=== PATIENT | female | born 1970 | race Two or more races ===

== ENCOUNTER 2020-09-30 17:11 | Emergency (ER) | payer OTHER, SELFPAY ==
--- NOTE | 2020-09-30 17:19 | ECG_ITS ---
Test Reason : N/V Blood Pressure : / mmHG Vent. Rate : 089 BPM Atrial Rate : 089 BPM P-R Int : 130 ms QRS Dur : 080 ms QT Int : 348 ms P-R-T Axes : 020 -02 004 degrees QTc Int : 423 ms Normal sinus rhythm Minimal voltage criteria for LVH, may be normal variant Abnormal ECG When compared with ECG of 27-JUL-2018 21:02, No significant change was found Referred By: Bree Martin Electronically Signed By:BEATRIZ DENISE MD
--- NOTE | 2020-09-30 17:20 | XR_ITS ---
EXAMINATION: XR CHEST CLINICAL INFORMATION: Cough COMPARISON: 06/14/2020 TECHNIQUE: Frontal view of the chest was obtained. FINDINGS: Again seen is eventration of the right anteromedial hemidiaphragm, unchanged. No other significant abnormality is noted involving the heart, lungs, mediastinum, bony thorax or soft tissues. XR/XR chest 1V IMPRESSION: No acute intrathoracic disease.
--- NOTE | 2020-09-30 17:26 | ED.URI ---
HPI - URI/Sore Throat General Chief Complaint: Upper Respiratory Symptoms Stated Complaint: cough, chest tightness Time Seen by Provider: 09/30/20 17:19 Source: patient Mode of arrival: ambulatory Limitations: no limitations History of Present Illness HPI Narrative: 49 y/o female with history of asthma, active smoker, s/p gastric bypass who presents with 1 week of dry cough and chest tightness for the last 24 hours. She also reports middle back soreness and right lower neck pain. She fell down concrete stairs almost a month ago and has had intmittent muscle pain and soreness since. She describes the chest pain as burning and it is over her entire chest wall. Her cough is dry and bothersome at night. She has chronic runny nose and mild sore throat as well. Related Data Previous Rx's Medication Instructions Recorded albuterol sulfate 1 inh INHALATION QID PRN #6.7 g NS 09/30/20 azithromycin [Zithromax Z-Donal] See Rx Instructions .ROUTE 09/30/20 .COMPLEX #6 tab lidocaine [Lidoderm] 1 patch TOPICAL DAILY #15 ea 09/30/20 prednisone 40 mg PO DAILY #10 tab 09/30/20 Allergies Allergy/AdvReac Type Severity Reaction Status Date / Time No Known Allergies Allergy Unverified 08/10/20 17:33 Review of Systems Review of Systems: Constitutional: No Fever, + Chills ENT/Mouth: + sore throat, + Rhinorrhea, No Swallowing Difficulty Eyes: No Eye Pain, No Swelling, No Redness Cardiovascular: + Chest Pain, No SOB, No Orthopnea, No Edema Respiratory: + Cough, + mild Sputum, + intermittent mild Wheezing, No dyspnea Gastrointestinal: No Nausea, No Vomiting, No Diarrhea, No abdominal Pain Genitourinary: No Dysuria, No Urinary Frequency, No Hematuria Musculoskeletal: + joint pain, + Myalgias Skin: No Skin Lesions, No rash Neuro: No Weakness, No Numbness, No Dizziness, No Headache Psych: No Anxiety/Panic, No Depression Heme/Lymph: + Bruising to right knee after fall, No Lymphadenopathy Endocrine: No Polyuria, No Polydipsia PMFSH Past Medical History Attestation statement: The following information was validated with the patient. Medical History (Updated 09/30/20 @ 20:03 by ELDA Daniels) Bronchial asthma delivery delivered Surgical History Gastric bypass status for obesity Hx of breast reduction, elective Hx of hernia repair Social History Social History Advance Directives: No Advance Directives Information Provided: Yes Physical Exam Vital Signs: Vital Signs: Last Vital Signs Temp 98.0 F 09/30/20 17:29 Pulse 97 09/30/20 17:29 Resp 20 09/30/20 17:29 BP 162/92 H 09/30/20 17:29 Pulse Ox 98 09/30/20 17:29 Body Mass Index 34.0 Appearance: Alert. Oriented X3. No acute distress. Eyes: Pupils equal, round and reactive to light. ENT: Pharynx normal. Neck: Normal inspection. Neck supple. posterior right neck with spasm CVS: Normal heart rate and rhythm. Pulses normal. Anterior chest wall tenderness throughout Respiratory: No respiratory distress. mild expiratory wheeze in RLL, no rhonchi. congested cough Abdomen: Soft and nontender. +BS x4 Skin: Skin warm and dry. Normal skin color. Normal skin turgor. No rashes. Extremities: No lower extremity edema. Mild subpatellar right knee tenderness with ecchymosis, full ROM. Neuro: Oriented X 3. No motor deficit. No sensory deficit. Course Course Course Narrative: 49 y/o female presenting with pleuritic chest pain and dry cough x1 week. Low suspicion for ACS or PE. Will get labs and EKG, CXR and COVID swab. Reevaluation(s) Reevaluation #1: Lab workup unremarkable aside from mild elevation of LFTs, normal bili's. No abd pain or tenderness on exam. CXR negative. Significant muscular improvement with lidoderm patch. Patient is stable for discharge home with treatment for acute bronchitis. Will f/u with PCP early next week. MDM - URI/Sore Throat MDM Narrative Medical decision making narrative: ACS, costochondritis Differential Diagnosis Differential diagnosis: Likely upper respiratory infection, croup, sinusitis, viral infection, bronchitis, influenza and pharyngitis Lab Data Result diagrams: 09/30/20 17:55 09/30/20 17:55 Labs: Lab Results 09/30/20 09/30/20 09/30/20 Range/Units 17:54 17:54 17:55 WBC 10.0 (4.8-10.8) X10*3/uL RBC 4.61 (4.20-5.50) X10*6/uL Hgb 14.2 (12.0-16.0) g/dl Hct 42.3 (37-47) % MCV 91.8 (80-98) fL MCH 30.8 (27.0-33.0) pg MCHC 33.6 (31.0-35.0) g/dl RDW 13.3 (11.0-16.0) % Plt Count 274 (160-400) X10*3/uL MPV 9.7 (9.4-12.3) fL Immature Gran % (Auto) 0.4 (0.0-0.4) % Neut % (Auto) 61.0 (45-73) % Lymph % (Auto) 28.3 (20-40) % [place] % (Auto) 8.2 (2-11) % Eos % (Auto) 1.5 (0-4) % Baso % (Auto) 0.6 (0-2) % Lymph # (Auto) 2.8 (1.2-4.9) X10*3/uL [place] # (Auto) 0.8 (0.1-1.2) X10*3/uL Eos # (Auto) 0.2 (0.0-0.4) X10*3/uL Baso # (Auto) 0.1 (0.0-0.2) X10*3/uL Abs Immat Gran (auto) 0.04 H (0.00-0.03) X10*3/uL Absolute Neuts (auto) 6.1 (2.0-8.3) X10*3/uL Absolute Nucleated RBC 0.000 (0.0-0.012) X10*3/uL Nucleated RBC % (auto) 0.0 (0.0-0.2) /100WBC Hold Blue Top SEE NOTE Sodium (135-145) mmol/L Potassium (3.3-5.1) mmol/l Chloride (96-108) mmol/L Carbon Dioxide (22-29) mmol/L Anion Gap (12-20) BUN (9-16) mg/dL Creatinine (0.5-1.4) mg/dL Estim Creat Clear Calc Estimated GFR Random Glucose (60-115) mg/dL Calcium (8.4-10.2) mg/dL Total Bilirubin (0.0-1.0) mg/dL Direct Bilirubin (0.0-0.5) mg/dL AST (5-31) U/L ALT (0-31) U/L Alkaline Phosphatase (39-117) U/L Troponin I High Sens < 3.5 (<3.5-17.0) ng/L Total Protein (6.5-8.0) g/dL Albumin (3.5-5.0) g/dL Urine Color Urine Appearance Urine pH (5.0-8.0) Ur Specific [place] (1.005-1.025) Urine Protein (NEG-TRACE) MG/DL Urine Glucose (UA) (NEG) MG/DL Urine Ketones (NEG) MG/DL Urine Blood (NEG) Urine Nitrite (NEG) Ur Leukocyte Esterase (NEG) Urine RBC (0) /HPF Urine WBC (0-4) /HPF Ur Squamous Epith Cells /LPF Urine Bacteria /LPF 09/30/20 09/30/20 Range/Units 17:55 18:24 WBC (4.8-10.8) X10*3/uL RBC (4.20-5.50) X10*6/uL Hgb (12.0-16.0) g/dl Hct (37-47) % MCV (80-98) fL MCH (27.0-33.0) pg MCHC (31.0-35.0) g/dl RDW (11.0-16.0) % Plt Count (160-400) X10*3/uL MPV (9.4-12.3) fL Immature Gran % (Auto) (0.0-0.4) % Neut % (Auto) (45-73) % Lymph % (Auto) (20-40) % [place] % (Auto) (2-11) % Eos % (Auto) (0-4) % Baso % (Auto) (0-2) % Lymph # (Auto) (1.2-4.9) X10*3/uL [place] # (Auto) (0.1-1.2) X10*3/uL Eos # (Auto) (0.0-0.4) X10*3/uL Baso # (Auto) (0.0-0.2) X10*3/uL Abs Immat Gran (auto) (0.00-0.03) X10*3/uL Absolute Neuts (auto) (2.0-8.3) X10*3/uL Absolute Nucleated RBC (0.0-0.012) X10*3/uL Nucleated RBC % (auto) (0.0-0.2) /100WBC Hold Blue Top Sodium 142 (135-145) mmol/L Potassium 4.6 (3.3-5.1) mmol/l Chloride 105 (96-108) mmol/L Carbon Dioxide 28 (22-29) mmol/L Anion Gap 14 (12-20) BUN 13 (9-16) mg/dL Creatinine 0.69 (0.5-1.4) mg/dL Estim Creat Clear Calc 95.5 Estimated GFR > 60 Random Glucose 85 (60-115) mg/dL Calcium 9.7 (8.4-10.2) mg/dL Total Bilirubin 0.7 (0.0-1.0) mg/dL Direct Bilirubin 0.3 (0.0-0.5) mg/dL AST 41 H (5-31) U/L ALT 35 H (0-31) U/L Alkaline Phosphatase 126 H (39-117) U/L Troponin I High Sens (<3.5-17.0) ng/L Total Protein 7.2 (6.5-8.0) g/dL Albumin 4.3 (3.5-5.0) g/dL Urine Color YELLOW Urine Appearance CLEAR Urine pH 6.0 (5.0-8.0) Ur Specific [place] 1.025 (1.005-1.025) Urine Protein NEG (NEG-TRACE) MG/DL Urine Glucose (UA) NEG (NEG) MG/DL Urine Ketones 5 (NEG) MG/DL Urine Blood TRACE (NEG) Urine Nitrite NEG (NEG) Ur Leukocyte Esterase NEG (NEG) Urine RBC 0 (0) /HPF Urine WBC 0 (0-4) /HPF Ur Squamous Epith Cells NONE /LPF Urine Bacteria NONE /LPF Discharge Plan Discharge Clinical Impression: Bronchitis Patient Disposition: Home, Self-Care Instructions: Acute Bronchitis (ED) Additional Instructions: You were tested for COVID-19 today. We will call you with the results in 2-4 days. Your chest x-ray did not show any evidence of pneumonia. If you develop difficulty breathing, chest pain, worsening shortness of breath call 911 or come back to the ER for further evaluation. Follow up with your Primary Care Doctor next week. Prescriptions: New azithromycin [Zithromax Z-Donal] 250 mg tablet See Rx Instructions .ROUTE .COMPLEX Qty: 6 RF: 0 lidocaine [Lidoderm] 5 % adhesive patch,medicated 1 patch topical DAILY Qty: 15 RF: 0 prednisone 20 mg tablet 40 mg PO DAILY Qty: 10 RF: 0 albuterol sulfate 90 mcg/actuation HFA aerosol inhaler 1 inh inhalation QID PRN (Reason: shortness of breath or wheezing) Qty: 6.7 RF: 0 Stand Alone Forms: Work/School Release
[2020-09-30 17:29] VITALS: BP 162/92; PULSE 97; RESP 20; TEMP 36.7; O2SAT 98; BMI 34.0
[2020-09-30 17:59] LABS: MANUAL DIFF FLAG NO
[2020-09-30 18:01] LABS: Basophils Absolute Auto 0.1 X10*3/uL (0.0-0.2); Basophils Percent Auto 0.6 % (0-2); Eosinophils Absolute Auto 0.2 X10*3/uL (0.0-0.4); Eosinophils Percent Auto 1.5 % (0-4); Hematocrit 42.3 % (37-47); Hemoglobin 14.2 g/dl (12.0-16.0); Imm Gran Abs Auto 0.04 X10*3/uL (0.00-0.03); Imm Gran Pct Auto 0.4 % (0.0-0.4); Lymphocytes Absolute Auto 2.8 X10*3/uL (1.2-4.9); Lymphocytes Percent Auto 28.3 % (20-40); Mean Corpuscular HGB Conc 33.6 g/dl (31.0-35.0); Mean Corpuscular Hemoglobin 30.8 pg (27.0-33.0); Mean Corpuscular Volume 91.8 fL (80-98); Mean Platelet Volume 9.7 fL (9.4-12.3); Monocytes Absolute Auto 0.8 X10*3/uL (0.1-1.2); Monocytes Percent Auto 8.2 % (2-11); Neutrophils Absolute Auto 6.1 X10*3/uL (2.0-8.3); Platelet Count 274 X10*3/uL (160-400); Red Blood Count 4.61 X10*6/uL (4.20-5.50); Red Cell Distribution Width 13.3 % (11.0-16.0)
[2020-09-30] MEDS: 0.9 % Sodium Chloride 1,000 ML 999 ML IVCONT (18:23)
[2020-09-30] MEDS: Lidocaine 4 % Patch ADH..PATCH 1 PATCH TRANSDERMA (18:23)
[2020-09-30 18:36] LABS: Alanine Aminotransferase 35 U/L (0-31); Albumin Level 4.3 g/dL (3.5-5.0); Alkaline Phosphatase 126 U/L (39-117); Anion Gap 14 (12-20); Aspartate Amino Transferase 41 U/L (5-31); Bilirubin Direct 0.3 mg/dL (0.0-0.5); Bilirubin Total 0.7 mg/dL (0.0-1.0); Blood Urea Nitrogen 13 mg/dL (9-16); Calcium 9.7 mg/dL (8.4-10.2); Carbon Dioxide 28 mmol/L (22-29); Chloride 105 mmol/L (96-108); Creatinine Clr Calc Pharmacy 95.5; Estimated Glomerular Filt Rate > 60; Glucose Random 85 mg/dL (60-115); Potassium 4.6 mmol/l (3.3-5.1); Sodium 142 mmol/L (135-145); Total Protein 7.2 g/dL (6.5-8.0)
[2020-09-30 18:40] LABS: Glucose Urine UA NEG (NEG); Leukocyte Esterase Urine NEG (NEG); Nitrite Urine NEG (NEG); Specific Gravity - Urine 1.025 (1.005-1.025); Urine Blood TRACE (NEG); Urine Ketones 5 MG/DL (NEG); Urine Protein NEG (NEG-TRACE)
[2020-09-30 18:41] LABS: Appearance Urine CLEAR; Color Urine YELLOW
[2020-09-30 18:42] LABS: Troponin-I High Sensitivity < 3.5 ng/L (<3.5-17.0)
[2020-09-30 18:47] LABS: RBC Urine 0 /HPF (0); WBC Urine 0 /HPF (0-4)
== END 2020-09-30 20:30 | disposition home or self-care (01) ==
PROVIDERS: Physician Assistant; Emergency Provider Emergency Medicine; PCP Internal Medicine
DX: J40 Bronchitis, not specified as acute or chronic (principal); R05 Cough; Z79.899 Other long term (current) drug therapy; Z20.828 Contact with and (suspected) exposure to other viral communicable diseases
CPT/HCPCS: 36415; 71045; 80048; 80076; 81001; 84484; 85025; 93005; 96360; 99283; 99284; U0003

== ENCOUNTER 2021-02-21 14:14 | Outpatient (REF) | payer OTHER, SELFPAY ==
--- NOTE | ~2021-02-21 | XR_ITS ---
EXAMINATION: XR CERVICAL SPINE CLINICAL INFORMATION: Radiculopathy COMPARISON: 03/27/2016 TECHNIQUE: 3 views of the cervical spine were obtained. FINDINGS: There is no acute fracture or subluxation. Vertebral body height and alignment is maintained. Disc space narrowing of C4-C5, C5-C6, and C6-C7 with endplate osteophyte formation. The atlantoaxial joint is well aligned. The dens is intact. The prevertebral soft tissues are unremarkable. The lung apices are clear. XR/XR cervical spine 2V IMPRESSION: Mild to moderate degenerative changes of the mid cervical spine.
== END 2021-02-21 14:15 | disposition home or self-care (01) ==
LOC: HO.XRAY 14:14
PROVIDERS: PCP Internal Medicine; Visit Provider Internal Medicine
DX: M54.12 Radiculopathy, cervical region (principal)
CPT/HCPCS: 72040

== ENCOUNTER 2021-03-26 12:58 | Outpatient (REF) | payer OTHER, SELFPAY ==
--- NOTE | ~2021-03-26 | XR_ITS ---
EXAMINATION: XR CHEST CLINICAL INFORMATION: Bronchitis COMPARISON: Previous chest x-rays most recent September 2020 and chest CTA January 2017 TECHNIQUE: 2 views of the chest were obtained. FINDINGS: The cardiac and mediastinal contours are normal. The lungs are clear. There is no pleural effusion or pneumothorax. There is eventration of the anterior right hemidiaphragm similar to previous exam. There are mild degenerative changes of the spine. XR/XR chest 2V IMPRESSION: No evidence for acute disease in the chest.
== END 2021-03-26 12:59 | disposition home or self-care (01) ==
LOC: HO.HMGCX 12:58
PROVIDERS: PCP Internal Medicine; Visit Provider Hospitalist
DX: J40 Bronchitis, not specified as acute or chronic (principal)
CPT/HCPCS: 71046

== ENCOUNTER 2021-04-22 08:10 | Emergency (ER) | payer OTHER, SELFPAY ==
--- NOTE | ~2021-04-22 | CT_ITS ---
EXAMINATION: CT ABDOMEN AND PELVIS WITH CONTRAST CLINICAL INFORMATION: Right lower quadrant, right flank pain. Gastric bypass. Rule out kidney stone. Rule out SBO. COMPARISON: CT scan of the abdomen and pelvis dated 08/16/2016. TECHNIQUE: Multidetector CT volumetric acquisition of the abdomen and pelvis was performed after the administration of 85 mL of intravenous Omnipaque 350. The data set was reformatted in the sagittal and coronal planes and reviewed on an independent workstation. This CT examination was performed using dose optimization techniques as appropriate, variously including the following: *Automated exposure control *Adjustment of mA and/or kV according to patient size (this includes techniques or standardized protocols for targeted exams where dose is matched to indication/reason for exam; i.e. extremities or head) *Use of iterative reconstruction technique DLP: 820 mGy-cm. FINDINGS: LOWER CHEST: Focal eventration of the anterior right hemidiaphragm. Lung bases unremarkable. Mild coronary artery calcifications. LIVER, GALLBLADDER, BILIARY TREE: Liver normal size and diffusely lower in attenuation compared to the spleen, consistent with hepatic steatosis. No focal cystic or solid mass or intra-or extrahepatic ductal dilatation. Hepatic and portal veins patent. Gallbladder partially distended and within normal limits. PANCREAS: Mild diffuse fatty infiltration in the pancreatic head and proximal body. No ductal dilatation, mass, or surrounding stranding. SPLEEN: Normal size and appearance. Splenic vein patent. ADRENAL GLANDS AND KIDNEYS: Adrenal glands normal. Kidneys bilaterally symmetric in size and function. Punctate lower pole 2 mm calcification in the right kidney. No other renal calculi. No focal mass, hydronephrosis, or perinephric stranding. Focal small cortical defect in the posterior upper right kidney is stable, perhaps due to prominent lobulation versus small old infarct or scar. URETERS AND BLADDER: Ureters decompressed and within normal limits. Bladder partially distended and within normal limits. PELVIC ORGANS: Unremarkable. GASTROINTESTINAL TRACT: The patient is status post gastric bypass surgery with the gastric pouch located above the level of the diaphragms, consistent with a small hiatal hernia. Rectocolic anastomosis is intact and unremarkable. The excluded stomach is decompressed with no evidence of suture dehiscence seen.. Small and large bowel loops otherwise unremarkable in decompressed. Appendix in right lower quadrant normal. ABDOMINAL WALL: Diastases of the rectus abdominis muscles is again noted with multiple midline small fat-containing ventral wall hernias, largest of which is at the umbilical level, similar to prior exam. LYMPHOVASCULAR STRUCTURES: Abdominal aorta normal in caliber with mild atherosclerotic calcification seen. No periaortic collections. 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 There is a mildly enlarged 1.8 cm right para-aortic lymph node, unchanged from prior exam. BONES: Severe degenerative disc disease at L4-5 and L5-S1 with marked disc space narrowing, vacuum disc phenomenon, vertebral endplate sclerosis and spurring and associated moderate facet arthropathy seen. There is also severe disc space narrowing at L3-4 and mild disc space narrowing and vertebral spurring in the remaining lumbar spine. Moderate vertebral spondylosis in lower thoracic spine. CT/CT abdomen pelvis w con IMPRESSION: 1. Nonobstructing 2 mm lower pole right renal calculus. No other renal, ureteral or bladder calculi. No evidence of obstructive uropathy. 2. Status post gastric bypass surgery with no secondary complications seen. 3. No evidence of bowel obstruction. 4. 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 5. Mild fatty infiltration of the pancreatic head.
[2021-04-22 08:35] VITALS: BP 117/81; PULSE 107; RESP 18; TEMP 36.5; O2SAT 98; BMI 34.1
[2021-04-22 08:47] LABS: Glucose Urine UA NEG (NEG); Leukocyte Esterase Urine NEG (NEG); Nitrite Urine NEG (NEG); Urine Blood 1+ (NEG); Urine Ketones NEG (NEG); Urine Protein NEG (NEG-TRACE)
[2021-04-22 08:49] LABS: Appearance Urine CLEAR; Color Urine YELLOW
[2021-04-22 08:56] LABS: Basophils Absolute Auto 0.1 X10*3/uL (0.0-0.2); Basophils Percent Auto 0.7 % (0-2); Eosinophils Absolute Auto 0.2 X10*3/uL (0.0-0.4); Eosinophils Percent Auto 2.3 % (0-4); Hematocrit 46.8 % (37-47); Hemoglobin 15.5 g/dl (12.0-16.0); Imm Gran Abs Auto 0.02 X10*3/uL (0.00-0.03); Imm Gran Pct Auto 0.3 % (0.0-0.4); Lymphocytes Percent Auto 28.3 % (20-40); MANUAL DIFF FLAG NO; Mean Corpuscular HGB Conc 33.1 g/dl (31.0-35.0); Mean Corpuscular Hemoglobin 30.3 pg (27.0-33.0); Mean Corpuscular Volume 91.6 fL (80-98); Mean Platelet Volume 10.1 fL (9.4-12.3); Monocytes Absolute Auto 0.6 X10*3/uL (0.1-1.2); Monocytes Percent Auto 8.2 % (2-11); Neutrophils Absolute Auto 4.3 X10*3/uL (2.0-8.3); Neutrophils Percent Auto 60.2 % (45-73); Platelet Count 271 X10*3/uL (160-400); Red Blood Count 5.11 X10*6/uL (4.20-5.50); Red Cell Distribution Width 13.4 % (11.0-16.0); White Blood Count 7.1 X10*3/uL (4.8-10.8)
[2021-04-22 09:02] LABS: Bacteria Urine 1+ /LPF; Squamous Epithelial Cell Urine 2+ /LPF; WBC Urine 0 /HPF (0-4)
[2021-04-22 09:37] LABS: Anion Gap 16 (12-20); Blood Urea Nitrogen 14 mg/dL (9-16); Calcium 9.7 mg/dL (8.4-10.2); Carbon Dioxide 25 mmol/L (22-29); Chloride 105 mmol/L (96-108); Creatinine Clr Calc Pharmacy 96.1; Estimated Glomerular Filt Rate > 60; Glucose Random 96 mg/dL (60-115); Potassium 4.2 mmol/L (3.3-5.1); Sodium 142 mmol/L (135-145)
[2021-04-22] MEDS: 0.9 % Sodium Chloride 1,000 ML 999 ML IV (09:44)
[2021-04-22] MEDS: Ketorolac Tromethamine 30 MG/ML VIAL IVPUSH (09:44)
[2021-04-22 09:45] VITALS: BP 101/73; PULSE 85
[2021-04-22] MEDS: iohexoL 350 MG/ML 100 ML INFUS..BTL IV (10:33)
[2021-04-22 11:20] LABS: Alanine Aminotransferase 62 U/L (0-31); Albumin Level 4.4 g/dL (3.5-5.0); Alkaline Phosphatase 133 U/L (39-117); Aspartate Amino Transferase 56 U/L (5-31); Bilirubin Direct 0.3 mg/dL (0.0-0.5); Bilirubin Total 0.8 mg/dL (0.0-1.0); Lipase 29 U/L (8-78); Total Protein 7.2 g/dL (6.5-8.0)
--- NOTE | 2021-04-22 11:31 | ED.ABDPAIN ---
HPI - Abdominal Pain General Chief Complaint: Abdominal Pain Stated Complaint: r lower abd pain into back Time Seen by Provider: 04/22/21 09:23 Source: patient Mode of arrival: ambulatory Limitations: no limitations History of Present Illness HPI narrative: 50-year-old female who presents emergency department for evaluation of right lower quadrant abdominal pain and back pain x2 days. Patient states she had a similar pain 1 week prior that resolved and then returned 2 days prior. She states that the pain is a constant pain that waxes and wanes in intensity with a dull and sharp component. She states that the dull component is 7/10 on a sharp component is 10/10 at its worst. She denied fever, chills, nausea, vomiting, frequency, urgency or dysuria. Patient states she has been taking Advil with some relief for pain. She does have a history of kidney stones and she has thinks that the pain feels similar to previous kidney stones. The patient also has a history of gastric bypass surgery, C-sections, cholecystectomy and hernia repair in the past. She states that she has had a small bowel obstruction in the past as well secondary to adhesions. Related Data Previous Rx's Medication Instructions Recorded albuterol sulfate 90 mcg/actuation 1 inh INHALATION QID PRN 30 Days 02/21/21 aerosol inhaler #6.7 g NS ibuprofen 800 mg tablet 800 mg PO Q8H PRN 30 Days #90 tab 02/21/21 amoxicillin 875 mg-potassium 1 tab PO BID #20 tab 03/26/21 clavulanate 125 mg tablet prednisone 10 mg tablet 10 mg PO .COMPLEX #45 tab 03/26/21 Allergies Allergy/AdvReac Type Severity Reaction Status Date / Time No Known Allergies Allergy Verified 03/26/21 12:50 Review of Systems Review of Systems Yes all other systems are reviewed and are negative Physical Exam Vital Signs: Vital Signs: Last Vital Signs Temp 97.7 F 04/22/21 08:35 Pulse 85 04/22/21 09:45 Resp 18 04/22/21 08:35 BP 101/73 04/22/21 09:45 Pulse Ox 98 04/22/21 08:35 Body Mass Index 34.1 Const: General: cooperative and healthy appearing Orientation/consciousness: oriented to person and oriented to place Limitations: no limitations HENMT: Head: Yes normal to inspection, Yes normocephalic and Yes atraumatic Ears: external ears normal General nose exam: Normal external nose present Face and sinus: Yes normal facial exam Mouth: Normal oral and palatal mucosa present Throat: Yes posterior oropharynx normal Eyes: Periorbital: periorbital findings normal Eyelids: Yes eyelids normal Conjunctivae: conjunctivae normal Sclerae: sclerae normal Corneas: corneas normal Pupils: Equal, round and reactive pupils present Direct Ophthalmoscopy: normal light reflex Neck: Neck: Yes full ROM, Yes no lymphadenopathy, Yes no meningeal signs, Yes trachea midline and Yes supple Chest: Chest palpation & inspection: normal inspection of the chest and normal palpation of entire chest wall Resp: Effort & Inspection: normal respiratory effort and able to speak in complete sentences Auscultation: clear to auscultation bilaterally Cardio: Rate: regular rate Rhythm: regular rhythm Heart sounds: S1 normal heart sound present, S2 normal heart sound present and no murmurs GI: Inspection: Yes normal to inspection Palpation (GI): Soft to palpation, Tenderness to palpation present (GI) in the RLQ (Moderate), no guarding, not rigid and No hepatosplenomegaly present : General: Yes CVA tenderness on the right (Moderate) Back/Spine/Pelvis: Back: CVA tenderness Cervical Spine: normal cervical lordosis Thoracic/Lumbar Spine: thoracic and lumbar spine normal to inspection Skin: Lesions: no lesions Rashes: no rashes Wounds: no wounds Neuro: General: oriented to person, oriented to place and no meningeal signs Cranial nerves: Yes CN's II-XII intact bilaterally and Yes Equal, round and reactive pupils present Cognition (Neuro): normal cognition Motor exam (neuro): 5/5 motor strength present throughout Extrem: General: Yes normal to inspection and Yes full ROM Psych: Appearance: well kempt Mental Status: mental status grossly normal Speech and movement: Normal speech and movement present Affect: normal affect Attitude: cooperative Thought process: Normal thought process present Thought content: Normal thought content present Course Course Course Narrative: 50-year-old female who presents emergency department for evaluation of right lower quadrant abdominal pain and right back pain. Patient has history of gastric bypass surgery as well as cholecystectomy C sections and small bowel obstruction in the past. Vital signs are stable. Physical examination revealed right lower quadrant right flank tenderness. Laboratory evaluation revealed elevated AST, ALT and alk-phos of 56, 62 and 133. Urinalysis revealed 1+ blood. Microscopic revealed 5-9 RBCs and [address] scan of the abdomen pelvis with IV contrast did not reveal a clear cause for the patient's pain. There were incidental findings which I did discuss with the patient including fatty liver, 2 mm right kidney stone nonobstructing and a ventral hernia with fat in the hernia. The patient will be treated for possible constipation as the cause of her pain. She is advised to take Tylenol and ibuprofen for pain as well. She was given verbal and printed instructions advised to follow-up with her PCP and return if her symptoms get worse or if she develops new symptoms that are concerning to her. MDM - Abdominal Pain Lab Data Result diagrams: 04/22/21 08:52 04/22/21 08:52 Labs: Lab Results 04/22/21 04/22/21 04/22/21 Range/Units 08:40 08:52 08:52 WBC 7.1 (4.8-10.8) X10*3/uL RBC 5.11 (4.20-5.50) X10*6/uL Hgb 15.5 (12.0-16.0) g/dl Hct 46.8 (37-47) % MCV 91.6 (80-98) fL MCH 30.3 (27.0-33.0) pg MCHC 33.1 (31.0-35.0) g/dl RDW 13.4 (11.0-16.0) % Plt Count 271 (160-400) X10*3/uL MPV 10.1 (9.4-12.3) fL Immature Gran % (Auto) 0.3 (0.0-0.4) % Neut % (Auto) 60.2 (45-73) % Lymph % (Auto) 28.3 (20-40) % [place] % (Auto) 8.2 (2-11) % Eos % (Auto) 2.3 (0-4) % Baso % (Auto) 0.7 (0-2) % Lymph # (Auto) 2.0 (1.2-4.9) X10*3/uL [place] # (Auto) 0.6 (0.1-1.2) X10*3/uL Eos # (Auto) 0.2 (0.0-0.4) X10*3/uL Baso # (Auto) 0.1 (0.0-0.2) X10*3/uL Abs Immat Gran (auto) 0.02 (0.00-0.03) X10*3/uL Absolute Neuts (auto) 4.3 (2.0-8.3) X10*3/uL Absolute Nucleated RBC 0.000 (0.0-0.012) X10*3/uL Nucleated RBC % (auto) 0.0 (0.0-0.2) /100WBC Sodium 142 (135-145) mmol/L Potassium 4.2 (3.3-5.1) mmol/L Chloride 105 (96-108) mmol/L Carbon Dioxide 25 (22-29) mmol/L Anion Gap 16 (12-20) BUN 14 (9-16) mg/dL Creatinine 0.68 (0.5-1.4) mg/dL Estim Creat Clear Calc 96.1 Estimated GFR > 60 Random Glucose 96 (60-115) mg/dL Calcium 9.7 (8.4-10.2) mg/dL Total Bilirubin 0.8 (0.0-1.0) mg/dL Direct Bilirubin 0.3 (0.0-0.5) mg/dL AST 56 H (5-31) U/L ALT 62 H (0-31) U/L Alkaline Phosphatase 133 H (39-117) U/L Total Protein 7.2 (6.5-8.0) g/dL Albumin 4.4 (3.5-5.0) g/dL Lipase 29 (8-78) U/L Urine Color YELLOW Urine Appearance CLEAR Urine pH 6.0 (5.0-8.0) Ur Specific [place] 1.020 (1.005-1.025) Urine Protein NEG (NEG-TRACE) MG/DL Urine Glucose (UA) NEG (NEG) MG/DL Urine Ketones NEG (NEG) MG/DL Urine Blood 1+ H (NEG) Urine Nitrite NEG (NEG) Ur Leukocyte Esterase NEG (NEG) Urine RBC 5-9 H (0) /HPF Urine WBC 0 (0-4) /HPF Ur Squamous Epith Cells 2+ /LPF Urine Bacteria 1+ /LPF Discharge Plan Discharge Clinical Impression: Abdominal pain Qualifiers: Abdominal location: right lower quadrant Qualified Code(s): R10.31 - Right lower quadrant pain Constipation Qualifiers: Constipation type: unspecified constipation type Qualified Code(s): K59.00 - Constipation, unspecified Patient Disposition: Home, Self-Care Instructions: Abdominal Pain (ED) Additional Instructions: Your blood work was unremarkable except for some elevations in your liver function tests, he had similar elevations in the past. The CT scan of your abdomen pelvis with IV contrast did not reveal a clear cause for your pain. You do have a 2 mm kidney stone in your right kidney but this is not the cause of your pain. You also have a hernia around your umbilical area with fat in the hernia only and no bowel, this is not the cause of your pain. Take Metamucil 1 tsp in 8 oz of water daily Take Colace stool softener 1 pill twice a day daily. Take Senokot laxative as directed on the box. Take this for 4 days to see if this improves her constipation and pain. Take ibuprofen 200 mg pills, 3 pills every 6 hours as needed for pain. Take Tylenol (acetaminophen) 500 mg pills, 2 pills every 4 to 6 hours as needed for pain. Follow-up with your doctor in 2 days. Please return to the emergency department if your symptoms get worse or if you develop any symptoms that are concerning to you. Prescriptions: No Action ibuprofen 800 mg tablet 800 mg PO Q8H PRN (Reason: pain) 30 Days Qty: 90 RF: 1 albuterol sulfate 90 mcg/actuation HFA aerosol inhaler 1 inh inhalation QID PRN (Reason: shortness of breath or wheezing) 30 Days Qty: 6.7 RF: 3 prednisone 10 mg tablet 10 mg PO .COMPLEX Qty: 45 RF: 0 amoxicillin-pot clavulanate [Augmentin] 875-125 mg tablet 1 tab PO BID Qty: 20 RF: 0 Interventions: ED Discharge Assessment Last Done: 04/22/21 11:43 Discharge Date/Time: 04/22/21 11:44 [facility] Past Medical History [facility] Narrative: Past medical history: Please see the HPI. Social history: The patient does smoke 1 pack of cigarettes per day times many years. She states she drinks alcohol occasionally. She denies drug use. Medical History Bronchial asthma Cervical radiculopathy Neck pain Occipital headache Surgical History delivery delivered Gastric bypass status for obesity Hx of breast reduction, elective Hx of hernia repair Family History Family History Mother Hypertension Alzheimer disease Father Alzheimer disease Social History Social History Alcohol intake: current Alcohol intake frequency: holidays/special occasions only Cigarettes Per Day: 4 Advance Directives: Yes Advance Directives Information Provided: No Advance Directives on File: No Patient : No
== END 2021-04-22 11:44 | disposition home or self-care (01) ==
PROVIDERS: Emergency Provider Emergency Medicine Emergency Medical Services; PCP Internal Medicine
DX: R10.31 Right lower quadrant pain (principal); K59.00 Constipation, unspecified; R79.89 Other specified abnormal findings of blood chemistry; R93.5 Abnormal findings on diagnostic imaging of other abdominal regions, including retroperitoneum; N20.0 Calculus of kidney; K76.0 Fatty (change of) liver, not elsewhere classified; K43.9 Ventral hernia without obstruction or gangrene; Z98.84 Bariatric surgery status; Z90.49 Acquired absence of other specified parts of digestive tract
CPT/HCPCS: 36415; 74177; 80048; 80076; 81001; 83690; 85025; 96361; 96374; 99284; J1885; Q9967

== ENCOUNTER 2021-10-14 11:05 | Observation (INO) | payer OTHER, SELFPAY ==
--- NOTE | ~2021-10-14 | XR_ITS ---
EXAMINATION: XR CHEST CLINICAL INFORMATION: Back pain. COMPARISON: Several priors. Most recent of 03/26/21. TECHNIQUE: 2 views of the chest were obtained. FINDINGS: 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 The lungs are well expanded and clear. The pleural spaces are clear. Heart size is normal. No bony abnormality is evident. XR/XR chest 2V IMPRESSION: No acute abnormality.
--- NOTE | ~2021-10-14 | MR_ITS ---
EXAMINATION: MR CERVICAL SPINE WITHOUT AND WITH CONTRAST CLINICAL INFORMATION: Paresthesias and numbness to right side of the body. COMPARISON: Plain films of the cervical spine 02/21/2021. CT scan of the cervical spine 02/14 2015. TECHNIQUE: MRI of the cervical spine was obtained using routine sequences with and without contrast. Intravenous contrast: Gadavist 8.5 mL. FINDINGS: VERTEBRAL BODIES AND PARASPINAL SOFT TISSUES: There is mild reversal of the cervical lordosis. There is a mild degenerative anterolisthesis of C3 on C4. There is marked narrowing of intervertebral disc height at C5-C6 and C6-C7 and there are degenerative endplate contour changes at these levels. Edematous signal changes are seen posteriorly at C6-C7 which demonstrate mild enhancement. Milder changes are seen at C5-C6. No acute fractures are demonstrated and vertebral body heights are maintained. Overall, marrow signal is homogenous. There is enhancement in the paravertebral soft tissues on the right in the lower cervical spine at C7/T1. CERVICOMEDULLARY JUNCTION AND VISUALIZED POSTERIOR FOSSA: The craniocervical and posterior fossa structures are normal. Accounting for artifact, spinal cord signal appears normal. There is no abnormal enhancement of the cervical spinal cord. There is a small enhancing epidural fluid collection along the right aspect of the thecal sac at the level of C1 and C2 (images 1 and 2/30, sequences 7 and images 2 and 3/30, sequence 8). It measures approximately 1.3 x 0.3 cm. There is no mass effect on the thecal sac. SPINAL LEVELS: C2-C3: Posterior disc contour is normal. There is no spinal cord compression or central stenosis. The neural foramina are patent bilaterally. C3-C4: There is severe right and moderate left facet arthropathy. There is a posterior disc protrusion with mild effacement of CSF ventral to the spinal cord but there is no spinal cord compression or central stenosis. There are uncovertebral osteophytes. There is moderate right foraminal narrowing. C4-C5: There is mild right facet arthropathy. There is a broad-based posterior disc protrusion which effaces CSF ventral to the spinal cord with minimal flattening of the cord. There is mild central stenosis. There are uncovertebral osteophytes and there is mild bilateral foraminal narrowing. C5-C6: The facet joints appear normal. There is a posterior disc protrusion which effaces CSF ventral to the spinal cord without spinal cord compression. There is mild central stenosis. There are uncovertebral osteophytes and there is severe right and moderate left foraminal narrowing. C6-C7: The facet joints appear normal. There is a broad-based posterior disc protrusion with effacement of CSF ventral to the spinal cord without spinal cord compression. There is mild central stenosis. There are uncovertebral osteophytes and there is moderate bilateral foraminal narrowing. C7-T1: The facet joints appear normal bilaterally. Posterior disc contour is normal. There is no spinal cord compression or central stenosis. The neural foramina are patent bilaterally. MR/MR cervical spine wo/w con IMPRESSION: 1. There appears to be an enhancing epidural fluid collection along the thecal sac in the right at C1-C2 without mass effect. 2. There is enhancement in the paravertebral soft tissues on the right in the lower cervical spine at C7-T1. 3. There is spondylosis and facet arthropathy with multilevel foraminal narrowing and central stenosis as described above. This is most severe at C5-C6 and C6-C7. 4. There is no spinal cord compression or abnormal enhancement of the spinal cord. 5. This critical result was discussed with Al Covarrubias by telephone on 10/14/2021 at 5:30 PM and it was ascertained that the content and urgency of the report was understood at the time of direct communication.
[2021-10-14 11:20] VITALS: BP 153/98; PULSE 106; RESP 18; TEMP 36.9; O2SAT 96; BMI 35.2
[2021-10-14 12:16] LABS: Influenza A PCR NEGATIVE (Negative); Influenza B PCR NEGATIVE (Negative); Resp Syncy Virus RNA Qual PCR NEGATIVE (Negative); SARS COV2 PCR INHOUSE NEGATIVE (Negative)
[2021-10-14 14:44] VITALS: BP 165/99; PULSE 84; RESP 14; TEMP 37.1; O2SAT 96
--- NOTE | 2021-10-14 15:02 | ED_ITS ---
HPI - General Adult General Chief complaint: General Medical <ELDA Hernandez - Last Filed: 10/14/21 21:09> Stated complaint: Multiple complaints <ELDA Hernandez - Last Filed: 10/14/21 21:09> Time Seen by Provider: 10/14/21 14:33 <ELDA Hernandez - Last Filed: 10/14/21 21:09> Source: patient <ELDA Hernandez Last Filed: 10/14/21 21:09> Mode of arrival: ambulatory <ELDA Hernandez Last Filed: 10/14/21 21:09> Limitations: no limitations <ELDA Hernandez Last Filed: 10/14/21 21:09> History of Present Illness HPI narrative: 50-year-old female past medical history significant for obesity, transaminitis, and chronic neck pain presents to the emergency department with severe neck pain, and numbness and tingling to the right side of the body worse to the extremities. Patient tells me that she had a nerve block done at [facility] on (3 days ago), she states after the nerve block she felt fine. Yesterday she started developing severe paresthesias, numbness the right side of her body from the neck down. She states that she still has sensation, however it is very diminished on the right- hand side. When I ask her if she feels weak she says not necessarily she does feels like something is off. She also notes that at site of injection she has a small little bump, She denies fevers, chills, nausea, vomiting, chest pain, shortness of breath, abdominal pain, weakness, malaise, recent illness, IV drug use, urinary incontinence, bowel incontinence and urinary changes. <ELDA Hernandez Last Filed: 10/14/21 21:09> Onset (ago): day(s) (1) <ELDA Hernandez - Last Filed: 10/14/21 21:09> Location: chest, back, abdomen, pelvis, right, upper extremity and lower extremity <ELDA Hernandez - Last Filed: 10/14/21 21:09> Radiation: non-radiation <ELDA Hernandez - Last Filed: 10/14/21 21:09> Severity: severe <ELDA Hernandez - Last Filed: 10/14/21 21:09> Quality: constant <ELDA Hernandez Last Filed: 10/14/21 21:09> Relieving factors: none <ELDA Hernandez - Last Filed: 10/14/21 21:09> Exacerbating factors: none <ELDA Hernandez - Last Filed: 10/14/21 21:09> Associated symptoms: denies other symptoms <ELDA Hernandez - Last Filed: 10/14/21 21:09> Treatments prior to arrival: none <ELDA Hernandez Last Filed: 10/14/21 21:09> Related Data Home medications: Previous Rx's Medication Instructions Recorded ibuprofen 800 mg tablet 800 mg PO Q8H PRN 30 Days #90 tab 02/21/21 albuterol sulfate 90 mcg/actuation 1 inh INHALATION QID PRN 30 Days 10/02/21 aerosol inhaler #6.7 g NS cyclobenzaprine 10 mg tablet 10 mg PO TID PRN 30 Days #90 tab 10/02/21 <ELDA Hernandez - Last Filed: 10/14/21 21:09> Allergies/adverse reactions: Allergies Allergy/AdvReac Type Severity Reaction Status Date / Time No Known Allergies Allergy Verified 10/14/21 11:20 <ELDA Hernandez - Last Filed: 10/14/21 21:09> Review of Systems Review of Systems: Constitutional : No Weight loss, No Fever, No Chills, No Fatigue, No Malaise ENT/Mouth : No sore throat, No Rhinorrhea Eyes: No Eye Pain, No Swelling, No Redness Cardiovascular : No Chest Pain, No SOB, No Dyspnea on Exertion, No Orthopnea, No Edema, No Palpitations Respiratory : No Cough, No Sputum, No Wheezing Gastrointestinal : No Nausea, No Vomiting, No Diarrhea, No Constipation, No abdominal Pain, No Hematochezia, No Melena Genitourinary : No Dysuria, No Urinary Frequency, No Hematuria, Musculoskeletal : No joint pain, No Myalgias, No Joint Swelling Skin : No Skin Lesions, No rash Neuro : No Weakness, + Numbness, No Dizziness, No Headache, +tingling All other systems reviewed and are negative <ELDA Hernandez - Last Filed: 10/14/21 21:09> [facility] Past Medical History Attestation statement: The following information was validated with the patient. <ELDA Hernandez - Last Filed: 10/14/21 21:09> Source: old records reviewed and nursing notes reviewed <ELDA Hernandez - Last Filed: 10/14/21 21:09> Medical History: Medical History Bronchial asthma Bunion, left Cervical radiculopathy Class 1 obesity due to excess calories with body mass index (BMI) of 34.0 to 34.9 in adult Hammertoe of left foot Neck pain Obesity (BMI 35.0-39.9 without comorbidity) Occipital headache Renal calculi Transaminitis <ELDA Hernandez - Last Filed: 10/14/21 21:09> Surgical History: Surgical History delivery delivered Gastric bypass status for obesity Hx of breast reduction, elective Hx of hernia repair <ELDA Hernandez - Last Filed: 10/14/21 21:09> Family History Family History: Family History Mother Hypertension Alzheimer disease Father Alzheimer disease <ELDA Hernandez - Last Filed: 10/14/21 21:09> Social History Social History: Social History Housing: House Alcohol intake: unknown Patient Tobacco Use Status: Current everyday Tobacco user Tobacco use type: Cigarette Cigarettes Per Day: 4 Years Smoked: 15 e-Cigarette/Vaping Use: Never Used Second Hand Smoke Exposure: Yes service: No Current occupational status: employed Current occupational exposures/hazards: No <ELDA Hernandez - Last Filed: 10/14/21 21:09> Physical Exam Vital Signs: Vital Signs: Last Vital Signs Temp 96.2 F L 10/15/21 15:00 Pulse 83 10/15/21 15:00 Resp 18 10/15/21 15:00 BP 150/98 H 10/15/21 15:00 Pulse Ox 92 10/15/21 15:00 Body Mass Index 35.2 Vitals significant for tachycardia and HTN likely secondary to pain <ELDA Hernandez - Last Filed: 10/14/21 21:09> Vital Signs: Last Vital Signs Temp 96.2 F L 10/15/21 15:00 Pulse 83 10/15/21 15:00 Resp 18 10/15/21 15:00 BP 150/98 H 10/15/21 15:00 Pulse Ox 92 10/15/21 15:00 Body Mass Index 35.2 <ELDA Daniels - Last Filed: 10/15/21 22:37> Appearance: Alert.? Oriented X3.? No acute distress.? Head: Normocephalic, atraumatic, no step-offs or deformities Eyes: Pupils equal, round and reactive to light.? ENT: Pharynx normal.? Neck: Normal inspection.? + Full ROM but pain + pain with palpation of c-spine CVS: Normal heart rate and rhythm.? Pulses normal.? Respiratory: No respiratory distress.? Breath sounds normal.? Abdomen: Soft and nontender.? Skin: Skin warm and dry.? Normal skin color.? Normal skin turgor.? Extremities: No lower extremity edema.? No calf ttp. 5/5 strength to bilateral upper and lower extremities Back: No midline tenderness, no C-spine tenderness, full range of motion, no CVA tenderness bilaterally Neuro: Oriented X 3.? No motor deficit.? + sensory deficit to right side of body RUE,RLQ, torso (form the neck down) + paresthesias to right side of body from neck down. Hand payroll director normal. 2+ reflexes to b/l lower extremities. Two point extinction/ discriminaiton intact (w/ decreased sensation on right) <ELDA Hernandez - Last Filed: 10/14/21 21:09> Course Course Course Narrative: patient seen and examined - agree with assessment and plan. [facility] did not accept. [place] [facility] [place] <ELDA Daniels - Last Filed: 10/15/21 22:37> Reevaluation(s) Reevaluation #1: Slight leukocytosis noted, no acute electrolyte abnormalities. Transaminases slightly elevated, However, they appears to have been elevated in the past. CXR negative. Flu/COVID/R-S-V- -[id number]-.- <ELDA Hernandez - Last Filed: 10/14/21 21:09> Time: 15:20 <ELDA Hernandez - Last Filed: 10/14/21 21:09> Reevaluation #2: Spoke to Dr. Dominguez, radiology he tells me that there appears to be enhancing epidural fluid in the right of C1 and C2, could represent an evolving epidural abscess. He also notes paravertebral soft tissue swelling on the right in the lower cervical spine around C7. Degenerative changes are also noted without compression. There is no spinal cord compression or abnormal enhancement of the spinal cord. At this time I will reach out to [facility] neuro surgery to discuss these findings, and determine a treatment plan for this pat ient. I will also add vancomycin. <ELDA Hernandez - Last Filed: 10/14/21 21:09> Time: 17:25 <ELDA Hernandez - Last Filed: 10/14/21 21:09> Reevaluation #3: I Spoke to [facility] Neurosurgery (Kwabena Coombs (ALESSIO), he state that labs, and physical exam findings are not consistent with an acute epidural abscess. They will reach out to the attending, they will call me back. [facility] called me back (ELDA Coombs) who states that this is not a neurosurgical emergency therefore Neurosurgery is not taking this patient. They are unable to visualize abnormalities with the MRI. They advised me to reach out to our hospital's neurologist. At this time I have made a call to speak to the on-call neurologist for the hospital. Spoke to [facility] Neurology (), and our neurologist. Our neurologist states that they will take this patient, and they will see her tomorrow morning. [facility] neurology thinks that this may be myofascial syndrome, and state that they are not accepting stable patients at this time Spoke to Dr. Roque Quarles . <ELDA Hernandez - Last Filed: 10/14/21 21:09> Time: 18:28 <ELDA Hernandez - Last Filed: 10/14/21 21:09> Additional Reevaluation(s): Dr. Bustamante will admit this patient Neuro will follow this patient t omorrow. <ELDA Hernandez - Last Filed: 10/14/21 21:09> Medical Decision Making MDM Narrative Medical decision making narrative: [id number] This is a 50-year-old female past medical history significant for transaminitis, obesity and chronic neck pain presenting to the emergency department with 1 day of severe neck pain that is midline worse with movement better at rest, and right-sided numbness and paresthesias. Patient tells me that she had a cervical nerve block done at [facility] on . She tells me she was fine after the nerve block, however yesterday she began experiencing the symptoms. Upon physical examination patient appears comfortable and nontoxic. Vital signs significant for tachycardia, and hypertension likely secondary to pain. Lungs are clear. S1-S2 appreciated free of murmurs. Abdomen soft nontender nondistended.? There are sensory deficit to right side of body RUE,RLQ, torso (form the neck down) There are also paresthesias to right side of body from neck down. Hand payroll director normal. 2+ reflexes to b/l lower extremities. Two point extinction/ discrimination intact (w/ decreased sensation on right). Plan at this time is to obtain basic lab work, CRP, ESR, lactic acid, blood cultures, COVID, magnesium, and an MRI of the cervical spine with and without contrast. based off patient's history, and her recent minor procedure, it is imperative that I rule out paraspinous abscess as part of my differential, other differentials include hematoma causing sensory deficits, a nerve impingement. At [address] Strange ( Radiologist) who tells me that this is likely a hematoma, that may be causing the symptoms however based off patient's history and physical exam findings an MRI should be ordered to rule out paraspinous abscess due to her recent minimally invasive procedure, putting her at risk of developing an abscess. For this reason an MRI was ordered, and a CT would not be of benefit at this time. <ELDA Hernandez - Last Filed: 09/25 12/14 21:09> Lab Data Result diagrams: : 10/15/21 06:15 10/15/21 06:15 <ELDA Hernandez - Last Filed: 10/14/21 21:09> Labs: Lab Results 10/14/21 10/14/21 10/14/21 Range/Units 11:26 15:16 15:16 WBC 10.9 H (4.8-10.8) X10*3/uL RBC 4.88 (4.20-5.50) X10*6/uL Hgb 14.6 (12.0-16.0) g/dl Hct 44.0 (37.0-47.0) % MCV 90.2 (80.0-98.0) fL MCH 29.9 (27.0-33.0) pg MCHC 33.2 (31.0-35.0) g/dl RDW 14.1 (11.0-16.0) % Plt Count 292 (160-400) X10*3/uL MPV 10.0 (9.4-12.3) fL Immature Gran % (Auto) 0.3 (0.0-0.4) % Neut % (Auto) 70.3 (45-73) % Lymph % (Auto) 21.9 (20-40) % Erie % (Auto) 6.5 (2-11) % Eos % (Auto) 0.4 (0-4) % Baso % (Auto) 0.6 (0-2) % Lymph # (Auto) 2.4 (1.2-4.9) X10*3/uL Erie # (Auto) 0.7 (0.1-1.2) X10*3/uL Eos # (Auto) 0.0 (0.0-0.4) X10*3/uL Baso # (Auto) 0.1 (0.0-0.2) X10*3/uL Abs Immat Gran (auto) 0.03 (0.00-0.03) X10*3/uL Absolute Neuts (auto) 7.6 (2.0-8.3) x10*3/uL Absolute Nucleated RBC 0.000 (0.0-0.012) X10*3/uL Nucleated RBC % (auto) 0.0 (0.0-0.2) /100WBC ESR (0-20) MM/HR Sodium 140 (135-145) mmol/L Potassium 4.4 (3.3-5.1) mmol/L Chloride 104 (96-108) mmol/L Carbon Dioxide 25 (22-29) mmol/L Anion Gap 15 (12-20) BUN 14 (9-16) mg/dL Creatinine 0.63 (0.5-1.4) mg/dL Estim Creat Clear Calc 101.1 Estimated GFR > 60 Random Glucose 95 (60-115) mg/dL Lactic Acid (0.5-2.0) mmol/L Calcium 9.8 (8.4-10.2) mg/dL Magnesium 2.1 (1.6-2.6) mg/dL Total Bilirubin 1.0 (0.0-1.0) mg/dL AST 49 H (5-31) U/L ALT 50 H (0-31) U/L Alkaline Phosphatase 113 (39-117) U/L Total Creatine Kinase 87 (26-140) U/L C-Reactive Protein 0.05 (< or = 0.50) mg/dL Total Protein 7.7 (6.5-8.0) g/dL Albumin 4.5 (3.5-5.0) g/dL Influenza Type A (PCR) NEGATIVE (Negative) Influenza Type B (PCR) NEGATIVE (Negative) RSV RNA Qual (PCR) NEGATIVE (Negative) SARS-CoV-2 RNA (RT-PCR) NEGATIVE (Negative) 10/14/21 10/14/21 Range/Units 15:16 15:16 WBC (4.8-10.8) X10*3/uL RBC (4.20-5.50) X10*6/uL Hgb (12.0-16.0) g/dl Hct (37.0-47.0) % MCV (80.0-98.0) fL MCH (27.0-33.0) pg MCHC (31.0-35.0) g/dl RDW (11.0-16.0) % Plt Count (160-400) X10*3/uL MPV (9.4-12.3) fL Immature Gran % (Auto) (0.0-0.4) % Neut % (Auto) (45-73) % Lymph % (Auto) (20-40) % Erie % (Auto) (2-11) % Eos % (Auto) (0-4) % Baso % (Auto) (0-2) % Lymph # (Auto) (1.2-4.9) X10*3/uL Erie # (Auto) (0.1-1.2) X10*3/uL Eos # (Auto) (0.0-0.4) X10*3/uL Baso # (Auto) (0.0-0.2) X10*3/uL Abs Immat Gran (auto) (0.00-0.03) X10*3/uL Absolute Neuts (auto) (2.0-8.3) x10*3/uL Absolute Nucleated RBC (0.0-0.012) X10*3/uL Nucleated RBC % (auto) (0.0-0.2) /100WBC ESR 7 (0-20) MM/HR Sodium (135-145) mmol/L Potassium (3.3-5.1) mmol/L Chloride (96-108) mmol/L Carbon Dioxide (22-29) mmol/L Anion Gap (12-20) BUN (9-16) mg/dL Creatinine (0.5-1.4) mg/dL Estim Creat Clear Calc Estimated GFR Random Glucose (60-115) mg/dL Lactic Acid 1.1 (0.5-2.0) mmol/L Calcium (8.4-10.2) mg/dL Magnesium (1.6-2.6) mg/dL Total Bilirubin (0.0-1.0) mg/dL AST (5-31) U/L ALT (0-31) U/L Alkaline Phosphatase (39-117) U/L Total Creatine Kinase (26-140) U/L C-Reactive Protein (< or = 0.50) mg/dL Total Protein (6.5-8.0) g/dL Albumin (3.5-5.0) g/dL Influenza Type A (PCR) (Negative) Influenza Type B (PCR) (Negative) RSV RNA Qual (PCR) (Negative) SARS-CoV-2 RNA (RT-PCR) (Negative) <ELDA Hernandez - Last Filed: 10/14/21 21:09> Lab Results 10/14/21 10/14/21 10/14/21 Range/Units 11:26 15:16 15:16 WBC 10.9 H (4.8-10.8) X10*3/uL RBC 4.88 (4.20-5.50) X10*6/uL Hgb 14.6 (12.0-16.0) g/dl Hct 44.0 (37.0-47.0) % MCV 90.2 (80.0-98.0) fL MCH 29.9 (27.0-33.0) pg MCHC 33.2 (31.0-35.0) g/dl RDW 14.1 (11.0-16.0) % Plt Count 292 (160-400) X10*3/uL MPV 10.0 (9.4-12.3) fL Immature Gran % (Auto) 0.3 (0.0-0.4) % Neut % (Auto) 70.3 (45-73) % Lymph % (Auto) 21.9 (20-40) % Erie % (Auto) 6.5 (2-11) % Eos % (Auto) 0.4 (0-4) % Baso % (Auto) 0.6 (0-2) % Lymph # (Auto) 2.4 (1.2-4.9) X10*3/uL Erie # (Auto) 0.7 (0.1-1.2) X10*3/uL Eos # (Auto) 0.0 (0.0-0.4) X10*3/uL Baso # (Auto) 0.1 (0.0-0.2) X10*3/uL Abs Immat Gran (auto) 0.03 (0.00-0.03) X10*3/uL Absolute Neuts (auto) 7.6 (2.0-8.3) x10*3/uL Absolute Nucleated RBC 0.000 (0.0-0.012) X10*3/uL Nucleated RBC % (auto) 0.0 (0.0-0.2) /100WBC ESR (0-20) MM/HR Sodium 140 (135-145) mmol/L Potassium 4.4 (3.3-5.1) mmol/L Chloride 104 (96-108) mmol/L Carbon Dioxide 25 (22-29) mmol/L Anion Gap 15 (12-20) BUN 14 (9-16) mg/dL Creatinine 0.63 (0.5-1.4) mg/dL Estim Creat Clear Calc 101.1 Estimated GFR > 60 Random Glucose 95 (60-115) mg/dL Lactic Acid (0.5-2.0) mmol/L Calcium 9.8 (8.4-10.2) mg/dL Magnesium 2.1 (1.6-2.6) mg/dL Total Bilirubin 1.0 (0.0-1.0) mg/dL AST 49 H (5-31) U/L ALT 50 H (0-31) U/L Alkaline Phosphatase 113 (39-117) U/L Total Creatine Kinase 87 (26-140) U/L C-Reactive Protein 0.05 (< or = 0.50) mg/dL Total Protein 7.7 (6.5-8.0) g/dL Albumin 4.5 (3.5-5.0) g/dL Influenza Type A (PCR) NEGATIVE (Negative) Influenza Type B (PCR) NEGATIVE (Negative) RSV RNA Qual (PCR) NEGATIVE (Negative) SARS-CoV-2 RNA (RT-PCR) NEGATIVE (Negative) 10/14/21 10/14/21 Range/Units 15:16 15:16 WBC (4.8-10.8) X10*3/uL RBC (4.20-5.50) X10*6/uL Hgb (12.0-16.0) g/dl Hct (37.0-47.0) % MCV (80.0-98.0) fL MCH (27.0-33.0) pg MCHC (31.0-35.0) g/dl RDW (11.0-16.0) % Plt Count (160-400) X10*3/uL MPV (9.4-12.3) fL Immature Gran % (Auto) (0.0-0.4) % Neut % (Auto) (45-73) % Lymph % (Auto) (20-40) % Erie % (Auto) (2-11) % Eos % (Auto) (0-4) % Baso % (Auto) (0-2) % Lymph # (Auto) (1.2-4.9) X10*3/uL Erie # (Auto) (0.1-1.2) X10*3/uL Eos # (Auto) (0.0-0.4) X10*3/uL Baso # (Auto) (0.0-0.2) X10*3/uL Abs Immat Gran (auto) (0.00-0.03) X10*3/uL Absolute Neuts (auto) (2.0-8.3) x10*3/uL Absolute Nucleated RBC (0.0-0.012) X10*3/uL Nucleated RBC % (auto) (0.0-0.2) /100WBC ESR 7 (0-20) MM/HR Sodium (135-145) mmol/L Potassium (3.3-5.1) mmol/L Chloride (96-108) mmol/L Carbon Dioxide (22-29) mmol/L Anion Gap (12-20) BUN (9-16) mg/dL Creatinine (0.5-1.4) mg/dL Estim Creat Clear Calc Estimated GFR Random Glucose (60-115) mg/dL Lactic Acid 1.1 (0.5-2.0) mmol/L Calcium (8.4-10.2) mg/dL Magnesium (1.6-2.6) mg/dL Total Bilirubin (0.0-1.0) mg/dL AST (5-31) U/L ALT (0-31) U/L Alkaline Phosphatase (39-117) U/L Total Creatine Kinase (26-140) U/L C-Reactive Protein (< or = 0.50) mg/dL Total Protein (6.5-8.0) g/dL Albumin (3.5-5.0) g/dL Influenza Type A (PCR) (Negative) Influenza Type B (PCR) (Negative) RSV RNA Qual (PCR) (Negative) SARS-CoV-2 RNA (RT-PCR) (Negative) <ELDA Daniels - Last Filed: 10/15/21 22:37> Imaging Data Chest x-ray: Attestation: I personally reviewed and interpreted this imaging study as follows: <ELDA Hernandez - Last Filed: 10/14/21 21:09> Radiologist's impression: FINDINGS: 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 The lungs are well expanded and clear. The pleural spaces are clear. Heart size is normal. No bony abnormality is evident. XR/XR chest 2V IMPRESSION: No acute abnormality. <ELDA Hernandez - Last Filed: 10/14/21 21:09> MRI of cervical spine: Attestation: I personally reviewed and interpreted this imaging study as follows: <ELDA Hernandez - Last Filed: 10/14/21 21:09> Radiologist's impression: MR/MR cervical spine wo/w con IMPRESSION: 1. There appears to be an enhancing epidural fluid collection along the thecal sac in the right at C1-C2 without mass effect. ? 2. There is enhancement in the paravertebral soft tissues on the right in the lower cervical spine at C7-T1. ? 3. There is spondylosis and facet arthropathy with multilevel foraminal narrowing and central stenosis as described above. This is most severe at C5-C6 and C6-C7. ? 4. There is no spinal cord compression or abnormal enhancement of the spinal cord. ? 5. This critical result was discussed with Al Henriquez by telephone on 10/14/2021 at 5:30 PM and it was ascertained that the content and urgency of the report was understood at the time of direct communication. <ELDA Hernandez Last Filed: 10/14/21 21:09> Critical Care Time Critical Care Time Critical Care Time: Yes <ELDA Hernandez Last Filed: 10/14/21 21:09> Total Critical Care Time: 60 <ELDA Hernandez Last Filed: 10/14/21 21:09> Attestation: I attest to this time spent taking care of the patient Reaching out to multiple specialists such as Neurology, Neurosurgery, obtaining MRI. Reviewing images, lab work, initiating antibiotic therapy. <ELDA Hernandez - Last Filed: 10/14/21 21:09> Discharge Plan Discharge Clinical Impression: Myofascial pain, Numbness, Paresthesias <ELDA Hernandez - Last Filed: 10/14/21 21:09> Patient Disposition: Admitted As Inpatient <ELDA Hernandez - Last Filed: 10/14/21 21:09> Interventions: Admission Worksheet (ED) Last Done: 10/15/21 11:02 <ELDA Hernandez - Last Filed: 10/14/21 21:09> Discharge Date/Time: 10/15/21 11:13 <ELDA Hernandez - Last Filed: 10/14/21 21:09>
[2021-10-14] MEDS: 0.9 % Sodium Chloride 1,000 ML 999 ML IV (15:22)
[2021-10-14 15:24] LABS: MANUAL DIFF FLAG NO
[2021-10-14 15:34] LABS: Basophils Absolute Auto 0.1 X10*3/uL (0.0-0.2); Basophils Percent Auto 0.6 % (0-2); Eosinophils Percent Auto 0.4 % (0-4); Hemoglobin 14.6 g/dl (12.0-16.0); Imm Gran Abs Auto 0.03 X10*3/uL (0.00-0.03); Imm Gran Pct Auto 0.3 % (0.0-0.4); Lymphocytes Absolute Auto 2.4 X10*3/uL (1.2-4.9); Lymphocytes Percent Auto 21.9 % (20-40); Mean Corpuscular HGB Conc 33.2 g/dl (31.0-35.0); Mean Corpuscular Hemoglobin 29.9 pg (27.0-33.0); Mean Corpuscular Volume 90.2 fL (80.0-98.0); Monocytes Absolute Auto 0.7 X10*3/uL (0.1-1.2); Monocytes Percent Auto 6.5 % (2-11); Neutrophils Absolute Auto 7.6 x10*3/uL (2.0-8.3); Neutrophils Percent Auto 70.3 % (45-73); Platelet Count 292 X10*3/uL (160-400); Red Blood Count 4.88 X10*6/uL (4.20-5.50); Red Cell Distribution Width 14.1 % (11.0-16.0); White Blood Count 10.9 X10*3/uL (4.8-10.8)
[2021-10-14] MEDS: cefTRIAXone sodium 1 GM in 0.9 % Sodium Chloride 50 ML IV (15:34)
[2021-10-14 15:38] LABS: Lactic Acid 1.1 mmol/L (0.5-2.0)
[2021-10-14 15:44] LABS: Alanine Aminotransferase 50 U/L (0-31); Albumin Level 4.5 g/dL (3.5-5.0); Alkaline Phosphatase 113 U/L (39-117); Anion Gap 15 (12-20); Aspartate Amino Transferase 49 U/L (5-31); Blood Urea Nitrogen 14 mg/dL (9-16); C Reactive Protein 0.05 mg/dL (< or = 0.50); Calcium 9.8 mg/dL (8.4-10.2); Carbon Dioxide 25 mmol/L (22-29); Chloride 104 mmol/L (96-108); Creatinine Clr Calc Pharmacy 101.1; Estimated Glomerular Filt Rate > 60; Glucose Random 95 mg/dL (60-115); Magnesium 2.1 mg/dL (1.6-2.6); Potassium 4.4 mmol/L (3.3-5.1); Sodium 140 mmol/L (135-145); Total Protein 7.7 g/dL (6.5-8.0)
[2021-10-14 16:04] LABS: Erythrocyte Sedimentation Rate 7 MM/HR (0-20)
--- NOTE | 2021-10-14 17:33 | PC.NURSE ---
@[id number] ELDA ALCANTAR REQUEST CALL OUT TO [facility] PT [place] LINE [phone] RICH ANSWERS, TAKES PT INFO AND CALL BACK NUMBER, THEN ASKS TO SPEAK WITH KATHARINE ALCANTAR TAKES OVER CALL RIGHT AWAY
[2021-10-14] MEDS: vancomycin HCL 1,000 MG in 0.9 % Sodium Chloride 250 ML 270 MG IV (17:47)
[2021-10-14 18:19] VITALS: BP 138/104; PULSE 86; RESP 18; TEMP 36.9; O2SAT 96
--- NOTE | 2021-10-14 18:53 | PC.NURSE ---
@ [phone] RETURN CALL FROM [facility] OF [facility] PT PLACEMENT ASKING TO SPEAK WITH ELDA ALCANTAR
[2021-10-14 20:00] VITALS: BP 128/90; PULSE 106; RESP 16; TEMP 36.9; O2SAT 96
[2021-10-14] MEDS: Nicotine 21 MG PATCH.TD24 TRANSDERMA (20:05)
[2021-10-14] MEDS: LORazepam 0.5 MG TABLET PO (20:05)
--- NOTE | 2021-10-14 22:14 | PM.IMHP ---
History of Present Illness Date of Service: 10/14/21 Chief Complaint: neck pain 50-year-old female with past medical history of cervical radiculopathy, chronic neck pain, bronchial asthma, history of gastric bypass, who presents to the hospital with complaints of neck pain as well as numbness and tingling in her right arm. Pain is 10/10, nonradiating, constant, no exacerbating or relieving factors, started the day prior after she underwent trigger point injections. reports that she had trigger point injections day prior, has now developed pain at that site. She otherwise denies any headache, no change in vision, no fever or chills, no difficulty with moving her arms or legs. No weakness in her arms or legs. Reports no chest pain, no abdominal pain, no nausea or vomiting, no diarrhea constipation, no urinary symptoms and no lower extremity edema. While in the ED patient underwent a cervical spine MRI that shows an enhancing epidural fluid collection along the thecal sac in the right as C1 and C2 without mass effect, enhancement in the paravertebral soft tissue on the right in the lower cervical spine at C7 and T1, this case was discussed with [facility] nurse surgery who according to the ED PA reviewed imaging and stated that there was no fluid collection and no epidural abscess. This was also discussed with Neurology at [facility] as well as Neurology Service at our hospital and both agree that there does not appear to be any epidural fluid collection and patient can be admitted to our hospital for observation per . They feel that this is myofascial syndrome. Patient's vital signs are within normal range with a slightly elevated heart rate of 106 that has normalized Labs are significant for WBC count of 10.9 otherwise unremarkable. Patient will be admitted for observation with a consult to Neurology Review of Systems Review of Systems: Yes all other systems are reviewed and are negative [facility] Medical History Bronchial asthma Bunion, left Cervical radiculopathy Class 1 obesity due to excess calories with body mass index (BMI) of 34.0 to 34.9 in adult Hammertoe of left foot Neck pain Obesity (BMI 35.0-39.9 without comorbidity) Occipital headache Renal calculi Transaminitis Family History Mother Hypertension Alzheimer disease Father Alzheimer disease Surgical History delivery delivered Gastric bypass status for obesity Hx of breast reduction, elective Hx of hernia repair Social History Housing: House Alcohol intake: unknown Patient Tobacco Use Status: Current everyday Tobacco user Tobacco use type: Cigarette Cigarettes Per Day: 4 e-Cigarette/Vaping Use: Never Used Second Hand Smoke Exposure: No Use of substances other than those prescribed or required for medical reasons: Unknown Advance Directives: No Patient : No service: No Current occupational status: employed Current occupational exposures/hazards: No Meds Allergies Allergy/AdvReac Type Severity Reaction Status Date / Time No Known Allergies Allergy Verified 10/14/21 11:20 Physical Exam Vital Signs and Narrative: Vital Signs: Last Vital Signs Temp 98.4 F 10/14/21 20:00 Pulse 106 H 10/14/21 20:00 Resp 16 10/14/21 20:00 BP 128/90 H 10/14/21 20:00 Pulse Ox 96 10/14/21 20:00 Body Mass Index 35.2 Const: General: cooperative and no acute distress Orientation/consciousness: patient oriented x3 HENMT: Other: Has mild tenderness on palpation of base of the neck with no swelling noted Eyes: General: appearance normal, both eyes and all related structures Pupils: Equal, round and reactive pupils present Resp: Effort & Inspection: normal respiratory effort Auscultation: clear to auscultation bilaterally Cardio: Rate: regular rate Rhythm: regular rhythm GI: Palpation (GI): Soft to palpation Auscultation: normal bowel sounds Skin: General skin exam: no rashes or lesions noted Neuro: Other: No neurological deficits, strength is 5/5 in all 4 extremities Cranial nerve 2-12 intact General: patient oriented x3 Cranial nerves: Yes Equal, round and reactive pupils present Cognition (Neuro): normal cognition Extrem: General: Yes normal to inspection and Yes no pedal edema Results Labs CBC and Chem 7: 10/14/21 15:16 10/14/21 15:16 Labs: Laboratory Results - last 24 hr 10/14/21 10/14/21 10/14/21 11:26 15:16 15:16 MCV 90.2 MCH 29.9 MCHC 33.2 RDW 14.1 Plt Count 292 MPV 10.0 Immature Gran % (Auto) 0.3 Neut % (Auto) 70.3 Lymph % (Auto) 21.9 [place] % (Auto) 6.5 Eos % (Auto) 0.4 Baso % (Auto) 0.6 Lymph # (Auto) 2.4 [place] # (Auto) 0.7 Eos # (Auto) 0.0 Baso # (Auto) 0.1 Abs Immat Gran (auto) 0.03 Absolute Neuts (auto) 7.6 Absolute Nucleated RBC 0.000 Nucleated RBC % (auto) 0.0 ESR Anion Gap 15 Estim Creat Clear Calc 101.1 Estimated GFR > 60 Random Glucose 95 Lactic Acid Calcium 9.8 Magnesium 2.1 Total Bilirubin 1.0 AST 49 H ALT 50 H Alkaline Phosphatase 113 Total Creatine Kinase 87 C-Reactive Protein 0.05 Total Protein 7.7 Albumin 4.5 Influenza Type A (PCR) NEGATIVE Influenza Type B (PCR) NEGATIVE RSV RNA Qual (PCR) NEGATIVE SARS-CoV-2 RNA (RT-PCR) NEGATIVE 10/14/21 10/14/21 15:16 15:16 MCV MCH MCHC RDW Plt Count MPV Immature Gran % (Auto) Neut % (Auto) Lymph % (Auto) [place] % (Auto) Eos % (Auto) Baso % (Auto) Lymph # (Auto) [place] # (Auto) Eos # (Auto) Baso # (Auto) Abs Immat Gran (auto) Absolute Neuts (auto) Absolute Nucleated RBC Nucleated RBC % (auto) ESR 7 Anion Gap Estim Creat Clear Calc Estimated GFR Random Glucose Lactic Acid 1.1 Calcium Magnesium Total Bilirubin AST ALT Alkaline Phosphatase Total Creatine Kinase C-Reactive Protein Total Protein Albumin Influenza Type A (PCR) Influenza Type B (PCR) RSV RNA Qual (PCR) SARS-CoV-2 RNA (RT-PCR) Imaging Radiologist's Impressions: Impressions Chest X-Ray 10/14/21 11:26 IMPRESSION: No acute abnormality. Cervical Spine MRI 10/14/21 14:53 IMPRESSION: 1. There appears to be an enhancing epidural fluid collection along the thecal sac in the right at C1-C2 without mass effect. 2. There is enhancement in the paravertebral soft tissues on the right in the lower cervical spine at C7-T1. 3. There is spondylosis and facet arthropathy with multilevel foraminal narrowing and central stenosis as described above. This is most severe at C5-C6 and C6-C7. 4. There is no spinal cord compression or abnormal enhancement of the spinal cord. 5. This critical result was discussed with Al Covarrubias by telephone on 10/14/2021 at 5:30 PM and it was ascertained that the content and urgency of the report was understood at the time of direct communication. Assessment and Plan (1) Myofascial pain: Status: Acute (2) Paresthesias: Status: Acute (3) Neck pain: Status: Acute 50-year-old female with chronic neck pain presents to the hospital with neck pain, paresthesia, as well as numbness and tingling in her right arm after undergoing trigger point injection # neck pain, paresthesia - possibly secondary to a myofacial pain - although MRI revealed fluid collection in the epidural region, nurse surgery at [facility] ( name of physicians in [place] documentation), as well as our neurologist feel that this is secondary to myofascial syndrome and will only need observation - I will continue IV antibiotics until patient is evaluated by neurology - monitor - pain management DVT prophylaxis: Early ambulation Quality Stroke Does the patient have a stroke diagnosis?: No VTE Prior VTE?: No VTE Risk Level:: Medical - moderate - high VTE Device Contraindication: Treatment Not Indicated VTE Drug Contraindication: N/A - Med Ordered
[2021-10-14 23:30] VITALS: BP 136/86; PULSE 94; RESP 16; O2SAT 94
[2021-10-15 02:24] VITALS: RESP 15
[2021-10-15] MEDS: Piperacillin Sodium/Tazobactam 3.375 GM in 0.9 % Sodium Chloride 50 ML IV ×2 (02:54→08:08)
[2021-10-15] MEDS: traZODone HCL 25 MG HALFTAB PO (04:37)
[2021-10-15 05:41] VITALS: BP 138/95; PULSE 78; RESP 18; O2SAT 92
[2021-10-15] MEDS: vancomycin HCL 1,250 MG in 0.9 % Sodium Chloride 250 ML 166.67 MG IV (05:50)
[2021-10-15 06:27] LABS: MANUAL DIFF FLAG NO
[2021-10-15 06:52] LABS: Basophils Percent Auto 0.5 % (0-2); Eosinophils Absolute Auto 0.1 X10*3/uL (0.0-0.4); Eosinophils Percent Auto 0.8 % (0-4); Hematocrit 40.2 % (37.0-47.0); Hemoglobin 13.4 g/dl (12.0-16.0); Imm Gran Abs Auto 0.03 X10*3/uL (0.00-0.03); Imm Gran Pct Auto 0.4 % (0.0-0.4); Lymphocytes Absolute Auto 2.3 X10*3/uL (1.2-4.9); Mean Corpuscular HGB Conc 33.3 g/dl (31.0-35.0); Mean Corpuscular Hemoglobin 29.7 pg (27.0-33.0); Mean Corpuscular Volume 89.1 fL (80.0-98.0); Mean Platelet Volume 10.3 fL (9.4-12.3); Monocytes Absolute Auto 0.7 X10*3/uL (0.1-1.2); Monocytes Percent Auto 8.6 % (2-11); Neutrophils Absolute Auto 5.3 x10*3/uL (2.0-8.3); Neutrophils Percent Auto 62.7 % (45-73); Platelet Count 260 X10*3/uL (160-400); Red Blood Count 4.51 X10*6/uL (4.20-5.50); Red Cell Distribution Width 13.8 % (11.0-16.0); White Blood Count 8.5 X10*3/uL (4.8-10.8)
--- NOTE | 2021-10-15 06:53 | PHA.PROG ---
Admission Date/Time: October 14, 2021 22:03 Indication: Skin & Skin Structure Infection Weight in k.647 kg Adjusted body weight in K.9 kg Pierz body weight in K.5 Obesity Dosing Indication % IBW:178% Serum Creatinine - Last 168 Hours 10/14/21 15:16 Creatinine 0.63 Estimated CrCl and GFR - Last 168 Hours 10/14/21 15:16 Estim Creat Clear Calc 101.1 Estimated GFR > 60 Vancomycin Loading Dose: N/A Current Vancomycin Dosing Regimen: 1250 mg Q12H Date and Time for next Vancomycin Level to be drawn: 10/06 @ 0400 Pharmacist Comments on Vancomycin Plan: Vancomycin 1000 mg given in the ED 10/14 @ 1747 then vancomycin 1250 mg Q12H started 10/15 @ 0550. Continue with vancomycin 1250 mg Q12H. Expected AUC 498 with a trough of 14.8 Trough to be drawn before 4th dose on 10/16 @ 0400 Pharmacy to monitor renal fucntion daily. Hoa Silverio, ZeenatD Vancomycin dosing will take advantage of [employer] as a clinical decision support tool that uses Bayesian modeling to calculate individual patient's pharmacokinetic parameters and forecast the patient's drug concentration time course with the target goal AUC 24 range of 400 - 600 mg/L/hr.
[2021-10-15 07:27] LABS: Anion Gap 12 (12-20); Blood Urea Nitrogen 12 mg/dL (9-16); Carbon Dioxide 25 mmol/L (22-29); Chloride 106 mmol/L (96-108); Creatinine Clr Calc Pharmacy 104.4; Estimated Glomerular Filt Rate > 60; Glucose Random 94 mg/dL (60-115); Potassium 4.1 mmol/L (3.3-5.1); Sodium 139 mmol/L (135-145)
[2021-10-15] MEDS: Acetaminophen 325 MG TABLET 650 MG PO (08:07)
--- NOTE | 2021-10-15 10:53 | MHC.CM.PN ---
Met with patient and , Tae in regards to discharge planning. Patient lives with , ambulates with a cane and had no services prior to coming to the hospital. No services anticipated to be needed because patient is not homebound. PCP verified. Patient denies having a HCP. Information provided. Patient not interested in completing one at this time time. Patient received 2 Moderna vaccines. Obs notice explained and signed. Tae will transport patient home when medically stable. Continue to monitor for d/c needs.
[2021-10-15 10:54] VITALS: BP 140/98; PULSE 75; RESP 18; TEMP 36.7; O2SAT 94
--- NOTE | 2021-10-15 11:19 | P.PNIM_ITS ---
Subjective Subjective Date of Service: 10/15/21 Interval History: the patient was seen and evaluated this morning Laying in bed, feels Little better as the pain has improved and tingling r esolved Denies any fever, chills or shortness of breath No reported other overnight events. Systemic review: No fever, chills or weakness No chest pain, palpitation No shortness of breath or coughing No abdominal pain, nausea or vomiting No urinary symptoms No any rash or wounds Physical Exam Vital Signs: Vital Signs: Last Vital Signs Temp 98.0 F 10/15/21 10:54 Pulse 75 10/15/21 10:54 Resp 18 10/15/21 10:54 BP 140/98 H 10/15/21 10:54 Pulse Ox 94 10/15/21 10:54 Body Mass Index 35.2 Const: Other: Constitutional : Alert, oriented, not in distress Neck : Normal inspection, Supple, no neck tenderness Cardiovascular : RRR, S1 S2, no lower extremity edema Respiratory : Good bilateral air entry, no crackles, wheezes or rhonchi Gastrointestinal: soft, lax, Normal bowel sounds, Non tender Skin : Warm, Dry Neurological : Alert & oriented x3, No focal deficit Objective Data Active Medications Acetaminophen (Acetaminophen 325 Mg Tablet) 650 mg PO Q6H PRN PRN Reason: Pain, Mild (Pain Scale 1-3) Last Admin: 10/15/21 08:07 Dose: 650 mg Documented by: SHOBHA Albuterol Sulfate (Albuterol Sulfate 90 Mcg 8 Gm Inhaler) 1 puff INHALE QID PRN PRN Reason: shortness of breath or wheezing Cyclobenzaprine HCl (Cyclobenzaprine Hcl 10 Mg Tablet) 10 mg PO TID PRN PRN Reason: muscle spasm Docusate Sodium (Docusate Sodium 100 Mg Capsule) 100 mg PO DAILY PRN PRN Reason: Constipation Vancomycin HCl 1,250 mg/ (Sodium Chloride) 250 mls @ 166.667 mls/hr IV Q12H [facility] Last Infusion: 10/15/21 07:51 Dose: 0 mls/hr Documented by: SHOBHA Piperacillin Sod/Tazobactam (Sod 3.375 gm/ Sodium Chloride) 50 mls @ 100 mls/hr IV Q6H [facility] Last Infusion: 10/15/21 08:30 Dose: 0 mls/hr Documented by: SHOBHA Ondansetron HCl (Ondansetron Hcl 4 Mg/2 Ml Vial) 4 mg IVPUSH Q8H PRN PRN Reason: Nausea and Vomiting Pharmacy Consult (Consult Rx Vancomycin Dosing) 1 each MISCELLANE DAILY PRN PRN Reason: Consult order Sodium Chloride (0.9 % Sodium Chloride Flush 3 Ml Syringe) [facility] Last Admin: 10/15/21 07:03 Dose: Not Given Documented by: SHOBHA Non-Admin Reason: Med Not Available Labs CBC & Chem 7: 10/15/21 06:15 10/15/21 06:15 Labs: Laboratory Results - last 24 hr 10/14/21 10/14/21 10/14/21 11:26 15:16 15:16 MCV 90.2 MCH 29.9 MCHC 33.2 RDW 14.1 Plt Count 292 MPV 10.0 Immature Gran % (Auto) 0.3 Neut % (Auto) 70.3 Lymph % (Auto) 21.9 [place] % (Auto) 6.5 Eos % (Auto) 0.4 Baso % (Auto) 0.6 Lymph # (Auto) 2.4 [place] # (Auto) 0.7 Eos # (Auto) 0.0 Baso # (Auto) 0.1 Abs Immat Gran (auto) 0.03 Absolute Neuts (auto) 7.6 Absolute Nucleated RBC 0.000 Nucleated RBC % (auto) 0.0 ESR Anion Gap 15 Estim Creat Clear Calc 101.1 Estimated GFR > 60 Random Glucose 95 Lactic Acid Calcium 9.8 Magnesium 2.1 Total Bilirubin 1.0 AST 49 H ALT 50 H Alkaline Phosphatase 113 Total Creatine Kinase 87 C-Reactive Protein 0.05 Total Protein 7.7 Albumin 4.5 Influenza Type A (PCR) NEGATIVE Influenza Type B (PCR) NEGATIVE RSV RNA Qual (PCR) NEGATIVE SARS-CoV-2 RNA (RT-PCR) NEGATIVE 10/14/21 10/14/21 10/15/21 15:16 15:16 06:15 MCV 89.1 MCH 29.7 MCHC 33.3 RDW 13.8 Plt Count 260 MPV 10.3 Immature Gran % (Auto) 0.4 Neut % (Auto) 62.7 Lymph % (Auto) 27.0 [place] % (Auto) 8.6 Eos % (Auto) 0.8 Baso % (Auto) 0.5 Lymph # (Auto) 2.3 [place] # (Auto) 0.7 Eos # (Auto) 0.1 Baso # (Auto) 0.0 Abs Immat Gran (auto) 0.03 Absolute Neuts (auto) 5.3 Absolute Nucleated RBC 0.000 Nucleated RBC % (auto) 0.0 ESR 7 Anion Gap Estim Creat Clear Calc Estimated GFR Random Glucose Lactic Acid 1.1 Calcium Magnesium Total Bilirubin AST ALT Alkaline Phosphatase Total Creatine Kinase C-Reactive Protein Total Protein Albumin Influenza Type A (PCR) Influenza Type B (PCR) RSV RNA Qual (PCR) SARS-CoV-2 RNA (RT-PCR) 10/15/21 06:15 MCV MCH MCHC RDW Plt Count MPV Immature Gran % (Auto) Neut % (Auto) Lymph % (Auto) [place] % (Auto) Eos % (Auto) Baso % (Auto) Lymph # (Auto) [place] # (Auto) Eos # (Auto) Baso # (Auto) Abs Immat Gran (auto) Absolute Neuts (auto) Absolute Nucleated RBC Nucleated RBC % (auto) ESR Anion Gap 12 Estim Creat Clear Calc 104.4 Estimated GFR > 60 Random Glucose 94 Lactic Acid Calcium 9.0 D Magnesium Total Bilirubin AST ALT Alkaline Phosphatase Total Creatine Kinase C-Reactive Protein Total Protein Albumin Influenza Type A (PCR) Influenza Type B (PCR) RSV RNA Qual (PCR) SARS-CoV-2 RNA (RT-PCR) Assessment and Plan (1) Numbness: Status: Acute (2) Neck pain: Status: Acute Assessment and Plan: 50-year-old female with chronic neck pain presents to the hospital with neck pain, paresthesia, as well as numbness and tingling in her right arm after undergoing trigger point injection # neck pain # paresthesia possibly secondary to a myofacial pain MRI revealed fluid collection in the epidural region, nurse surgery at [facility] as well as our neurologist feel that this is secondary to myofascial syndrome and will only need observation continue IV antibiotics until patient is evaluated by neurology Neuro checks pain management DVT prophylaxis: Early ambulation Quality Stroke Does the patient have a stroke diagnosis?: No VTE Prior VTE?: No VTE Risk Level:: Medical - moderate - high VTE Device Contraindication: Treatment Not Indicated VTE Drug Contraindication: N/A - Med Ordered
[2021-10-15 11:44] VITALS: BP 141/87; PULSE 83; RESP 18; TEMP 35.7; O2SAT 95
--- NOTE | 2021-10-15 12:26 | PM.NEUROCN ---
History of Present Illness Data of Consult Service Date: 10/15/21 Primary Care Provider: Pam Mckoy MD HPI Reason for consult: NECK PAIN AND NUMBNESS 50 YO WOMAN WHO WAS BEING TREATED FOR RIGHT SIDED NECK PAIN AND HAD TRIGGER POINT INJECTION TREATMENT AT [facility] THE OTHER DAY. SHE CAME TO [facility] EMERGENCY ROOM STATING THAT SHE HAD SEVERE PAIN AND RIGHT ARM NUMBNESS AFTER THAT. SHE WOKE UP WITH THIS NUMBNESS AND ARM WAS TINGLY AND NUMB. WHEN I SAW HER THIS MORNING ARE NUMBNESS AND TINGLING WAS MOSTLY RESOLVED AND NECK PAIN WAS ALSO BETTER. THERE WAS NO NEW SYMPTOM. SHE DENIED HAVING ANY HEADACHES. Review of Systems Review of Systems: NO RECENT TRAUMA. [facility] Past Medical History Medical History Bronchial asthma Bunion, left Cervical radiculopathy Class 1 obesity due to excess calories with body mass index (BMI) of 34.0 to 34.9 in adult Hammertoe of left foot Neck pain Obesity (BMI 35.0-39.9 without comorbidity) Occipital headache Renal calculi Transaminitis Family History Family History Mother Hypertension Alzheimer disease Father Alzheimer disease Surgical History Surgical History delivery delivered Gastric bypass status for obesity Hx of breast reduction, elective Hx of hernia repair Social History Social History Housing: House Alcohol intake: unknown Patient Tobacco Use Status: Current everyday Tobacco user Tobacco use type: Cigarette Cigarettes Per Day: 4 Years Smoked: 15 e-Cigarette/Vaping Use: Never Used Second Hand Smoke Exposure: Yes service: No Current occupational status: employed Current occupational exposures/hazards: No Meds Allergies Allergy/AdvReac Type Severity Reaction Status Date / Time No Known Allergies Allergy Verified 10/14/21 11:20 Active Medications: Current Medications Acetaminophen (Acetaminophen 325 Mg Tablet) 650 mg PO Q6H PRN PRN Reason: Pain, Mild (Pain Scale 1-3) Last Admin: 10/15/21 08:07 Dose: 650 mg Documented by: Albuterol Sulfate (Albuterol Sulfate 90 Mcg 8 Gm Inhaler) 1 puff INHALE QID PRN PRN Reason: shortness of breath or wheezing Cyclobenzaprine HCl (Cyclobenzaprine Hcl 10 Mg Tablet) 10 mg PO TID PRN PRN Reason: muscle spasm Docusate Sodium (Docusate Sodium 100 Mg Capsule) 100 mg PO DAILY PRN PRN Reason: Constipation Vancomycin HCl 1,250 mg/ (Sodium Chloride) 250 mls @ 166.667 mls/hr IV Q12H [facility] Last Infusion: 10/15/21 07:51 Dose: Infused Documented by: Piperacillin Sod/Tazobactam (Sod 3.375 gm/ Sodium Chloride) 50 mls @ 100 mls/hr IV Q6H [facility] Last Infusion: 10/15/21 08:30 Dose: Infused Documented by: Ondansetron HCl (Ondansetron Hcl 4 Mg/2 Ml Vial) 4 mg IVPUSH Q8H PRN PRN Reason: Nausea and Vomiting Pharmacy Consult (Consult Rx Vancomycin Dosing) 1 each MISCELLANE DAILY PRN PRN Reason: Consult order Sodium Chloride (0.9 % Sodium Chloride Flush 3 Ml Syringe) 3 ml IVFLUSH QSHIFT [facility] Last Admin: 10/15/21 07:03 Dose: Not Given Documented by: Physical Exam Vital Signs: Vital Signs: Last Vital Signs Temp 96.3 F L 10/15/21 11:44 Pulse 83 10/15/21 11:44 Resp 18 10/15/21 11:44 BP 141/87 H 10/15/21 11:44 Pulse Ox 95 10/15/21 11:44 Body Mass Index 35.2 Neuro: Other: SHE WAS ALERT AND AWAKE WITH NORMAL SPONTANEITY OF SPEECH FLUENCY COMPREHENSION AND AFFECT. PUPILS WERE ROUND REACTIVE TO LIGHT. EXTRAOCULAR MUSCLES WERE INTACT. THERE WAS MINIMAL RIGHT-SIDED FACIAL FLATNESS. TONGUE WAS MIDLINE. THERE WAS NO PRONATOR DRIFT. ARM STRENGTH WAS FULL. DEEP TENDON REFLEXES WERE TRACE TO ABSENT WITH FLEXOR PLANTARS. Results Labs CBC & Chem 7: 10/15/21 06:15 10/15/21 06:15 Labs: Short CBC 10/14/21 10/15/21 Range/Units 15:16 06:15 WBC 10.9 H 8.5 (4.8-10.8) X10*3/uL Hgb 14.6 13.4 (12.0-16.0) g/dl Hct 44.0 40.2 (37.0-47.0) % Plt Count 292 260 (160-400) X10*3/uL BMP 10/14/21 10/15/21 15:16 06:15 Sodium 140 139 Potassium 4.4 4.1 Chloride 104 106 Carbon Dioxide 25 25 BUN 14 12 Creatinine 0.63 0.61 Calcium 9.8 9.0 D Cardiac Enzymes 10/14/21 Range/Units 15:16 Total Creatine Kinase 87 (26-140) U/L Liver Function 10/14/21 Range/Units 15:16 Total Bilirubin 1.0 (0.0-1.0) mg/dL AST 49 H (5-31) U/L ALT 50 H (0-31) U/L Alkaline Phosphatase 113 (39-117) U/L Albumin 4.5 (3.5-5.0) g/dL MRI OF CERVICAL SPINE REVEALED STRAIGHTENING OF CURVATURE AND MODERATELY SEVERE MULTILEVEL SPONDYLITIC DISEASE. Assessment and Plan (1) Cervical spondyloarthritis: Status: Acute 50 YEARS OLD WOMAN WITH MODERATELY SEVERE CERVICAL SPONDYLOARTHRITIS RESULTING IN NECK PAIN AND ALSO RIGHT ARM TINGLING AND NUMBNESS. AT THIS TIME SHE WAS MUCH BETTER. IF HER SYMPTOMS WOULD CONTINUE SHE COULD SEE HER PHYSICIAN AN OUTPATIENT FOR FURTHER GUIDANCE. SHE HAS BEEN SEEING A DOCTOR IN [facility]. OTHERWISE NO INTERVENTION WAS NEEDED AT THIS POINT. IF TINGLING AND NUMBNESS WOULD CONTINUE, AN EMG NERVE CONDUCTION STUDY AN OUTPATIENT CAN BE CONSIDERED FOR FURTHER EVALUATION. Procedures Date of Service Date of Service: 10/15/21
--- NOTE | 2021-10-15 14:37 | PM.DS ---
DS: Providers Provider Date of Service: 10/15/21 Date of admission: 10/14/21 22:03 Primary care physician: Pam Mckoy MD Consults: 10/14/21 19:25 Consult to Neurology Stat Consulting Provider: Neurology Vikki dudley [facility] Reason for consultation: Paresthesias r. arm, torso,r.leg Has provider been notified: Yes 10/15/21 01:51 Consult to Neurology Routine Consulting Provider: Neurology Vikki [facility] Reason for consultation: Epidural abscess? Has provider been notified: Yes DS: Diagnosis Discharge Diagnosis (1) Myofascial pain: Status: Acute (2) Numbness: Status: Acute (3) Neck pain: Status: Acute DS: Summary Hospital Course Hospital Course: Admission note HPI 50-year-old female with past medical history of cervical radiculopathy, chronic neck pain, bronchial asthma, history of gastric bypass, who presents to the hospital with complaints of neck pain as well as numbness and tingling in her right arm.? Pain is 10/10, nonradiating, constant, no exacerbating or relieving factors, started the day prior after she underwent trigger point injections.? reports that she had trigger point injections day prior, has now developed pain at that site.? She otherwise denies any headache, no change in vision, no fever or chills, no difficulty with moving her arms or legs.? No weakness in her arms or legs.? Reports no chest pain, no abdominal pain, no nausea or vomiting, no diarrhea constipation, no urinary symptoms and no lower extremity edema. While in the ED patient underwent a cervical spine MRI that shows an enhancing epidural fluid collection along the thecal sac in the right as C1 and C2 without mass effect, enhancement in the paravertebral soft tissue on the right in the lower cervical spine at C7 and T1, this case was discussed with [facility] nurse surgery who according to the ED PA reviewed imaging and stated that there was no fluid collection and no epidural abscess.? This was also discussed with Neurology at [facility] as well as Neurology Service at our hospital and both agree that there does not appear to be any epidural fluid collection and patient can be admitted to our hospital for observation per .? They feel that this is myofascial syndrome. Patient's vital signs are within normal range with a slightly elevated heart rate of 106 that has normalized Labs are significant for WBC count of 10.9 otherwise unremarkable. Patient will be admitted for observation with a consult to Neurology Hospital course The patient was admitted and received IV pain medication and started on broad-spectrum antibiotic of vancomycin and Zosyn for concern over possible abscess or deep infection. Images were discussed with neurology, neurosurgery at different hospitals who did not feel there is an abscess formation and the images a complication of a recent procedure the patient done. No signs of infection identified during the hospital stay. The patient pain, numbness and tingling improved significantly. She was evaluated by Neurology team who recommended no further investigation and to follow-up as outpatient with her primary. Time Spent with Patient Time attestation: Total time spent providing and/or coordinating discharge services: Discharge coordination time: Greater than 30 minutes Quality: Stroke Does the patient have a stroke diagnosis?: No Physical Exam Vital Signs: Vital Signs: Last Vital Signs Temp 96.3 F L 10/15/21 11:44 Pulse 83 10/15/21 11:44 Resp 18 10/15/21 11:44 BP 141/87 H 10/15/21 11:44 Pulse Ox 95 10/15/21 11:44 Body Mass Index 35.2 Const: Other: Constitutional : Alert, oriented, not in distress Neck : Normal inspection, Supple, no neck tenderness Cardiovascular : RRR, S1 S2, no lower extremity edema Respiratory : Good bilateral air entry, no crackles, wheezes or rhonchi Gastrointestinal: soft, lax, Normal bowel sounds, Non tender Skin : Warm, Dry Neurological : Alert & oriented x3, No focal deficit DS: Data Data Completed and Pending Labs on day of discharge: Laboratory Results - last 24 hr 10/14/21 10/14/21 10/14/21 15:16 15:16 15:16 WBC 10.9 H RBC 4.88 Hgb 14.6 Hct 44.0 MCV 90.2 MCH 29.9 MCHC 33.2 RDW 14.1 Plt Count 292 MPV 10.0 Immature Gran % (Auto) 0.3 Neut % (Auto) 70.3 Lymph % (Auto) 21.9 [place] % (Auto) 6.5 Eos % (Auto) 0.4 Baso % (Auto) 0.6 Lymph # (Auto) 2.4 [place] # (Auto) 0.7 Eos # (Auto) 0.0 Baso # (Auto) 0.1 Abs Immat Gran (auto) 0.03 Absolute Neuts (auto) 7.6 Absolute Nucleated RBC 0.000 Nucleated RBC % (auto) 0.0 ESR Sodium 140 Potassium 4.4 Chloride 104 Carbon Dioxide 25 Anion Gap 15 BUN 14 Creatinine 0.63 Estim Creat Clear Calc 101.1 Estimated GFR > 60 Random Glucose 95 Lactic Acid 1.1 Calcium 9.8 Magnesium 2.1 Total Bilirubin 1.0 AST 49 H ALT 50 H Alkaline Phosphatase 113 Total Creatine Kinase 87 C-Reactive Protein 0.05 Total Protein 7.7 Albumin 4.5 10/14/21 10/15/21 10/15/21 15:16 06:15 06:15 WBC 8.5 RBC 4.51 Hgb 13.4 Hct 40.2 MCV 89.1 MCH 29.7 MCHC 33.3 RDW 13.8 Plt Count 260 MPV 10.3 Immature Gran % (Auto) 0.4 Neut % (Auto) 62.7 Lymph % (Auto) 27.0 [place] % (Auto) 8.6 Eos % (Auto) 0.8 Baso % (Auto) 0.5 Lymph # (Auto) 2.3 [place] # (Auto) 0.7 Eos # (Auto) 0.1 Baso # (Auto) 0.0 Abs Immat Gran (auto) 0.03 Absolute Neuts (auto) 5.3 Absolute Nucleated RBC 0.000 Nucleated RBC % (auto) 0.0 ESR 7 Sodium 139 Potassium 4.1 Chloride 106 Carbon Dioxide 25 Anion Gap 12 BUN 12 Creatinine 0.61 Estim Creat Clear Calc 104.4 Estimated GFR > 60 Random Glucose 94 Lactic Acid Calcium 9.0 D Magnesium Total Bilirubin AST ALT Alkaline Phosphatase Total Creatine Kinase C-Reactive Protein Total Protein Albumin Imaging MRI - head: Radiologist's impression: ITS Impressions Chest X-Ray 10/14/21 11:26 IMPRESSION: No acute abnormality. Cervical Spine MRI 10/14/21 14:53 IMPRESSION: 1. There appears to be an enhancing epidural fluid collection along the thecal sac in the right at C1-C2 without mass effect. 2. There is enhancement in the paravertebral soft tissues on the right in the lower cervical spine at C7-T1. 3. There is spondylosis and facet arthropathy with multilevel foraminal narrowing and central stenosis as described above. This is most severe at C5-C6 and C6-C7. 4. There is no spinal cord compression or abnormal enhancement of the spinal cord. 5. This critical result was discussed with Al Covarrubias by telephone on 10/14/2021 at 5:30 PM and it was ascertained that the content and urgency of the report was understood at the time of direct communication. Discharge Plan Discharge Patient Disposition: Home, Self-Care Discharge Diagnosis: Neck pain Referrals: Pam Molina MD [Primary Care Provider] - 1 Week Discharge Medications: Continued ibuprofen 800 mg tablet 800 mg PO Q8H PRN (Reason: pain) 30 Days Qty: 90 RF: 1 cyclobenzaprine 10 mg tablet 10 mg PO TID PRN (Reason: muscle spasm) 30 Days Qty: 90 RF: 2 albuterol sulfate 90 mcg/actuation HFA aerosol inhaler 1 inh inhalation QID PRN (Reason: shortness of breath or wheezing) 30 Days Qty: 6.7 RF: 3 Discharge Orders: Discharge Order (Routine); Ordered 10/15/21 Ordered By: Tatiana Gonzalez Diet: advance to usual diet Activity on Discharge: As tolerated Stand Alone Forms: Patient Portal Discharge page Care Plan Goals: Read below Health Concerns: Read below Plan of Treatment: Read below Assessment: You were admitted to the hospital for evaluation of neck pain. Evaluated by MRI image which showed small pocket of fluid. Evaluated by neurologist who recommended no intervention needed at this point and to follow-up as outpatient with your primary as no signs of infection identified.
--- NOTE | 2021-10-15 14:38 | MHC.CM.PN ---
Patient has been medically cleared for dc to home today, no services.
[2021-10-15 15:00] VITALS: BP 150/98; PULSE 83; RESP 18; TEMP 35.7; O2SAT 92
== END 2021-10-15 15:42 | disposition home or self-care (01) ==
LOC: HO.ED 19:26 → HO.EDOVER 22:09 → HO.S3 10-15 10:37
PROVIDERS: Physician Assistant; Admitting Provider Internal Medicine; Emergency Provider Emergency Medicine Emergency Medical Services; PCP Internal Medicine; Visit Provider Student in an Organized Health Care Education/Training Program
DX: M79.18 Myalgia, other site (principal); R20.0 Anesthesia of skin; R20.2 Paresthesia of skin; M47.812 Spondylosis without myelopathy or radiculopathy, cervical region; M54.12 Radiculopathy, cervical region; R51.9 Headache, unspecified; R74.01 Elevation of levels of liver transaminase levels; E66.01 Morbid (severe) obesity due to excess calories; R00.0 Tachycardia, unspecified; I10 Essential (primary) hypertension; F17.210 Nicotine dependence, cigarettes, uncomplicated; Z20.822 Contact with and (suspected) exposure to COVID-19; Z68.35 Body mass index [BMI] 35.0-35.9, adult; Z98.84 Bariatric surgery status; Z82.49 Family history of ischemic heart disease and other diseases of the circulatory system; Z81.8 Family history of other mental and behavioral disorders; Z79.899 Other long term (current) drug therapy
CPT/HCPCS: 0241U; 36415; 71046; 72156; 80048; 80053; 82550; 83605; 83735; 85025; 85652; 86140; 87040; 96361; 96365; 96367; 96375; 99218; 99225; 99285; 99291; A9585; J0696; J2543; J3370

== ENCOUNTER 2021-11-27 09:36 | Emergency (ER) | payer OTHER, SELFPAY ==
[2021-11-27 10:33] VITALS: BP 135/96; PULSE 99; RESP 18; TEMP 37.2; O2SAT 96; BMI 35.2
== END 2021-11-27 12:04 | disposition left against medical advice (07) ==
PROVIDERS: Emergency Provider Emergency Medicine; PCP Internal Medicine
DX: R10.9 Unspecified abdominal pain (principal); Z98.84 Bariatric surgery status
CPT/HCPCS: 99281

== ENCOUNTER → 2021-12-04 12:58 | Outpatient (BNVA) | payer OTHER, SELFPAY | PROVIDERS: PCP Internal Medicine ==

== ENCOUNTER → 2021-12-11 13:17 | Outpatient (BNVA) | payer OTHER, SELFPAY | PROVIDERS: PCP Internal Medicine; Visit Provider Nurse Practitioner Family ==

== ENCOUNTER 2021-12-19 09:01 | Outpatient (REF) | payer OTHER, SELFPAY ==
--- NOTE | ~2021-12-19 | US_ITS ---
EXAMINATION: US RETROPERITONEAL LIMITED (RENAL ONLY) CLINICAL INFORMATION: Calculus of kidney. COMPARISON: CT abdomen and pelvis 04/22/2021. TECHNIQUE: Real-time imaging of the kidneys. FINDINGS: RIGHT KIDNEY: 11.1 x 5.5 x 6.0 cm (SAG x AP x TRV). The kidney is normal in size, contour, and echogenicity. Renal cortical thickness is normal. No focal parenchymal lesions or hydronephrosis. An echogenic stone lower pole measuring 0.5 x 0.4 x 0.4 cm. No additional stones seen. LEFT KIDNEY: 10.6 x 5.5 x 5.1 cm (SAG x AP x TRV). The kidney is normal in size, contour, and echogenicity. Renal cortical thickness is normal. No calculi or focal parenchymal lesions. No hydronephrosis. US/US renal BI IMPRESSION: Nonobstructive echogenic calculus lower pole right kidney.
== END 2021-12-19 09:02 | disposition home or self-care (01) ==
LOC: HO.HMGCX 09:01
PROVIDERS: PCP Internal Medicine
DX: N20.0 Calculus of kidney (principal)
CPT/HCPCS: 76775

== ENCOUNTER 2022-01-03 17:30 | Outpatient (REF) | payer OTHER, SELFPAY ==
--- NOTE | ~2022-01-03 | MR_ITS ---
EXAMINATION: MR CERVICAL SPINE WITHOUT CONTRAST CLINICAL INFORMATION: Spondylosis without myelopathy or radiculopathy. COMPARISON: Cervical spine MRI 10/14/2021. TECHNIQUE: MRI of the cervical spine was performed using routine sequences without contrast. FINDINGS: The cervical vertebral bodies maintain normal heights and alignment. There is significant disc height loss at C6-C7 with progressive bone marrow edema. Additional significant disc height loss is seen at C5-C6. Marrow edema is seen across the right-sided C3-C4 facets with periarticular edema also demonstrated. The cervical cord signal appears normal. The imaged portions of the intracranial contents appear normal. The extraspinal soft tissues appear normal. SPINAL LEVELS: C2-C3: No posterior disc abnormality. No spinal canal or neural foraminal stenosis. C3-C4: Disc osteophyte complex without spinal canal stenosis. Progressive now severe right facet arthropathy with marrow edema. Mild right neural foraminal stenosis. C4-C5: Disc osteophyte complex with uncovertebral hypertrophy and mild facet arthropathy. Mild to moderate right neural foraminal stenosis without significant change. No spinal canal stenosis. C5-C6: Disc osteophyte complex with uncovertebral hypertrophy. Moderate to severe right and mild left neural foraminal stenosis without change. No spinal canal stenosis. C6-C7: Disc osteophyte complex with uncovertebral hypertrophy resulting in unchanged severe left and moderate right neural foraminal stenosis. No spinal canal stenosis. C7-T1: No posterior disc abnormality. No spinal canal or neural foraminal stenosis. MR/MR cervical spine wo con IMPRESSION: At C6-C7 there is progressive subchondral bone marrow edema. Unchanged severe left and moderate right neural foraminal stenosis. No marrow and periarticular edema about the right-sided C3-C4 facet compatible with arthropathy. At C5-C6 there is moderate to severe right neural foraminal stenosis without change.
== END 2022-01-03 17:31 | disposition home or self-care (01) ==
LOC: HO.MRI 17:30
PROVIDERS: Visit Provider Nurse Practitioner Family
DX: M47.812 Spondylosis without myelopathy or radiculopathy, cervical region (principal); M54.81 Occipital neuralgia
CPT/HCPCS: 72141

== ENCOUNTER → 2022-01-11 15:17 | Outpatient (BNVA) | payer OTHER, SELFPAY | PROVIDERS: PCP Internal Medicine; Visit Provider Nurse Practitioner Family ==

== ENCOUNTER → 2022-02-01 12:41 | Outpatient (BNVA) | payer OTHER, SELFPAY | PROVIDERS: PCP Internal Medicine ==

== ENCOUNTER 2022-02-12 06:20 | Outpatient (REF) | payer OTHER, SELFPAY ==
--- NOTE | ~2022-02-12 | FL_ITS ---
EXAMINATION: XR FLUOROSCOPY WITH IMAGES CLINICAL INFORMATION: Spondylosis without myelopathy or radiculopathy COMPARISON: None. TECHNIQUE: Fluoroscopy performed by Leanna Oliveros NP Fluoroscopy time: 0.5 minutes DAP: 1.8 Gycm2 Images: 4 FINDINGS: Images demonstrate needle placement and contrast injection adjacent to the right C3, C4, C5 and C6 bodies. FL/FL guidance in treatment room IMPRESSION: Fluoroscopy guidance for pain management procedure.
== END 2022-02-12 06:21 | disposition home or self-care (01) ==
LOC: HO.RADIR 06:20
PROVIDERS: Visit Provider Anesthesiology
DX: M47.812 Spondylosis without myelopathy or radiculopathy, cervical region (principal); M79.18 Myalgia, other site
CPT/HCPCS: 64490; 64491; 64492; Q9967

== ENCOUNTER 2022-02-26 07:50 | Emergency (ER) | payer OTHER, SELFPAY ==
--- NOTE | ~2022-02-26 | XR_ITS ---
EXAMINATION: XR SHOULDER, RIGHT CLINICAL INFORMATION: Pain. COMPARISON: None TECHNIQUE: AP external rotation, Grashey, scapular Y, and axillary views of the right shoulder. FINDINGS: The bones and soft tissues are normal. No fracture. Glenohumeral and acromioclavicular alignment is anatomic with normal joint space. No abnormal soft tissue calcifications. XR/XR shoulder RT min 2V IMPRESSION: Unremarkable right shoulder exam.
[2022-02-26 07:59] VITALS: BP 135/75; PULSE 96; RESP 18; TEMP 36.1; O2SAT 97; BMI 28.1
--- NOTE | 2022-02-26 08:04 | ECG_ITS ---
Test Reason : shoulder pain Blood Pressure : / mmHG Vent. Rate : 091 BPM Atrial Rate : 091 BPM P-R Int : 140 ms QRS Dur : 072 ms QT Int : 340 ms P-R-T Axes : 021 008 015 degrees QTc Int : 418 ms Normal sinus rhythm Normal ECG When compared with ECG of 30-SEP-2020 17:49, No significant change was found Referred By: Generic ED Physician Electronically Signed By:AMARA DARBY MD
--- NOTE | 2022-02-26 09:19 | ED_ITS ---
HPI - Extremity Problem General Chief complaint: Extremity Injury, Upper Stated complaint: shoulder pain Time Seen by Provider: 02/26/22 09:19 History of Present Illness HPI Narrative: Patient complains of right shoulder right trapezius and right-sided neck pain worse with movement which she woke up with this morning Related Data Previous Rx's Medication Instructions Recorded albuterol sulfate 90 mcg/actuation 1 inh INHALATION QID PRN 30 Days 10/02/21 aerosol inhaler #6.7 g NS cyclobenzaprine 10 mg tablet 10 mg PO TID PRN 30 Days #90 tab 10/25/21 diclofenac sodium 1 % topical gel 2 g TOPICAL QID #100 g 10/25/21 (Voltaren Arthritis Pain) lidocaine 5 % topical ointment 1 appl TOPICAL DAILY PRN #50 g 10/25/21 pyridoxine (vitamin B6) 100 mg 100 mg PO DAILY 90 Days #90 tab 12/04/21 tablet acetaminophen 500 mg tablet 1,000 mg PO QID PRN #30 tab 02/26/22 cyclobenzaprine 5 mg tablet 5 mg PO TID PRN #10 tab 02/26/22 Allergies Allergy/AdvReac Type Severity Reaction Status Date / Time No Known Allergies Allergy Verified 02/26/22 07:59 Review of Systems Review of Systems: Positive for right side neck trapezius and shoulder pain Negatives are no fever no chills no dizziness or weakness no numbness weakness or tingling no headache no chest pain no shortness of breath no abdominal pain no nausea or vomiting no muscle weakness no loss of sensation no skin rash Yes all other systems are reviewed and are negative PMFSH Past Medical History Source: nursing notes reviewed Medical History Bronchial asthma Bunion, left Cervical radiculopathy Class 1 obesity due to excess calories with body mass index (BMI) of 34.0 to 34.9 in adult Hammertoe of left foot Neck pain Obesity (BMI 35.0-39.9 without comorbidity) Occipital headache Renal calculi Transaminitis Surgical History delivery delivered Gastric bypass status for obesity Hx of breast reduction, elective Hx of hernia repair Family History Family History Mother Hypertension Alzheimer disease Father Alzheimer disease Social History Social History Housing: House Alcohol intake: unknown Patient Tobacco Use Status: Current everyday Tobacco user Tobacco use type: Cigarette Cigarettes Per Day: 4 Years Smoked: 15 e-Cigarette/Vaping Use: Never Used Second Hand Smoke Exposure: Yes Advance Directives: No Advance Directives Information Provided: No service: No Current occupational status: employed Current occupational exposures/hazards: No Physical Exam Vital Signs: Vital Signs: Last Vital Signs Temp 97.0 F 02/26/22 07:59 Pulse 96 02/26/22 07:59 Resp 18 02/26/22 07:59 BP 135/75 02/26/22 07:59 Pulse Ox 97 02/26/22 07:59 BMI result Body Mass Index 28.1 General appearance no acute distress Head is normocephalic atraumatic The neck had right lateral tenderness as well as right trapezius tenderness no midline tenderness, skin was normal in appearance no rashes, pain is easily reproduced with movement The chest wall is nontender, the chest is clear to auscultation bilateral with full symmetric equal breath sounds Heart no murmur Abdomen soft nontender Extremities the right shoulder had anterior tenderness, there was no redness or warmth, range of motion was limited on extension abduction and external rotation, but there was range of motion The right arm is neurovascular intact distal with full motor strength and sensation symmetric with the other side Skin no rashes Other extremities were full range of motion Course Course Course Narrative: Patient with pain right side of neck trapezius and right shoulder, pain is only with movement, no redness or warmth, range of motion in shoulder is mildly restricted but no evidence of septic joint Right shoulder x-ray was normal Unclear whether this is from the patient's neck or shoulder and otherwise well- appearing patient is discharged to follow with orthopedics in her doctor Discharge Plan Discharge Clinical Impression: Pain in right shoulder, Neck pain Patient Disposition: Home, Self-Care Additional Instructions: The pain in her right neck and shoulder could be from shoulder inflammation or it could be a pinched nerve in the neck sending pain down the right arm, it is not clear today Short-term treatment is Tylenol and Motrin as well as a muscle relaxer Follow with orthopedics and primary doctor Return to the ER any time any worse condition or any concerns Prescriptions: New acetaminophen 500 mg tablet 1,000 mg PO QID PRN (Reason: pain) Qty: 30 0RF cyclobenzaprine 5 mg tablet 5 mg PO TID PRN (Reason: muscle spasm) Qty: 10 0RF No Action albuterol sulfate 90 mcg/actuation HFA aerosol inhaler 1 inh inhalation QID PRN (Reason: shortness of breath or wheezing) 30 Days Qty: 6.7 3RF cyclobenzaprine 10 mg tablet 10 mg PO TID PRN (Reason: muscle spasm) 30 Days Qty: 90 0RF diclofenac sodium [Voltaren Arthritis Pain] 1 % gel 2 g topical QID Qty: 100 0RF lidocaine 5 % ointment 1 appl topical DAILY PRN (Reason: pain) Qty: 50 0RF pyridoxine (vitamin B6) 100 mg tablet 100 mg PO DAILY 90 Days Qty: 90 1RF Referrals: Huy Garner MD [Physician] - 1 week (Right shoulder pain, no injury normal x- ray) Stand Alone Forms: Work/School Release
--- NOTE | 2022-02-26 09:41 | PC.NURSE ---
eVALAUATED AND DISCHARGED BY PROVIDER. AWARE OF NEED FOR F/U WITH PCP OR TO RETURN TO ED IF SYMPTOMS WORSEN.
== END 2022-02-26 09:46 | disposition home or self-care (01) ==
PROVIDERS: Emergency Provider Emergency Medicine; PCP Internal Medicine
DX: M25.511 Pain in right shoulder (principal); M54.2 Cervicalgia; F17.200 Nicotine dependence, unspecified, uncomplicated
CPT/HCPCS: 73030; 93005; 99283

== ENCOUNTER → 2022-02-28 14:29 | Outpatient (BNVA) | payer OTHER, SELFPAY | PROVIDERS: PCP Internal Medicine; Visit Provider Nurse Practitioner Family | DX: Z13.89 Encounter for screening for other disorder (principal) ==

== ENCOUNTER 2022-03-02 10:05 | Outpatient (REF) | payer OTHER, SELFPAY ==
--- NOTE | ~2022-03-02 | MM_ITS ---
EXAMINATION: MM SCREENING DIGITAL BREAST TOMOSYNTHESIS, BILATERAL CLINICAL INFORMATION: Screening. Asymptomatic. The lifetime risk of breast cancer based on the Tyrer-Cuzick Model is 7%. COMPARISON: Mammography: 10/30/2019, 11/12/2018, 09/27/2017 TECHNIQUE: Digital breast tomosynthesis is performed in both the craniocaudal and mediolateral oblique views along with computer-aided detection (CAD). Synthesized 2D images are generated from the tomosynthesis. Additional bilateral CC and additional bilateral MLO views are provided. FINDINGS: The breasts are almost entirely fatty (ACR BI-RADS breast composition Category a). Background stromal markings are stable. There is a able nodule with overlying biopsy clip marker left breast mid 5:00 position. Neither breast shows interval mass or architectural abnormality or developing density. No abnormal calcifications. The axilla and skin contours are unremarkable. MM/MM tomosynthesis screening BI IMPRESSION: No mammographic evidence of malignancy. ASSESSMENT: BI-RADS 2: Benign RECOMMENDATION: Routine annual mammography screening. This patient's information was entered into a reminder system with a target due date for their next mammogram.
== END 2022-03-02 10:06 | disposition home or self-care (01) ==
LOC: HO.MAMMO 10:05
PROVIDERS: Visit Provider Internal Medicine
DX: Z12.31 Encounter for screening mammogram for malignant neoplasm of breast (principal)
CPT/HCPCS: 77063; 77067

== ENCOUNTER 2022-05-03 06:23 | Outpatient (REF) | payer OTHER, SELFPAY ==
--- NOTE | ~2022-05-03 | FL_ITS ---
EXAMINATION: XR FLUOROSCOPY WITH IMAGES CLINICAL INFORMATION: Cervical spondylosis. COMPARISON: 02/12/2022 TECHNIQUE: Fluoroscopy performed by Dr. Sandhu FLUOROSCOPY TIME: 0.3 minutes DAP: 0.361 Gy-cm2 FLUOROSCOPY IMAGES: 3 FINDINGS: 3 C-arm films demonstrate needles along the right side of C3, C4, C5, and C6 with contrast injected. FL/FL guidance in treatment room IMPRESSION: Intraoperative fluoroscopy used for pain management procedure.
== END 2022-05-03 06:24 | disposition home or self-care (01) ==
LOC: HO.RADIR 06:23
PROVIDERS: Visit Provider Internal Medicine
DX: M47.812 Spondylosis without myelopathy or radiculopathy, cervical region (principal)
CPT/HCPCS: 64490; 64491; 64492; J2795; Q9967

== ENCOUNTER 2022-05-30 13:02 | Outpatient (REF) | payer OTHER, SELFPAY ==
[2022-05-30 14:45] LABS: Appearance Urine CLOUDY; Color Urine YELLOW; Glucose Urine UA NEG (NEG); Leukocyte Esterase Urine NEG (NEG); Nitrite Urine NEG (NEG); PH 5.5 (5.0-8.0); Specific Gravity - Urine >= 1.030 (1.005-1.025); UACC Culture Trigger NO; Urine Blood 3+ (NEG); Urine Ketones 5 MG/DL (NEG); Urine Protein 1+ MG/DL (NEG-TRACE)
[2022-05-30 15:02] LABS: Bacteria Urine 1+ /LPF; RBC Urine 30-49 /HPF (0); Squamous Epithelial Cell Urine 1+ /LPF; UACC CULT YES
== END 2022-05-30 13:03 | disposition home or self-care (01) ==
LOC: HO.LAB 13:02
PROVIDERS: PCP Internal Medicine; Visit Provider Internal Medicine
DX: R30.0 Dysuria (principal)
CPT/HCPCS: 81001; 87086; 87088; 87186

== ENCOUNTER 2022-07-31 13:19 | Outpatient (REF) | payer OTHER, SELFPAY ==
--- NOTE | ~2022-07-31 | US_ITS ---
EXAMINATION: US RETROPERITONEAL LIMITED (RENAL ONLY) CLINICAL INFORMATION: Calculus of kidney. COMPARISON: Ultrasound retroperitoneal limited (renal only) 12/19/2021. CT abdomen and pelvis with contrast 04/22/2021. TECHNIQUE: Real-time imaging of the kidneys. FINDINGS: RIGHT KIDNEY: 10.6 x 5.1 x 4.8 cm (SAG x AP x TRV). The kidney is normal in size, contour, and echogenicity. Renal cortical thickness is normal. There 2 small stones in the lower pole measuring 3 mm. No focal parenchymal lesions or hydronephrosis. LEFT KIDNEY: 10.7 x 5.7 x 5.3 cm (SAG x AP x TRV). The kidney is normal in size, contour, and echogenicity. Renal cortical thickness is normal. There is a small stone in the upper pole measuring 3 mm. No focal parenchymal lesions or hydronephrosis. US/US renal BI IMPRESSION: Small bilateral renal stones.
== END 2022-07-31 13:20 | disposition home or self-care (01) ==
LOC: HO.US 13:19
DX: N20.0 Calculus of kidney (principal)
CPT/HCPCS: 76775

== ENCOUNTER 2022-08-21 14:00 | Outpatient (RCR) | payer OTHER, SELFPAY ==
--- NOTE | 2022-07-04 15:03 | MHC.PT.EP ---
[facility] [place] Office [place] Office [place] Office [address] Juan Manuel Payton [address] [phone] F: [phone] F: [phone] F: [phone] F: [phone] Physical Therapy Plan of Care Date of Evaluation: Date of Surgery: N/A Diagnosis: cervical spondylosis (RC + BB) Assessment: pt is a 51 y/o female presenting to physical therapy w/ referral for cervical spondylosis. Impairments include pain, decreased range of motion, decreased strength, impaired functional mobility, impaired postural awareness. pt is a good candidate for skilled PT due to age, potential remediation of impairments, typical disease/condition progression and prognosis, comorbidities, and motivation. pt would benefit from tailored strengthening and stretching exercise program, functional training, postural re-training, neuromuscular re-education, modalities as needed for pain, equipment safety demonstration. Frequency and Duration: The patient will be seen 1/wk for 6 wks Short Term Goals: pt will be I w/ HEP to promote self-management of condition. pt will improve B cervical rotation by 10 degrees to promote ease in head turns w/ driving. Longterm Goals: pt will report a statistically significant improvement in self-reported outcome measure, NDI, to promote return to PLOF. Treatment Plan: Modalities to reduce pain, spasms and effusion. Manual therapy to restore motion and function. Therapeutic exercise to improve strength and flexibility. Neuromuscular re-education for posture and balance. Therapeutic activities to return to functional activities of daily living. Electronically signed by: Esme Snyder PT, DPT Please sign and return to therapist. Thank you for your referral.
--- NOTE | 2022-08-21 15:05 | MHC.PT.DC ---
[facility] [place] Office [place] Office [place] Office [address] Juan Manuel Payton [address] [phone] F: [phone] F: [phone] F: [phone] F: [phone] Physical Therapy Discharge Report Diagnosis: cervical spondylosis (RC + BB) Date of Surgery: N/A Date of Evaluation: 07/04/22 Date of Discharge: 08/21/22 Treatments to Date: 7 Cancellations to Date: 0 No Shows to Date: 0 Discharge Status: Discharge Summary: She completed scheduled course of PT, being consistent with visits and compliant with HEP for strengthening, ROM and posture. She persists with high, unchanging pain level in cervical spine and would benefit from alternate interventions for pain management. She completed course of skilled PT at this time, plan to discharge this visit. Electronically signed by: Manolo Hazel, PT, DPT Please sign and return to therapist. Thank you for your referral.
== END 2022-08-22 10:26 | disposition home or self-care (01) ==
LOC: HO.PT 14:00
PROVIDERS: Visit Provider Nurse Practitioner Family
DX: M47.812 Spondylosis without myelopathy or radiculopathy, cervical region (principal); M79.18 Myalgia, other site
CPT/HCPCS: 97014; 97110; 97140; 97162

== ENCOUNTER 2022-11-13 10:30 | Day surgery (SDC) | payer OTHER, SELFPAY ==
--- NOTE | ~2022-11-13 | FL_ITS ---
EXAMINATION: XR FLUOROSCOPY WITH IMAGES CLINICAL INFORMATION: Ongoing pain. Cervical spondylosis. Pain management procedure. COMPARISON: MR cervical spine 01/03/2022 TECHNIQUE: Fluoroscopy Supervised By: Dr. Amol Sandhu. Fluoroscopy Time: 0.3 minutes. Cumulative Dose: 8.62 mGy. DAP: 0.805 Gycm2. Images: 2. FINDINGS: There are spinal needles overlying the right lateral masses cervical spine approximately C3 and C4. FL/FL guidance in OR IMPRESSION: Fluoroscopy for pain management procedure.
[2022-11-13 10:39] VITALS: BMI 36.3
[2022-11-13] MEDS: LORazepam 1 MG TABLET PO (11:23)
[2022-11-13 12:20] VITALS: BP 140/95; PULSE 114; RESP 18; TEMP 36.7; O2SAT 94
--- NOTE | 2022-11-13 12:33 | MHC.SHP ---
Pre-Procedural Eval Section A Date of Service: 11/13/22 The patient is an INPATIENT: No Changes since office visit: Yes Patient answered all questions The History & Physical has been completed within 30 days and I have reviewed it.: No Section B Chief Complaint: Cervicalgia Relevant Family History (Specify if Yes): No Relevant Social History: None Present Medications: see Short Stay Collaborative assessment Medical History: No relevant PMH History of Previous Operations: No relevant previous surgery Allergies: Allergies Allergy/AdvReac Type Severity Reaction Status Date / Time No Known Allergies Allergy Verified 09/17/22 16:26 Review of Systems Sugical H&P ROS: Negative: Constitution, Cardiovascular and Respiratory Exam Surgical H&P Exam: Normal: HEENT, Normal: Heart and Normal: Lungs Plan Diagnosis/Plan: Unchanged I have reviewed the history and physical and performed a pertinent physical examination on my patient. No changes have occurred unless specified. Time Spent With Patient Time: Total time managing care of this patient today ____ minutes.
--- NOTE | 2022-11-13 12:34 | P.BOP_ITS ---
Brief Operative Note Date of Service: 11/13/22 Pre-op diagnosis: Cervical spondylosis Post-op diagnosis: same Procedure: Right cervical medial branch radiofrequency ablation, C3 and C4 Implants: None Surgeon: Amol Sandhu MD Anesthesia: local Was an Senior Cost Accountant used for this Procedure?: No Estimated blood loss (mL): 2 Pathology: none sent Condition: stable Disposition: same day
--- NOTE | 2022-11-13 12:35 | W.PM.OPN ---
Operative Note Operative Note Date of Service: 11/13/22 Narrative: Radiofrequency lesioning cervical medial branch nerves, Right C3, C4 (2 nerves, 1 level) After obtaining written consent, pre-procedure blood pressure and heart rate were stable and recorded in the nursing record. The patient was placed in the prone position. The?cervical?area was prepped with chloraprep and draped in sterile fashion. The skin over the target for each medial branch nerve was anesthetized with 0.5% lidocaine. An 18 gauge radiofrequency cannula was advanced to each target site under fluoroscopic guidance. No paresthesias were elicited with needle placement and aspiration was negative for heme and CSF. Impedences were verified under 600 ohms. Sensory testing (50 Hz) and then motor testing (2 Hz) confirmed needle placement at each site within the appropriate voltage thresholds. Each site was injected with 1 ml 2% preservative-free lidocaine. Radiofrequency lesioning was performed for 90 seconds at 80 deg Celcius. 0.5ml ropivacaine 0.5% was flushed through each needle. The needles were removed, skin cleansed and a sterile bandage was applied. The patient tolerated the procedure well and no complications were encountered. Following the procedure the patient's vital signs were stable. The patient was discharged home in good condition with post-procedural instructions. Time Out: Immediately prior to the procedure, the following was verbally confirmed that there is a signed consent form and that the correct patient, planned procedure, site and side are consistent with documentation and that necessary equipment and/or blood products are available prior to the start of the case. Complications: none EBL: <5 cc
== END 2022-11-13 12:57 | disposition home or self-care (01) ==
PROVIDERS: PCP Internal Medicine; Visit Provider Internal Medicine
PROC: (CPT 64633; principal; 2022-11-13 11:30)
DX: M47.812 Spondylosis without myelopathy or radiculopathy, cervical region (principal); M54.2 Cervicalgia; G89.29 Other chronic pain; M79.18 Myalgia, other site; J45.909 Unspecified asthma, uncomplicated; F17.210 Nicotine dependence, cigarettes, uncomplicated; E66.09 Other obesity due to excess calories; Z68.35 Body mass index [BMI] 35.0-35.9, adult; Z98.84 Bariatric surgery status
CPT/HCPCS: 64633; J2795; J3301; Q9965

== ENCOUNTER 2022-12-10 13:12 | Emergency (ER) | payer OTHER, SELFPAY ==
--- NOTE | ~2022-12-10 | US_ITS ---
EXAMINATION: US VENOUS ULTRASOUND WITH DOPPLER LOWER EXTREMITY, BILATERAL CLINICAL INFORMATION: Bilateral thigh pain. COMPARISON: None TECHNIQUE: Ultrasound of the deep veins is performed from the hip to the calf with compression sonography and color and pulse Doppler assessment. Spectral analysis with color-flow imaging is performed. FINDINGS: RIGHT: There is normal venous compression and respiratory variation and augmented flow. The visualized common femoral vein, superficial femoral vein, profunda femoral vein, popliteal vein, and the trifurcation region shows no evidence of deep venous thrombosis. No right popliteal cyst. The subcutaneous soft tissues are unremarkable. LEFT: There is normal venous compression and respiratory variation and augmented flow. The visualized common femoral vein, superficial femoral vein, profunda femoral vein, popliteal vein, and the trifurcation region shows no evidence of deep venous thrombosis. No left popliteal cyst. The subcutaneous soft tissues are unremarkable. If the patient's symptoms persist, followup ultrasound in 5 days 7 days might be of value to exclude proximal propagation from a non-visualized calf vein. US/US venous duplex LE BI IMPRESSION: No evidence for deep venous thrombosis in the visualized veins of the bilateral lower extremities.
--- NOTE | ~2022-12-10 | XR_ITS ---
EXAMINATION: XR chest 1V CLINICAL INFORMATION: Chest pain COMPARISON: Prior chest x-ray 2020 TECHNIQUE: XR chest 1V Tubes and lines: None Lungs and pleura: Elevation right hemidiaphragm unchanged possibly diaphragmatic hernia. Both lungs are clear. Heart and mediastinum: The mediastinum is within normal limits.. Bones/soft tissue: Skeletal structures included are normal for patient's age. XR/XR chest 1V IMPRESSION: * No radiographic evidence of acute cardiopulmonary disease. * Elevation right hemidiaphragm unchanged possibly diaphragmatic hernia.
--- NOTE | 2022-12-10 13:22 | ECG_ITS ---
Test Reason : cp Blood Pressure : / mmHG Vent. Rate : 115 BPM Atrial Rate : 115 BPM P-R Int : 136 ms QRS Dur : 072 ms QT Int : 320 ms P-R-T Axes : 041 -03 016 degrees QTc Int : 442 ms Sinus tachycardia Cannot rule out Anterior infarct , age undetermined Abnormal ECG When compared with ECG of 26-FEB-2022 08:02, No significant change was found Referred By: Earnest Woods Electronically Signed By:AMARA DARBY MD
[2022-12-10 14:26] VITALS: BP 149/95; PULSE 105; RESP 16; O2SAT 95; BMI 36.3
--- NOTE | 2022-12-10 14:30 | ED.CHESTPAIN ---
HPI - Chest Pain General Chief Complaint: Chest Pain <ELDA Vogel - Last Filed: 12/23/22 09:38> Stated Complaint: Chest pain <ELDA Vogel - Last Filed: 12/23/22 09:38> Time Seen by Provider: 12/10/22 21:38 <ELDA Vogel - Last Filed: 12/23/22 09:38> Source: patient <Eyal Guardado MD - Last Filed: 12/10/22 22:31> Mode of arrival: ambulatory <Eyal Guardado MD - Last Filed: 12/10/22 22:31> Limitations: no limitations <Eyal Guardado MD - Last Filed: 12/10/22 22:31> History of Present Illness HPI narrative: 52-year-old female who presents emergency department for evaluation of bilateral leg pain and chest pain. Patient states that on Friday (3 days prior) she developed diarrhea which resolved on Friday (2 days prior). She states that she woke up today and felt fine but when she got to work at around 08:30 hours she developed cramping sensation in both thighs. 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 She states that the pain was constant and was 8/10. She did not take any medications. She states that around 12 30 she had a sudden onset of sharp chest pain. She points to her sternum and left chest when asked to localize the pain. She states the pain was constant and lasted approximately 10-20 minutes and then resolved. She had no concerning symptoms such as lightheadedness, dizziness, neck pain or arm pain. Patient states that she was concerned about her symptoms and left for came to emergency department for evaluation. At the time my evaluation the patient was having no chest pain but she still is having pain in both thighs. <Eyal Guardado MD - Last Filed: 12/10/22 22:31> Related Data Home Medications: Previous Rx's Medication Instructions Recorded celecoxib 100 mg capsule 100 mg PO BID PRN pain 30 days #60 02/28/22 caps diclofenac sodium 1 % topical gel 2 g topical QID #100 grams 04/16/22 (Voltaren Arthritis Pain) lidocaine 5 % topical ointment 1 appl topical DAILY PRN pain #50 04/16/22 grams acetaminophen 500 mg tablet 1,000 mg PO QID PRN pain #30 tabs 06/03/22 albuterol sulfate 90 mcg/actuation 1 inh inhalation QID PRN shortness 06/19/22 aerosol inhaler of breath or wheezing 30 days #6.7 grams ibuprofen 800 mg tablet 800 mg PO Q8H 30 days #90 tabs 06/19/22 pyridoxine (vitamin B6) 100 mg 100 mg PO DAILY 90 days #90 tabs 08/06/22 tablet azithromycin 250 mg tablet See Rx Instructions PO .COMPLEX #6 09/17/22 tabs prednisone 20 mg tablet 60 mg PO DAILY #9 tabs 09/17/22 methocarbamol 750 mg tablet 750 mg PO Q8H PRN muscle spasms 30 09/22/22 days #90 tabs <ELDA Vogel - Last Filed: 12/23/22 09:38> Allergies/Adverse Reactions: Allergies Allergy/AdvReac Type Severity Reaction Status Date / Time No Known Allergies Allergy Verified 12/17/22 09:28 <ELDA Vogel - Last Filed: 12/23/22 09:38> Review of Systems Review of Systems: Yes all other systems are reviewed and are negative <Eyal Guardado MD - Last Filed: 12/10/22 22:31> [facility] Past Medical History [facility] Narrative: Social history: The patient works for a local [employer]. She does smoke 1/2 pack of cigarettes per day times 20 years. She occasionally drinks alcohol. She denies drug use. <Eyal Guardado MD - Last Filed: 12/10/22 22:31> Medical History: Medical History Bronchial asthma Bunion, left Cervical radiculopathy Class 1 obesity due to excess calories with body mass index (BMI) of 34.0 to 34.9 in adult Hammertoe of left foot Neck pain Obesity (BMI 35.0-39.9 without comorbidity) Occipital headache Renal calculi Transaminitis <ELDA Vogel - Last Filed: 12/23/22 09:38> Surgical History: Surgical History delivery delivered Gastric bypass status for obesity Hx of breast reduction, elective Hx of hernia repair <ELDA Vogel - Last Filed: 12/23/22 09:38> Family History Family History: Family History Mother Hypertension Alzheimer disease Father Alzheimer disease <ELDA Vogel - Last Filed: 12/23/22 09:38> Social History Social History: Social History Housing: House Alcohol intake: unknown Patient Tobacco Use Status: Current everyday Tobacco user Tobacco use type: Cigarette Cigarettes Per Day: 4 Years Smoked: 15 e-Cigarette/Vaping Use: Never Used Second Hand Smoke Exposure: Yes service: No Current occupational status: employed Current occupational exposures/hazards: No <ELDA Vogel - Last Filed: 12/23/22 09:38> Physical Exam Vital Signs: Vital Signs: Last Vital Signs Temp 98.1 F 12/10/22 21:21 Pulse 100 12/10/22 22:33 Resp 20 12/10/22 22:33 BP 149/99 H 12/10/22 22:33 Pulse Ox 95 12/10/22 22:33 O2 Del Method 12/10/22 22:33 BMI result Body Mass Index 36.3 <ELDA Vogel - Last Filed: 12/23/22 09:38> Vital Signs: Last Vital Signs Temp 98.1 F 12/10/22 21:21 Pulse 100 12/10/22 22:33 Resp 20 12/10/22 22:33 BP 149/99 H 12/10/22 22:33 Pulse Ox 95 12/10/22 22:33 O2 Del Method 12/10/22 22:33 BMI result Body Mass Index 36.3 <Eyal Guardado MD - Last Filed: 12/10/22 22:31> Const: General: cooperative and no acute distress <Eyal Guardado MD - Last Filed: 12/10/22 22:31> Orientation/consciousness: oriented to person and oriented to place <Eyal Guardado MD - Last Filed: 12/10/22 22:31> Limitations: no limitations <Eyal Guardado MD - Last Filed: 12/10/22 22:31> HEENT: Head: Yes normal to inspection, Yes normocephalic and Yes atraumatic <Eyal Guardado MD - Last Filed: 12/10/22 22:31> Ears: external ears normal <Eyal Guardado MD - Last Filed: 12/10/22 22:31> General nose exam: Normal external nose present <Eyal Guardado MD - Last Filed: 12/10/22 22:31> Face and sinus: Yes normal facial exam <Eyal Guardado MD - Last Filed: 12/10/22 22:31> Mouth: Normal oral and palatal mucosa present <Eyal Guardado MD - Last Filed: 12/10/22 22:31> Throat: Yes posterior oropharynx normal <Eyal Guardado MD - Last Filed: 12/10/22 22:31> Eyes: General: appearance normal, both eyes and all related structures <Eyal Guardado MD - Last Filed: 12/10/22 22:31> Pupils: Equal, round and reactive pupils present <Eyal Guardado MD - Last Filed: 12/10/22 22:31> Neck: Neck: Yes normal visual inspection, Yes no lymphadenopathy, Yes trachea midline and Yes supple <Eyal Guardado MD - Last Filed: 12/10/22 22:31> Chest: Chest palpation & inspection: normal inspection of the chest and tenderness ( moderate sternal and left costochondral joint tenderness) <MD Marck Gomez Last Filed: 12/10/22 22:31> Resp: Effort & Inspection: normal respiratory effort and able to speak in complete sentences <Eyal Guardado MD - Last Filed: 12/10/22 22:31> Auscultation: clear to auscultation bilaterally <MD Marck Gomez Last Filed: 12/10/22 22:31> Cardio: Rate: regular rate <Eyal Guardado MD - Last Filed: 12/10/22 22:31> Rhythm: regular rhythm <Eyal Guardado MD - Last Filed: 12/10/22 22:31> Heart sounds: S1 normal heart sound present, S2 normal heart sound present and no murmurs <Eyal Guardado MD - Last Filed: 12/10/22 22:31> GI: Inspection: Yes normal to inspection <Eyal Guardado MD - Last Filed: 12/10/22 22:31> Palpation (GI): Soft to palpation, nontender and no guarding <Eyal Guardado MD - Last Filed: 12/10/22 22:31> Auscultation: normal bowel sounds <Eyal Guardado MD - Last Filed: 12/10/22 22:31> : General: Yes no CVA tenderness <Eyal Guardado MD - Last Filed: 12/10/22 22:31> Back/Spine/Pelvis: Back: no CVA tenderness <Eyal Guardado MD - Last Filed: 12/10/22 22:31> Skin: General skin exam: no rashes or lesions noted <Eyal Guardado MD - Last Filed: 12/10/22 22:31> Neuro: General: oriented to person and oriented to place <Eyal Guardado MD - Last Filed: 12/10/22 22:31> Cranial nerves: Yes CN's II-XII intact bilaterally and Yes Equal, round and reactive pupils present <Eyal Guardado MD - Last Filed: 12/10/22 22:31> Cognition (Neuro): normal cognition <Eyal Guardado MD - Last Filed: 12/10/22 22:31> Motor exam (neuro): 5/5 motor strength present throughout <Eyal Guardado MD - Last Filed: 12/10/22 22:31> Extrem: Other: the patient does have varicose bones over her thighs and lower extremities with no significant erythema or increased warmth. There are no rashes or lesions noted. She does have tenderness with palpation of her thighs bilaterally. <Eyal Guardado MD - Last Filed: 12/10/22 22:31> Psych: Appearance: grossly normal <Eyal Guardado MD - Last Filed: 12/10/22 22:31> Speech and movement: Normal speech and movement present <Eyal Guardado MD - Last Filed: 12/10/22 22:31> Affect: normal affect <Eyal Guardado MD - Last Filed: 12/10/22 22:31> Attitude: cooperative <Eyal Guardado MD - Last Filed: 12/10/22 22:31> Thought process: Normal thought process present <Eyal Guardado MD - Last Filed: 12/10/22 22:31> Thought content: Normal thought content present <Eyal Guardado MD - Last Filed: 12/10/22 22:31> Course Course Course Narrative: RME: patient presents to the ED for chest pain today and bilateral thigh pain. Denies any recent long travel, surgery, estrogen hormonal use, surgery, or history of blood clots. legs not swollen/negative for calf tednerss, but positive bilateral thign tenderness. Labs, EKG, troponin, CHest xray, and bilateral US of legs ordered. CpK ordered <ELDA Vogel - Last Filed: 12/23/22 09:38> Medications Administered Discontinued Medications Generic Name Dose Route Start Last Admin Trade Name Freq PRN Reason Stop Dose Admin Ibuprofen 400 mg 12/10/22 22:01 12/10/22 22:33 Ibuprofen 400 Mg Tablet PO 12/10/22 22:02 400 mg ONCE ONE Administration <ELDA Vogel - Last Filed: 12/23/22 09:38> Medications Administered Discontinued Medications Generic Name Dose Route Start Last Admin Trade Name Freq PRN Reason Stop Dose Admin Ibuprofen 400 mg 12/10/22 22:01 12/10/22 22:33 Ibuprofen 400 Mg Tablet PO 12/10/22 22:02 400 mg ONCE ONE Administration <Eyal Guardado MD - Last Filed: 12/10/22 22:31> Medical Decision Making Medical Decision Making MDM Narrative: 52-year-old female who presents emergency department for evaluation of diarrheal illness which lasted approximately 2 days, resolved 1 day prior, bilateral thigh pain which started today and sudden onset sternal and left-sided chest pain which lasts approximately 20 minutes. Patient's vital signs did reveal elevated blood pressure of 149/95 and elevated pulse of 105. Patient states that she is always tachycardic. Patient's exam did reveal chest wall tenderness as well as tenderness palpation of her thighs bilaterally. RME Was performed at triage and the following studies were ordered CBC, CMP, troponin, CPK, PT/ INR, PTT, COVID-19, RSV, influenza, bilateral duplex ultrasounds of the lower extremities. Chest x-ray and EKG was also obtained. 2223 : My impression of the patient's laboratory evaluation as follows: CBC normal. Coags normal. BMP normal. Elevated AST, ALT and alkaline phosphatase of 49, 52 and 131-these are chronic most likely caused by fatty liver. High sensitivity troponin I was below detectable limits. CPK was normal at 116. COVID-19, influenza and RSV were negative. This is a nonspecific laboratory evaluation which does not explain the patient's pain. Twelve EKG was consistent with tachycardia with nonspecific findings but unchanged from 02/26/2022. Chest x-ray revealed no acute disease to explain the patient's symptoms . Duplex ultrasound by lower extremities were negative for DVT. this time I believe the patient has a viral illness which is given her myalgias of her lower extremities. I did discuss this with her. She was advised to take ibuprofen 40 mg 3 times a day as needed for pain. She was given a note not return For 2 days. <Eyal Guardado MD - Last Filed: 12/10/22 22:31> Differential Diagnosis Differential diagnosis includes was not limited to viral syndrome, rhabdomyolysis, myositis, DVT, myalgias, musculoskeletal pain, cellulitis <Eyal Guardado MD - Last Filed: 12/10/22 22:31> Lab Data [facility] Lab Attestation statement: I reviewed the patient's lab results. <Eyal Guardado MD - Last Filed: 12/10/22 22:31> please see [facility] for my independent interpretation <Eyal Guardado MD - Last Filed: 12/10/22 22:31> Result Diagrams: 12/10/22 14:42 12/10/22 14:42 <ELDA Vogel - Last Filed: 12/23/22 09:38> Labs: Lab Results 12/10/22 12/10/22 12/10/22 Range/Units 14:42 14:42 14:42 WBC 9.6 (4.8-10.8) X10*3/uL RBC 5.02 (4.20-5.50) X10*6/uL Hgb 14.7 (12.0-16.0) g/dl Hct 44.3 (37.0-47.0) % MCV 88.2 (80.0-98.0) fL MCH 29.3 (27.0-33.0) pg MCHC 33.2 (31.0-35.0) g/dl RDW 14.1 (11.0-16.0) % Plt Count 302 (160-400) X10*3/uL MPV 9.5 (9.4-12.3) fL Immature Gran % (Auto) 0.4 (0.0-0.4) % Neut % (Auto) 61.7 (45-73) % Lymph % (Auto) 29.7 (20-40) % [place] % (Auto) 6.5 (2-11) % Eos % (Auto) 1.1 (0-4) % Baso % (Auto) 0.6 (0-2) % Lymph # (Auto) 2.9 (1.2-4.9) X10*3/uL [place] # (Auto) 0.6 (0.1-1.2) X10*3/uL Eos # (Auto) 0.1 (0.0-0.4) X10*3/uL Baso # (Auto) 0.1 (0.0-0.2) X10*3/uL Abs Immat Gran (auto) 0.04 H (0.00-0.03) X10*3/uL Absolute Neuts (auto) 5.9 (2.0-8.3) x10*3/uL Absolute Nucleated RBC 0.000 (0.0-0.012) X10*3/uL Nucleated RBC % (auto) 0.0 (0.0-0.2) /100WBC PT (10.0-13.1) SEC INR (0.9-1.1) APTT (26.0-36.4) SEC Sodium 141 (135-145) mmol/L Potassium 4.5 (3.3-5.1) mmol/L Chloride 105 (96-108) mmol/L Carbon Dioxide 26 (22-29) mmol/L Anion Gap 15 (12-20) BUN 8 L (9-16) mg/dL Creatinine 0.66 (0.5-1.4) mg/dL Estim Creat Clear Calc 92.1 Estimated GFR > 60 Random Glucose 93 (60-115) mg/dL Calcium 9.7 D (8.4-10.2) mg/dL Total Bilirubin 0.7 (0.0-1.0) mg/dL AST 49 H (5-31) U/L ALT 52 H (0-31) U/L Alkaline Phosphatase 131 H (39-117) U/L Total Creatine Kinase 116 (26-140) U/L Troponin I High Sens < 3.5 (<3.5-17.0) ng/L B-Natriuretic Peptide (<100) pg/mL Total Protein 7.5 (6.5-8.0) g/dL Albumin 4.5 (3.5-5.0) g/dL Influenza Type A (PCR) (Negative) Influenza Type B (PCR) (Negative) RSV RNA Qual (PCR) (Negative) SARS-CoV-2 RNA (RT-PCR) (Negative) 12/10/22 12/10/22 12/10/22 Range/Units 14:42 14:42 14:42 WBC (4.8-10.8) X10*3/uL RBC (4.20-5.50) X10*6/uL Hgb (12.0-16.0) g/dl Hct (37.0-47.0) % MCV (80.0-98.0) fL MCH (27.0-33.0) pg MCHC (31.0-35.0) g/dl RDW (11.0-16.0) % Plt Count (160-400) X10*3/uL MPV (9.4-12.3) fL Immature Gran % (Auto) (0.0-0.4) % Neut % (Auto) (45-73) % Lymph % (Auto) (20-40) % [place] % (Auto) (2-11) % Eos % (Auto) (0-4) % Baso % (Auto) (0-2) % Lymph # (Auto) (1.2-4.9) X10*3/uL [place] # (Auto) (0.1-1.2) X10*3/uL Eos # (Auto) (0.0-0.4) X10*3/uL Baso # (Auto) (0.0-0.2) X10*3/uL Abs Immat Gran (auto) (0.00-0.03) X10*3/uL Absolute Neuts (auto) (2.0-8.3) x10*3/uL Absolute Nucleated RBC (0.0-0.012) X10*3/uL Nucleated RBC % (auto) (0.0-0.2) /100WBC PT 10.8 (10.0-13.1) SEC INR 0.9 (0.9-1.1) APTT 31.9 (26.0-36.4) SEC Sodium (135-145) mmol/L Potassium (3.3-5.1) mmol/L Chloride (96-108) mmol/L Carbon Dioxide (22-29) mmol/L Anion Gap (12-20) BUN (9-16) mg/dL Creatinine (0.5-1.4) mg/dL Estim Creat Clear Calc Estimated GFR Random Glucose (60-115) mg/dL Calcium (8.4-10.2) mg/dL Total Bilirubin (0.0-1.0) mg/dL AST (5-31) U/L ALT (0-31) U/L Alkaline Phosphatase (39-117) U/L Total Creatine Kinase (26-140) U/L Troponin I High Sens (<3.5-17.0) ng/L B-Natriuretic Peptide 20 (<100) pg/mL Total Protein (6.5-8.0) g/dL Albumin (3.5-5.0) g/dL Influenza Type A (PCR) NEGATIVE (Negative) Influenza Type B (PCR) NEGATIVE (Negative) RSV RNA Qual (PCR) NEGATIVE (Negative) SARS-CoV-2 RNA (RT-PCR) NEGATIVE (Negative) <ELDA Vogel - Last Filed: 12/23/22 09:38> Lab Results 12/10/22 12/10/22 12/10/22 Range/Units 14:42 14:42 14:42 WBC 9.6 (4.8-10.8) X10*3/uL RBC 5.02 (4.20-5.50) X10*6/uL Hgb 14.7 (12.0-16.0) g/dl Hct 44.3 (37.0-47.0) % MCV 88.2 (80.0-98.0) fL MCH 29.3 (27.0-33.0) pg MCHC 33.2 (31.0-35.0) g/dl RDW 14.1 (11.0-16.0) % Plt Count 302 (160-400) X10*3/uL MPV 9.5 (9.4-12.3) fL Immature Gran % (Auto) 0.4 (0.0-0.4) % Neut % (Auto) 61.7 (45-73) % Lymph % (Auto) 29.7 (20-40) % [place] % (Auto) 6.5 (2-11) % Eos % (Auto) 1.1 (0-4) % Baso % (Auto) 0.6 (0-2) % Lymph # (Auto) 2.9 (1.2-4.9) X10*3/uL [place] # (Auto) 0.6 (0.1-1.2) X10*3/uL Eos # (Auto) 0.1 (0.0-0.4) X10*3/uL Baso # (Auto) 0.1 (0.0-0.2) X10*3/uL Abs Immat Gran (auto) 0.04 H (0.00-0.03) X10*3/uL Absolute Neuts (auto) 5.9 (2.0-8.3) x10*3/uL Absolute Nucleated RBC 0.000 (0.0-0.012) X10*3/uL Nucleated RBC % (auto) 0.0 (0.0-0.2) /100WBC PT (10.0-13.1) SEC INR (0.9-1.1) APTT (26.0-36.4) SEC Sodium 141 (135-145) mmol/L Potassium 4.5 (3.3-5.1) mmol/L Chloride 105 (96-108) mmol/L Carbon Dioxide 26 (22-29) mmol/L Anion Gap 15 (12-20) BUN 8 L (9-16) mg/dL Creatinine 0.66 (0.5-1.4) mg/dL Estim Creat Clear Calc 92.1 Estimated GFR > 60 Random Glucose 93 (60-115) mg/dL Calcium 9.7 D (8.4-10.2) mg/dL Total Bilirubin 0.7 (0.0-1.0) mg/dL AST 49 H (5-31) U/L ALT 52 H (0-31) U/L Alkaline Phosphatase 131 H (39-117) U/L Total Creatine Kinase 116 (26-140) U/L Troponin I High Sens < 3.5 (<3.5-17.0) ng/L B-Natriuretic Peptide (<100) pg/mL Total Protein 7.5 (6.5-8.0) g/dL Albumin 4.5 (3.5-5.0) g/dL Influenza Type A (PCR) (Negative) Influenza Type B (PCR) (Negative) RSV RNA Qual (PCR) (Negative) SARS-CoV-2 RNA (RT-PCR) (Negative) 12/10/22 12/10/22 12/10/22 Range/Units 14:42 14:42 14:42 WBC (4.8-10.8) X10*3/uL RBC (4.20-5.50) X10*6/uL Hgb (12.0-16.0) g/dl Hct (37.0-47.0) % MCV (80.0-98.0) fL MCH (27.0-33.0) pg MCHC (31.0-35.0) g/dl RDW (11.0-16.0) % Plt Count (160-400) X10*3/uL MPV (9.4-12.3) fL Immature Gran % (Auto) (0.0-0.4) % Neut % (Auto) (45-73) % Lymph % (Auto) (20-40) % [place] % (Auto) (2-11) % Eos % (Auto) (0-4) % Baso % (Auto) (0-2) % Lymph # (Auto) (1.2-4.9) X10*3/uL [place] # (Auto) (0.1-1.2) X10*3/uL Eos # (Auto) (0.0-0.4) X10*3/uL Baso # (Auto) (0.0-0.2) X10*3/uL Abs Immat Gran (auto) (0.00-0.03) X10*3/uL Absolute Neuts (auto) (2.0-8.3) x10*3/uL Absolute Nucleated RBC (0.0-0.012) X10*3/uL Nucleated RBC % (auto) (0.0-0.2) /100WBC PT 10.8 (10.0-13.1) SEC INR 0.9 (0.9-1.1) APTT 31.9 (26.0-36.4) SEC Sodium (135-145) mmol/L Potassium (3.3-5.1) mmol/L Chloride (96-108) mmol/L Carbon Dioxide (22-29) mmol/L Anion Gap (12-20) BUN (9-16) mg/dL Creatinine (0.5-1.4) mg/dL Estim Creat Clear Calc Estimated GFR Random Glucose (60-115) mg/dL Calcium (8.4-10.2) mg/dL Total Bilirubin (0.0-1.0) mg/dL AST (5-31) U/L ALT (0-31) U/L Alkaline Phosphatase (39-117) U/L Total Creatine Kinase (26-140) U/L Troponin I High Sens (<3.5-17.0) ng/L B-Natriuretic Peptide 20 (<100) pg/mL Total Protein (6.5-8.0) g/dL Albumin (3.5-5.0) g/dL Influenza Type A (PCR) NEGATIVE (Negative) Influenza Type B (PCR) NEGATIVE (Negative) RSV RNA Qual (PCR) NEGATIVE (Negative) SARS-CoV-2 RNA (RT-PCR) NEGATIVE (Negative) <Eyal Guardado MD - Last Filed: 12/10/22 22:31> Independent Interpretation I performed an independent interpretation of an: EKG and Plain X-Ray ( chest x-ray) <Eyal Guardado MD - Last Filed: 12/10/22 22:31> Interpretation: my independent interpretation patient's 12 EKG is as follows: Sinus tachycardia with a rate of 115, inverted T-waves in 3 and V1, poor R-wave progression V1 through V3, no ST segment elevation, no ST segment depression, no PVCs, no PACs. Compared to EKG dated 02/26/2022 there is no acute changes. <Eyal Guardado MD - Last Filed: 12/10/22 22:31> Radiology Impression Discussion of test interpretation with radiology: I have reviewed the radiologist's reading. <Eyal Guardado MD - Last Filed: 12/10/22 22:31> Radiologist Impression: US venous duplex LE BI IMPRESSION: No evidence for deep venous thrombosis in the visualized veins of the bilateral lower extremities. Dictated By:Sacha Broussard MDSigned By:<Electronically signed by Sacha Broussard MD in [place]>12/10/22 1555 XR chest 1V IMPRESSION: * No radiographic evidence of acute cardiopulmonary disease. * Elevation right hemidiaphragm unchanged possibly diaphragmatic hernia. Dictated By:Javier Allison MDSigned By:<Electronically signed by Javier Allison MD in [place]>12/10/22 1537 <Eyal Guardado MD - Last Filed: 12/10/22 22:31> Discharge Plan Discharge Clinical Impression: Chest pain, Myalgia, Viral syndrome <ELDA Vogel - Last Filed: 12/23/22 09:38> Patient Disposition: Home, Self-Care <ELDA Vogel - Last Filed: 12/23/22 09:38> Instructions: Viral Syndrome (ED) <ELDA Vogel - Last Filed: 12/23/22 09:38> Additional Instructions: Your EKG was unchanged from EKG dated February 2022 which is reassuring. You had no troponin (marker of heart damage) in your blood which is also reassuring. You had a slight elevation in your liver enzymes (AST, ALT and alkaline phosphatase), but this is not new in you have had these elevations previously. Your CPK (marker of muscle damage) was also normal. The duplex ultrasounds of both legs did not reveal any blood clots. Given the fact that you had diarrhea 2 days ago, I suspect that the pain in his thighs and chest pain are related to a viral infection. Take ibuprofen 200 mg pills, 2 pills every 6 hours as needed for pain. Follow-up with your doctor in 2 days. Please return to the emergency department if your symptoms get worse or if you develop any symptoms that are concerning to you. Please see the work note. <ELDA Vogel - Last Filed: 12/23/22 09:38> Prescriptions: No Action lidocaine 5 % ointment 1 appl topical DAILY PRN (Reason: pain) Qty: 50 0RF Rx Instructions: Coverage for Dr. Watkins diclofenac sodium [Voltaren Arthritis Pain] 1 % gel 2 g topical QID Qty: 100 0RF acetaminophen 500 mg tablet 1,000 mg PO QID PRN (Reason: pain) Qty: 30 0RF albuterol sulfate 90 mcg/actuation HFA aerosol inhaler 1 inh inhalation QID PRN (Reason: shortness of breath or wheezing) 30 Days Qty: 6.7 3RF ibuprofen 800 mg tablet 800 mg PO Q8H 30 Days Qty: 90 1RF pyridoxine (vitamin B6) 100 mg tablet 100 mg PO DAILY 90 Days Qty: 90 1RF azithromycin 250 mg tablet See Rx Instructions PO .COMPLEX Qty: 6 0RF Rx Instructions: take 500 mg today (day 1), then 250 mg for 4 days (days 2-5) PO prednisone 20 mg tablet 60 mg PO DAILY Qty: 9 0RF celecoxib 100 mg capsule 100 mg PO BID PRN (Reason: pain) 30 Days Qty: 60 0RF methocarbamol 750 mg tablet 750 mg PO Q8H PRN (Reason: muscle spasms) 30 Days Qty: 90 0RF <ELDA Vogel - Last Filed: 12/23/22 09:38> Stand Alone Forms: Work/School Release <ELDA Vogel - Last Filed: 12/23/22 09:38> Interventions: ED Discharge Assessment Last Done: 12/10/22 22:32 <ELDA Vogel - Last Filed: 12/23/22 09:38> Discharge Date/Time: 12/10/22 22:46 <ELDA Vogel - Last Filed: 12/23/22 09:38>
[2022-12-10 14:48] LABS: MANUAL DIFF FLAG NO
[2022-12-10 14:49] LABS: Basophils Absolute Auto 0.1 X10*3/uL (0.0-0.2); Basophils Percent Auto 0.6 % (0-2); Eosinophils Absolute Auto 0.1 X10*3/uL (0.0-0.4); Eosinophils Percent Auto 1.1 % (0-4); Hematocrit 44.3 % (37.0-47.0); Hemoglobin 14.7 g/dl (12.0-16.0); Imm Gran Abs Auto 0.04 X10*3/uL (0.00-0.03); Imm Gran Pct Auto 0.4 % (0.0-0.4); Lymphocytes Absolute Auto 2.9 X10*3/uL (1.2-4.9); Lymphocytes Percent Auto 29.7 % (20-40); Mean Corpuscular HGB Conc 33.2 g/dl (31.0-35.0); Mean Corpuscular Hemoglobin 29.3 pg (27.0-33.0); Mean Corpuscular Volume 88.2 fL (80.0-98.0); Mean Platelet Volume 9.5 fL (9.4-12.3); Monocytes Absolute Auto 0.6 X10*3/uL (0.1-1.2); Monocytes Percent Auto 6.5 % (2-11); Neutrophils Absolute Auto 5.9 x10*3/uL (2.0-8.3); Neutrophils Percent Auto 61.7 % (45-73); Platelet Count 302 X10*3/uL (160-400); Red Blood Count 5.02 X10*6/uL (4.20-5.50); Red Cell Distribution Width 14.1 % (11.0-16.0); White Blood Count 9.6 X10*3/uL (4.8-10.8)
[2022-12-10 14:56] LABS: INTERNATIONAL NORM RATIO 0.9 (0.9-1.1); Prothrombin Time 10.8 SEC (10.0-13.1)
[2022-12-10 14:58] LABS: Partial Thromboplastin Time 31.9 SEC (26.0-36.4)
[2022-12-10 15:07] LABS: Alanine Aminotransferase 52 U/L (0-31); Albumin Level 4.5 g/dL (3.5-5.0); Alkaline Phosphatase 131 U/L (39-117); Anion Gap 15 (12-20); Aspartate Amino Transferase 49 U/L (5-31); Bilirubin Total 0.7 mg/dL (0.0-1.0); Blood Urea Nitrogen 8 mg/dL (9-16); Calcium 9.7 mg/dL (8.4-10.2); Carbon Dioxide 26 mmol/L (22-29); Chloride 105 mmol/L (96-108); Creatinine Clr Calc Pharmacy 92.1; Estimated Glomerular Filt Rate > 60; Glucose Random 93 mg/dL (60-115); Potassium 4.5 mmol/L (3.3-5.1); Sodium 141 mmol/L (135-145); Total Protein 7.5 g/dL (6.5-8.0)
[2022-12-10 15:11] LABS: B Type Natriuretic Peptide 20 pg/mL (<100)
[2022-12-10 15:16] LABS: Troponin-I High Sensitivity < 3.5 ng/L (<3.5-17.0)
[2022-12-10 15:34] LABS: Influenza A PCR NEGATIVE (Negative); Influenza B PCR NEGATIVE (Negative); Resp Syncy Virus RNA Qual PCR NEGATIVE (Negative); SARS COV2 PCR INHOUSE NEGATIVE (Negative)
[2022-12-10 21:21] VITALS: BP 157/97; PULSE 105; RESP 18; TEMP 36.7; O2SAT 95; O2SAT 97
[2022-12-10 22:33] VITALS: BP 149/99; PULSE 100; RESP 20; O2SAT 95
[2022-12-10] MEDS: Ibuprofen 400 MG TABLET PO (22:33)
== END 2022-12-10 22:46 | disposition home or self-care (01) ==
PROVIDERS: Physician Assistant; Emergency Provider Emergency Medicine Emergency Medical Services; PCP Internal Medicine
DX: R07.89 Other chest pain (principal); R06.02 Shortness of breath; R60.0 Localized edema; F17.210 Nicotine dependence, cigarettes, uncomplicated; Z20.822 Contact with and (suspected) exposure to COVID-19; Z20.828 Contact with and (suspected) exposure to other viral communicable diseases; Z71.6 Tobacco abuse counseling; Z79.899 Other long term (current) drug therapy
CPT/HCPCS: 0241U; 36415; 71045; 80053; 82550; 83880; 84484; 85025; 85610; 85730; 93005; 93970; 99284

== ENCOUNTER → 2022-12-17 09:24 | Outpatient (BNVA) | payer OTHER, SELFPAY | PROVIDERS: PCP Internal Medicine; Visit Provider Nurse Practitioner Family | DX: M54.81 Occipital neuralgia (principal) ==

== ENCOUNTER 2023-01-02 18:28 | Outpatient (REF) | payer OTHER, SELFPAY ==
--- NOTE | ~2023-01-02 | MR_ITS ---
EXAMINATION: MR CERVICAL SPINE WITHOUT AND WITH CONTRAST CLINICAL INFORMATION: Occipital neuralgia. COMPARISON: Cervical spine MRI from 01/03/2022. TECHNIQUE: MRI of the cervical spine was obtained using routine sequences without and following the administration of 8.5 mL of Gadavist intravenous contrast. FINDINGS: Mild reversal the normal cervical lordosis centered on C4-C5. Mild degenerative anterolisthesis of C3 on C4. Advanced degenerative disc disease at C5-C6 and C6-C7. Moderate degenerative disc disease at C3-C4 and C4-C5. Associated mixed Modic type discogenic endplate changes including mild Modic type I discogenic edema from C4-C7. Mild marrow edema within the C4-C7 facets consistent with degenerative stress reaction. No additional suspicious marrow edema. The mild degenerative loss of C5 and C6 vertebral body heights. Otherwise, the vertebral body heights are largely maintained. No demonstrated spinal cord signal abnormalities. No abnormal contrast enhancement. Mild edema within the nuchal ligament from the levels of C6-T1. Otherwise, limited evaluation of the soft tissues of the neck without demonstrated abnormalities. The flow voids of the major cervical vessels are maintained. Normal appearance of the cervicomedullary junction and visualized posterior fossa. SPINAL LEVELS: C2-C3: Normal annular contour. There is no uncovertebral joint arthropathy. There is mild bilateral facet joint arthropathy. There is no neural foraminal stenosis. There is no spinal canal stenosis. C3-C4: Mild disc-osteophyte complex. There is moderate right and mild left uncovertebral joint arthropathy. There is severe right and moderate left facet joint arthropathy. There is moderate right and mild left neural foraminal stenosis. There is mild spinal canal stenosis. C4-C5: Moderate disc-osteophyte complex. There is moderate right and no left uncovertebral joint arthropathy. There is mild bilateral facet joint arthropathy. There is mild right and no left neural foraminal stenosis. There is no spinal canal stenosis. C5-C6: Mild disc-osteophyte complex. There is severe right and moderate left uncovertebral joint arthropathy. There is moderate bilateral facet joint arthropathy. There is severe right and moderate left neural foraminal stenosis. There is no spinal canal stenosis. C6-C7: Mild disc-osteophyte complex. There is moderate bilateral uncovertebral joint arthropathy. There is mild bilateral facet joint arthropathy. There is severe bilateral neural foraminal stenosis. There is no spinal canal stenosis. C7-T1: Normal annular contour. There is no uncovertebral joint arthropathy. There is mild left and no right facet joint arthropathy. There is no neural foraminal stenosis. There is no spinal canal stenosis. MR/MR cervical spine wo/w con IMPRESSION: Moderate multilevel degenerative spondyloarthropathy of the cervical spine as described in detail above. Most notably, there is mild spinal canal stenosis at C3-C4. Moderate to severe neural foraminal stenoses at C3-C4, C5-C6, and C6-C7. Overall, degenerative changes appear similar to exam from 2021. There is mild edema within the nuchal ligament from C6-T1 suggestive of strain injury.
== END 2023-01-02 18:29 | disposition home or self-care (01) ==
LOC: HO.MRI 18:28
PROVIDERS: Visit Provider Nurse Practitioner Family
DX: G89.29 Other chronic pain (principal); M47.812 Spondylosis without myelopathy or radiculopathy, cervical region; M54.2 Cervicalgia; M54.81 Occipital neuralgia; R51.9 Headache, unspecified
CPT/HCPCS: 72156; A9585

== ENCOUNTER → 2023-01-06 10:15 | Outpatient (BNVA) | payer OTHER, SELFPAY | PROVIDERS: PCP Internal Medicine; Visit Provider Nurse Practitioner Family | DX: Z13.89 Encounter for screening for other disorder (principal) ==

== ENCOUNTER → 2023-01-20 11:27 | Outpatient (BNVA) | payer OTHER, SELFPAY | PROVIDERS: PCP Internal Medicine; Visit Provider Nurse Practitioner Family | DX: Z13.89 Encounter for screening for other disorder (principal) ==

== ENCOUNTER 2023-04-10 19:03 | Emergency (ER) | payer OTHER, SELFPAY ==
--- NOTE | ~2023-04-10 | CT_ITS ---
EXAMINATION: CT ABDOMEN AND PELVIS WITHOUT CONTRAST CLINICAL INFORMATION: Severe abdominal pain. History of obstruction. COMPARISON: None available. TECHNIQUE: Multidetector volumetric imaging was performed from the superior aspect of the liver through the pubic symphysis. Sagittal and coronal reformatted images were obtained on the technologist's workstation. This CT examination was performed using dose optimization techniques as appropriate, variously including the following: *Automated exposure control *Adjustment of mA and/or kV according to patient size (this includes techniques or standardized protocols for targeted exams where dose is matched to indication/reason for exam; i.e. extremities or head) *Use of iterative reconstruction technique DLP: 916 mGy-cm FINDINGS: LUNG BASES: The visualized lung bases are unremarkable. LIVER, GALLBLADDER, AND BILIARY TREE: The liver is normal in size, shape, and attenuation. No focal hepatic lesion or biliary ductal dilatation is present. The gallbladder is unremarkable with no evidence of radiopaque gallstones, gallbladder wall thickening, or obvious pericholecystic inflammatory changes. PANCREAS: Unremarkable. SPLEEN: Unremarkable. ADRENAL GLANDS: Unremarkable. KIDNEYS AND URETERS: The kidneys are normal in size, shape, and attenuation. There is a 3 mm radiopaque nonobstructing calculi lower pole right kidney and a punctate 1 mm radiopaque calculi upper and midpole right kidney. Small bilateral extrarenal kidney pelvises are noted. There is no caliectasis or hydronephrosis. BLADDER: The bladder is mildly distended and appears unremarkable. GASTROINTESTINAL TRACT: Scattered stool and gas is seen throughout the colon without distention. The small bowel loops are normal caliber. There is gastric sleeve surgical changes with a small hiatal hernia. Stomach lateral to the gastric sleeve surgery is slightly distended with fluid with mild mural thickening involving the distal stomach and the proximal duodenal loop. Appendix is normal caliber. No free air or free fluid seen. There is no inflammatory process. Prominent collateral venous channels are seen in the right and left abdomen. ABDOMINAL WALL: There are postsurgical changes along anterior abdominal wall with several midline abdominal wall defects consistent hernias. LYMPH NODES: Normal. VASCULAR: Unremarkable. PELVIC VISCERA: The uterus is anteverted and appears unremarkable no free fluid or free air seen. OSSEOUS STRUCTURES: There are degenerative disc changes L5-S1, L4-L5, L3-L4 disc levels. No aggressive lytic or sclerotic process seen. CT/CT abdomen pelvis wo IV con IMPRESSION: Status post gastric sleeve surgery changes the postsurgical stomach is normal. Lateral to the postsurgical stomach is distended distal stomach with fluid and mild gastric wall thickening involving the distal stomach and the proximal duodenum. Question etiology. Mild constipation. Nonobstructive radiopaque right renal calculi. Prominent venous collaterals in the abdomen question portal venous hypertension. Fleischner guidelines were followed.
[2023-04-10 19:06] VITALS: BP 153/105; PULSE 106; RESP 18; TEMP 36.1; O2SAT 96; BMI 38.4
--- NOTE | 2023-04-10 19:07 | ED.ABDPAIN ---
HPI - Abdominal Pain General Chief Complaint: Abdominal Pain <ELDA Hernandez - Last Filed: 04/10/23 19:07> Stated Complaint: Severe abd pain <ELDA Hernandez - Last Filed: 04/10/23 19:07> Time Seen by Provider: 04/10/23 19:57 <ELDA Hernandez - Last Filed: 04/10/23 19:07> Source: patient <Dave Loera MD - Last Filed: 04/11/23 01:20> Mode of arrival: ambulatory <Dave Loera MD - Last Filed: 04/11/23 01:20> Limitations: no limitations <Dave Loera MD - Last Filed: 04/11/23 01:20> History of Present Illness HPI narrative: Patient history of gastric bypass surgery about 20 years ago had bowel obstruction about 10 years ago status post resection of the bowel segment? Comes here for similar epigastric upper abdominal pain for last 4 days getting worse feel nauseated unable to vomit feel full no fever no chills no urinary complaints feels slightly bloated having small bowel movements and passing flatus <Dave Loera MD - Last Filed: 04/11/23 01:20> Related Data Home Medications: Previous Rx's Medication Instructions Recorded acetaminophen 500 mg tablet 1,000 mg PO QID PRN pain #30 tabs 06/03/22 albuterol sulfate 90 mcg/actuation 1 inh inhalation QID PRN shortness 06/19/22 aerosol inhaler of breath or wheezing 30 days #6.7 grams ibuprofen 800 mg tablet 800 mg PO Q8H 30 days #90 tabs 06/19/22 prednisone 10 mg tablet 10 mg PO DAILY 6 days #12 tabs 03/08/23 <ELDA Hernandez - Last Filed: 04/10/23 19:07> Allergies/Adverse Reactions: Allergies Allergy/AdvReac Type Severity Reaction Status Date / Time No Known Allergies Allergy Verified 04/10/23 19:06 <ELDA Hernandez - Last Filed: 04/10/23 19:07> Review of Systems Review of Systems Yes all other systems are reviewed and are negative <Dave Loera MD - Last Filed: 04/11/23 01:20> [facility] Past Medical History Medical History: Medical History Bronchial asthma Bunion, left Cervical radiculopathy Class 1 obesity due to excess calories with body mass index (BMI) of 34.0 to 34.9 in adult Hammertoe of left foot Neck pain Obesity (BMI 35.0-39.9 without comorbidity) Occipital headache Renal calculi Transaminitis <ELDA Hernandez - Last Filed: 04/10/23 19:07> Surgical History: Surgical History delivery delivered Gastric bypass status for obesity Hx of breast reduction, elective Hx of hernia repair <ELDA Hernandez - Last Filed: 04/10/23 19:07> Family History Family History: Family History Mother Hypertension Alzheimer disease Father Alzheimer disease <ELDA Hernandez - Last Filed: 04/10/23 19:07> Social History Social History: Social History Housing: House Alcohol intake: never Patient Tobacco Use Status: Current everyday Tobacco user Tobacco use type: Cigarette Cigarettes Per Day: 4 Years Smoked: 15 Smoked in Last 30 Days: Yes e-Cigarette/Vaping Use: Never Used Second Hand Smoke Exposure: Yes Use of substances other than those prescribed or required for medical reasons: No Advance Directives: No Advance Directives Information Provided: No Patient : No service: No Current occupational status: employed Current occupational exposures/hazards: No <ELDA Hernandez - Last Filed: 04/10/23 19:07> Physical Exam ED Vital Signs: Vital Signs - 24 hr 04/10/23 19:06 04/10/23 19:34 04/10/23 20:00 Temperature 97 F 98.3 F Pulse Rate 106 H 97 96 Respiratory Rate 18 16 19 Blood Pressure 153/105 H 130/74 137/90 H Pulse Oximetry 96 96 97 Oxygen Delivery Method Room Air Room Air Room Air BMI result Body Mass Index 38.4 <ELDA Hernandez - Last Filed: 04/10/23 19:07> Vital Signs - 24 hr 04/10/23 19:06 04/10/23 19:34 04/10/23 20:00 Temperature 97 F 98.3 F Pulse Rate 106 H 97 96 Respiratory Rate 18 16 19 Blood Pressure 153/105 H 130/74 137/90 H Pulse Oximetry 96 96 97 Oxygen Delivery Method Room Air Room Air Room Air BMI result Body Mass Index 38.4 <Dave Loera MD - Last Filed: 04/11/23 01:20> Appearance: Alert. Oriented X3. Mild distress Eyes: No pallor or icterus ENT: Pharynx normal. Oral Mucosa moist Neck: Normal inspection. Neck supple. CVS: Normal heart rate and rhythm. Pulses normal. Respiratory: No respiratory distress. Equal air entry bilateral, no wheezing/rales/rhonchi Abdomen: Soft tender epigastric area Bowel sounds are sluggish, no mass palpable, no CVA tenderness Skin: Skin warm and dry. Normal skin color. Normal skin turgor. Extremities: No lower extremity edema. No calf tenderness Neuro: Oriented X 3. No motor deficit. <Dave Loera MD - Last Filed: 04/11/23 01:20> Course Course Course Narrative: This is an RME: Additional HPI, ROS, PE not included below will be deferred to primary provider. 52-year-old female presents with severe epigastric pain, started a few days ago and has been progressively worsening ever since reports constipation and difficulty passing gas, pain is primarily in the epigastric region however she feels that throughout her entire abdomen, history of obstruction, this feels similar to the time she had an obstruction. Plan labs, imaging, urine. <ELDA Hernandez - Last Filed: 04/10/23 19:07> Medical Decision Making Medical Decision Making [facility] Narrative: Patient status post gastric bypass with upper abdominal pain CT scan shows distal gastric distention and proximal duodenal dilatation patient is still able to take p.o. fluids. Case discussed with bariatric surgery advised to continue p.o. fluids see them in the office as outpatient for further management no acute need for admission at this time no need for NG tube <Dave Loera MD - Last Filed: 04/11/23 01:20> Lab Data [facility] Lab Attestation statement: I reviewed the patient's lab results. <Dave Loera MD - Last Filed: 04/11/23 01:20> Result Diagrams: 04/10/23 19:24 04/10/23 19:24 <ELDA Hernandez - Last Filed: 04/10/23 19:07> Labs: Lab Results 04/10/23 04/10/23 04/10/23 Range/Units 19:24 19:24 19:24 WBC 9.9 (4.8-10.8) X10*3/uL RBC 4.87 (4.20-5.50) X10*6/uL Hgb 14.0 (12.0-16.0) g/dl Hct 43.3 (37.0-47.0) % MCV 88.9 (80.0-98.0) fL MCH 28.7 (27.0-33.0) pg MCHC 32.3 (31.0-35.0) g/dl RDW 14.6 (11.0-16.0) % Plt Count 345 (160-400) X10*3/uL MPV 9.7 (9.4-12.3) fL Immature Gran % (Auto) 0.2 (0.0-0.4) % Neut % (Auto) 53.0 (45-73) % Lymph % (Auto) 34.8 (20-40) % [place] % (Auto) 9.2 (2-11) % Eos % (Auto) 2.1 (0-4) % Baso % (Auto) 0.7 (0-2) % Lymph # (Auto) 3.5 (1.2-4.9) X10*3/uL [place] # (Auto) 0.9 (0.1-1.2) X10*3/uL Eos # (Auto) 0.2 (0.0-0.4) X10*3/uL Baso # (Auto) 0.1 (0.0-0.2) X10*3/uL Abs Immat Gran (auto) 0.02 (0.00-0.03) X10*3/uL Absolute Neuts (auto) 5.2 (2.0-8.3) x10*3/uL Absolute Nucleated RBC 0.000 (0.0-0.012) X10*3/uL Nucleated RBC % (auto) 0.0 (0.0-0.2) /100WBC Sodium 140 (135-145) mmol/L Potassium 4.6 (3.3-5.1) mmol/L Chloride 106 (96-108) mmol/L Carbon Dioxide 28 (22-29) mmol/L Anion Gap 11 L (12-20) BUN 14 (9-16) mg/dL Creatinine 0.74 (0.5-1.4) mg/dL Estim Creat Clear Calc 84.7 Estimated GFR > 60 Random Glucose 94 (60-115) mg/dL Calcium 10.0 (8.4-10.2) mg/dL Magnesium 2.1 (1.6-2.6) mg/dL Total Bilirubin 0.5 (0.0-1.0) mg/dL AST 43 H (5-31) U/L ALT 44 H (0-31) U/L Alkaline Phosphatase 143 H (39-117) U/L Total Protein 7.5 (6.5-8.0) g/dL Albumin 4.5 (3.5-5.0) g/dL Lipase 27 (8-78) U/L Beta HCG, Quant < 2 mIU/mL Urine Color Urine Appearance Urine pH (5.0-9.0) Ur Specific Gunpow[place] (1.005-1.025) Urine Protein (Neg-Trace) mg/dL Urine Glucose (UA) (Negative) mg/dL Urine Ketones (Negative) mg/dL Urine Blood (Negative) Urine Nitrite (Negative) Ur Leukocyte Esterase (Negative) 04/10/23 Range/Units 19:26 WBC (4.8-10.8) X10*3/uL RBC (4.20-5.50) X10*6/uL Hgb (12.0-16.0) g/dl Hct (37.0-47.0) % MCV (80.0-98.0) fL MCH (27.0-33.0) pg MCHC (31.0-35.0) g/dl RDW (11.0-16.0) % Plt Count (160-400) X10*3/uL MPV (9.4-12.3) fL Immature Gran % (Auto) (0.0-0.4) % Neut % (Auto) (45-73) % Lymph % (Auto) (20-40) % [place] % (Auto) (2-11) % Eos % (Auto) (0-4) % Baso % (Auto) (0-2) % Lymph # (Auto) (1.2-4.9) X10*3/uL [place] # (Auto) (0.1-1.2) X10*3/uL Eos # (Auto) (0.0-0.4) X10*3/uL Baso # (Auto) (0.0-0.2) X10*3/uL Abs Immat Gran (auto) (0.00-0.03) X10*3/uL Absolute Neuts (auto) (2.0-8.3) x10*3/uL Absolute Nucleated RBC (0.0-0.012) X10*3/uL Nucleated RBC % (auto) (0.0-0.2) /100WBC Sodium (135-145) mmol/L Potassium (3.3-5.1) mmol/L Chloride (96-108) mmol/L Carbon Dioxide (22-29) mmol/L Anion Gap (12-20) BUN (9-16) mg/dL Creatinine (0.5-1.4) mg/dL Estim Creat Clear Calc Estimated GFR Random Glucose (60-115) mg/dL Calcium (8.4-10.2) mg/dL Magnesium (1.6-2.6) mg/dL Total Bilirubin (0.0-1.0) mg/dL AST (5-31) U/L ALT (0-31) U/L Alkaline Phosphatase (39-117) U/L Total Protein (6.5-8.0) g/dL Albumin (3.5-5.0) g/dL Lipase (8-78) U/L Beta HCG, Quant mIU/mL Urine Color Yellow Urine Appearance Clear Urine pH 5.5 (5.0-9.0) Ur Specific Gun[place] 1.015 (1.005-1.025) Urine Protein Negative (Neg-Trace) mg/dL Urine Glucose (UA) Negative (Negative) mg/dL Urine Ketones Negative (Negative) mg/dL Urine Blood Negative (Negative) Urine Nitrite Negative (Negative) Ur Leukocyte Esterase Negative (Negative) <ELDA Hernandez - Last Filed: 04/10/23 19:07> Lab Results 04/10/23 04/10/23 04/10/23 Range/Units 19:24 19:24 19:24 WBC 9.9 (4.8-10.8) X10*3/uL RBC 4.87 (4.20-5.50) X10*6/uL Hgb 14.0 (12.0-16.0) g/dl Hct 43.3 (37.0-47.0) % MCV 88.9 (80.0-98.0) fL MCH 28.7 (27.0-33.0) pg MCHC 32.3 (31.0-35.0) g/dl RDW 14.6 (11.0-16.0) % Plt Count 345 (160-400) X10*3/uL MPV 9.7 (9.4-12.3) fL Immature Gran % (Auto) 0.2 (0.0-0.4) % Neut % (Auto) 53.0 (45-73) % Lymph % (Auto) 34.8 (20-40) % [place] % (Auto) 9.2 (2-11) % Eos % (Auto) 2.1 (0-4) % Baso % (Auto) 0.7 (0-2) % Lymph # (Auto) 3.5 (1.2-4.9) X10*3/uL [place] # (Auto) 0.9 (0.1-1.2) X10*3/uL Eos # (Auto) 0.2 (0.0-0.4) X10*3/uL Baso # (Auto) 0.1 (0.0-0.2) X10*3/uL Abs Immat Gran (auto) 0.02 (0.00-0.03) X10*3/uL Absolute Neuts (auto) 5.2 (2.0-8.3) x10*3/uL Absolute Nucleated RBC 0.000 (0.0-0.012) X10*3/uL Nucleated RBC % (auto) 0.0 (0.0-0.2) /100WBC Sodium 140 (135-145) mmol/L Potassium 4.6 (3.3-5.1) mmol/L Chloride 106 (96-108) mmol/L Carbon Dioxide 28 (22-29) mmol/L Anion Gap 11 L (12-20) BUN 14 (9-16) mg/dL Creatinine 0.74 (0.5-1.4) mg/dL Estim Creat Clear Calc 84.7 Estimated GFR > 60 Random Glucose 94 (60-115) mg/dL Calcium 10.0 (8.4-10.2) mg/dL Magnesium 2.1 (1.6-2.6) mg/dL Total Bilirubin 0.5 (0.0-1.0) mg/dL AST 43 H (5-31) U/L ALT 44 H (0-31) U/L Alkaline Phosphatase 143 H (39-117) U/L Total Protein 7.5 (6.5-8.0) g/dL Albumin 4.5 (3.5-5.0) g/dL Lipase 27 (8-78) U/L Beta HCG, Quant < 2 mIU/mL Urine Color Urine Appearance Urine pH (5.0-9.0) Ur Specific [place] (1.005-1.025) Urine Protein (Neg-Trace) mg/dL Urine Glucose (UA) (Negative) mg/dL Urine Ketones (Negative) mg/dL Urine Blood (Negative) Urine Nitrite (Negative) Ur Leukocyte Esterase (Negative) 04/10/23 Range/Units 19:26 WBC (4.8-10.8) X10*3/uL RBC (4.20-5.50) X10*6/uL Hgb (12.0-16.0) g/dl Hct (37.0-47.0) % MCV (80.0-98.0) fL MCH (27.0-33.0) pg MCHC (31.0-35.0) g/dl RDW (11.0-16.0) % Plt Count (160-400) X10*3/uL MPV (9.4-12.3) fL Immature Gran % (Auto) (0.0-0.4) % Neut % (Auto) (45-73) % Lymph % (Auto) (20-40) % [place] % (Auto) (2-11) % Eos % (Auto) (0-4) % Baso % (Auto) (0-2) % Lymph # (Auto) (1.2-4.9) X10*3/uL [place] # (Auto) (0.1-1.2) X10*3/uL Eos # (Auto) (0.0-0.4) X10*3/uL Baso # (Auto) (0.0-0.2) X10*3/uL Abs Immat Gran (auto) (0.00-0.03) X10*3/uL Absolute Neuts (auto) (2.0-8.3) x10*3/uL Absolute Nucleated RBC (0.0-0.012) X10*3/uL Nucleated RBC % (auto) (0.0-0.2) /100WBC Sodium (135-145) mmol/L Potassium (3.3-5.1) mmol/L Chloride (96-108) mmol/L Carbon Dioxide (22-29) mmol/L Anion Gap (12-20) BUN (9-16) mg/dL Creatinine (0.5-1.4) mg/dL Estim Creat Clear Calc Estimated GFR Random Glucose (60-115) mg/dL Calcium (8.4-10.2) mg/dL Magnesium (1.6-2.6) mg/dL Total Bilirubin (0.0-1.0) mg/dL AST (5-31) U/L ALT (0-31) U/L Alkaline Phosphatase (39-117) U/L Total Protein (6.5-8.0) g/dL Albumin (3.5-5.0) g/dL Lipase (8-78) U/L Beta HCG, Quant mIU/mL Urine Color Yellow Urine Appearance Clear Urine pH 5.5 (5.0-9.0) Ur Specific [place] 1.015 (1.005-1.025) Urine Protein Negative (Neg-Trace) mg/dL Urine Glucose (UA) Negative (Negative) mg/dL Urine Ketones Negative (Negative) mg/dL Urine Blood Negative (Negative) Urine Nitrite Negative (Negative) Ur Leukocyte Esterase Negative (Negative) <Dave Loera MD - Last Filed: 04/11/23 01:20> Radiology Impression Discussion of test interpretation with radiology: I have reviewed the radiologist's reading. <Dave Loera MD - Last Filed: 04/11/23 01:20> Radiologist Impression: CT/CT abdomen pelvis wo IV con IMPRESSION: Status post gastric sleeve surgery changes the postsurgical stomach is normal. Lateral to the postsurgical stomach is distended distal stomach with fluid and mild gastric wall thickening involving the distal stomach and the proximal duodenum. Question etiology. ? Mild constipation. Nonobstructive radiopaque right renal calculi. ? Prominent venous collaterals in the abdomen question portal venous hypertension. ? <Dave Loera MD - Last Filed: 04/11/23 01:20> Medications Administered Discontinued Medications Generic Name Dose Route Start Last Admin Trade Name Freq PRN Reason Stop Dose Admin Sodium Chloride 1,000 mls @ 999 mls/hr 04/10/23 20:02 04/10/23 21:35 Ns IV 04/10/23 21:02 Infused .Q1H1M ONE Infusion Ketorolac Tromethamine 30 mg 04/10/23 20:43 04/10/23 20:54 Ketorolac Tromethamine 30 Mg/Ml Vial IVPUSH 04/10/23 20:44 30 mg ONCE ONE Administration Ondansetron HCl 4 mg 04/10/23 20:02 04/10/23 20:32 Ondansetron Hcl 4 Mg/2 Ml Vial IVPUSH 04/10/23 20:03 4 mg ONCE ONE Administration <ELDA Hernandez - Last Filed: 04/10/23 19:07> Medications Administered Discontinued Medications Generic Name Dose Route Start Last Admin Trade Name Freq PRN Reason Stop Dose Admin Sodium Chloride 1,000 mls @ 999 mls/hr 04/10/23 20:02 04/10/23 21:35 Ns IV 04/10/23 21:02 Infused .Q1H1M ONE Infusion Ketorolac Tromethamine 30 mg 04/10/23 20:43 04/10/23 20:54 Ketorolac Tromethamine 30 Mg/Ml Vial IVPUSH 04/10/23 20:44 30 mg ONCE ONE Administration Ondansetron HCl 4 mg 04/10/23 20:02 04/10/23 20:32 Ondansetron Hcl 4 Mg/2 Ml Vial IVPUSH 04/10/23 20:03 4 mg ONCE ONE Administration <Dave Loera MD - Last Filed: 04/11/23 01:20> Discharge Plan Discharge Clinical Impression: Abdominal pain, Partial bowel obstruction <ELDA Hernandez - Last Filed: 04/10/23 19:07> Patient Disposition: Home, Self-Care <ELDA Hernandez - Last Filed: 04/10/23 19:07> Instructions: Abdominal Pain (ED), Bowel Obstruction (ED) <ELDA Hernandez Last Filed: 04/10/23 19:07> Additional Instructions: Drink plenty of clear liquids Stay hydrated Call bariatric surgeon in a.m. for further follow up Report to ER if worsening of the abdominal pain/vomiting <ELDA Hernandez - Last Filed: 04/10/23 19:07> Prescriptions: No Action acetaminophen 500 mg tablet 1,000 mg PO QID PRN (Reason: pain) Qty: 30 0RF albuterol sulfate 90 mcg/actuation HFA aerosol inhaler 1 inh inhalation QID PRN (Reason: shortness of breath or wheezing) 30 Days Qty: 6.7 3RF ibuprofen 800 mg tablet 800 mg PO Q8H 30 Days Qty: 90 1RF prednisone 10 mg tablet 10 mg PO DAILY 6 Days Qty: 12 0RF Rx Instructions: Take 3 tablets x2 days, 2 tablets x2 days, 1 tablet x2 days <ELDA Hernandez - Last Filed: 04/10/23 19:07> Referrals: Carlos Lu MD [Physician] - 1 day (Call office in a.m.) <ELDA Hernandez Last Filed: 04/10/23 19:07> Interventions: ED Discharge Assessment Last Done: 04/10/23 23:05 <ELDA Hernandez Last Filed: 04/10/23 19:07> Discharge Date/Time: 04/10/23 23:15 <ELDA Hernandez Last Filed: 04/10/23 19:07>
[2023-04-10 19:33] LABS: MANUAL DIFF FLAG NO
[2023-04-10 19:34] VITALS: BP 130/74; PULSE 97; RESP 16; TEMP 36.8; O2SAT 96
[2023-04-10 19:36] LABS: Basophils Absolute Auto 0.1 X10*3/uL (0.0-0.2); Basophils Percent Auto 0.7 % (0-2); Eosinophils Absolute Auto 0.2 X10*3/uL (0.0-0.4); Eosinophils Percent Auto 2.1 % (0-4); Hematocrit 43.3 % (37.0-47.0); Imm Gran Abs Auto 0.02 X10*3/uL (0.00-0.03); Imm Gran Pct Auto 0.2 % (0.0-0.4); Lymphocytes Absolute Auto 3.5 X10*3/uL (1.2-4.9); Lymphocytes Percent Auto 34.8 % (20-40); Mean Corpuscular HGB Conc 32.3 g/dl (31.0-35.0); Mean Corpuscular Hemoglobin 28.7 pg (27.0-33.0); Mean Corpuscular Volume 88.9 fL (80.0-98.0); Mean Platelet Volume 9.7 fL (9.4-12.3); Monocytes Absolute Auto 0.9 X10*3/uL (0.1-1.2); Monocytes Percent Auto 9.2 % (2-11); Neutrophils Absolute Auto 5.2 x10*3/uL (2.0-8.3); Platelet Count 345 X10*3/uL (160-400); Red Blood Count 4.87 X10*6/uL (4.20-5.50); Red Cell Distribution Width 14.6 % (11.0-16.0); White Blood Count 9.9 X10*3/uL (4.8-10.8)
[2023-04-10 19:36] LABS: Appearance Urine Clear; Color Urine Yellow; Glucose Urine UA Negative (Negative); Leukocyte Esterase Urine Negative (Negative); Nitrite Urine Negative (Negative); PH 5.5 (5.0-9.0); Specific Gravity - Urine 1.015 (1.005-1.025); Urine Blood Negative (Negative); Urine Ketones Negative (Negative); Urine Protein Negative (Neg-Trace)
[2023-04-10 20:00] VITALS: BP 137/90; PULSE 96; RESP 19; O2SAT 97
[2023-04-10 20:00] LABS: Alanine Aminotransferase 44 U/L (0-31); Albumin Level 4.5 g/dL (3.5-5.0); Alkaline Phosphatase 143 U/L (39-117); Anion Gap 11 (12-20); Aspartate Amino Transferase 43 U/L (5-31); Bilirubin Total 0.5 mg/dL (0.0-1.0); Blood Urea Nitrogen 14 mg/dL (9-16); Carbon Dioxide 28 mmol/L (22-29); Chloride 106 mmol/L (96-108); Creatinine Clr Calc Pharmacy 84.7; Estimated Glomerular Filt Rate > 60; Glucose Random 94 mg/dL (60-115); Lipase 27 U/L (8-78); Magnesium 2.1 mg/dL (1.6-2.6); Potassium 4.6 mmol/L (3.3-5.1); Sodium 140 mmol/L (135-145); Total Protein 7.5 g/dL (6.5-8.0)
--- NOTE | 2023-04-10 20:00 | PC.NURSE ---
pt c/o abd as of 4 days ago admits to nausea, denies vomiting denies fever, chills aox4 abd distended
[2023-04-10 20:11] LABS: HCG Quantitative < 2 mIU/mL
--- NOTE | 2023-04-10 20:11 | PC.NURSE ---
pt tearful HOB elevated per pt's request call [facility] and belongings within reach of pt
--- NOTE | 2023-04-10 20:21 | PC.NURSE ---
pt with CT
[2023-04-10] MEDS: 0.9 % Sodium Chloride 1,000 ML 999 ML IV (20:32)
[2023-04-10] MEDS: ondansetron HCL 4 MG/2 ML VIAL IVPUSH (20:32)
[2023-04-10] MEDS: Ketorolac Tromethamine 30 MG/ML VIAL IVPUSH (20:54)
== END 2023-04-10 23:15 | disposition home or self-care (01) ==
PROVIDERS: Physician Assistant; Emergency Provider Internal Medicine; PCP Internal Medicine
DX: K56.600 Partial intestinal obstruction, unspecified as to cause (principal); R10.13 Epigastric pain; F17.210 Nicotine dependence, cigarettes, uncomplicated; Z98.84 Bariatric surgery status; Z79.899 Other long term (current) drug therapy
CPT/HCPCS: 36415; 74176; 80053; 81003; 83690; 83735; 84702; 85025; 96361; 96374; 96375; 99284; 99285; J1885; J2270; J2405

== ENCOUNTER → 2023-04-11 14:55 | Outpatient (BNVA) | payer OTHER, SELFPAY | PROVIDERS: PCP Internal Medicine; Visit Provider Physician Assistant Surgical ==

== ENCOUNTER 2023-04-12 09:57 | Outpatient (REF) | payer OTHER, SELFPAY ==
--- NOTE | ~2023-04-12 | MM_ITS ---
EXAMINATION: MM SCREENING DIGITAL BREAST TOMOSYNTHESIS, BILATERAL CLINICAL INFORMATION: Screening. Asymptomatic. Prior reduction mammoplasty. The lifetime risk of breast cancer based on the Tyrer-Cuzick Model is 5%. COMPARISON: Mammography: 03/02/2022, 10/30/2019, 10/24/2018 TECHNIQUE: Digital breast tomosynthesis is performed in both the craniocaudal and mediolateral oblique views along with computer-aided detection (CAD). Synthesized 2D images are generated from the tomosynthesis. Additional bilateral CC and left MLO views are provided. FINDINGS: The breasts are almost entirely fatty (ACR BI-RADS breast composition Category a). Background stromal and fibroglandular densities are similar to prior studies. There is no significant mass or architectural abnormality or abnormal calcifications. There is a stable nodule with biopsy clip marker mid 5:00 left breast. The axilla and skin contours are unremarkable. No significant changes. MM/MM tomosynthesis screening BI IMPRESSION: No mammographic evidence of malignancy. ASSESSMENT: BI-RADS 2: Benign RECOMMENDATION: Routine annual mammography screening. This patient's information was entered into a reminder system with a target due date for their next mammogram.
== END 2023-04-12 09:58 | disposition home or self-care (01) ==
LOC: HO.MAMMO 09:57
PROVIDERS: PCP Internal Medicine; Visit Provider Internal Medicine
DX: Z12.31 Encounter for screening mammogram for malignant neoplasm of breast (principal)
CPT/HCPCS: 77063; 77067

== ENCOUNTER 2023-04-23 06:28 | Day surgery (SDC) | payer OTHER, SELFPAY ==
--- NOTE | 2023-04-20 11:15 | MHC.SHP ---
Pre-Procedural Eval Section A Date of Service: 04/20/23 The patient is an INPATIENT: No The History & Physical has been completed within 30 days and I have reviewed it.: Yes Section B Chief Complaint: Right lower quadrant pain Details of Present Illness: Abdominal pain Relevant Family History (Specify if Yes): No Relevant Social History: None Present Medications: None Medical History: No relevant PMH History of Previous Operations: Relevant previous surgery/procedure and date(s) (gastric bypass) Allergies: Allergies Allergy/AdvReac Type Severity Reaction Status Date / Time No Known Allergies Allergy Verified 04/16/23 08:30 Review of Systems Sugical H&P ROS: Yes, Specify: Gastrointestinal (abdominal pain) Exam Surgical H&P Exam: Normal: HEENT, Normal: Heart, Normal: Lungs, Normal: Extremities, Normal: Abdomen, Normal: Skin and Normal: Neurological Plan Diagnosis/Plan: Unchanged (EGD to assess cause of abdominal pain. Rule out an anastomotic ulcer. Risks for perforation and bleeding were discussed with patient. She is in agreement with the plan) I have reviewed the history and physical and performed a pertinent physical examination on my patient. No changes have occurred unless specified. Time Spent With Patient Time: Total time managing care of this patient today ____ minutes.
[2023-04-22 13:26] LABS: COVID-19 Test Negative (Negative); IDNOW Serial# 08D9AD1C
[2023-04-23 06:46] VITALS: BP 132/84; PULSE 90; RESP 18; TEMP 36.8; O2SAT 96; BMI 37.8
[2023-04-23] MEDS: Albuterol/Iprat 2.5/0.5MG 3 ML AMPUL.NEB INHALE (07:05)
[2023-04-23 07:07] VITALS: PULSE 94; RESP 18; O2SAT 97
[2023-04-23] MEDS: Lactated Ringers 1,000 ML 80 ML IVCONT (07:07)
--- NOTE | 2023-04-23 07:18 | P.CONAN_ITS ---
HPI - Anesthesia Eval Consult details Narrative: 52 yo F presenting for EGD due to abdominal pain. Smoker. Bronchial asthma. Received nebulizer treatment in pre-op today. [facility] Active Problems Active Problems: All Active Problems (Updated 04/16/23 @ 10:25 by Pam Mckoy MD) GERD (gastroesophageal reflux disease) (Acute) Insomnia (Acute) Class 2 obesity with body mass index (BMI) of 37.0 to 37.9 in adult (Acute) Plantar fasciitis, left (Acute) Scalp lump (Acute) Acute bronchitis (Acute) Right shoulder pain (Acute) Occipital neuralgia of right side (Acute) Spondylosis of cervical region without myelopathy or radiculopathy (Acute) Myofascial pain syndrome, cervical (Acute) Chronic neck pain (Acute) Transaminitis (Acute) Obesity (BMI 35.0-39.9 without comorbidity) (Acute) Renal calculi (Acute) Class 1 obesity due to excess calories with body mass index (BMI) of 34.0 to 34.9 in adult (Acute) Hammertoe of left foot (Acute) Bunion, left (Acute) Muscle spasm of back (Acute) Tracheobronchitis (Acute) Cervical radiculopathy (Acute) Occipital headache (Acute) Bronchial asthma (Acute) Past Medical History Medical History Bronchial asthma Bunion, left Cervical radiculopathy Class 1 obesity due to excess calories with body mass index (BMI) of 34.0 to 34.9 in adult Hammertoe of left foot Neck pain Obesity (BMI 35.0-39.9 without comorbidity) Occipital headache Renal calculi Transaminitis Functional capacity: independent ambulation Family History Family History Mother Hypertension Alzheimer disease Father Alzheimer disease Surgical History Surgical History delivery delivered Gastric bypass status for obesity Hx of breast reduction, elective Hx of hernia repair History of Problems with Anesthesia: No Social History Social History Housing: House Alcohol intake: current Alcohol intake frequency: holidays/special occasions only Patient Tobacco Use Status: Current everyday Tobacco user Tobacco use type: Cigarette Cigarettes Per Day: 1 Years Smoked: 15 e-Cigarette/Vaping Use: Never Used Date Education Initiated: 04/23/23 Second Hand Smoke Exposure: Yes Use of substances other than those prescribed or required for medical reasons: No Are you DNR?: No Advance Directives: No Advance Directives Information Provided: Yes service: No Current occupational status: employed Current occupational exposures/hazards: No Cognitive needs: No Hearing needs: No Vision needs: No Meds Allergies Allergy/AdvReac Type Severity Reaction Status Date / Time No Known Allergies Allergy Verified 04/16/23 08:30 Active Medications: Current Medications Lactated Ringer's (Lr) 1,000 mls @ 80 mls/hr IVCONT .[id number] NADIR Last Admin: 04/23/23 07:07 Dose: 80 mls/hr Exam Exam Date and Time: April 23, 2023 0715 Height,Weight and Vital Signs: Height 4 ft 11 in Weight 84.822 kg Last Vital Signs Temp 98.2 F 04/23/23 06:46 Pulse 94 04/23/23 07:07 Resp 18 04/23/23 07:07 BP 132/84 04/23/23 06:46 Pulse Ox 96 04/23/23 06:46 O2 Del Method Room Air 04/23/23 06:46 Pertinent Lab Results Pertinent Lab Results: Laboratory Tests 04/22/23 12:53 COVID-19 ([facility]) Negative COVID-19 Clin Com See Note Airway Mallampati Class: II TM Dist: >3cm Neck ROM: Full Loose/Missing/Broken Teeth: Yes (Poor dentition. Multiple missing teeth.) Heart: S1S2 Lungs: CTAB Assessment and Plan Assessment Anesthesia Assessment: Anesthesia Plan Discussed and Chart Reviewed Final Anesthetic Review History of Problems with Anesthesia: No NPO: Yes ASA Class: III Final Preanesthetic Review: No Changes in Pt Med Stat, Meds/Allgs Chart Reviewed, Consent Obtained/Reviewed and Anes Risks/Benef Reviewed Patient Risk: Intermediate Procedure Risk: Low Anesthetic Plan Anesthetic Plan: MAC: and Agree w/ Assess. and Plan Disposition: Standard PACU
--- NOTE | 2023-04-23 07:38 | P.BOP_ITS ---
Brief Operative Note Date of Service: 04/23/23 Pre-op diagnosis: Epigastric pain, s/p gastric bypass Post-op diagnosis: same (& anastomotic ulcer) Procedure: PROCEDURE DATE: 04/23/2023 PREOPERATIVE DIAGNOSIS: Epigastric pain, s/p gastric bypass POSTOPERATIVE DIAGNOSIS: ?Same as above. Anastomotic ulcer PROCEDURE: Kpznyotk-ydnidy-uabipnxgonk with biopsies Surgeon: ?Nestor Lu M.D.. Ph.D. Arc And Gas Welder: ?None ? Anesthesia: IV sedation Estimated blood loss: ?Minimal FINDINGS AND PROCEDURE: ? OPERATIVE INDICATIONS: ?The patient is a 52 year old female who underwent an open gastric bypass elsewhere. The patient has developed epigastric pain. Based on this information I recommended an upper endoscopy to evaluate the patient's symptoms.? Risks and complications of the surgery were discussed with the patient in advance particularly the possibility of perforation or bleeding that may require surgical intervention. The patient understood the risks and was in agreement with the plan. ? PROCEDURE: After informed consent was obtained by the patient, the patient was ?transferred to the Operating Room and was placed in the supine position.? After successful induction of IV sedation, a mouth block was placed and the patient was placed in the left lateral decubitus position. An upper endoscopy was performed next, the oropharynx and esophagus appeared within the normal limits. There was no hiatal hernia.? The z-line was smooth. The small pouch was entered, appeared to be of normal size. There was no gastritis and the gastrojejunostomy was patent. A biopsy was obtained from the gastric pouch. No significant bleeding was noted from the biopsy site. There was a small superficial anastomotic ulcer at the GJ anastomosis.? At that point the scope was advanced into the proximal small intestine (proximal Cachorro limb) which appeared to be normal as well. The Cachorro limb and the pouch were decompressed and the scope was withdrawn from the patient's mouth. The patient was awaken and was transferred in stable condition to the Recovery Room for further care. I was present and performed all steps of the procedure. There were no residents to assist with this case. Nestor Lu M.D., Ph.D. Surgeon: Carlos Lu MD Was an Arc And Gas Welder used for this Procedure?: No Estimated blood loss (mL): 0 IV fluids (mL): 400 Urine output (mL): 0 (No Best to record output) Pathology: other (1) gastric pouch) Condition: stable Disposition: PACU
[2023-04-23 07:54] VITALS: BP 107/71; PULSE 117; RESP 20; TEMP 36.9; O2SAT 97
[2023-04-23 08:09] VITALS: BP 112/71; PULSE 99; RESP 18; TEMP 36.6; O2SAT 96
== END 2023-04-23 08:33 | disposition home or self-care (01) ==
PROVIDERS: Physician Assistant Surgical; PCP Internal Medicine; Visit Provider Surgery
PROC: 0DJ08ZZ Inspection of Upper Intestinal Tract, Via Natural or Artificial Opening Endoscopic (ICD-10-PCS; CPT 43235; principal; 2023-04-23 07:30)
DX: R10.13 Epigastric pain (principal); K28.9 Gastrojejunal ulcer, unspecified as acute or chronic, without hemorrhage or perforation; Z98.84 Bariatric surgery status; M54.81 Occipital neuralgia; E66.9 Obesity, unspecified; Z68.38 Body mass index [BMI] 38.0-38.9, adult; J45.909 Unspecified asthma, uncomplicated; N20.0 Calculus of kidney; R74.01 Elevation of levels of liver transaminase levels; Z79.1 Long term (current) use of non-steroidal anti-inflammatories (NSAID); Z79.52 Long term (current) use of systemic steroids; Z79.899 Other long term (current) drug therapy; Z98.890 Other specified postprocedural states; F17.210 Nicotine dependence, cigarettes, uncomplicated; Z20.822 Contact with and (suspected) exposure to COVID-19
CPT/HCPCS: 43239; 87635; 88305; 88342; 94640

== ENCOUNTER → 2023-05-29 09:20 | Outpatient (BNVA) | payer OTHER, SELFPAY | PROVIDERS: PCP Internal Medicine; Visit Provider Physician Assistant Surgical ==

== ENCOUNTER 2023-06-19 10:02 | Outpatient (AMB) | payer OTHER, SELFPAY ==
--- NOTE | 2023-06-19 10:03 | AM.OFFWIN_ITS ---
Intake Vital Signs 06/19/23 10:05 Height 4 ft 11 in BP 104/70 Blood Pressure Location Lt brachial Position Sitting Pulse 95 Pulse Source Pulse Oximeter Temp 97.1 F Temp Source Temporal Artery Scan Pulse Oximetry (%) 100 Oxygen Delivery Method Room Air Intake Visit Reasons: EP RT shoulder pain (lobby) Intake Note: Pt is here c/o right shoulder pain. No injuries or falls. Pt states she woke up this morning in pain. Patient Tobacco Use Status: Current everyday Tobacco user Allergies No Known Allergies Allergy (Verified 06/19/23 10:04) Do you need a note to return to daycare/school/sports/work: Yes HPI HPI Comments History of Present Illness Details 52-year-old female presents with right shoulder pain. Patient said she woke up with shoulder pain denies fevers chills the symptoms. Patient has pain with movement. [facility] Medical History Bronchial asthma Bunion, left Cervical radiculopathy Class 1 obesity due to excess calories with body mass index (BMI) of 34.0 to 34.9 in adult Hammertoe of left foot Neck pain Obesity (BMI 35.0-39.9 without comorbidity) Occipital headache Renal calculi Transaminitis Surgical History delivery delivered Gastric bypass status for obesity Hx of breast reduction, elective Hx of hernia repair Family History Mother Hypertension Alzheimer disease Father Alzheimer disease Social History (Updated 05/29/23 @ 09:30 by Nurys Anderson CMA) Housing: House Alcohol intake: current Alcohol intake frequency: holidays/special occasions only Patient Tobacco Use Status: Current everyday Tobacco user Tobacco use type: Cigarette Cigarettes Per Day: 1 Years Smoked: 15 e-Cigarette/Vaping Use: Never Used Second Hand Smoke Exposure: Yes service: No Current occupational status: employed Current occupational exposures/hazards: No Cognitive needs: No Hearing needs: No Vision needs: No Review of Systems Const All systems reviewed & are unremarkable except as noted in HPI and below Musc Reports arthralgias and Reports joint swelling Physical Exam Vital Signs: Last Vital Signs Temp 97.1 F 06/19/23 10:05 Pulse 95 06/19/23 10:05 BP 104/70 06/19/23 10:05 Pulse Ox 100 06/19/23 10:05 Oxygen Delivery Method Room Air 06/19/23 10:05 Const General: cooperative, healthy appearing, comfortable, no acute distress and alert Extrem Other: Right shorter pain with passive range of motion sensation and pulses intact. Pain with Mackey test. Assessment & Plan Assessment & Plan (1) Shoulder strain: Code(s): S46.919A - Strain of unspecified muscle, fascia and tendon at shoulder and upper arm level, unspecified arm, initial encounter Plan 52-year-old female presents with right shoulder pain VSS. Temp presents alert and oriented no acute distress. Exam is oval for pain and passive range of motion as well as Mackey test. Patient likely suffering from shoulder strain verses pacemaker versus bursitis. Will treat symptomatically with Tylenol lidocaine patches in short Course Of prednisone due to patient being unable to take NSAIDs. Given absence of erythema warmth versus subchondral suspicion for septic joint involvement Discharge instructions, follow up and treatment are discussed with patient in my usual fashion. Alternatives in treatment are also discussed. The patient will return for worsening symptoms or as needed. Advised that any labs/imaging ordered will be followed up on and contact made if further treatment needed. Counseled that patient's condition may require further evaluation and/or treatment. Symptoms of concern for worsening disorder discussed in detail in my customary manner. Patient does verbalize understanding of the plan, there are no apparent barriers to communication. The patient is given the opportunity to ask questions and have them answered to his/her satisfaction Medications: New prednisone 40 mg (2 x 20 mg) PO DAILY 3 days 6 tabs 0RF lidocaine 5% leave on most painful area for up to 12 hrs 1 patch topical DAILY 15 ea 0RF Coding Level of Care Code Est Pt Level 2 (59416) Diagnoses Shoulder strain S46.919A
[2023-06-19 10:05] VITALS: BP 104/70; PULSE 95; TEMP 36.2; O2SAT 100
== END 2023-06-19 10:26 | disposition home or self-care (01) ==
PROVIDERS: PCP Internal Medicine; Visit Provider Physician Assistant
DX: S46.919A Strain of unspecified muscle, fascia and tendon at shoulder and upper arm level, unspecified arm, initial encounter (principal)
CPT/HCPCS: 99212

== ENCOUNTER 2023-07-02 06:25 | Day surgery (SDC) | payer OTHER, SELFPAY ==
--- NOTE | 2023-06-25 16:32 | MHC.SHP ---
Pre-Procedural Eval Section A Date of Service: 06/25/23 The patient is an INPATIENT: No The History & Physical has been completed within 30 days and I have reviewed it.: Yes Section B Chief Complaint: anastomotic ulcer Relevant Family History (Specify if Yes): No Relevant Social History: None Present Medications: None Medical History: No relevant PMH History of Previous Operations: Relevant previous surgery/procedure and date(s) (Laparoscopic gastric bypass) Allergies: Allergies Allergy/AdvReac Type Severity Reaction Status Date / Time No Known Allergies Allergy Verified 06/19/23 10:04 Review of Systems Sugical H&P ROS: Negative: Constitution, Cardiovascular, Respiratory, Neurological, Psychiatric, Hem-Onc, Allergic/Immunologic, Gastrointestinal, Genitourinary, Musculoskeletal, Integumentary, Endocrine and Eyes/Ears/Nose/Throat Exam Surgical H&P Exam: Normal: HEENT, Normal: Heart, Normal: Lungs, Normal: Extremities, Normal: Abdomen, Normal: Skin and Normal: Neurological Plan Diagnosis/Plan: Unchanged (EGD to assess status of the anastomotic ulcer. Risks and complications were discussed including the possibility of bleeding or perforation.) I have reviewed the history and physical and performed a pertinent physical examination on my patient. No changes have occurred unless specified. Time Spent With Patient Time: Total time managing care of this patient today ____ minutes.
[2023-06-27 14:47] VITALS: BMI 35.1
--- NOTE | 2023-07-01 09:53 | HO.ANESPROP2 ---
Documented by User: Mariaa Mendez NP 07/01/23 09:55 HPI - Anesthesia Eval Consult details Narrative: 52yo F for Upper Endoscopy PMFSH Active Problems Active Problems: All Active Problems (Updated 05/29/23 @ 10:08 by ELDA Kinney) Tracheobronchitis (Acute) Muscle spasm of back (Acute) Chronic neck pain (Acute) Myofascial pain syndrome, cervical (Acute) Spondylosis of cervical region without myelopathy or radiculopathy (Acute) Occipital neuralgia of right side (Acute) Right shoulder pain (Acute) Acute bronchitis (Acute) Scalp lump (Acute) Plantar fasciitis, left (Acute) Class 2 obesity with body mass index (BMI) of 37.0 to 37.9 in adult (Acute) Insomnia (Acute) GERD (gastroesophageal reflux disease) (Acute) Obesity (Acute) Anastomotic ulcer (Acute) H. pylori infection (Acute) Transaminitis (Acute) Obesity (BMI 35.0-39.9 without comorbidity) (Acute) Renal calculi (Acute) Class 1 obesity due to excess calories with body mass index (BMI) of 34.0 to 34.9 in adult (Acute) Hammertoe of left foot (Acute) Bunion, left (Acute) Cervical radiculopathy (Acute) Occipital headache (Acute) Bronchial asthma (Acute) Past Medical History Medical History Bronchial asthma Bunion, left Cervical radiculopathy Class 1 obesity due to excess calories with body mass index (BMI) of 34.0 to 34.9 in adult Hammertoe of left foot Neck pain Obesity (BMI 35.0-39.9 without comorbidity) Occipital headache Renal calculi Transaminitis Family History Family History Mother Hypertension Alzheimer disease Father Alzheimer disease Surgical History Surgical History delivery delivered Gastric bypass status for obesity History of esophagogastroduodenoscopy (EGD) Hx of breast reduction, elective Hx of hernia repair History of Problems with Anesthesia: No Social History Social History Housing: House Alcohol intake: current Alcohol intake frequency: holidays/special occasions only Patient Tobacco Use Status: Current everyday Tobacco user Tobacco use type: Cigarette Cigarettes Per Day: 1 Years Smoked: 15 e-Cigarette/Vaping Use: Never Used Second Hand Smoke Exposure: Yes Use of substances other than those prescribed or required for medical reasons: No Are you DNR?: No Advance Directives: No Advance Directives Information Provided: Yes Advance Directives on File: No service: No Current occupational status: employed Current occupational exposures/hazards: No Cognitive needs: No Hearing needs: No Vision needs: No Meds Allergies Allergy/AdvReac Type Severity Reaction Status Date / Time No Known Allergies Allergy Verified 06/19/23 10:04 Exam Exam Date and Time: July 01, 2023 0953 Height,Weight and Vital Signs: Height 4 ft 11 in Weight 78.925 kg Pertinent Lab Results Pertinent Lab Results: Laboratory Tests 04/10/23 04/10/23 19:24 19:24 WBC 9.9 Hgb 14.0 Hct 43.3 Plt Count 345 Sodium 140 Potassium 4.6 Chloride 106 Carbon Dioxide 28 BUN 14 Creatinine 0.74 Narrative Narrative: EKG 11/2022 Vent. Rate : 115 BPM ? ? Atrial Rate : 115 BPM ?? P-R Int : 136 ms? QRS Dur : 072 ms ? ? QT Int : 320 ms ? ? ? P-R-T Axes : 041 -03 016 degrees ?? QTc Int : 442 ms ? Sinus tachycardia Cannot rule out Anterior infarct , age undetermined Abnormal ECG When compared with ECG of 26-FEB-2022 08:02, No significant change was found Assessment and Plan Assessment Anesthesia Assessment: Chart Reviewed Final Anesthetic Review History of Problems with Anesthesia: No Documented by User: Ena Tate MD 07/02/23 07:23 [facility] Past Medical History Medical History Bronchial asthma Bunion, left Cervical radiculopathy Class 1 obesity due to excess calories with body mass index (BMI) of 34.0 to 34.9 in adult Kaitlyn of left foot Neck pain Obesity (BMI 35.0-39.9 without comorbidity) Occipital headache Renal calculi Transaminitis Family History Family History Mother Hypertension Alzheimer disease Father Alzheimer disease Surgical History Surgical History delivery delivered Gastric bypass status for obesity History of esophagogastroduodenoscopy (EGD) Hx of breast reduction, elective Hx of hernia repair Social History Social History Housing: House Alcohol intake: current Alcohol intake frequency: holidays/special occasions only Patient Tobacco Use Status: Current everyday Tobacco user Tobacco use type: Cigarette Cigarettes Per Day: 1 Years Smoked: 15 e-Cigarette/Vaping Use: Never Used Second Hand Smoke Exposure: Yes Use of substances other than those prescribed or required for medical reasons: No Are you DNR?: No Advance Directives: No Advance Directives Information Provided: Yes Advance Directives on File: No service: No Current occupational status: employed Current occupational exposures/hazards: No Cognitive needs: No Hearing needs: No Vision needs: No Meds Allergies Allergy/AdvReac Type Severity Reaction Status Date / Time No Known Allergies Allergy Verified 06/19/23 10:04 Exam Airway Mallampati Class: II (dental implant posts in place (maxilla)) TM Dist: >3cm Neck ROM: Full Loose/Missing/Broken Teeth: Yes, Upper and Lower Heart: RRR Lungs: CTA Assessment and Plan Assessment Anesthesia Assessment: Anesthesia Plan Discussed Final Anesthetic Review NPO: Yes ASA Class: II Final Preanesthetic Review: Meds/Allgs Chart Reviewed, Consent Obtained/Reviewed and Anes Risks/Benef Reviewed Patient Risk: Low Procedure Risk: Intermediate Anesthetic Plan Anesthetic Plan: MAC: Disposition: Standard PACU
[2023-07-01 13:41] LABS: COVID-19 Test Negative (Negative); IDNOW Serial# 6674DD1D
[2023-07-02 06:45] VITALS: BP 122/83; PULSE 89; RESP 16; TEMP 36.2; O2SAT 97
[2023-07-02] MEDS: Lactated Ringers 1,000 ML 100 ML IVCONT (06:51)
[2023-07-02 07:50] VITALS: BP 110/77; PULSE 103; RESP 18; TEMP 36.6; O2SAT 100
--- NOTE | 2023-07-02 07:56 | PM.OP ---
Brief Operative Note Date of Service: 07/02/23 Pre-op diagnosis: Anastomotic ulcer Post-op diagnosis: other (Healed anastomotic ulcer) Procedure: OPERATIVE INDICATIONS: ?The patient is a 52 year old female who underwent an open gastric bypass elsewhere. The patient has developed epigastric pain. Based on this information I recommended an upper endoscopy to evaluate the patient's symptoms which showed an anastomotic ulcer. Appropriate treatment was provided and she feels better. She presents for a follow up endoscopy to assess the status of the ulcer and change the nutritionla plan.? Risks and complications of the surgery were discussed with the patient in advance particularly the possibility of perforation or bleeding that may require surgical intervention. The patient understood the risks and was in agreement with the plan. ? PROCEDURE: After informed consent was obtained by the patient, the patient was ?transferred to the Operating Room and was placed in the supine position.? After successful induction of IV sedation, a mouth block was placed and the patient was placed in the left lateral decubitus position. An upper endoscopy was performed next, the oropharynx and esophagus appeared within the normal limits. There was no hiatal hernia.? The z-line was smooth. The small pouch was entered, appeared to be of normal size. There was no gastritis and the gastrojejunostomy was patent. There was no anastomotic ulcer at the GJ anastomosis.? At that point the scope was advanced into the proximal small intestine (proximal Cachorro limb) which appeared to be normal as well. The Cachorro limb and the pouch were decompressed and the scope was withdrawn from the patient's mouth. The patient was awaken and was transferred in stable condition to the Recovery Room for further care. I was present and performed all steps of the procedure. There were no residents to assist with this case. Nestor Lu M.D., Ph.D. Surgeon: Carlos Lu MD Anesthesia: MAC Was an Commissary Officer used for this Procedure?: No Estimated blood loss (mL): 0 IV fluids (mL): 400 Urine output (mL): 0 (No baldwin to record output) Pathology: none sent Condition: stable Disposition: PACU
[2023-07-02 08:03] VITALS: BP 121/87; PULSE 83; RESP 20; TEMP 36.9; O2SAT 99
== END 2023-07-02 08:20 | disposition home or self-care (01) ==
PROVIDERS: Physician Assistant Surgical; PCP Internal Medicine; Visit Provider Surgery
PROC: 0DJ08ZZ Inspection of Upper Intestinal Tract, Via Natural or Artificial Opening Endoscopic (ICD-10-PCS; CPT 43235; principal; 2023-07-02 07:30)
DX: K28.9 Gastrojejunal ulcer, unspecified as acute or chronic, without hemorrhage or perforation (principal); A04.8 Other specified bacterial intestinal infections; Z98.84 Bariatric surgery status; E66.9 Obesity, unspecified; Z68.34 Body mass index [BMI] 34.0-34.9, adult; K59.00 Constipation, unspecified; J45.909 Unspecified asthma, uncomplicated; Z79.899 Other long term (current) drug therapy; Z98.890 Other specified postprocedural states; Z87.442 Personal history of urinary calculi; F17.210 Nicotine dependence, cigarettes, uncomplicated; Z20.822 Contact with and (suspected) exposure to COVID-19
CPT/HCPCS: 43235; 87635

== ENCOUNTER → 2023-07-02 06:25 | Outpatient (BNV) | payer OTHER, SELFPAY | PROVIDERS: PCP Internal Medicine; Visit Provider Surgery | DX: R10.13 Epigastric pain (principal); Z90.3 Acquired absence of stomach [part of]; Z98.84 Bariatric surgery status | CPT/HCPCS: 43235 ==

== ENCOUNTER 2023-07-09 15:22 | Outpatient (AMB) | payer OTHER, SELFPAY ==
--- NOTE | 2023-07-09 15:26 | MHC.OFFVISWM ---
Intake VS Expanded 07/09/23 15:28 Height 4 ft 11 in Weight 166 lb 9.6 oz BMI 33.6 BP 126/80 Blood Pressure Location Rt brachial Blood Pressure Position Sitting Pulse 99 Pulse Source Pulse Oximeter Temp 96.9 F Temperature Source Temporal Artery Scan Pulse Oximetry 95 Oxygen Delivery Method Room Air Body Fat 64.8 Body Fat Percentage 38.9 Free Fat Mass 101.6 Muscle Mass 96.6 Visceral Mass 10.0 Water Mass 72.4 BMR 1,401 Intake Visit Reasons: (OV) f/u Anastomotic Ulcer Allergies No Known Allergies Allergy (Verified 07/09/23 15:29) Medication List - Last Reconciled 07/09/23 by ELDA Kinney docusate sodium 100 mg PO BID mirtazapine 7.5 mg PO BEDTIME PRN 30 days pantoprazole 40 mg PO DAILY polyethylene glycol 3350 (Miralax) 17 grams PO TID sennosides (senna) 10 mL PO BID PRN Ventolin HFA 90 mcg/actuation (albuterol sulfate) 2 puffs inhalation Q6H PRN 30 days NS HPI HPI Comments History of Present Illness Details Pt is seen in followup for marginal ulcer. She is s/p open RYGB 20+ years ago done at [facility] ([place]). Also history of obstruction requiring surgery about 10 years ago at [facility]. She underwent endoscopy for complaints of abdominal pain, 04/23/2023 which revealed GJ anastomotic ulcer. She was placed on a liquid protein diet, PPI and carafate. Repeat endoscopy performed 07/02 and showed no ulcer. She has stopped carafate. Pt has lost 7lbs since last office visit. Was placed on a meal plan per Dr. Underwood with 2 shakes Premier, 1/2 scoop each, one yogurt with fruit, and one meal with 4 forks protein/4 forks salad. Pt reports she did not start this meal plan until a few days ago. Using Miralax BID for help with constipation. Likes to walk for exercise, limited lately due to weather. Still smoking about 1 cigarette per day, remains off ibuprofen. [facility] Medical History (Updated 07/09/23 @ 16:06 by ELDA Kinney) Bronchial asthma Bunion, left Cervical radiculopathy Class 1 obesity due to excess calories with body mass index (BMI) of 34.0 to 34.9 in adult Nildae of left foot Neck pain Obesity (BMI 35.0-39.9 without comorbidity) Occipital headache Renal calculi Transaminitis Surgical History (Updated 07/09/23 @ 16:06 by ELDA Kinney) delivery delivered Gastric bypass status for obesity History of esophagogastroduodenoscopy (EGD) Hx of breast reduction, elective Hx of hernia repair Family History Mother Hypertension Alzheimer disease Father Alzheimer disease Social History (Updated 07/09/23 @ 15:32 by Nurys Anderson CMA) Housing: House Alcohol intake: former Patient Tobacco Use Status: Current everyday Tobacco user Tobacco use type: Cigarette Cigarettes Per Day: 2 Years Smoked: 15 e-Cigarette/Vaping Use: Never Used Second Hand Smoke Exposure: Yes service: No Current occupational status: employed Current occupational exposures/hazards: No Cognitive needs: No Hearing needs: No Vision needs: No Physical Exam Vital Signs: Last Vital Signs Temp 96.9 F 07/09/23 15:28 Pulse 99 07/09/23 15:28 BP 126/80 07/09/23 15:28 Pulse Ox 95 07/09/23 15:28 Oxygen Delivery Method Room Air 07/09/23 15:28 BMI result Body Mass Index 33.6 Assessment & Plan Assessment & Plan (1) Obesity: Code(s): E66.9 - Obesity, unspecified (2) Anastomotic ulcer: Code(s): K28.9 - Gastrojejunal ulcer, unspecified as acute or chronic, without hemorrhage or perforation (3) H. pylori infection: Code(s): A04.8 - Other specified bacterial intestinal infections (4) Gastric bypass status for obesity: Code(s): Z98.84 - Bariatric surgery status Plan Discussed short term weight loss goal of under 150lbs as that would get pt's BMI under 30. Discussed again the importance of total smoking cessation. Pt to continue current meal plan. She was not retested for H. pylori at last endoscopy as no biopsies were performed. Will discuss coming off PPI for 2 weeks vs other methods of confirmation of clearance with Dr. Negron Per pt preference RTC in 6-8 weeks to support ongoing weight loss efforts. Patient is obese and is not considered stable at this time. I spent a total of 30 minutes reviewing/updating records, examining the patient and counseling the patient on weight management as detailed above. Coding Level of Care Code Est Pt Level 4 (74414) Diagnoses Obesity E66.9 Anastomotic ulcer K28.9 H. pylori infection A04.8 Gastric bypass status for obesity Z98.84
[2023-07-09 15:28] VITALS: BP 126/80; PULSE 99; TEMP 36.1; O2SAT 95; BMI 33.6
== END 2023-07-09 16:03 | disposition home or self-care (01) ==
PROVIDERS: PCP Internal Medicine; Visit Provider Physician Assistant Surgical
DX: E66.9 Obesity, unspecified (principal); K28.9 Gastrojejunal ulcer, unspecified as acute or chronic, without hemorrhage or perforation; A04.8 Other specified bacterial intestinal infections; Z98.84 Bariatric surgery status
CPT/HCPCS: 99214

== ENCOUNTER → 2023-07-09 15:22 | Outpatient (BNVA) | payer OTHER, SELFPAY | PROVIDERS: PCP Internal Medicine; Visit Provider Physician Assistant Surgical ==

== ENCOUNTER 2023-09-11 12:42 | Outpatient (AMB) | payer OTHER, SELFPAY ==
--- NOTE | 2023-09-11 12:46 | A.OFFVIS_ITS ---
Intake VS Expanded 09/11/23 12:49 BP 142/81 H Blood Pressure Location Rt brachial Blood Pressure Position Sitting Pulse 96 Pulse Source Pulse Oximeter Temp 98.2 F Temperature Source Temporal Artery Scan Pulse Oximetry 97 Oxygen Delivery Method Room Air Height 4 ft 11 in Weight 155 lb 12.8 oz BMI 31.5 Body Fat % 38.4 Body Fat Mass 59.8 Fat Free Mass 96.0 Visceral Fat Rating 9.0 Body Water % 43.8 Body Water Mass 68.2 Muscle Mass/Score 91.0 Basal Metabolic Rate/Score 1,325 Intake Visit Reasons: (OV) f/u Anastomotic Ulcer Allergies No Known Allergies Allergy (Verified 09/11/23 12:51) Medication List - Last Reconciled 09/11/23 by ELDA Kinney docusate sodium 100 mg PO BID mirtazapine 7.5 mg PO BEDTIME PRN 30 days pantoprazole 40 mg PO DAILY polyethylene glycol 3350 (Miralax) 17 grams PO TID sennosides (senna) 10 mL PO BID PRN Ventolin HFA 90 mcg/actuation (albuterol sulfate) 2 puffs inhalation Q6H PRN 30 days NS HPI HPI Comments History of Present Illness Details Pt is seen in followup for marginal ulcer. She is s/p open RYGB 20+ years ago done at [facility] ([place]). Also history of obstruction requiring surgery about 10 years ago at [facility]. She underwent endoscopy for complaints of abdominal pain, 04/23/2023 which revealed GJ anastomotic ulcer. She was placed on a liquid protein diet, PPI and carafate. Repeat endoscopy performed 07/02 and showed no ulcer. She has stopped carafate. Pt has lost 10.8lbs since last office visit 2 months ago. Was on vacation in [place] visiting son. Was placed on a meal plan per Dr. Underwood with 2 shakes Premier, 1/2 scoop for one shake and 1 scoop in another, one yogurt with fruit, and one meal with 4 forks protein/4 forks salad. Doing well on this plan. Likes to walk for exercise, plans to sign up for indoor pool once weather gets colder. Still smoking about 1 cigarette per day, remains off ibuprofen. Takes stool softener and Miralax which helps with regular BMs. [facility] Medical History (Updated 07/09/23 @ 16:06 by ELDA Kinney) Transaminitis Obesity (BMI 35.0-39.9 without comorbidity) Renal calculi Class 1 obesity due to excess calories with body mass index (BMI) of 34.0 to 34.9 in adult [place] of left foot Bunion, left Neck pain Cervical radiculopathy Occipital headache Bronchial asthma Surgical History History of esophagogastroduodenoscopy (EGD) Hx of breast reduction, elective delivery delivered Hx of hernia repair Gastric bypass status for obesity Family History Mother Hypertension Alzheimer disease Father Alzheimer disease Social History (Updated 07/09/23 @ 15:32 by Nurys Anderson [facility]) Housing: House Alcohol intake: former Patient Tobacco Use Status: Current everyday Tobacco user Tobacco use type: Cigarette Cigarettes Per Day: 2 Years Smoked: 15 e-Cigarette/Vaping Use: Never Used Second Hand Smoke Exposure: Yes service: No Current occupational status: employed Current occupational exposures/hazards: No Cognitive needs: No Hearing needs: No Vision needs: No Assessment & Plan Assessment & Plan (1) Gastric bypass status for obesity: Code(s): Z98.84 - Bariatric surgery status (2) Obesity: Code(s): E66.9 - Obesity, unspecified (3) Anastomotic ulcer: Code(s): K28.9 - Gastrojejunal ulcer, unspecified as acute or chronic, without hemorrhage or perforation Plan Pt will keep meal plan the same for now. Congratulated her on her ongoing weight loss. She has the goal of 5 more lbs and then would like to transition to maintenance. Will come in next month for a weight check and can make an appt with RD once she reaches goal weight of 150lbs. Continue PPI. Refills for PPI, docusate, and Miralax processed. RTC to see me in 6 months. Patient is obese and is not considered stable at this time. I spent a total of 30 minutes reviewing/updating records, examining the patient and counseling the patient on weight management as detailed above. Medications: Refilled pantoprazole 40 mg PO DAILY 90 tabs 1RF docusate sodium 100 mg PO BID 60 caps 3RF polyethylene glycol 3350 (Miralax) 17 grams PO TID 510 grams 5RF Coding Level of Care Code Est Pt Level 4 (76607) Diagnoses Gastric bypass status for obesity Z98.84 Obesity E66.9 Anastomotic ulcer K28.9
[2023-09-11 12:49] VITALS: BP 142/81; PULSE 96; TEMP 36.8; O2SAT 97; BMI 31.5
== END 2023-09-11 13:09 | disposition home or self-care (01) ==
PROVIDERS: PCP Internal Medicine; Visit Provider Physician Assistant Surgical
DX: E66.9 Obesity, unspecified (principal); Z68.31 Body mass index [BMI] 31.0-31.9, adult; Z98.84 Bariatric surgery status; K28.9 Gastrojejunal ulcer, unspecified as acute or chronic, without hemorrhage or perforation
CPT/HCPCS: 99214

== ENCOUNTER → 2023-09-11 12:42 | Outpatient (BNVA) | payer OTHER, SELFPAY | PROVIDERS: PCP Internal Medicine; Visit Provider Physician Assistant Surgical ==

== ENCOUNTER 2023-10-20 13:08 | Outpatient (AMB) | payer OTHER, SELFPAY ==
--- NOTE | 2023-10-20 13:11 | A.OFFVIS_ITS ---
Intake Vital Signs 10/20/23 13:15 Height 4 ft 11 in Weight 159 lb BMI 32.1 BP 136/88 Blood Pressure Location Rt brachial Position Sitting Pulse 101 H Pulse Source Pulse Oximeter Pulse Oximetry (%) 99 Oxygen Delivery Method Room Air Intake Visit Reasons: Increasing Cervical Pain/lvm Intake Note: Pain today 09/02 Charge Loader Required: No Accompanied by: Self / Same As Patient Allergies No Known Allergies Allergy (Verified 09/11/23 12:51) HPI HPI Comments History of Present Illness Details Patient presents today for follow up for chronic right sided neck pain. She was last seen in our office in December 2022. Patient reports cervical medial branch RFA provided her about 10 months of 50% pain relief. 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 Denies radiation of neck pain into her arms but notes pain does extend into her right occipital area and right trapezius area with muscle spasms and stiffness. She is interested in peripheral nerve stimulation as next steps. Patient had complete pain relief with two diagnostic cervical MBBs injections last year. We also discussed therapeutic injections. Patient prefers interventions that provided a longer term pain relief. Currently, she continues to manage her symptoms with Tylenol, NSAIDs, topical applications with minimal benefit. She tried methocarbamol last year with no significant muscle spasms relief. Patient continues to regularly participate in home exercise program for her neck pain with no significant improvement. Denies any recent cough, cold, infection, fever or other significant changes in medical history since last office visit. Past Procedures: 11/13/22: Right C3-C4 MB RFA- 50% pain r elief for 10 months 05/03/22: Diagnostic Right C3-C4-C5-C6 M BBs with Bupivicaine-100% pain relief for 2 days 02/12/22: Diagnostic Right C3-C4-C5-C6 M BBs with Lidocaine-100% pain relief for 3 hours PRIOR: Disha is a pleasant 51-year-old female who presents to the office with complaints of neck pain. She reports the pain is mostly right sided, radiates u p to the top of the head and to the shoulder with associated tingling and pressure. She reports this has been present for the past 5-6 years as well as being off balance occasionally. She was evaluated by Neurology which resulted in no significant findings. She was then referred to Dr. Jeffers, which she is under the care of now. He had referred her to [facility] to address facet mediated pain. After evaluation it sounds like they addressed her myofascial pain with trigger point injections on 10/11/21 instead facet joint injections/MBB, as requested by Dr. Jeffers. She notes no relief with the trigger point injection and about 2 days after the injections she began to have numbness and tingling radiating down her right upper extremity. She was then evaluated in the emergency room and had a cervical spine MRI which revealed a pocket of fluid at C1-C2 . She reports she was then hospitalized overnight with antibiotics and released the next day. She denies a follow-up MRI in still has persistent paresthesias of the right upper extremity which radiate into all fingers. She reports pain onset was gradual, constant and rates the pain a 10/10. She states the pain is interfering with sleep, activities of daily living and she cannot function normally. The patient reports the pain in terms of tissue damage as stabbing, sharp, burning as well tingling and tired. The pain is not dependent on any specific activity but does know an increase in discomfort with lateral rotation and extension of the neck. She has attempted physical therapy as well as massage in the past with no alleviation in symptoms. She has been performing gentle stretching with some relief. She has also tried Tylenol, NSAIDs, lidocaine compound, heat and ice with no improvements. In the past she has tried gabapentin but it resulted in significant drowsiness so she discontinued. She denies any chiropractic manipulation, massage or acupuncture. Denies any previous neck surgery. [facility] Medical History Transaminitis Obesity (BMI 35.0-39.9 without comorbidity) Renal calculi Class 1 obesity due to excess calories with body mass index (BMI) of 34.0 to 34.9 in adult Hammertoe of left foot Bunion, left Neck pain Cervical radiculopathy Occipital headache Bronchial asthma Surgical History History of esophagogastroduodenoscopy (EGD) Hx of breast reduction, elective delivery delivered Hx of hernia repair Gastric bypass status for obesity Family History Mother Hypertension Alzheimer disease Father Alzheimer disease Housing: House Alcohol intake: former Patient Tobacco Use Status: Current everyday Tobacco user Tobacco use type: Cigarette Cigarettes Per Day: 2 Years Smoked: 15 e-Cigarette/Vaping Use: Never Used Second Hand Smoke Exposure: Yes service: No Current occupational status: employed Current occupational exposures/hazards: No Cognitive needs: No Hearing needs: No Vision needs: No Review of Systems Const All systems reviewed & are unremarkable except as noted in HPI and below Physical Exam Vital Signs: Last Vital Signs Pulse 101 H 10/20/23 13:15 BP 136/88 10/20/23 13:15 Pulse Ox 99 10/20/23 13:15 Oxygen Delivery Method Room Air 10/20/23 13:15 BMI result Body Mass Index 32.1 On exam today: Appears afebrile. Alert and oriented. Mood and affect appropriate. Follows and participates in conversation appropriately. Respiratory effort is unlabored. No cough. No nasal discharge. Able to transition from sit to stand unassisted. Ambulates with bilaterally normal heel strike and toe off. Able to stand and walk on toes and heels. Neck Other: There is tenderness to palpation in the cervical paraspinal muscles as well as bilateral trapezii, worse on the right. Neck: Yes no lymphadenopathy, Yes supple, No anterior neck swelling, Yes no JVD and Yes prominent dorsocervical fat pad Back/Spine/Pelvis Cervical Spine: No Lhermitte's sign positive, cervical muscular tenderness, pain with cervical ROM (right lateral rotation and bending, cervical extension), No Cervical spine scars present, cervical spasm, No Cervical spine tenderness and No step off deformity Thoracic/Lumbar Spine: thoraco-lumbar ROM normal, No thoracic spinal tenderness and No lumbar spinal tenderness Results Reviewed Results Reviewed: MR CERVICAL SPINE WITHOUT AND WITH CONTRAST 01/02/23 CLINICAL INFORMATION: Occipital neuralgia. COMPARISON: Cervical spine MRI from 01/03/2022. TECHNIQUE: MRI of the cervical spine was obtained using routine sequences without and following the administration of 8.5 mL of Gadavist intravenous contrast. FINDINGS: Mild reversal the normal cervical lordosis centered on C4-C5. Mild degenerative anterolisthesis of C3 on C4. Advanced degenerative disc disease at C5-C6 and C6-C7. Moderate degenerative disc disease at C3-C4 and C4-C5. Associated mixed Modic type discogenic endplate changes including mild Modic type I discogenic edema from C4-C7. Mild marrow edema within the C4-C7 facets consistent with degenerative stress reaction. No additional suspicious marrow edema. The mild degenerative loss of C5 and C6 vertebral body heights. Otherwise, the vertebral body heights are largely maintained. No demonstrated spinal cord signal abnormalities. No abnormal contrast enhancement. Mild edema within the nuchal ligament from the levels of C6-T1. Otherwise, limited evaluation of the soft tissues of the neck without demonstrated abnormalities. The flow voids of the major cervical vessels are maintained. Normal appearance of the cervicomedullary junction and visualized posterior fossa. SPINAL LEVELS: C2-C3: Normal annular contour. There is no uncovertebral joint arthropathy. There is mild bilateral facet joint arthropathy. There is no neural foraminal stenosis. There is no spinal canal stenosis. C3-C4: Mild disc-osteophyte complex. There is moderate right and mild left uncovertebral joint arthropathy. There is severe right and moderate left facet joint arthropathy. There is moderate right and mild left neural foraminal stenosis. There is mild spinal canal stenosis. C4-C5: Moderate disc-osteophyte complex. There is moderate right and no left uncovertebral joint arthropathy. There is mild bilateral facet joint arthropathy. There is mild right and no left neural foraminal stenosis. There is no spinal canal stenosis. C5-C6: Mild disc-osteophyte complex. There is severe right and moderate left uncovertebral joint arthropathy. There is moderate bilateral facet joint arthropathy. There is severe right and moderate left neural foraminal stenosis. There is no spinal canal stenosis. C6-C7: Mild disc-osteophyte complex. There is moderate bilateral uncovertebral joint arthropathy. There is mild bilateral facet joint arthropathy. There is severe bilateral neural foraminal stenosis. There is no spinal canal stenosis. C7-T1: Normal annular contour. There is no uncovertebral joint arthropathy. There is mild left and no right facet joint arthropathy. There is no neural foraminal stenosis. There is no spinal canal stenosis. IMPRESSION: Moderate multilevel degenerative spondyloarthropathy of the cervical spine as described in detail above. Most notably, there is mild spinal canal stenosis at C3-C4. Moderate to severe neural foraminal stenoses at C3-C4, C5-C6, and C6-C7. Overall, degenerative changes appear similar to exam from 2021. There is mild edema within the nuchal ligament from C6-T1 suggestive of strain injury. MR CERVICAL SPINE WITHOUT CONTRAST 01/03/22 FINDINGS: The cervical vertebral bodies maintain normal heights and alignment. There is significant disc height loss at C6-C7 with progressive bone marrow edema. Additional significant disc height loss is seen at C5-C6. Marrow edema is seen across the right-sided C3-C4 facets with periarticular edema also demonstrated. The cervical cord signal appears normal. The imaged portions of the intracranial contents appear normal. The extraspinal soft tissues appear normal. SPINAL LEVELS: C2-C3: No posterior disc abnormality. No spinal canal or neural foraminal stenosis. C3-C4: Disc osteophyte complex without spinal canal stenosis. Progressive now severe right facet arthropathy with marrow edema. Mild right neural foraminal stenosis. C4-C5: Disc osteophyte complex with uncovertebral hypertrophy and mild facet arthropathy. Mild to moderate right neural foraminal stenosis without significant change. No spinal canal stenosis. C5-C6: Disc osteophyte complex with uncovertebral hypertrophy. Moderate to severe right and mild left neural foraminal stenosis without change. No spinal canal stenosis. C6-C7: Disc osteophyte complex with uncovertebral hypertrophy resulting in unchanged severe left and moderate right neural foraminal stenosis. No spinal canal stenosis. C7-T1: No posterior disc abnormality. No spinal canal or neural foraminal stenosis. IMPRESSION: At C6-C7 there is progressive subchondral bone marrow edema. Unchanged severe left and moderate right neural foraminal stenosis. No marrow and periarticular edema about the right-sided C3-C4 facet compatible with arthropathy. At C5-C6 there is moderate to severe right neural foraminal stenosis without change. MR CERVICAL SPINE WITHOUT AND WITH CONTRAST 10/14/21 CLINICAL INFORMATION: Paresthesias and numbness to right side of the body. COMPARISON: Plain films of the cervical spine 02/21/2021. CT scan of the cervical spine 02/14 2015. TECHNIQUE: MRI of the cervical spine was obtained using routine sequences with and without contrast. Intravenous contrast: Gadavist 8.5 mL. FINDINGS: VERTEBRAL BODIES AND PARASPINAL SOFT TISSUES: There is mild reversal of the cervical lordosis. There is a mild degenerative anterolisthesis of C3 on C4. There is marked narrowing of intervertebral disc height at C5-C6 and C6-C7 and there are degenerative endplate contour changes at these levels. Edematous signal changes are seen posteriorly at C6-C7 which demonstrate mild enhancement. Milder changes are seen at C5-C6. No acute fractures are demonstrated and vertebral body heights are maintained. Overall, marrow signal is homogenous. There is enhancement in the paravertebral soft tissues on the right in the lower cervical spine at C7/T1. CERVICOMEDULLARY JUNCTION AND VISUALIZED POSTERIOR FOSSA: The craniocervical and posterior fossa structures are normal. Accounting for artifact, spinal cord signal appears normal. There is no abnormal enhancement of the cervical spinal cord. There is a small enhancing epidural fluid collection along the right aspect of the thecal sac at the level of C1 and C2 (images 1 and 2/30, sequences 7 and images 2 and 3/30, sequence 8). It measures approximately 1.3 x 0.3 cm. There is no mass effect on the thecal sac. SPINAL LEVELS: C2-C3: Posterior disc contour is normal. There is no spinal cord compression or central stenosis. The neural foramina are patent bilaterally. C3-C4: There is severe right and moderate left facet arthropathy. There is a posterior disc protrusion with mild effacement of CSF ventral to the spinal cord but there is no spinal cord compression or central stenosis. There are uncovertebral osteophytes. There is moderate right foraminal narrowing. C4-C5: There is mild right facet arthropathy. There is a broad-based posterior disc protrusion which effaces CSF ventral to the spinal cord with minimal flattening of the cord. There is mild central stenosis. There are uncovertebral osteophytes and there is mild bilateral foraminal narrowing. C5-C6: The facet joints appear normal. There is a posterior disc protrusion which effaces CSF ventral to the spinal cord without spinal cord compression. There is mild central stenosis. There are uncovertebral osteophytes and there is severe right and moderate left foraminal narrowing. C6-C7: The facet joints appear normal. There is a broad-based posterior disc protrusion with effacement of CSF ventral to the spinal cord without spinal cord compression. There is mild central stenosis. There are uncovertebral osteophytes and there is moderate bilateral foraminal narrowing. C7-T1: The facet joints appear normal bilaterally. Posterior disc contour is normal. There is no spinal cord compression or central stenosis. The neural foramina are patent bilaterally. IMPRESSION: 1. There appears to be an enhancing epidural fluid collection along the thecal sac in the right at C1-C2 without mass effect. 2. There is enhancement in the paravertebral soft tissues on the right in the lower cervical spine at C7-T1. 3. There is spondylosis and facet arthropathy with multilevel foraminal narrowing and central stenosis as described above. This is most severe at C5-C6 and C6-C7. 4. There is no spinal cord compression or abnormal enhancement of the spinal cord. 5. This critical result was discussed with Al Covarrubias by telephone on 10/14/2021 at 5:30 PM and it was ascertained that the content and urgency of the report was understood at the time of direct communication. Assessment & Plan Assessment & Plan (1) Chronic neck pain: Code(s): M54.2 - Cervicalgia; G89.29 - Other chronic pain (2) Myofascial pain syndrome, cervical: Code(s): M79.18 - Myalgia, other site (3) Spondylosis of cervical region without myelopathy or radiculopathy: Code(s): M47.812 - Spondylosis without myelopathy or radiculopathy, cervical region Plan Patient returns today for follow up for chronic neck pain with symptoms back to its baseline s/p right cervical medial branch RFA providing her 50% pain relief for 10 months. She previously completed course of PT and continuation of HEP without improvement in her axial, cervical pain. Today's exam and previous imaging is consistent for multilevel facet arthropathy and muscle tenderness with spams and myofascial pain. She had diagnostic right C3 C4 C5 C6 diagnostic MBB twice which provided her excellent results and 100% pain relief. Patient is interested in proceeding with cervical spine of medial branches PNS trial. Schedule Right C4 medial branch nerve stimulator trial with Sprint with local and fluoroscopy. Expectations, risks and benefits were reviewed. Per patient's request, will provide oral sedation prior to the procedure which she is aware to come to the procedure early to receive oral Ativan. Scripts provided for baclofen and diclofenac gel. Side effects and precautions were discussed with patient. All questions were answered and patient is in agreement of plan. Follow up after procedure and sooner if needed. Medications: New diclofenac sodium 3% 1 appl topical BID 100 grams 3RF pain G89.29 - Other chronic pain, M54.2 - Cervicalgia baclofen 10 mg PO BID 30 days PRN 60 tabs 1RF muscle spasm G89.29 - Other chronic pain, M47.812 - Spondylosis without myelopathy or radiculopathy, cervical region, M54.2 - Cervicalgia, M79.18 - Myalgia, other site Coding Level of Care Code Est Pt Level 4 (08719) Diagnoses Chronic neck pain M54.2; G89.29 Myofascial pain syndrome, cervical M79.18 Spondylosis of cervical region without myelopathy or radiculopathy M47.812
[2023-10-20 13:15] VITALS: BP 136/88; PULSE 101; O2SAT 99; BMI 32.1
== END 2023-10-20 13:27 | disposition home or self-care (01) ==
PROVIDERS: PCP Internal Medicine; Visit Provider Nurse Practitioner Family
DX: G89.29 Other chronic pain (principal); M54.2 Cervicalgia; M79.18 Myalgia, other site; M47.812 Spondylosis without myelopathy or radiculopathy, cervical region
CPT/HCPCS: 99214

== ENCOUNTER → 2023-10-20 13:08 | Outpatient (BNVA) | payer OTHER, SELFPAY | PROVIDERS: PCP Internal Medicine; Visit Provider Nurse Practitioner Family ==

== ENCOUNTER 2023-12-08 08:17 | Outpatient (AMB) | payer OTHER, SELFPAY ==
[2023-12-08 08:41] VITALS: BP 118/80; PULSE 83; TEMP 36.4; O2SAT 97; BMI 31.7
--- NOTE | 2023-12-08 08:41 | MHC.OFFWIV ---
Intake Vital Signs 12/08/23 08:41 Height 4 ft 11 in Weight 71.214 kg BMI 31.7 BP 118/80 Blood Pressure Location Lt brachial Position Sitting Pulse 83 Pulse Source Pulse Oximeter Temp 97.6 F Temp Source Temporal Artery Scan Pulse Oximetry (%) 97 Oxygen Delivery Method Room Air Intake Visit Reasons: EP fever headache [id number] Intake Note: pt is here today for fever headache started friday Patient Tobacco Use Status: Current everyday Tobacco user Allergies No Known Allergies Allergy (Verified 12/08/23 08:42) Do you need a note to return to daycare/school/sports/work: No HPI HPI Comments History of Present Illness Details 926 53-year-old female presents to the clinic for evaluation of fatigue, malaise, myalgias, fevers and chills, headache, sore throat all of which started on Friday. 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 Patient reports she just does not feel well. Denies vision changes, weakness, nausea, vomiting, abdominal pain, diarrhea, chest pain, shortness of breath. Grandson also noted to have strep throat Physical exam benign This is likely viral illness flu versus COVID versus RSV. Unlikely strep pharyngitis. Unlikely retropharyngeal abscess, peritonsillar abscess, threat to airway. No signs of stroke, posterior stroke, meningitis or encephalitis. No shortness a breath or chest pain unlikely ACS or PE. Strep negative Plan flu/COVID/RSV. Patient requesting Tylenol be sent to the pharmacy. Will send at this time. For fevers and body aches and pains. Educated patient on diagnosis and treatment plan, answered all question, patient verbalizes understanding. At this time patient will be discharged home, advised to return with new or worsening symptoms. Educated on worrisome signs and symptoms and when to return. At this time I feel comfortable discharge home. REPLACED BY [facility] Medical History Transaminitis Obesity (BMI 35.0-39.9 without comorbidity) Renal calculi Class 1 obesity due to excess calories with body mass index (BMI) of 34.0 to 34.9 in adult Hammertoe of left foot Bunion, left Neck pain Cervical radiculopathy Occipital headache Bronchial asthma Surgical History History of esophagogastroduodenoscopy (EGD) Hx of breast reduction, elective delivery delivered Hx of hernia repair Gastric bypass status for obesity Family History Mother Hypertension Alzheimer disease Father Alzheimer disease Social History Housing: House Alcohol intake: former Patient Tobacco Use Status: Current everyday Tobacco user Tobacco use type: Cigarette Cigarettes Per Day: 2 Years Smoked: 15 e-Cigarette/Vaping Use: Never Used Second Hand Smoke Exposure: Yes service: No Current occupational status: employed Current occupational exposures/hazards: No Cognitive needs: No Hearing needs: No Vision needs: No Review of Systems Const All systems reviewed & are unremarkable except as noted in HPI and below Physical Exam Vital Signs: Last Vital Signs Temp 97.6 F 12/08/23 08:41 Pulse 83 12/08/23 08:41 BP 118/80 12/08/23 08:41 Pulse Ox 97 12/08/23 08:41 Oxygen Delivery Method Room Air 12/08/23 08:41 BMI result Body Mass Index 31.7 vss Appearance: Alert.? Oriented X3.? No acute distress.? Head: Normocephalic, atraumatic, no step-offs or deformities Eyes: Pupils equal, round and reactive to light.? ENT: Pharynx with very mild erythema to posterior pharynx. Uvula midline. No exudates or abscess noted. Speaking in full sentences controlling secretions well Neck: Normal inspection.? Neck supple.? No meningeal signs CVS: Normal heart rate and rhythm.? Pulses normal.? Respiratory: No respiratory distress.? Breath sounds normal.? Abdomen: Soft and nontender.? Skin: Skin warm and dry.? Normal skin color.? Normal skin turgor.? Extremities: No lower extremity edema.? No calf ttp. 5/5 strength to bilateral upper and lower extremities Neuro: Oriented X 3.? No motor deficit.? No sensory deficit. CN 2-12 intact Results AMB Rapid Strep AMB Rapid Strep Negative Last Edit by Dejuan Lamar CMA on 12/08/23 09:00 Results Reviewed Results Reviewed: Laboratory Last Values Strep Scn Rapid Clinic Negative 12/08/23 08:59 Assessment & Plan Assessment & Plan (1) Viral illness: Code(s): B34.9 - Viral infection, unspecified Plan Take your medications as prescribed. If you were prescribed antibiotics today, it is important that you take your medication to their entirety, do not skip any doses, do not finish them early. Follow-up with your primary care provider this week. Return to the emergency department with new or worsening symptoms. Such as fevers, chills, chest pain, shortness of breath, nausea, vomiting, dizziness, headache, vision changes, lethargy In case of emergency call 911 Orders: Orders AMB Rapid Strep Screen Today Z13.9 - Encounter for screening, unspecified Melani Drummond APRN, SENIOR SECURITY ANALYST SARS-CoV2/FLU/RSV Today B34.9 - Viral infection, unspecified ELDA Hernandez Medications: New acetaminophen ER (Tylenol 8 Hour) 650 mg PO Q12H PRN 30 tabs 0RF pain ELDA Hernandez Coding Level of Care Code Est Pt Level 3 (18168) Diagnoses Viral illness B34.9
== END 2023-12-08 09:49 | disposition home or self-care (01) ==
PROVIDERS: PCP Internal Medicine; Visit Provider Physician Assistant
DX: B34.9 Viral infection, unspecified (principal); J02.9 Acute pharyngitis, unspecified
CPT/HCPCS: 87880; 99213

== ENCOUNTER 2023-12-08 09:27 | Outpatient (REF) | payer OTHER, SELFPAY ==
[2023-12-08 11:41] LABS: Influenza A PCR NEGATIVE (Negative); Influenza B PCR NEGATIVE (Negative); Resp Syncy Virus RNA Qual PCR NEGATIVE (Negative); SARS COV2 PCR INHOUSE POSITIVE (Negative)
== END 2023-12-08 09:28 | disposition home or self-care (01) ==
LOC: HO.LAB 09:27
PROVIDERS: Visit Provider Physician Assistant
DX: Z11.52 Encounter for screening for COVID-19 (principal); Z20.822 Contact with and (suspected) exposure to COVID-19; B34.9 Viral infection, unspecified
CPT/HCPCS: 0241U

== ENCOUNTER 2023-12-16 15:12 | Outpatient (AMB) | payer OTHER, SELFPAY ==
--- NOTE | 2023-12-16 15:13 | A.OFFPC_ITS ---
Vital Signs 12/16/23 15:14 Height 4 ft 11 in Weight 156 lb BMI 31.5 BP 112/76 Blood Pressure Location Lt brachial Position Sitting Intake Visit Reasons: Annual Exam Intake Note: Patient here for an annual physical exam [employer] Required: No Accompanied by: Self / Same As Patient Allergies No Known Allergies Allergy (Verified 12/16/23 15:24) Medication List - Last Reconciled 12/16/23 by Pam Mckoy MD acetaminophen ER (Tylenol 8 Hour) 650 mg PO Q12H PRN baclofen 10 mg PO BID PRN 30 days diclofenac sodium 3% 1 appl topical BID docusate sodium 100 mg PO BID mirtazapine 7.5 mg PO BEDTIME PRN 30 days pantoprazole 40 mg PO DAILY polyethylene glycol 3350 (Miralax) 17 grams PO TID sennosides (senna) 10 mL PO BID PRN Ventolin HFA 90 mcg/actuation (albuterol sulfate) 2 puffs inhalation Q6H PRN 30 days NS Tobacco use date assessed: 12/16/23 Dental Screening Dental Screen Date: 12/16/23 Did you have a dental visit in the last 12 months?: Yes Did you have a dental problem in the last 6 months where you did not have access to dental care?: No Was dental information given to patient?: Patient has dentist HPI HPI Comments History of Present Illness Details This is a 53-year-old female that comes for her physical exam. Mammogram and colonoscopy are up-to-date. Last Pap smear was over 3 years ago. Complains of left breast lump at 05:00 o'clock that she noticed about a month or 2 ago. [facility] Medical History Transaminitis Obesity (BMI 35.0-39.9 without comorbidity) Renal calculi Class 1 obesity due to excess calories with body mass index (BMI) of 34.0 to 34.9 in adult Hammertoe of left foot Bunion, left Neck pain Cervical radiculopathy Occipital headache Bronchial asthma Surgical History History of esophagogastroduodenoscopy (EGD) Hx of breast reduction, elective delivery delivered Hx of hernia repair Gastric bypass status for obesity Family History (Updated 12/16/23 @ 15:28 by Pam Mckoy MD) Mother Hypertension Alzheimer disease Father Alzheimer disease Brother Alzheimer disease Social History Housing: House Alcohol intake: former Patient Tobacco Use Status: Current everyday Tobacco user Tobacco use type: Cigarette Cigarettes Per Day: 2 Years Smoked: 15 e-Cigarette/Vaping Use: Never Used Second Hand Smoke Exposure: Yes service: No Current occupational status: employed Current occupational exposures/hazards: No Cognitive needs: No Hearing needs: No Vision needs: No Questionnaire PHQ-9 Over the last 2 weeks, how often have you been bothered by any of the following problems? 1. Little interest or pleasure in doing things: not at all 2. Feeling down, depressed, or hopeless: not at all 3. Trouble falling or staying asleep, or sleeping too much: not at all 4. Feeling tired or having little energy: not at all 5. Poor appetite or overeating: not at all 6. Feeling bad about yourself - or that you are a failure or have let yourself or your family down: not at all 7. Trouble concentrating on things, such as reading the newspaper or watching television: not at all 8. Moving or speaking so slowly that other people could have noticed. Or the opposite - being so fidgety or restless that you have been moving around a lot more than usual: not at all 9. Thoughts that you would be better off or of hurting yourself in some way: not at all Total score: 0 Depression Screening Interpretation: Negative Depression Screening Done: Yes 60335 - PHQ-9 Billing: Yes Source: Developed by Drs. Tony Quinteros, Carley Arias, Manfred Ramirez and colleagues, with an educational rosa from [email or web address]. Thrive Questionnaire Date Thrive assessed: 12/16/23 I am a: Patient What is your living situation today?: I have a steady place to live Within the past 12 months, did the food you bought not last and you didn't have the money to get more?: Never true Within the past 12 months, did you worry whether your food would run out before you got money to buy more?: Never true Do you have trouble paying for medicines?: No Do you have trouble getting transportation to medical appointments?: No Do you have trouble paying your heating and electricity bill?: No Do you have trouble taking care of your child, family member or friend?: No Do you have trouble with day-to-day activities such as bathing, preparing meals, shopping, managing finances, etc.?: No Are you currently unemployed and looking for a job?: No Are you interested in more education?: No Please select the resources that you would like help with: None Currently or been in a relationship where the following occur: no concerns reported THRIVE Score: 0 AUDIT C Alcohol Use Questionnaire (AUDIT-C) 1. How often do you have a drink containing alcohol?: Never Total Score: 0 LINDA-7 AMB Questionnaire LINDA-7 Date LINDA - 7 assessed: 12/16/23 Feeling nervous, anxious, or on edge: 0 = Not at all Not being able to stop or control worryin = Not at all Worrying too much about different things: 0 = Not at all Trouble relaxin = Not at all Being so restless that it is hard to sit still: 0 = Not at all Becoming easily annoyed or irritable: 0 = Not at all Feeling afraid as if something awful might happen: 0 = Not at all Total LINDA-7 score (0-4 normal; 5-9 mild; 10-14 moderate; 15-21 severe): 0 Source: Developed by Drs. Tony Quinteros, Carley Arias, Manfred Ramirez and colleagues, with an educational rosa from [email or web address]. LINDA-7 Assessment Billing LINDA-7 Assessment Tool: LINDA-7 Assessment 23095 Review of Systems Const All systems reviewed & are unremarkable except as noted in HPI and below Eyes Reports no additional complaints, Denies change in vision and Denies other visual disturbances Card Denies chest pain at rest, Denies chest pain with activity, Denies edema, Denies irregular heart rhythm, Denies claudication, Denies dyspnea, Denies dyspnea on exertion, Denies orthopnea, Denies paroxysmal nocturnal dyspnea and Denies slow heart rate Resp Denies cough, Denies dyspnea and Denies dyspnea on exertion GI Denies abdominal pain, Denies change in bowel habits, Denies excessive flatus, Denies nausea and Denies vomiting Denies urinary incontinence, Denies urinary hesitancy and Denies urinary urgency Musc Denies abnormal gait, Denies atrophy, Denies deformity and Denies limited range of motion Skin/Breast Denies bleeding lesions, Denies changing lesions and Denies rash Neuro Denies abnormal gait, Denies behavioral changes, Denies confusion and Denies lack of coordination Psych Denies behavioral changes and Denies confusion Physical exam (Primary Care) Vital Signs: Last Vital Signs BP 112/76 12/16/23 15:14 BMI result Body Mass Index 31.5 Tobacco/Smoking Status: Tobacco use Status Tobacco use date assessed 12/16/23 12/16/23 15:17 Patient Tobacco Use Status Current everyday Tobacco 12/16/23 15:17 Tobacco use type Cigarette 12/16/23 15:17 e-Cigarette/Vaping Use Never Used 12/16/23 15:17 PHQ-9: PHQ-9 Score PHQ-9: Total score 0 12/16/23 15:21 Depression Screening Interpretation: Negative Thrive Assessment: Date of Thrive Assessment Date Thrive assessed 12/16/23 12/16/23 15:21 Currently or been in a relationship where the following occur: no concerns reported Const General: No confusion Orientation/consciousness: patient oriented x3 and No confusion HENMT Head: Yes normal to inspection, Yes normocephalic and Yes atraumatic Ears: external ears normal Eyes General: appearance normal, both eyes and all related structures Eyelids: Yes eyelids normal Conjunctivae: conjunctivae normal Neck Neck: Yes normal visual inspection and Yes supple Chest Breast/axilla palpation: abnormal palpation of the breast (Left breast lump at 05:00 o'clock) Resp Effort & Inspection: normal respiratory effort Auscultation: clear to auscultation bilaterally Cardio Jugular venous distension: no JVD Rate: regular rate Rhythm: regular rhythm Heart sounds: S1 normal heart sound present and S2 normal heart sound present GI Inspection: Yes normal to inspection Palpation (GI): Soft to palpation and nontender Auscultation: normal bowel sounds Skin General skin exam: no rashes or lesions noted Neuro General: patient oriented x3, no focal motor deficits and No confusion Extrem General: Yes full ROM Psych Appearance: grossly normal Office Procedures Flu Questionnaire Does the patient have a severe egg allergy?: No Immunizations flu vacc [id number] 6mos up(PF) 60 mcg(15 mcgx4)/0.5 mL IM syringe Performing Provider: Pam Mckoy MD [facility] [place] [facility] Documented (not given) by: CALVIN Rivera on 12/16/23 15:22 Reason Not Given: Patient Refused Assessment and Plan Assessment & Plan (1) Physical exam: Code(s): Z00.00 - Encounter for general adult medical examination without abnormal findings Plan: Repeat in a year. Orders: Orders MM diagnostic mammo BI Today N63.23 - Unspecified lump in the left breast, lower outer quadrant Vitamin D 25-OH Total Today E55.9 - Vitamin D deficiency, unspecified US breast LT complete Today N63.23 - Unspecified lump in the left breast, lower outer quadrant Vitamin B12 and Folate Today E53.8 - Deficiency of other specified B group vitamins Complete Blood Count Auto Diff Today E66.9 - Obesity, unspecified Comprehensive [place]. Panel Fast Today E66.9 - Obesity, unspecified Influenza [id number] Immunization Today Z23 - Encounter for immunization Referrals [facility] Referral Z12.4 - Encounter for screening for malignant neoplasm of cervix Medications: New prednisone Take 4 tabs for 2 days, then 3 tabs for 2 days, then 2 tabs for 2 days, then 1 tab for 2 days 10 mg PO DIRECTED 20 tabs 0RF 8 days Coding Level of Care Code Est Pt Prev Care 40-64y(26852) Diagnoses Physical exam Z00.00 Additional Codes LINDA-7 Assessment Billing - LINDA-7 Assessment Tool: LINDA-7 Assessment 14436 ([id number]) Time Spent (min) 32
[2023-12-16 15:14] VITALS: BP 112/76; BMI 31.5
== END 2023-12-16 15:40 | disposition home or self-care (01) ==
PROVIDERS: PCP Internal Medicine; Visit Provider Internal Medicine
DX: Z00.00 Encounter for general adult medical examination without abnormal findings (principal)
CPT/HCPCS: 99396

== ENCOUNTER 2023-12-23 08:02 | Outpatient (AMB) | payer OTHER, SELFPAY ==
[2023-12-23 08:06] VITALS: BP 116/72; PULSE 104; TEMP 37.6; O2SAT 94; BMI 31.5
--- NOTE | 2023-12-23 08:06 | MHC.OFFWIV ---
Intake Vital Signs 12/23/23 08:06 Height 4 ft 11 in Weight 156 lb BMI 31.5 BP 116/72 Blood Pressure Location Lt brachial Position Sitting Pulse 104 H Pulse Source Pulse Oximeter Temp 99.6 F Temp Source Oral Pulse Oximetry (%) 94 Intake Visit Reasons: EP throat pain headache mucous Intake Note: pt is here for c.o sore throat, fever, and body ache. was postive for covid on the 15th Patient Tobacco Use Status: Current everyday Tobacco user Allergies No Known Allergies Allergy (Verified 12/23/23 08:34) Medication List - Last Reconciled 12/23/23 by SHER Flower acetaminophen ER (Tylenol 8 Hour) 650 mg PO Q12H PRN baclofen 10 mg PO BID PRN 30 days docusate sodium 100 mg PO BID pantoprazole 40 mg PO DAILY Ventolin HFA 90 mcg/actuation (albuterol sulfate) 2 puffs inhalation Q6H PRN 30 days NS Do you need a note to return to daycare/school/sports/work: Yes HPI HPI Comments History of Present Illness Details Patient is a 53 year old female in for a sick visit. Patient was recently seen or walk-in clinic 14 days ago and was swabbed for COVID for which she was positive. She states that she started to feel better from COVID then few days ago she started developed similar symptoms again. She states she has a fever, cough, sore throat, spring up mucus. Patient states she is unable to take NSAIDs due to ulcers. Has been utilizing Tylenol at home with some good effect, she has not taken any Tylenol yet today. Denies chest pain, shortness a breath, dizziness, numbness, nausea, vomiting, diarrhea. [facility] Medical History Transaminitis Obesity (BMI 35.0-39.9 without comorbidity) Renal calculi Class 1 obesity due to excess calories with body mass index (BMI) of 34.0 to 34.9 in adult Hammertoe of left foot Bunion, left Neck pain Cervical radiculopathy Occipital headache Bronchial asthma Surgical History History of esophagogastroduodenoscopy (EGD) Hx of breast reduction, elective delivery delivered Hx of hernia repair Gastric bypass status for obesity Family History (Updated 12/16/23 @ 15:28 by Pam Mckoy MD) Mother Hypertension Alzheimer disease Father Alzheimer disease Brother Alzheimer disease Social History Housing: House Alcohol intake: former Patient Tobacco Use Status: Current everyday Tobacco user Tobacco use type: Cigarette Cigarettes Per Day: 2 Years Smoked: 15 e-Cigarette/Vaping Use: Never Used Second Hand Smoke Exposure: Yes service: No Current occupational status: employed Current occupational exposures/hazards: No Cognitive needs: No Hearing needs: No Vision needs: No Review of Systems Const Details: Constitutional : No Weight loss, Admits Fever, Admits Chills, No Fatigue, No Malaise ENT/Mouth : Admits sore throat, No Rhinorrhea Eyes: No Eye Pain, No Swelling, No Redness Cardiovascular : No Chest Pain, No SOB, No Dyspnea on Exertion, No Orthopnea, No Edema, No Palpitations Respiratory : Admits Cough, Admits Sputum, No Wheezing Gastrointestinal : No Nausea, No Vomiting, No Diarrhea, No Constipation, No abdominal Pain, No Hematochezia, No Melena Genitourinary : No Dysuria, No Urinary Frequency, No Hematuria, Musculoskeletal : No joint pain, No Myalgias, No Joint Swelling Neuro : No Weakness, No Numbness, No Dizziness, No Headache All other systems reviewed and are negative Physical Exam Vital Signs: Last Vital Signs Temp 99.6 F 12/23/23 08:06 Pulse 104 H 12/23/23 08:06 BP 116/72 12/23/23 08:06 Pulse Ox 94 12/23/23 08:06 BMI result Body Mass Index 31.5 Const Other: Appearance: Alert.? Oriented X3.? No acute distress.? Eyes: Pupils equal, round and reactive to light.? ENT: Pharynx normal.?TM intact bilaterally. Flaking of outer ear canals bilaterally. Neck: Normal inspection.? Neck supple.?Full ROM CVS: Normal heart rate and rhythm.? Pulses normal.? Respiratory: No respiratory distress.? Wheeze of right lower lobe. ? Neuro: Oriented X 3.? No motor deficit.? No sensory deficit. CN 2-12 intact Results AMB Rapid Strep AMB Rapid Strep Negative Last Edit by Dejuan Lamar CMA on 12/23/23 08:27 Assessment & Plan Assessment & Plan (1) Upper respiratory infection: Comment: Will give patient benzonatate for cough. Will obtain chest x-ray, labs. Patient has been advised that she can continue to use Tylenol as directed. She has been educated on signs of worsening symptoms and when to come back to the walk-in or when to present to the ED. Code(s): J06.9 - Acute upper respiratory infection, unspecified Qualifiers: URI type: unspecified URI Qualified Code(s): J06.9 - Acute upper respiratory infection, unspecified Plan: Take your medications as prescribed. If you were prescribed antibiotics today, it is important that you take your medication to their entirety, do not skip any doses, do not finish them early. Follow-up with your primary care provider this week. Return to the emergency department with new or worsening symptoms. Such as fevers, chills, chest pain, shortness of breath, nausea, vomiting, dizziness, headache, vision changes, lethargy In case of emergency call 911 Plan Follow-up with PCP. Orders: Orders AMB Rapid Strep Screen Today Z13.9 - Encounter for screening, unspecified XR chest 2V Today Z13.83 - Encounter for screening for respiratory disorder NEC Medications: New benzonatate 200 mg PO BID PRN 30 caps 0RF cough phenol 1.4% (Chloraseptic Throat [place]) 4 sprays mucous membrane Q4H PRN 20 mL 0RF sore throat Coding Level of Care Code Est Pt Level 3 (21523) Diagnoses Upper respiratory tract infection, unspecified type J06.9 URI type: unspecified URI Time Spent (min) 25
== END 2023-12-23 09:10 | disposition home or self-care (01) ==
PROVIDERS: PCP Internal Medicine; Visit Provider Nurse Practitioner Primary Care
DX: J06.9 Acute upper respiratory infection, unspecified (principal); J02.9 Acute pharyngitis, unspecified
CPT/HCPCS: 87880; 99213

== ENCOUNTER 2023-12-23 08:28 | Outpatient (REF) | payer OTHER, SELFPAY ==
--- NOTE | ~2023-12-23 | XR_ITS ---
EXAMINATION: XR CHEST CLINICAL INFORMATION: Screening for respiratory disorder NEC. COMPARISON: Chest 12/10/2022. TECHNIQUE: 2 views of the chest were obtained. FINDINGS: The lungs are well-expanded and clear of acute pneumonic process. There is eventration of right hemidiaphragm. Heart size and pulmonary vascularity is normal. No gross bony abnormality seen. XR/XR chest 2V IMPRESSION: Unremarkable chest examination.
== END 2023-12-23 08:29 | disposition home or self-care (01) ==
LOC: HO.HMGCX 08:28
PROVIDERS: PCP Internal Medicine; Visit Provider Nurse Practitioner Primary Care
DX: Z13.83 Encounter for screening for respiratory disorder NEC (principal)
CPT/HCPCS: 71046

== ENCOUNTER 2023-12-25 08:03 | Outpatient (AMB) | payer OTHER, SELFPAY ==
--- NOTE | 2023-12-25 08:06 | MHC.OFFWIV ---
Intake Vital Signs 12/25/23 08:17 Height 4 ft 11 in Weight 156 lb BMI 31.5 BP 116/74 Blood Pressure Location Lt brachial Position Sitting Pulse 110 H Pulse Source Pulse Oximeter Temp 98.2 F Temp Source Oral Pulse Oximetry (%) 97 Oxygen Delivery Method Room Air Intake Visit Reasons: EP sinus pressure congestion Intake Note: pt is here stating she is not feeling better but she is requesting a n extension to be off of work Patient Tobacco Use Status: Current everyday Tobacco user Allergies No Known Allergies Allergy (Verified 12/23/23 08:34) HPI HPI Comments History of Present Illness Details 53 y/o female presents to walk in clinic with c/o URI symptoms. Pt was seen 12/23/2023 for similar symptoms, All imaging and Exam WNL. [facility] Medical History Transaminitis Obesity (BMI 35.0-39.9 without comorbidity) Renal calculi Class 1 obesity due to excess calories with body mass index (BMI) of 34.0 to 34.9 in adult Hammertoe of left foot Bunion, left Neck pain Cervical radiculopathy Occipital headache Bronchial asthma Surgical History History of esophagogastroduodenoscopy (EGD) Hx of breast reduction, elective delivery delivered Hx of hernia repair Gastric bypass status for obesity Family History (Updated 12/16/23 @ 15:28 by Pam Mckoy MD) Mother Hypertension Alzheimer disease Father Alzheimer disease Brother Alzheimer disease Social History Housing: House Alcohol intake: former Patient Tobacco Use Status: Current everyday Tobacco user Tobacco use type: Cigarette Cigarettes Per Day: 2 Years Smoked: 15 e-Cigarette/Vaping Use: Never Used Second Hand Smoke Exposure: Yes service: No Current occupational status: employed Current occupational exposures/hazards: No Cognitive needs: No Hearing needs: No Vision needs: No Review of Systems Const All systems reviewed & are unremarkable except as noted in HPI and below Physical Exam Vital Signs: Last Vital Signs Temp 98.2 F 12/25/23 08:17 Pulse 110 H 12/25/23 08:17 BP 116/74 12/25/23 08:17 Pulse Ox 97 12/25/23 08:17 Oxygen Delivery Method Room Air 12/25/23 08:17 BMI result Body Mass Index 31.5 Const General: comfortable HEENT Head: Yes normocephalic Ears: TM abnormal obstructed by cerumen bilateral General nose exam: Normal nasal mucous membranes and turbinates present Mouth: oropharynx normal Throat: Yes posterior oropharynx normal Assessment & Plan Assessment & Plan (1) Upper respiratory infection: Comment: Patient has been advised that she can continue to use Tylenol as directed. She has been educated on signs of worsening symptoms and when to come back to the walk-in or when to present to the ED. Code(s): J06.9 - Acute upper respiratory infection, unspecified Qualifiers: URI type: unspecified URI Qualified Code(s): J06.9 - Acute upper respiratory infection, unspecified Plan: Rest Warm liquids Acetaminophen for aches. Coding Level of Care Code Est Pt Level 2 (57280) Diagnoses Upper respiratory tract infection, unspecified type J06.9 URI type: unspecified URI Time Spent (min) 10
[2023-12-25 08:17] VITALS: BP 116/74; PULSE 110; TEMP 36.8; O2SAT 97; BMI 31.5
== END 2023-12-25 11:10 | disposition home or self-care (01) ==
PROVIDERS: PCP Internal Medicine; Visit Provider Nurse Practitioner Family
DX: J06.9 Acute upper respiratory infection, unspecified (principal)
CPT/HCPCS: 99213

== ENCOUNTER 2024-01-23 14:55 | Outpatient (REF) | payer OTHER, SELFPAY ==
--- NOTE | ~2024-01-23 | MM_ITS ---
EXAMINATION: MM DIAGNOSTIC DIGITAL BREAST TOMOSYNTHESIS, BILATERAL US BREAST LIMITED, BILATERAL MAMMOGRAPHY: CLINICAL INFORMATION: 53-year-old female complaining of pea-sized palpable abnormality left breast lower slightly outer quadrant 5:00 axis, posterior one third. Patient has personal history of reduction mammoplasty bilaterally. Addition also has history of benign biopsy left breast 5:00 axis yielding epidermal inclusion cyst in 2013. COMPARISON: Mammography: 04/12/2023, 03/02/2022, 10/30/2019, 10/24/2018 and exams dating back to 2013. TECHNIQUE: Digital breast tomosynthesis is performed in both the craniocaudal and mediolateral oblique views along with computer-aided detection (CAD). Synthesized 2D images are generated from the tomosynthesis. In addition, additional right CC full-field 3-D view, left CC full-field 3-D view, and left MLO full-field 3-D view were obtained. FINDINGS: The breasts are almost entirely fatty (ACR BI-RADS breast composition Category a). In the right breast, approximately 1-2 o'clock axis, there is a new circumscribed oval isodense mass measuring 1.1 x 0.5 x 0.6 cm, middle one third. This will be evaluated by ultrasound. Otherwise, the right breast demonstrates no additional suspicious abnormality. Left breast demonstrates palpable marker in the approximate 5:00 axis as placed by the technologist with the aid to the patient. Subjacent to the marker, is the previously biopsied epidermal inclusion cyst at the 5:00 axis with associated post benign biopsy clip, measuring approximately 9 x 7 mm. This appears to be likely what the patient is palpating. Otherwise, the left breast demonstrates no additional suspicious abnormality. No skin thickening or axillary abnormality in either breast. ULTRASOUND: CLINICAL INFORMATION: -Evaluate oval mass right breast 1-2 o'clock axis measuring up to 1.1 cm. -Evaluate palpable abnormality left breast 5:00 axis, posterior depth. COMPARISON: None recent. Left breast ultrasound 08/17/2014, and left breast ultrasound biopsy 08/19/2014. TECHNIQUE: Targeted sonographic evaluation bilateral breasts was performed using a high frequency linear transducer. Right breast imaged in the 1:00 axis, 8 cm from the nipple, left breast imaged 5:00 axis in the region of palpable concern. Selected archived documentation. FINDINGS: RIGHT BREAST: There is predominantly fatty breast tissue. In the 1:00 axis, 8 cm from the nipple, there is a oval focus of hyperechoic fat with a central small focus of fluid, measuring 1.6 x 1.0 x 0.6 cm, correlating well with the mammographic focus of concern. This has a classic appearance of fat necrosis, which is evolving. This finding is benign. No additional abnormality noted right breast. LEFT BREAST: There is predominantly fatty breast tissue. In the 5:00 axis, 7 cm from the nipple, there is a 0.6 x 0.6 x 0.5 cm oval circumscribed hypoechoic mass with adjacent biopsy clip, consistent with previously sampled epidermal inclusion cyst. This appears to be what the patient is currently palpating, and is benign. No additional abnormalities noted left breast. MM/MM tomosynthesis diagnostic BI IMPRESSION: There are no findings in either breast suspicious for malignancy. Palpable focus in the left breast 5:00 axis appears to relate to the previously biopsied epidermal inclusion cyst, which remains. This is benign. No further follow-up recommended. New oval density in the right breast 1:00 axis, 8 cm from the nipple, has a classic appearance for a focus of fat necrosis which is likely evolving. This is benign. Recommend the patient resume routine annual screening mammography. OVERALL ASSESSMENT: Mammography: BI-RADS 2 - Benign Findings Ultrasound: BI-RADS 2 - Benign Findings RECOMMENDATION: 1 year F/U This patient's information was entered into a reminder system with a target due date for their next mammogram.
== END 2024-01-23 14:56 | disposition home or self-care (01) ==
LOC: HO.MAMMO 14:55
PROVIDERS: PCP Internal Medicine; Visit Provider Internal Medicine
DX: N63.23 Unspecified lump in the left breast, lower outer quadrant (principal)
CPT/HCPCS: 76642; 77062; 77066

== ENCOUNTER → 2024-01-23 15:00 | Outpatient (BNV) | payer OTHER, SELFPAY | PROVIDERS: PCP Internal Medicine; Visit Provider Radiology Diagnostic Radiology | DX: N63.12 Unspecified lump in the right breast, upper inner quadrant (principal); N63.23 Unspecified lump in the left breast, lower outer quadrant | CPT/HCPCS: 76642; 77062; 77066 ==

== ENCOUNTER 2024-02-26 08:49 | Outpatient (AMB) | payer OTHER, SELFPAY ==
[2024-02-26 08:52] VITALS: BMI 31.1
--- NOTE | 2024-02-26 08:52 | A.OFFVIS_ITS ---
Intake Vital Signs 02/26/24 08:52 Height 4 ft 11 in Weight 154 lb BMI 31.1 Intake Visit Reasons: New patient Annual Intake Note: no concerns Overedge Sewer Required: No Information Interpreted: non-clinical & clinical Cre[employer] Cutting Press Feeder: Cre[employer] Cutting Press Feeder Present (Latonia SIMPSON) Accompanied by: Self / Same As Patient Allergies No Known Allergies Allergy (Verified 02/26/24 08:54) Post menopausal: Yes HPI HPI Comments History of Present Illness Details Presenting for annual exam. No complaints. Last Pap/HPV was many years ago Last Mammogram was BI-RADS 2 in 02/14 no previous screening Colonoscopy PFSH Medical History Transaminitis Obesity (BMI 35.0-39.9 without comorbidity) Renal calculi Class 1 obesity due to excess calories with body mass index (BMI) of 34.0 to 34.9 in adult Hammertoe of left foot Bunion, left Neck pain Cervical radiculopathy Occipital headache Bronchial asthma Surgical History History of esophagogastroduodenoscopy (EGD) Hx of breast reduction, elective delivery delivered Hx of hernia repair Gastric bypass status for obesity Family History Mother Hypertension Alzheimer disease Father Alzheimer disease Brother Alzheimer disease Social History (Updated 02/26/24 @ 08:56 by Latonia Jordan CMA) Housing: House Alcohol intake: former Patient Tobacco Use Status: Current everyday Tobacco user Tobacco use type: Cigarette Cigarettes Per Day: 2 Years Smoked: 15 e-Cigarette/Vaping Use: Never Used Second Hand Smoke Exposure: Yes service: No Current occupational status: employed 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 [employer] Current occupational exposures/hazards: No Sexually active: Yes Sexual orientation: Straight/Heterosexual Gender identity: Female Cognitive needs: No Hearing needs: No Vision needs: No Female Reproductive History Menstrual Menopause type: natural Total pregnancies: 3 Full term: 3 Number of Living Children: 3 Date of Mammogram: 01/23/24 Review of Systems Const All systems reviewed & are unremarkable except as noted in HPI and below Card Reports as per HPI Resp Reports as per HPI GI Reports as per HPI and Reports no additional complaints Reports as per HPI Physical Exam Vital Signs: BMI result Body Mass Index 31.1 Const General: cooperative, healthy appearing and comfortable Chest Chest palpation & inspection: normal inspection of the chest and normal palpation of entire chest wall Breast/axilla inspection: normal inspection of the breasts and normal inspection of the axillae Breast/axilla palpation: normal palpation of the breasts, normal palpation of the axillae and no axillary lymphadenopathy Resp Effort & Inspection: normal respiratory effort Auscultation: clear to auscultation bilaterally Percussion: percussion normal Cardio Palpation: normal PMI Rate: regular rate Rhythm: regular rhythm Heart sounds: no murmurs and no rubs Peripheral pulses: Peripheral pulses 2+ throughout GI Inspection: Yes normal to inspection Palpation (GI): Soft to palpation, nontender, no guarding, not rigid and No hepatosplenomegaly present Percussion: Yes normal to percussion Auscultation: normal bowel sounds Rectal Exam - Female: deferred General: Yes bladder normal to palpation External Female Exam: No lesion Speculum Exam - Vagina: normal appearance of the vagina, normal palpation, normal vaginal discharge and not erythematous Speculum Exam - Cervix: normal appearance of the cervix and normal palpation Bimanual exam- vagina & uterus: normal bimanual exam, normal palpation, uterine size normal, bladder normal to palpation, consistency normal and normal palpation Bimanual Exam- Adnexa, other: normal adnexae, no masses and no tenderness Assessment & Plan Assessment & Plan (1) Well woman exam: Code(s): Z01.419 - Encounter for gynecological examination (general) (routine) without abnormal findings Plan: Co testing done. Counseled the patient about the recommended dietary allowance of 1200 mg of Calcium & 600 IU of vitamin D. instructions given the patient to schedule next screening Mammogram in 02/15. The patient was referred to GI for screening colonoscopy . The patient was instructed to perform monthly self-breast exams and schedule annual exam in a year. All questions answered and the patient verbalized understanding. Orders: Referrals Gastroenterology Referral Z12.11 - Encounter for screening for malignant neoplasm of colon Coding Level of Care Code New Pt Prev Care 40-64y(29190) Diagnoses Well woman exam Z01.419
== END 2024-02-26 10:04 | disposition home or self-care (01) ==
PROVIDERS: PCP Internal Medicine; Visit Provider Obstetrics & Gynecology
DX: Z01.419 Encounter for gynecological examination (general) (routine) without abnormal findings (principal)
CPT/HCPCS: 99386

== ENCOUNTER 2024-02-26 08:49 | Outpatient (REF) | payer OTHER, SELFPAY ==
[2024-03-04 04:34] LABS: HPV mRNA E6/E7 rflx Not Detected (Not Detected)
== END 2024-02-26 08:50 | disposition home or self-care (01) ==
LOC: HO.LNP 08:49
PROVIDERS: PCP Internal Medicine; Visit Provider Obstetrics & Gynecology
DX: Z01.419 Encounter for gynecological examination (general) (routine) without abnormal findings (principal); Z11.51 Encounter for screening for human papillomavirus (HPV)
CPT/HCPCS: 87624; 88142

== ENCOUNTER 2024-07-08 11:42 | Outpatient (AMB) | payer OTHER, SELFPAY ==
--- NOTE | 2024-07-08 11:48 | AM.OFFWIN_ITS ---
Intake Vital Signs 07/08/24 11:50 Height 4 ft 11 in Weight 159 lb BMI 32.1 BP 108/70 Blood Pressure Location Rt brachial Position Sitting Pulse 85 Pulse Source Pulse Oximeter Temp 98.6 F Temp Source Oral Pulse Oximetry (%) 97 Oxygen Delivery Method Room Air Intake Visit Reasons: EP- chest is tight, has a cough Intake Note: pt c/o chest tightness and cough. Started Last . Viral swab negative at job Patient Tobacco Use Status: Current everyday Tobacco user Allergies No Known Allergies Allergy (Verified 07/08/24 11:49) Do you need a note to return to daycare/school/sports/work: No HPI HPI Comments History of Present Illness Details 53 y/o female patient who presents to [facility] walk [facility] clinic with c/o coughing, wheezing, chest tightness and SOB for few days now. Denies fevers, chills, nausea or vomiting. Has h/o controlled Asthma. [facility] Medical History Transaminitis Obesity (BMI 35.0-39.9 without comorbidity) Renal calculi Class 1 obesity due to excess calories with body mass index (BMI) of 34.0 to 34.9 in adult Hammertoe of left foot Bunion, left Neck pain Cervical radiculopathy Occipital headache Bronchial asthma Surgical History History of esophagogastroduodenoscopy (EGD) Hx of breast reduction, elective delivery delivered Hx of hernia repair Gastric bypass status for obesity Family History Mother Hypertension Alzheimer disease Father Alzheimer disease Brother Alzheimer disease Social History (Updated 02/26/24 @ 08:56 by Latonia Jordan CMA) Housing: House Alcohol intake: former Patient Tobacco Use Status: Current everyday Tobacco user Tobacco use type: Cigarette Cigarettes Per Day: 2 Years Smoked: 15 e-Cigarette/Vaping Use: Never Used Second Hand Smoke Exposure: Yes service: No Current occupational status: employed 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 [employer] Current occupational exposures/hazards: No Sexual orientation: Straight/Heterosexual Gender identity: Female Cognitive needs: No Hearing needs: No Vision needs: No Review of Systems Const All systems reviewed & are unremarkable except as noted in HPI and below Physical Exam Vital Signs: Last Vital Signs Temp 98.6 F 07/08/24 11:50 Pulse 85 07/08/24 11:50 BP 108/70 07/08/24 11:50 Pulse Ox 97 07/08/24 11:50 Oxygen Delivery Method Room Air 07/08/24 11:50 BMI result Body Mass Index 32.1 Const General: cooperative, comfortable and no acute distress Nutritional Appearance: obese Orientation/consciousness: patient oriented x3 HEENT Head: Yes normocephalic Ears: external ears normal and TM abnormal bulging bilateral and with fluid behind the TM bilateral General nose exam: Abnormal mucous membranes and turbinates present erythematous Face and sinus: Yes normal facial exam Mouth: moist mucous membranes Throat: Yes posterior oropharynx normal and Yes uvula midline Resp Effort & Inspection: normal respiratory effort, able to speak in complete sentences and Actively coughing Auscultation: no crackles, no rales, rhonchi and wheezes Cardio Heart sounds: S1 normal heart sound present and S2 normal heart sound present Neuro General: patient oriented x3 Office Procedures Nebulizer Treatment Nebulizer Treatment 31375-Dkujxfomb/MDI RX initial, or Nebulizer Subsequent Treatment Office Meds ipratropium 0.5 mg-albuterol 3 mg (2.5 mg base)/3 mL nebulization soln Performing Provider: Petty Bartlett NP Performing Location: [facility] Administered by: Petty Bartlett NP on 07/08/24 12:22 Dose Route Admin Location Dispensed Lot Number Expiration Date NDC Car Stereo Installer 3 mL inhalation 3 mL 12/26/24 [id number] PROFICIENT RX L Assessment & Plan Assessment & Plan (1) Asthma with acute exacerbation: Code(s): J45.901 - Unspecified asthma with (acute) exacerbation Qualifiers: Asthma severity: moderate Asthma persistence: persistent Qualified Code(s): J45.41 - Moderate persistent asthma with (acute) exacerbation Plan: Ordered Duo-Neb Treatment in the office. Ordered Prednisone and Oral Abx Rest Orders: Orders AMB Nebulizer Treatment Today J45.901 - Unspecified asthma with (acute) exacerbation Medications: New ipratropium-albuterol 0.5 mg-3 mg(2.5 mg base)/3 mL 3 mL inhalation ONCE 3 mL 0RF wheezing J45.901 - Unspecified asthma with (acute) exacerbation doxycycline hyclate 100 mg PO BID 10 days 20 caps 0RF J45.41 - Moderate persistent asthma with (acute) exacerbation prednisone 50 mg PO DAILY 5 days 5 tabs 0RF J45.901 - Unspecified asthma with (acute) exacerbation albuterol sulfate 0.63 mg (3 mL) inhalation Q4-6H PRN 90 mL 0RF bronchospasm J45.41 - Moderate persistent asthma with (acute) exacerbation benzonatate 100 mg PO TID 30 caps 0RF J45.41 - Moderate persistent asthma with (acute) exacerbation, R05.9 - Cough, unspecified Refilled Ventolin HFA 90 mcg/actuation (albuterol sulfate) 2 puffs inhalation Q6H 30 days PRN 18 grams 1RF shortness of breath or wheezing NS J45.901 - Unspecified asthma with (acute) exacerbation Coding Level of Care Code Est Pt Level 4 (55282) Diagnoses Moderate persistent asthma with acute exacerbation J45.41 Asthma severity: moderate Asthma persistence: persistent CPT Codes Nebulizer Treatment - Nebulizer Treatment, initial or subsequent: 30836- Nebulizer/MDI RX initial, or Nebulizer Subsequent Treatment ([id number]) Time Spent (min) 20
[2024-07-08 11:50] VITALS: BP 108/70; PULSE 85; TEMP 37; O2SAT 97; BMI 32.1
== END 2024-07-08 12:49 | disposition home or self-care (01) ==
PROVIDERS: PCP Internal Medicine; Visit Provider Nurse Practitioner Family
DX: J45.41 Moderate persistent asthma with (acute) exacerbation (principal)
CPT/HCPCS: 94640; 99214; J7620

== ENCOUNTER 2024-07-29 14:24 | Outpatient (AMB) | payer OTHER, SELFPAY ==
[2024-07-29 14:27] VITALS: BP 112/68; PULSE 95; O2SAT 96; BMI 32.9
--- NOTE | 2024-07-29 14:27 | A.OFFPC_ITS ---
Vital Signs 07/29/24 14:27 Height 4 ft 11 in Weight 163 lb BMI 32.9 BP 112/68 Blood Pressure Location Lt brachial Position Sitting Pulse 95 Pulse Source Pulse Oximeter Pulse Oximetry (%) 96 Oxygen Delivery Method Room Air Intake Visit Reasons: ed follow up Allergies NSAIDS (Non-Steroidal Anti-Inflamma Adverse Reaction (Mild, Verified 07/29/24 14:41) ulcer Medication List - Last Reconciled 07/29/24 by Brigida Belcher PA-C acetaminophen ER (Tylenol 8 Hour) 650 mg PO Q12H PRN albuterol sulfate 0.63 mg (3 mL) inhalation Q4-6H PRN benzonatate 100 mg PO TID docusate sodium 100 mg PO BID pantoprazole 40 mg PO DAILY polyethylene glycol 3350 17 grams PO BID prednisone 50 mg PO DAILY 5 days Ventolin HFA 90 mcg/actuation (albuterol sulfate) 2 puffs inhalation Q6H PRN 30 days NS Tobacco use date assessed: 12/16/23 Dental Screening Dental Screen Date: 12/16/23 HPI ed follow up HPI Details 53-year-old female with past medical his tory of asthma, GERD, chronic back pain last seen by Dr. Awad 12/13/2023 coming in for hospital follow up. Patient was seen at [facility] 07/26/2024 for right shoulder pain. X-ray of the shoulder was unremarkable and diagnosed with shoulder strain. Patient was discharged home with Tylenol and ibuprofen as well as cyclobenzaprine and lidocaine patches to follow up as needed. Today she tells us she continues to have stiffness and pain in the right arm and right side of the neck and back. She is unsure of what initially caused this episode of pain but it has improved drastically since hospital visit. The muscle relaxer does help but she cannot take it during the day. [facility] Medical History (Updated 07/08/24 @ 12:16 by Petty Bartlett NP) Cough in adult Transaminitis Obesity (BMI 35.0-39.9 without comorbidity) Renal calculi Class 1 obesity due to excess calories with body mass index (BMI) of 34.0 to 34.9 in adult Hammertoe of left foot Bunion, left Neck pain Cervical radiculopathy Occipital headache Bronchial asthma Surgical History History of esophagogastroduodenoscopy (EGD) Hx of breast reduction, elective delivery delivered Hx of hernia repair Gastric bypass status for obesity Family History Mother Hypertension Alzheimer disease Father Alzheimer disease Brother Alzheimer disease Social History (Updated 02/26/24 @ 08:56 by Latonia Jordan CMA) Housing: House Alcohol intake: former Patient Tobacco Use Status: Current everyday Tobacco user Tobacco use type: Cigarette Cigarettes Per Day: 2 Years Smoked: 15 e-Cigarette/Vaping Use: Never Used Second Hand Smoke Exposure: Yes service: No Current occupational status: employed 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 How often do you have a drink containing alcohol?: Never Total Score: 0 LINDA-7 AMB Questionnaire LINDA-7 Date LINDA - 7 assessed: 12/16/23 Source: Developed by Drs. Tony Quinteros, Carley Arias, Manfred Ramirez and colleagues, with an educational rosa from [employer]. Review of Systems Const Denies body aches, Denies chills and Denies fever(s) Eyes Reports no additional complaints ENT Reports no additional complaints Card Denies chest pain and Denies dyspnea Resp Denies dyspnea GI Reports no additional complaints Reports no additional complaints Musc Details: right neck and back pain, right shoulder pain and stiffness Skin/Breast Reports system reviewed and no additional complaints, except as documented Neuro Details: denies numbness and tingling in the arm/hand Physical exam (Primary Care) Vital Signs: Last Vital Signs Pulse 95 07/29/24 14:27 BP 112/68 07/29/24 14:27 Pulse Ox 96 07/29/24 14:27 Oxygen Delivery Method Room Air 07/29/24 14:27 BMI result Body Mass Index 32.9 Tobacco/Smoking Status: Tobacco use Status Tobacco use date assessed 12/16/23 07/29/24 14:31 Patient Tobacco Use Status Current everyday Tobacco 07/29/24 14:31 Tobacco use type Cigarette 07/29/24 14:31 e-Cigarette/Vaping Use Never Used 07/29/24 14:31 Thrive Assessment: Date of Thrive Assessment Date Thrive assessed 12/16/23 07/29/24 14:31 Const General: cooperative, healthy appearing, comfortable and no acute distress Orientation/consciousness: patient oriented x3 HENMT Head: Yes normocephalic Ears: hearing grossly normal bilaterally General nose exam: Normal external nose present Eyes General: appearance normal, both eyes and all related structures Conjunctivae: conjunctivae normal Neck Neck: Yes full ROM and Yes no lymphadenopathy Resp Effort & Inspection: normal respiratory effort Auscultation: clear to auscultation bilaterally, no crackles, no rales, no rhonchi and no wheezes Cardio Rate: regular rate Rhythm: regular rhythm Back/Spine/Pelvis Other: pain along trapezius muscle distribution Skin General skin exam: no rashes or lesions noted Neuro General: patient oriented x3 Gait exam (Neuro): Normal gait present Extrem Other: pain to palpation of entire shoulder. ROM exam limited due to pain General: Yes normal to inspection, Yes full ROM and No edema Psych Affect: normal affect Attitude: cooperative Insight: Good insight present (Psych) Judgement: Good judgement present (Psych) Assessment and Plan Assessment & Plan (1) Right shoulder pain: Code(s): M25.511 - Pain in right shoulder Plan: Continue to use muscle relaxers as needed for pain. She cannot take NSAIDs and may use Tylenol and topical pain relievers for her pain. Will also refer to physical therapy for shoulder pain and stiffness. If pain and mobility does not improve with PT we can consider orthopedics for possible injection and further workup. Patient agrees to this plan. Follow up as needed for this concern. Plan This note was constructed using voice recognition software. While every effort has been made to ensure accuracy and student accounts manager, still areas may have been included sometimes these areas may affect the content or meeting of the given symptoms. Total time spent caring for the patient today was 20 minutes. This includes time spent before the visit reviewing the chart, time spent during the visit, and time spent after the visit and documentation. Orders: Orders PT Evaluation and Treatment Today M25.511 - Pain in right shoulder Coding Level of Care Code Est Pt Level 3 (11455) Diagnoses Right shoulder pain M25.511
== END 2024-07-29 14:56 | disposition home or self-care (01) ==
PROVIDERS: PCP Internal Medicine
DX: M25.511 Pain in right shoulder (principal)
CPT/HCPCS: 99213

== ENCOUNTER 2024-08-16 13:34 | Outpatient (AMB) | payer OTHER, SELFPAY ==
--- NOTE | 2024-08-16 13:23 | MHC.OFFVISWM ---
VS Expanded 08/16/24 13:32 Height 4 ft 11 in Weight 160 lb BMI 32.3 Intake Visit Reasons: (TV) f/u Anastomotic Ulcer Allergies NSAIDS (Non-Steroidal Anti-Inflamma Adverse Reaction (Mild, Verified 07/29/24 14:41) ulcer Medication List - Last Reconciled 08/16/24 by ELDA Kinney acetaminophen ER (Tylenol 8 Hour) 650 mg PO Q12H PRN albuterol sulfate 0.63 mg (3 mL) inhalation Q4-6H PRN benzonatate 100 mg PO TID docusate sodium 100 mg PO BID pantoprazole 40 mg PO DAILY polyethylene glycol 3350 17 grams PO BID Ventolin HFA 90 mcg/actuation (albuterol sulfate) 2 puffs inhalation Q6H PRN 30 days NS HPI Comments Details: Pt is seen in followup for marginal ulcer. She is s/p open RYGB 20+ years ago done at [facility] ([place] Also history of obstruction requiring surgery about 10 years ago at [facility]. She underwent endoscopy for complaints of abdominal pain, 04/23/2023 which revealed GJ anastomotic ulcer. She was placed on a liquid protein diet, PPI and carafate. Repeat endoscopy performed 07/02/2023 and showed no ulcer. She has stopped carafate. Reports no issues with abdominal pain. Pt has gained 5 lbs since last OV in 08/2023. Was placed on a meal plan per Dr. Underwood with 2 shakes Premier, 1/2 scoop for one shake and 1 scoop in another, one yogurt with fruit, and one meal with 4 forks protein/4 forks salad. Doing well on this plan. Over the summer had some more social events, some EtOH. Has been having hip pain, limiting her exercise. Also has shoulder pain. Going to start PT. Still smoking about 1 cigarette per day, remains off ibuprofen. Takes stool softener and Miralax which helps with regular BMs. [facility] Medical History (Updated 07/08/24 @ 12:16 by Petty Bartlett NP) Cough in adult Transaminitis Obesity (BMI 35.0-39.9 without comorbidity) Renal calculi Class 1 obesity due to excess calories with body mass index (BMI) of 34.0 to 34.9 in adult Hammertoe of left foot Bunion, left Neck pain Cervical radiculopathy Occipital headache Bronchial asthma Surgical History History of esophagogastroduodenoscopy (EGD) Hx of breast reduction, elective delivery delivered Hx of hernia repair Gastric bypass status for obesity Family History Mother Hypertension Alzheimer disease Father Alzheimer disease Brother Alzheimer disease Social History (Updated 02/26/24 @ 08:56 by Latonia Jordan CMA) Housing: House Alcohol intake: former Patient Tobacco Use Status: Current everyday Tobacco user Tobacco use type: Cigarette Cigarettes Per Day: 2 Years Smoked: 15 e-Cigarette/Vaping Use: Never Used Second Hand Smoke Exposure: Yes service: No Current occupational status: employed 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 [employer] Current occupational exposures/hazards: No Sexual orientation: Straight/Heterosexual Gender identity: Female Cognitive needs: No Hearing needs: No Vision needs: No Telehealth Telehealth Telehealth Platform: Telephone Location of provider rendering services: practice address Location of patient: address on file Patient Identification confirmed using: Name, : Yes Telehealth method: voice only Patient verbally consented to treatment: Yes Patient verbally consented to billing insurance company: Yes Patient informed of any privacy concerns related to visit: Yes Minutes spent on Phone/Video with Pt.: 15 Assessment & Plan Assessment & Plan (1) Gastric bypass status for obesity: Code(s): Z98.84 - Bariatric surgery status Category: Surgical (2) Obesity: Code(s): E66.9 - Obesity, unspecified Category: Medical (3) Anastomotic ulcer: Code(s): K28.9 - Gastrojejunal ulcer, unspecified as acute or chronic, without hemorrhage or perforation Category: Medical Plan Pt feels motivated to get back on plan consistently. She is starting PT to help with mobility and can hopefully increase exercise. She is interested in breast reduction once she reaches 150lbs, we discussed that I could send records over to a plastic surgeon after her next appt. RTC 3 months, in person appt. I spent a total of 30 minutes reviewing/updating records, examining the patient and counseling the patient on weight management as detailed above.
[2024-08-16 13:32] VITALS: BMI 32.3
== END 2024-08-16 13:59 | disposition home or self-care (01) ==
LOC: HO.HBS 13:34
PROVIDERS: PCP Internal Medicine; Visit Provider Physician Assistant Surgical
DX: K28.9 Gastrojejunal ulcer, unspecified as acute or chronic, without hemorrhage or perforation (principal); E66.9 Obesity, unspecified; Z68.32 Body mass index [BMI] 32.0-32.9, adult; Z98.84 Bariatric surgery status
CPT/HCPCS: 99214

== ENCOUNTER → 2024-08-16 13:34 | Outpatient (BNVA) | payer OTHER, SELFPAY | PROVIDERS: PCP Internal Medicine; Visit Provider Physician Assistant Surgical ==

== ENCOUNTER 2024-10-11 12:41 | Outpatient (REF) | payer OTHER, SELFPAY | END 2024-10-11 12:42 | disposition home or self-care (01) | LOC: HO.XRAY 12:41 | PROVIDERS: PCP Internal Medicine; Visit Provider Internal Medicine | DX: M25.511 Pain in right shoulder (principal) | CPT/HCPCS: 73030 ==

== ENCOUNTER 2024-10-15 12:52 | Outpatient (AMB) | payer OTHER, SELFPAY ==
--- NOTE | 2024-10-15 12:57 | A.OFFVIS_ITS ---
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 She was last seen in our office in September 2023. Patient reports cervical medial branch RFA provided her about 10 months of 50% pain relief in 2021. Unfortunately, Sprint PNS trial was declined by her insurance. 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 Reports radiation of neck pain into her right shoulder and right upper arm as well as into her right occipital area and right trapezius area with muscle spasms and stiffness. She is interested in therapeutic cervical medial branch blocks as next steps. Patient had complete pain relief with two diagnostic cervical MBBs injections in 2021. Currently, she continues to manage her symptoms with Tylenol, NSAIDs, topical applications with minimal benefit and tried muscle relaxants such as baclofen and Flexeril in the past but has ran out. Patient continues to regularly participate in home exercise program for her neck pain with no significant improvement. Pending results for right shoulder xray taken on 10/11/24, previous xray in 2021 was unremarkable. Denies any recent cough, cold, infection, fever or other significant changes in medical history since last office visit. Past Procedures: 11/13/22: Right C3-C4 MB RFA- 50% pain relief for 10 months 05/03/22: Diagnostic Right C3-C4-C5-C6 MBBs with Bupivicaine-100% pain relief for 2 days 02/12/22: Diagnostic Right C3-C4-C5-C6 MBBs with Lidocaine-100% pain relief for 3 hours PRIOR: Disha is a pleasant 51-year-old female who presents to the office with complaints of neck pain. She reports the pain is mostly right sided, radiates up to the top of the head and to the shoulder with associated tingling and pressure. She reports this has been present for the past 5-6 years as well as being off balance occasionally. She was evaluated by Neurology which resulted in no significant findings. She was then referred to Dr. Jeffers, which she is under the care of now. He had referred her to [facility] to address facet mediated pain. After evaluation it sounds like they addressed her myofascial pain with trigger point injections on 10/11/21 instead facet joint injections/MBB, as requested by Dr. Jeffers. She notes no relief with the trigger point injection and about 2 days after the injections she began to have numbness and tingling radiating down her right upper extremity. She was then evaluated in the emergency room and had a cervical spine MRI which revealed a pocket of fluid at C1-C2 . She reports she was then hospitalized overnight with antibiotics and released the next day. She denies a follow-up MRI in still has persistent paresthesias of the right upper extremity which radiate into all fingers. She reports pain onset was gradual, constant and rates the pain a 10/10. She states the pain is interfering with sleep, activities of daily living and she cannot function normally. The patient reports the pain in terms of tissue damage as stabbing, sharp, burning as well tingling and tired. The pain is not dependent on any specific activity but does know an increase in discomfort with lateral rotation and extension of the neck. She has attempted physical therapy as well as massage in the past with no alleviation in symptoms. She has been performing gentle stretching with some relief. She has also tried Tylenol, NSAIDs, lidocaine compound, heat and ice with no improvements. In the past she has tried gabapentin but it resulted in significant drowsiness so she discontinued. She denies any chiropractic manipulation, massage or acupuncture. Denies any previous neck surgery. [facility] Medical History Cough in adult Transaminitis Obesity (BMI 35.0-39.9 without comorbidity) Renal calculi Class 1 obesity due to excess calories with body mass index (BMI) of 34.0 to 34.9 in adult Hammertoe of left foot Bunion, left Neck pain Cervical radiculopathy Occipital headache Bronchial asthma Surgical History History of esophagogastroduodenoscopy (EGD) Hx of breast reduction, elective delivery delivered Hx of hernia repair Gastric bypass status for obesity Family History Mother Hypertension Alzheimer disease Father Alzheimer disease Brother Alzheimer disease Social History Housing: House Alcohol intake: former Patient Tobacco Use Status: Current everyday Tobacco user Tobacco use type: Cigarette Cigarettes Per Day: 2 Years Smoked: 15 e-Cigarette/Vaping Use: Never Used Second Hand Smoke Exposure: Yes service: No Current occupational status: employed 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 Alert and oriented. Mood and affect appropriate. Follows and participates in conversation appropriately. Respiratory effort is unlabored. No cough. Able to transition from sit to stand unassisted. Ambulates with bilaterally normal heel strike and toe off. Able to stand and walk on toes and heels. Neck Neck: Yes no lymphadenopathy, Yes supple, No anterior neck swelling, Yes no JVD and Yes prominent dorsocervical fat pad Back/Spine/Pelvis Cervical Spine: No Lhermitte's sign positive, cervical muscular tenderness, pain with cervical ROM (right lateral rotation and bending, cervical extension), No Cervical spine scars present, cervical spasm, No Cervical spine tenderness and No step off deformity Thoracic/Lumbar Spine: thoracic and lumbar spine normal to inspection, thoraco- lumbar ROM normal, No thoracic spinal tenderness and No lumbar spinal tenderness Extrem General: Yes capillary refill normal, Yes no clubbing, cyanosis or edema and Yes no calf tenderness Right upper extremity: shoulder/upper arm Details: normal to inspection, tenderness Location: of the A-C joint, over the biceps tendon and over the subacromial bursa and normal ROM; no swelling, no ecchymosis, no crepitus, no deformity and no unusual warmth Results Reviewed Results Reviewed: MR CERVICAL SPINE WITHOUT AND WITH CONTRAST 01/02/23 CLINICAL INFORMATION: Occipital neuralgia. COMPARISON: Cervical spine MRI from 01/03/2022. TECHNIQUE: MRI of the cervical spine was obtained using routine sequences without and following the administration of 8.5 mL of Gadavist intravenous contrast. FINDINGS: Mild reversal the normal cervical lordosis centered on C4-C5. Mild degenerative anterolisthesis of C3 on C4. Advanced degenerative disc disease at C5-C6 and C6-C7. Moderate degenerative disc disease at C3-C4 and C4-C5. Associated mixed Modic type discogenic endplate changes including mild Modic type I discogenic edema from C4-C7. Mild marrow edema within the C4-C7 facets consistent with degenerative stress reaction. No additional suspicious marrow edema. The mild degenerative loss of C5 and C6 vertebral body heights. Otherwise, the vertebral body heights are largely maintained. No demonstrated spinal cord signal abnormalities. No abnormal contrast enhancement. Mild edema within the nuchal ligament from the levels of C6-T1. Otherwise, limited evaluation of the soft tissues of the neck without demonstrated abnormalities. The flow voids of the major cervical vessels are maintained. Normal appearance of the cervicomedullary junction and visualized posterior fossa. SPINAL LEVELS: C2-C3: Normal annular contour. There is no uncovertebral joint arthropathy. There is mild bilateral facet joint arthropathy. There is no neural foraminal stenosis. There is no spinal canal stenosis. C3-C4: Mild disc-osteophyte complex. There is moderate right and mild left uncovertebral joint arthropathy. There is severe right and moderate left facet joint arthropathy. There is moderate right and mild left neural foraminal stenosis. There is mild spinal canal stenosis. C4-C5: Moderate disc-osteophyte complex. There is moderate right and no left uncovertebral joint arthropathy. There is mild bilateral facet joint arthropathy. There is mild right and no left neural foraminal stenosis. There is no spinal canal stenosis. C5-C6: Mild disc-osteophyte complex. There is severe right and moderate left uncovertebral joint arthropathy. There is moderate bilateral facet joint arthropathy. There is severe right and moderate left neural foraminal stenosis. There is no spinal canal stenosis. C6-C7: Mild disc-osteophyte complex. There is moderate bilateral uncovertebral joint arthropathy. There is mild bilateral facet joint arthropathy. There is severe bilateral neural foraminal stenosis. There is no spinal canal stenosis. C7-T1: Normal annular contour. There is no uncovertebral joint arthropathy. There is mild left and no right facet joint arthropathy. There is no neural foraminal stenosis. There is no spinal canal stenosis. IMPRESSION: Moderate multilevel degenerative spondyloarthropathy of the cervical spine as described in detail above. Most notably, there is mild spinal canal stenosis at C3-C4. Moderate to severe neural foraminal stenoses at C3-C4, C5-C6, and C6-C7. Overall, degenerative changes appear similar to exam from 202. There is mild edema within the nuchal ligament from C6-T1 suggestive of strain injury. Assessment & Plan Assessment & Plan (1) Muscle spasm of back: Code(s): M62.830 - Muscle spasm of back Category: Medical (2) Chronic neck pain: Code(s): M54.2 - Cervicalgia; G89.29 - Other chronic pain Category: Medical (3) Myofascial pain syndrome, cervical: Code(s): M79.18 - Myalgia, other site Category: Medical (4) Right shoulder pain: Code(s): M25.511 - Pain in right shoulder Category: Medical (5) Spondylosis of cervical region without myelopathy or radiculopathy: Code(s): M47.812 - Spondylosis without myelopathy or radiculopathy, cervical region Category: Medical Plan Patient returns today for follow up for chronic neck pain with symptoms back to its baseline s/p right cervical medial branch RFA providing her 50% pain relief for 10 months in 2022. She previously completed course of PT and continuation of HEP without improvement in her axial, cervical pain. Today's exam and previous imaging is consistent for multilevel facet arthropathy and muscle tenderness with spams and myofascial pain as well as right shoulder pain with pending xray results. She had diagnostic right C3 C4 C5 C6 diagnostic MBB twice which provided her excellent results and 100% pain relief in 2021 Patient is interested in proceeding with therapeutic cervical medial branches injections. Unfortunately Sprint PNS trial was denied last year. Schedule Right C3-C4-C5-C6 therapeutic MBB with local and fluoroscopy. Expectations, risks and benefits were reviewed. Per patient's request, will prov surinder oral sedation prior to the procedure which she is aware to come to the procedure early to receive oral Ativan. Patient is aware of hyperglycemic effects of steroidal injections. Scripts provided for tizanidine. Side effects and precautions were discussed with patient. All questions were answered and patient is in agreement of plan. Follow up after procedure and sooner if needed. Medications: New tizanidine 4 mg PO BID PRN 60 tabs 0RF muscle spasticity G89.29 - Other chronic pain, M54.2 - Cervicalgia, M62.830 - Muscle spasm of back, M79.18 - Myalgia, other site Coding Level of Care Code Est Pt Level 4 (59982) Complex EM visit Add On G2211 Diagnoses Muscle spasm of back M62.830 Chronic neck pain M54.2; G89.29 Myofascial pain syndrome, cervical M79.18 Right shoulder pain M25.511 Spondylosis of cervical region without myelopathy or radiculopathy M47.812
[2024-10-15 13:01] VITALS: BP 122/81; PULSE 101; O2SAT 100; BMI 33.2
== END 2024-10-15 13:30 | disposition home or self-care (01) ==
PROVIDERS: PCP Internal Medicine; Visit Provider Nurse Practitioner Family
DX: M62.830 Muscle spasm of back (principal); M54.2 Cervicalgia; G89.29 Other chronic pain; M25.511 Pain in right shoulder; M47.812 Spondylosis without myelopathy or radiculopathy, cervical region
CPT/HCPCS: 99214

== ENCOUNTER 2024-11-03 12:56 | Outpatient (RCR) | payer OTHER, SELFPAY ==
--- NOTE | 2024-09-15 16:18 | MHC.PT.EP ---
[facility] [place] Office [place] Office [place] Office [address] Juan Manuel Payton [address] [phone] F: [phone] F: [phone] F: [phone] F: [phone] Physical Therapy Plan of Care Date of Evaluation: 09/15/24 Date of Surgery: Diagnosis: R shoulder pain. Assessment: Pt is a 53 y/o RHD female with Hx of cervical radiculopathy who is referred to PT for eval and treat of R shoulder pain which is resulting in decreased tolerance for reaching high shelves, lifting objects of weight, dressing pullovers and her hair, as well as reaching her back for dressing and hygiene secondary to decreased R shoulder ROM and strength, as well as anterior shoulder TTP, decreased scapular posture and pain with activity. Pt is deemed an appropriate candidate to receive skilled PT services to address their physical impairments in order to improve their functional ability. Frequency and Duration: The patient will be seen 1 x / wk x 5 wks Short Term Goals: Initiate home program. Improve baseline pain with activity to at most 6/10; initial up to 10/10 [employer] Clerk Goals: I with home program. Pt will improve SPADI outcome measure by at least 12 points. Pt will be able to mange and dress her hair with managed Sx; initial: unable with R UE. Pt will be able to reach high shelves; initial: unable. Treatment Plan: Modalities to reduce pain, spasms and effusion. Manual therapy to restore motion and function. Therapeutic exercise to improve strength and flexibility. Neuromuscular re-education for posture and balance. Therapeutic activities to return to functional activities of daily living. Electronically signed by: Carlo Cyr PT. Please sign and return to therapist. Thank you for your referral.
--- NOTE | 2025-03-11 07:59 | MHC.PT.DC ---
[facility] [place] Office [place] Office [place] Office [address] Juan Manuel Payton [address] [phone] F: [phone] F: [phone] F: [phone] F: [phone] Physical Therapy Discharge Report Diagnosis: R shoulder pain. Date of Surgery: Date of Evaluation: 09/15/24 Date of Discharge: 03/11/25 Treatments to Date: 6 Cancellations to Date: No Shows to Date: Discharge Status: Patient Elected to Stop Recommend MD Follow-up Discharge Summary: From last Tx note: 11/03 pt has taken 6 sessions of PT during her work lunch breaks. Little alexis for ex. due to reported high levels of px. States she feels ex often make her feel worse. TENS helps . Reissued HEP today. Stated goals not met. Disha D/C today at her request. Electronically signed by: Carlo Cyr PT. Please sign and return to therapist. Thank you for your referral.
== END 2025-03-11 08:02 | disposition home or self-care (01) ==
LOC: HO.PT 12:56
PROVIDERS: PCP Internal Medicine
DX: M25.511 Pain in right shoulder (principal)
CPT/HCPCS: 97110; 97140; 97161

== ENCOUNTER 2024-11-11 05:58 | Outpatient (REF) | payer OTHER, SELFPAY | END 2024-11-11 05:59 | disposition home or self-care (01) | LOC: CF 05:58 | PROVIDERS: Visit Provider Internal Medicine | DX: M47.812 Spondylosis without myelopathy or radiculopathy, cervical region (principal); M54.2 Cervicalgia; G89.29 Other chronic pain | CPT/HCPCS: 64490; 64491; J1100 ==

== ENCOUNTER 2024-11-11 09:23 | Outpatient (AMB) | payer OTHER, SELFPAY ==
[2024-11-11 09:29] VITALS: BP 119/63; PULSE 101; O2SAT 99
--- NOTE | 2024-11-11 09:29 | A.OFFVIS_ITS ---
Vital Signs 11/11/24 09:29 11/11/24 09:48 BP 119/63 127/65 Blood Pressure Location Rt brachial Rt brachial Position Sitting Sitting Pulse 101 H 96 Pulse Source Pulse Oximeter Pulse Oximeter Pulse Oximetry (%) 99 98 Oxygen Delivery Method Room Air Room Air Intake Visit Reasons: Right theraputic C3-C4-C5-C6 MBB/ Ativan Allergies NSAIDS (Non-Steroidal Anti-Inflamma Adverse Reaction (Mild, Verified 10/15/24 13:01) ulcer HPI HPI Right theraputic C3-C4-C5-C6 MBB/ Ativan: Details: Patient presents for scheduled procedure. Denies any recent cough, cold, infe ction, fever or other significant changes in medical history since last office visit. COUNT INCLUDES THE [facility] Medical History Cough in adult Transaminitis Obesity (BMI 35.0-39.9 without comorbidity) Renal calculi Class 1 obesity due to excess calories with body mass index (BMI) of 34.0 to 3 4.9 in adult Hammertoe of left foot Bunion, left Neck pain Cervical radiculopathy Occipital headache Bronchial asthma Surgical History History of esophagogastroduodenoscopy (EGD) Hx of breast reduction, elective delivery delivered Hx of hernia repair Gastric bypass status for obesity Family History Mother Hypertension Alzheimer disease Father Alzheimer disease Brother Alzheimer disease Social History Housing: House Alcohol intake: former Patient Tobacco Use Status: Current everyday Tobacco user Tobacco use type: Cigarette Cigarettes Per Day: 2 Years Smoked: 15 e-Cigarette/Vaping Use: Never Used Second Hand Smoke Exposure: Yes service: No Current occupational status: employed 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 [employer] Current occupational exposures/hazards: No Sexual orientation: Straight/Heterosexual Gender identity: Female Cognitive needs: No Hearing needs: No Vision needs: No Physical Exam Vital Signs: Last Vital Signs Pulse 101 H 11/11/24 09:29 BP 119/63 11/11/24 09:29 Pulse Ox 99 11/11/24 09:29 Oxygen Delivery Method Room Air 11/11/24 09:29 Office Procedures Cervical/Thoracic Facet Inj Details: Therapeutic Cervical Medial Branch Block, RIGHT C4, C5, C6 medial branches After obtaining written consent, pre-procedure blood pressure and pulse were recorded and are in the nursing record for review. The patient was placed in a lateral position. The respective cervical area was prepped with chloraprep and draped in sterile fashion. The skin over the target medial branch nerves was anesthetized with 0.5% lidocaine. A 25 gauge 1.5 inch needle was inserted into the target medial branch nerve under fluoroscopic guidance. No paresthesias were elicited with needle placement and aspiration was negative for blood and CSF. Next, 0.2cc of omnipaque 180 was injected to verify positioning. Next 0.5 ml 0. 5% ropivicaine mixed with dexamethasone 3.3mg was injected (0.5 cc total per level). The identical procedure was performed at the remaining levels. The skin was cleansed and a sterile bandage was applied. Following the procedure the patient's vital signs were stable. The patient tolerated the procedure well and no complications were encountered. Following the procedure the patient's vital signs were stable. The patient was discharged home in good condition with post-procedural instructions. Time Out: Immediately prior to the procedure, the following was verbally confirmed that there is a signed consent form and that the correct patient, planned procedure, site and side are consistent with documentation and that necessary equipment and/or blood products are available prior to the start of the case. Complications: none EBL: <5 cc 80118 - with Fluoroscopy 10800 - second level, with Fluoroscopy Procedure code (CPT) selection complete Assessment & Plan Assessment & Plan (1) Chronic neck pain: Code(s): M54.2 - Cervicalgia; G89.29 - Other chronic pain Category: Medical (2) Spondylosis of cervical region without myelopathy or radiculopathy: Code(s): M47.812 - Spondylosis without myelopathy or radiculopathy, cervical region Category: Medical Plan Patient is status post therapeutic right C4, C5, C6 facet blocks. Patient tolerated procedure well and was discharged home in stable condition with discharge instructions. All questions were answered. We will follow-up via telephone or in clinic to assess response to therapy. A follow-up appointment was made during today's visit. Orders: Orders FL guidance in treatment room Today M47.812 - Spondylosis without myelopathy or radiculopathy, cervical region Medications: New lorazepam (Ativan) Take 30 minutes prior to arrival to procedure 1 mg PO ONCE 1 tab 0RF anxiety Coding Level of Care Code Procedure Only Diagnoses Chronic neck pain M54.2; G89.29 Spondylosis of cervical region without myelopathy or radiculopathy M47.812 CPT Codes Facet Injection Cervical/Thoracic - CPT: 71599 - with Fluoroscopy ([id number]) Facet Injection Cervical/Thoracic - CPT: 97277 - second level, with Fluoroscopy ([id number])
[2024-11-11 09:48] VITALS: BP 127/65; PULSE 96; O2SAT 98
== END 2024-11-11 09:52 | disposition home or self-care (01) ==
LOC: HO.PMCPRC 09:23
PROVIDERS: PCP Internal Medicine; Visit Provider Internal Medicine
DX: M54.2 Cervicalgia (principal); G89.29 Other chronic pain; M47.812 Spondylosis without myelopathy or radiculopathy, cervical region
CPT/HCPCS: 64490; 64491

== ENCOUNTER → 2024-11-30 13:26 | Outpatient (BNV) | payer OTHER, SELFPAY | PROVIDERS: PCP Internal Medicine; Visit Provider Radiology Diagnostic Radiology | DX: M79.651 Pain in right thigh (principal) | CPT/HCPCS: 73552; 93971 ==

== ENCOUNTER 2024-12-09 13:21 | Outpatient (AMB) | payer OTHER, SELFPAY ==
--- NOTE | 2024-12-09 13:24 | A.OFFVIS_ITS ---
Intake Visit Reasons: ED referral for VV with pain- Right leg Intake Note: New patient presents for ED follow up for VV with pain . Right leg worse than left. Accompanied by: Self / Same As Patient Allergies NSAIDS (Non-Steroidal Anti-Inflamma Adverse Reaction (Mild, Verified 12/09/24 13:25) ulcer HPI HPI ED referral for VV with pain- Right leg: Details: Disha, a pleasant 54-year-old female patient, is presenting today for a ER follow up due to varicose veins. She presented to the ER on 11/30/2024 with concerns of right inner thigh burning and pain. Ultrasound was ordered and was negative for DVT. She was then referred to our office for varicose veins. Complaints include pain over varicosities, cramping, fatigue, and heaviness of the lower extremities. It has been affecting their daily activities including walking and standing. It is noted more so in right leg. She is not a smoker and not a diabetic. Patient denies any previous venous surgery or injections. Patient denies any history of DVT/ PE. Patient denies any history of phlebitis. Trial of compression includes - nothing yet They now present for vascular evaluation regarding their varicose veins. [facility] Medical History Cough in adult Transaminitis Obesity (BMI 35.0-39.9 without comorbidity) Renal calculi Class 1 obesity due to excess calories with body mass index (BMI) of 34.0 to 34.9 in adult Hammertoe of left foot Bunion, left Neck pain Cervical radiculopathy Occipital headache Bronchial asthma Surgical History History of esophagogastroduodenoscopy (EGD) Hx of breast reduction, elective delivery delivered Hx of hernia repair Gastric bypass status for obesity Family History Mother Hypertension Alzheimer disease Father Alzheimer disease Brother Alzheimer disease Social History Housing: House Alcohol intake: former Patient Tobacco Use Status: Current everyday Tobacco user Tobacco use type: Cigarette Cigarettes Per Day: 2 Years Smoked: 15 e-Cigarette/Vaping Use: Never Used Second Hand Smoke Exposure: Yes service: No Current occupational status: employed 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 [employer] Current occupational exposures/hazards: No Sexual orientation: Straight/Heterosexual Gender identity: Female Cognitive needs: No Hearing needs: No Vision needs: No Review of Systems Const Reports as per HPI and Denies weakness ENT Reports Normal hearing present and Denies dizziness Card Reports as per HPI, Denies chest pain, Denies chest pain at rest, Denies chest pain with activity, Denies dyspnea and Denies dyspnea on exertion Resp Reports as per HPI, Denies cough, Denies dyspnea and Denies dyspnea on exertion GI Reports as per HPI, Denies abdominal pain, Denies nausea and Denies vomiting Musc Denies numbness Skin/Breast Reports as per HPI, Denies erythema and Denies wounds Neuro Reports Normal hearing present, Denies dizziness, Denies numbness, Denies Sensory deficit (Neuro) and Denies weakness Psych Reports no additional complaints Endo Reports no additional complaints Physical Exam Const General: healthy appearing and no acute distress Orientation/consciousness: patient oriented x3 HEENT Head: Yes normal to inspection Ears: hearing grossly normal bilaterally Mouth: Normal oral and palatal mucosa present Resp Effort & Inspection: normal respiratory effort and able to speak in complete sentences Auscultation: clear to auscultation bilaterally Cardio Jugular venous distension: no JVD Rate: regular rate Rhythm: regular rhythm Heart sounds: S1 normal heart sound present and S2 normal heart sound present Bruits: no abdominal aortic bruits, no carotid bruits, no femoral bruits and no renal bruits Peripheral pulses: Peripheral pulses 2+ throughout GI Inspection: Yes normal to inspection Palpation (GI): No Abdominal aortic bruit present Skin General skin exam: no rashes or lesions noted Wounds: no wounds Hair: normal Neuro General: patient oriented x3 Cranial nerves: Yes Normal hearing present Cognition (Neuro): normal cognition Gait exam (Neuro): Normal gait present Motor exam (neuro): 5/5 motor strength present throughout Sensory Exam: No Sensory deficit (Neuro) Extrem Other: Right lower extremity: Large rope-like tortuosity noted on the inner thigh going all the way down to her mid casas on the medial aspect. Painful to palpation. Trace peripheral edema noted Left lower extremity: Smaller rope-like tortuosity noted on the posterior aspect of her calf. CEAP: C - 3 E - primary A - superficial P - reflux General: Yes normal to inspection, Yes full ROM, Yes capillary refill normal and Yes normal gait Assessment & Plan Assessment & Plan (1) Varicose veins of both lower extremities with inflammation: Code(s): I83.11 - Varicose veins of right lower extremity with inflammation; I83.12 - Varicose veins of left lower extremity with inflammation Category: Medical Plan: Disha is presenting today as a ER follow up. She presents to the ER on 11/30/2024 with concerns of right inner thigh burning and pain. She was diagnosed with varicose veins and referred to our office. In short, the patient has evidence of venous insufficiency. I have discussed the pathophysiology with the patient. In addition I have provided informational material regarding venous disease to the patient. We have discussed conservative measures includin g compression, elevation, and exercise. We provider with 3 pairs of compression stockings and discussed to wear them for no more than 8-12 hours a day. I have taken the liberty of ordering venous insufficiency testing with the patient. They will follow up with me after testing. The patient had an opportunity to ask questions regarding the treatment plan. All questions were answered. Imaging studies, laboratory studies and physical exam results were discussed and reviewed in detail. No major barriers to understanding were identified. The patient expressed understanding and agreement with the above treatment plan. The patient is aware they should contact our office by phone for worsening of the current condition or the appearance of new symptoms. Thank you for allowing me to participate in the vascular care of this patient. If you have any questions or concerns regarding the treatment for the above condition please do not hesitate to contact me. The office telephone contact is [phone]. This note is constructed using voice recognition software. While every effort has been made to ensure accuracy, farm implement engine mechanic errors may have been included. Thank you for allowing me to participate in the care of your patient. Yours sincerely, ELDA Carrasco Orders: Orders US venous duplex LE BI 1 Week I83.11 - Varicose veins of right lower extremity with inflammation, I83.12 - Varicose veins of left lower extremity with inflammation Coding Level of Care Code New Pt Level 4 (24544) Diagnoses Varicose veins of both lower extremities with inflammation I83.11; I83.12
== END 2024-12-09 14:01 | disposition home or self-care (01) ==
PROVIDERS: PCP Internal Medicine; Visit Provider Physician Assistant Surgical
DX: I83.11 Varicose veins of right lower extremity with inflammation (principal); I83.12 Varicose veins of left lower extremity with inflammation
CPT/HCPCS: 99204

== ENCOUNTER → 2024-12-09 13:21 | Outpatient (BNVA) | payer OTHER, SELFPAY | PROVIDERS: PCP Internal Medicine; Visit Provider Physician Assistant Surgical ==

== ENCOUNTER 2024-12-14 12:57 | Outpatient (AMB) | payer OTHER, SELFPAY ==
--- NOTE | 2024-12-14 12:59 | A.OFFVIS_ITS ---
Vital Signs 12/14/24 13:01 Height 4 ft 11 in BMI Reason not done Patient refused/unable BP 136/84 Blood Pressure Location Rt brachial Position Sitting Pulse 94 Pulse Source Pulse Oximeter Intake Visit Reasons: RIGHT THERAPEUTIC C3, C4, C5 C6 MBB Intake Note: Pain today 07/03 Hat Cleaner Required: No Accompanied by: Self / Same As Patient Allergies NSAIDS (Non-Steroidal Anti-Inflamma Adverse Reaction (Mild, Verified 12/14/24 13:02) ulcer HPI Comments Details: Patient presents today to assess response to therapeutic Right C4-C5-C6 MBB on 11/11/[address] Sandhu. Patient reports 0% pain relief since procedure. She reports worsening right sided neck pain with radiation into her right side of the head, shoulder and into right upper extremity with associated numbness, tingling and weakness. Patient reports she had partial discomfort in axial cervical spine symptoms for one day after injections. She is concerned for progression of her neck pain with right sided radiculopathy. Pain increases with movements, lifting, pulling, cervical spine flexion, overhead reaching activities, driving, working, and stress. Denies significant right shoulder pain. Reports cervicogenic headaches. Reports no pain relief with Tylenol, NSAIDs, topical applications, baclofen, Flexeril and tizanidine. Her right shoulder xray was taken on 10/11/24 with pending results. Denies any recent cough, cold, infection, fever or other significant changes in medical history since last office visit. Past Procedures: 11/11/24: Right C4-C5-C6 MBB-0% pain relief 11/13/22: Right C3-C4 MB RFA- 50% pain relief for 10 months 05/03/22: Diagnostic Right C3-C4-C5-C6 MBBs with Bupivicaine-100% pain relief f or 2 days 02/12/22: Diagnostic Right C3-C4-C5-C6 MBBs with Lidocaine-100% pain relief for 3 hours PRIOR: Disha is a pleasant 51-year-old female who presents to the office with complaints of neck pain. She reports the pain is mostly right sided, radiates up to the top of the head and to the shoulder with associated tingling and pressure. She reports this has been present for the past 5-6 years as well as being off balance occasionally. She was evaluated by Neurology which resulted in no significant findings. She was then referred to Dr. Jeffers, which she is under the care of now. He had referred her to [facility] to address facet mediated pain. After evaluation it sounds like they addressed her myofascial pain with trigger point injections on 10/11/21 instead facet joint injections/MBB, as requested by Dr. Jeffers. She notes no relief with the trigger point injection and about 2 days after the injections she began to have numbness and tingling radiating down her right upper extremity. She was then evaluated in the emergency room and had a cervical spine MRI which revealed a pocket of fluid at C1-C2 . She reports she was then hospitalized overnight with antibiotics and released the next day. She denies a follow-up MRI in still has persistent paresthesias of the right upper extremity which radiate into all fingers. She reports pain onset was gradual, constant and rates the pain a 10/10. She states the pain is interfering with sleep, activities of daily living and she cannot function normally. The patient reports the pain in terms of tissue damage as stabbing, sharp, burning as well tingling and tired. The pain is not dependent on any specific activity but does know an increase in discomfort with lateral rotation and extension of the neck. She has attempted physical therapy as well as massage in the past with no alleviation in symptoms. She has been performing gentle stretching with some relief. She has also tried Tylenol, NSAIDs, lidocaine compound, heat and ice with no improvements. In the past she has tried gabapentin but it resulted in significant drowsiness so she discontinued. She denies any chiropractic manipulation, massage or acupuncture. Denies any previous neck surgery. COUNT INCLUDES THE [facility] Medical History Cough in adult Transaminitis Obesity (BMI 35.0-39.9 without comorbidity) Renal calculi Class 1 obesity due to excess calories with body mass index (BMI) of 34.0 to 34.9 in adult Hammertoe of left foot Bunion, left Neck pain Cervical radiculopathy Occipital headache Bronchial asthma Surgical History History of esophagogastroduodenoscopy (EGD) Hx of breast reduction, elective delivery delivered Hx of hernia repair Gastric bypass status for obesity Family History Mother Hypertension Alzheimer disease Father Alzheimer disease Brother Alzheimer disease Social History Housing: House Alcohol intake: former Patient Tobacco Use Status: Current everyday Tobacco user Tobacco use type: Cigarette Cigarettes Per Day: 2 Years Smoked: 15 e-Cigarette/Vaping Use: Never Used Second Hand Smoke Exposure: Yes service: No Current occupational status: employed 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 Alert and oriented. Mood and affect appropriate. Follows and participates in conversation appropriately. Respiratory effort is unlabored. No cough. Able to transition from sit to stand unassisted. Ambulates with bilaterally normal heel strike and toe off. Able to stand and walk on toes and heels. Neck Other: Moderately decreased cervical ROM in all planes especially with right lateral rotation and flexion.?Spurling compression test elicited pain throughout the lower cervical spine. Elvey's tension test is positive on the right. Lhermitte's test negative. Patient demonstrated 5/5 left and 4/5 right motor strength of bilateral upper extremities. DTR intact and symmetrical. 2+ radial pulses. Significant TTP throughout right upper cervical muscles with taut bands bilateral upper and lower trapezius.?No tremor or clonus. Negative Rivera. Neck: Yes normal visual inspection, Yes no lymphadenopathy, Yes supple, No anterior neck swelling, Yes no JVD and Yes prominent dorsocervical fat pad Back/Spine/Pelvis Cervical Spine: No Lhermitte's sign positive, loss of normal cervical lordosis, cervical muscular tenderness, pain with cervical ROM, No Cervical spine scars present, cervical spasm, No Cervical spine tenderness and No step off deformity Thoracic/Lumbar Spine: thoracic and lumbar spine normal to inspection, thoraco- lumbar ROM normal, No thoracic spinal tenderness and No lumbar spinal tenderness Extrem General: Yes capillary refill normal, Yes no clubbing, cyanosis or edema and Yes no calf tenderness Results Reviewed Results Reviewed: MR CERVICAL SPINE WITHOUT AND WITH CONTRAST 01/02/23 CLINICAL INFORMATION: Occipital neuralgia. COMPARISON: Cervical spine MRI from 01/03/2022. TECHNIQUE: MRI of the cervical spine was obtained using routine sequences without and following the administration of 8.5 mL of Gadavist intravenous contrast. FINDINGS: Mild reversal the normal cervical lordosis centered on C4-C5. Mild degenerative anterolisthesis of C3 on C4. Advanced degenerative disc disease at C5-C6 and C6-C7. Moderate degenerative disc disease at C3-C4 and C4-C5. Associated mixed Modic type discogenic endplate changes including mild Modic type I discogenic edema from C4-C7. Mild marrow edema within the C4-C7 facets consistent with degenerative stress reaction. No additional suspicious marrow edema. The mild degenerative loss of C5 and C6 vertebral body heights. Otherwise, the vertebral body heights are largely maintained. No demonstrated spinal cord signal abnormalities. No abnormal contrast enhancement. Mild edema within the nuchal ligament from the levels of C6-T1. Otherwise, limited evaluation of the soft tissues of the neck without demonstrated abnormalities. The flow voids of the major cervical vessels are maintained. Normal appearance of the cervicomedullary junction and visualized posterior fossa. SPINAL LEVELS: C2-C3: Normal annular contour. There is no uncovertebral joint arthropathy. There is mild bilateral facet joint arthropathy. There is no neural foraminal stenosis. There is no spinal canal stenosis. C3-C4: Mild disc-osteophyte complex. There is moderate right and mild left uncovertebral joint arthropathy. There is severe right and moderate left facet joint arthropathy. There is moderate right and mild left neural foraminal stenosis. There is mild spinal canal stenosis. C4-C5: Moderate disc-osteophyte complex. There is moderate right and no left uncovertebral joint arthropathy. There is mild bilateral facet joint arthropathy. There is mild right and no left neural foraminal stenosis. There is no spinal canal stenosis. C5-C6: Mild disc-osteophyte complex. There is severe right and moderate left uncovertebral joint arthropathy. There is moderate bilateral facet joint arthropathy. There is severe right and moderate left neural foraminal stenosis. There is no spinal canal stenosis. C6-C7: Mild disc-osteophyte complex. There is moderate bilateral uncovertebral joint arthropathy. There is mild bilateral facet joint arthropathy. There is severe bilateral neural foraminal stenosis. There is no spinal canal stenosis. C7-T1: Normal annular contour. There is no uncovertebral joint arthropathy. There is mild left and no right facet joint arthropathy. There is no neural foraminal stenosis. There is no spinal canal stenosis. IMPRESSION: Moderate multilevel degenerative spondyloarthropathy of the cervical spine as described in detail above. Most notably, there is mild spinal canal stenosis at C3-C4. Moderate to severe neural foraminal stenoses at C3-C4, C5-C6, and C6-C7. Overall, degenerative changes appear similar to exam from 2021. There is mild edema within the nuchal ligament from C6-T1 suggestive of strain injury. Assessment & Plan Assessment & Plan (1) Cervical radiculopathy: Code(s): M54.12 - Radiculopathy, cervical region Category: Medical (2) Cervical stenosis of spine: Code(s): M48.02 - Spinal stenosis, cervical region Category: Medical (3) Chronic neck pain: Code(s): M54.2 - Cervicalgia; G89.29 - Other chronic pain Category: Medical (4) Cervical stenosis of spine: Code(s): M48.02 - Spinal stenosis, cervical region Category: Medical (5) Muscle spasm of back: Code(s): M62.830 - Muscle spasm of back Category: Medical (6) Myofascial pain syndrome, cervical: Code(s): M79.18 - Myalgia, other site Category: Medical (7) Right shoulder pain: Code(s): M25.511 - Pain in right shoulder Category: Medical (8) Occipital headache: Code(s): R51.9 - Headache, unspecified Category: Medical (9) Cervical spondylosis: Code(s): M47.812 - Spondylosis without myelopathy or radiculopathy, cervical region Category: Medical Plan Patient is 1 month status post therapeutic right C4-C5 C6 MBB with no pain relief or improvement her functioning. She presents with worsening right-sided cervical radiculopathy with associated numbness and tingling, and weakness of right upper extremity. Neck pain also radiates to her right side of the head and right shoulder pain with overhead reaching activities. She denies any significant right shoulder today. We will contact Radiology Department to research shoulder x-ray from September 2024. Neck pain has been resistant to conservative and interventional treatments. MRI of the cervical spine to assess for neural integrity and compression and follow up on previous MRI findings. Scripts provided for tizanidine and Medrol Pack. Side effects and precautions were discussed with patient. All questions were answered and patient is in agreement of plan. Follow up for MRI results and sooner if needed. Orders: Orders MR cervical spine wo con Today M48.02 - Spinal stenosis, cervical region, M54.12 - Radiculopathy, cervical region Medications: New methylprednisolone (Medrol (Donal)) PO PER PKG DIR 21 ea 0RF pain M48.02 - Spinal stenosis, cervical region Discontinued tizanidine Discontinued Reason: Patient Completed Course 4 mg PO BID PRN 60 tabs 0RF muscle spasticity G89.29 - Other chronic pain, M54.2 - Cervicalgia, M62.830 - Muscle spasm of back, M79.18 - Myalgia, other site Coding Level of Care Code Est Pt Level 4 (81355) Complex EM visit Add On G2211 Diagnoses Cervical radiculopathy M54.12 Cervical stenosis of spine M48.02 Chronic neck pain M54.2; G89.29 Muscle spasm of back M62.830 Myofascial pain syndrome, cervical M79.18 Right shoulder pain M25.511 Occipital headache R51.9 Cervical spondylosis M47.812
[2024-12-14 13:01] VITALS: BP 136/84; PULSE 94
--- OUTSIDE RECORDS SUMMARY | 2024-12-14 14:36 | XMS_ITS | Clinical Summary ---
Author Organization [facility] ity Address [address] [place] [address] Care Team Providers Care Wash Box Operator Name Role Phone Unavailable Primary Care Provider Unavailabl e Social History Tobacco Use Types Packs/Day Years Used Date Smoking Tobacco: Never Assessed Sex and Gender Information Value Date Recorded Sex Assigned at Not on file Gender Identity Not on file Sexual Orientation Not on file Plan of Treatment Health Maintenance Due Date Last Done Comments Breast Cancer Screening 1970 DTaP,Tdap,and Td Vaccines (1 - Tdap) 1989 Hepatitis B Vaccines (1 of 3 - 19+ 3-dose series) 1989 Cervical Cancer Screening: P ap Smear 1991 Zoster Vaccines (1 of 2) 2020 COVID-19 Vaccine ( - 2023-2 5 season) 2024 Influenza Vaccine (#1) 2024 HIB Vaccines Aged Out No longer eligi ble based on patient's age to complete this topic HPV Vaccines Aged Out No longer eligi ble based on patient's age to complete this topic Hepatitis A Vaccines Aged Out No long er eligible based on patient's age to complete this topic IPV Vaccines Aged Out No longer eligi ble based on patient's age to complete this topic MMR Vaccines Aged Out No longer eligi ble based on patient's age to complete this topic Meningococcal ACWY Vaccine Aged Out N o longer eligible based on patient's age to complete this topic Pneumococcal Vaccine: Pediat rics (0 to 5 Years) and At-Risk Patients (6 to 64 Years) Aged Out No longer eligible b ased on patient's age to complete this topic RSV Immunization Patients Un otis 20 months Aged Out No longer eligible b ased on patient's age to complete this topic Varicella Vaccines Aged Out No longer eligible based on patient's age to complete this topic
== END 2024-12-14 13:15 | disposition home or self-care (01) ==
PROVIDERS: PCP Internal Medicine; Visit Provider Nurse Practitioner Family
DX: M54.12 Radiculopathy, cervical region (principal); M48.02 Spinal stenosis, cervical region; M54.2 Cervicalgia; G89.29 Other chronic pain; M62.830 Muscle spasm of back; M79.18 Myalgia, other site; M25.511 Pain in right shoulder; R51.9 Headache, unspecified; M47.812 Spondylosis without myelopathy or radiculopathy, cervical region
CPT/HCPCS: 99214

== ENCOUNTER 2024-12-20 12:55 | Outpatient (REF) | payer OTHER, SELFPAY ==
--- NOTE | ~2024-12-20 | US_ITS ---
EXAMINATION: US LOWER EXTREMITY VENOUS (REFLUX EXAM), BILATERAL CLINICAL INFORMATION: Varices with inflammation, right lower extremity. COMPARISON: Ultrasound venous Doppler dictated November 30, 2024. TECHNIQUE: Color flow triplex imaging and compression Doppler was performed to evaluate both the deep and the superficial systems bilaterally. To evaluate the superficial system, the examination was performed in the upright position. Color-flow Doppler ultrasound and compression ultrasound were utilized. In addition, maneuvers were utilized to demonstrate reflux. FINDINGS: 1. DEEP VENOUS ULTRASOUND OF THE RIGHT LOWER EXTREMITY: Common Femoral Vein: Compressible, normal respiratory variation and augmented flow. Femoral Vein: Compressible, normal color flow and augmentation. Popliteal Vein: Compressible, normal augmentation. Deep Reflux: There is no evidence of reflux in the deep system in either the common femoral vein, superficial femoral or the popliteal vein. There is no evidence of a Roper's cyst. 2. SUPERFICIAL ULTRASOUND WITH DOPPLER OF RIGHT LOWER EXTREMITY: GREAT SAPHENOUS VEIN: Saphenofemoral Junction: 0.6 cm; Reflux: 0 ms Proximal Thigh: 0.4 cm; Reflux: 0 ms Mid Thigh: 0.2 cm; Reflux: 0 ms Distal Thigh: 0.2 cm; Reflux: 0 ms At Knee: 0.2 cm; Reflux: No more than 2588 ms Proximal Calf: 0.1 cm; Reflux: 0 ms Mid Calf: 0.2 cm; Reflux: 0 ms Distal Calf: 0.1 cm; Reflux: 0 ms DUPLICATED MEDIAL GREAT SAPHENOUS VEIN: Diameter: None imaged Reflux: NA DUPLICATED LATERAL GREAT SAPHENOUS VEIN: Diameter: None imaged Reflux: NA SMALL SAPHENOUS VEIN: Saphenopopliteal Junction: 0.1 cm; Reflux: 0 ms Proximal: 0.1 cm; Reflux: 0 ms Distal: 0.1 cm; Reflux: 0 ms VEIN OF GIACOMINI: Size: NA Reflux: NA PERFORATORS: Location: Great saphenous vein at the mid thigh. Size: 0.2 Reflux: NA VARICOSITIES: Location: Great saphenous vein proximal thigh and proximal calf. Size: 0.4 and 0.3 cm respectively. Reflux: NA 3. DEEP VENOUS ULTRASOUND OF THE LEFT LOWER EXTREMITY: Common Femoral Vein: Compressible, normal respiratory variation and augmented flow. Femoral Vein: Compressible, normal color flow and augmentation. Popliteal Vein: Compressible, normal augmentation. Deep Reflux: There is no evidence of reflux in the deep system in either the common femoral vein, superficial femoral or the popliteal vein. There is no evidence of a Roper's cyst. 4. SUPERFICIAL ULTRASOUND WITH DOPPLER OF LEFT LOWER EXTREMITY: GREAT SAPHENOUS VEIN: Saphenofemoral Junction: 0.3 cm; Reflux: 0 ms Proximal Thigh: 0.3 cm; Reflux: 0 ms Mid Thigh: 0.1 cm; Reflux: 0 ms Distal Thigh: 0.2 cm; Reflux: 0 ms At Knee: 0.2 cm; Reflux: 0 ms Proximal Calf: 0.2 cm; Reflux: 0 ms Mid Calf: 0.2 cm; Reflux: 0 ms Distal Calf: 0.1 cm; Reflux: 0 ms DUPLICATED MEDIAL GREAT SAPHENOUS VEIN: Diameter: None imaged Reflux: NA DUPLICATED LATERAL GREAT SAPHENOUS VEIN: Diameter: None imaged. Reflux: NA SMALL SAPHENOUS VEIN: Saphenopopliteal Junction: 0.2 cm; Reflux: 0 ms Proximal: 0.2 cm; Reflux: 0 ms Distal: 0.2 cm; Reflux: 0 ms VEIN OF GIACOMINI: Size: NA Reflux: NA PERFORATORS: Location: Great saphenous vein distal calf. Superficial saphenous vein mid calf. Size: 0.3 and 0.1 cm respectively. Reflux: NA VARICOSITIES: Location: None Imaged Size: NA Reflux: NA US/US venous insuf bilat IMPRESSION: Right: Venous insufficiency, right great saphenous vein at the level of the knee. Varices in the right great saphenous vein. Left: No venous insufficiency. Perforators at the great saphenous vein distal calf and superficial saphenous vein mid calf. Electronically signed by: Alejandro Vazquez MD 12/21/2024 08:27 AM EST
--- OUTSIDE RECORDS SUMMARY | 2024-12-20 17:36 | XMS_ITS | Clinical Summary ---
Author Organization [facility] ity Address [address] [place] [address] Care Team Providers Care Software Support Analyst Name Role Phone Unavailable Primary Care Provider [...]
== END 2024-12-20 12:56 | disposition home or self-care (01) ==
LOC: HO.US 12:55
PROVIDERS: PCP Internal Medicine; Visit Provider Physician Assistant Surgical
DX: I83.11 Varicose veins of right lower extremity with inflammation (principal); I83.12 Varicose veins of left lower extremity with inflammation
CPT/HCPCS: 93970

== ENCOUNTER → 2024-12-20 12:56 | Outpatient (BNV) | payer OTHER, SELFPAY | PROVIDERS: PCP Internal Medicine; Visit Provider Radiology Diagnostic Radiology | DX: I83.11 Varicose veins of right lower extremity with inflammation (principal); I83.12 Varicose veins of left lower extremity with inflammation | CPT/HCPCS: 93970 ==

== ENCOUNTER 2024-12-23 12:53 | Outpatient (AMB) | payer OTHER, SELFPAY ==
--- NOTE | 2024-12-23 13:01 | MHC.OFFVIS ---
Intake Visit Reasons: follow up US biljanay LE 12/20/24 Intake Note: Patient presents for follow up performed on November. No complaints. Accompanied by: Self / Same As Patient Allergies NSAIDS (Non-Steroidal Anti-Inflamma Adverse Reaction (Mild, Verified 12/23/24 13:02) ulcer HPI HPI follow up US belle ANG 12/20/24: Details: Disha is presenting today to follow up to venous insufficiency ultrasound, performed on 12/20/2024. She states the pain in her right lower thigh area has gone away. She does state that the vein is still bulging, but not painful. She denies any swelling. She is wearing compression stockings daily. [facility] Medical History Cough in adult Transaminitis Obesity (BMI 35.0-39.9 without comorbidity) Renal calculi Class 1 obesity due to excess calories with body mass index (BMI) of 34.0 to 34.9 in adult Hammertoe of left foot Bunion, left Neck pain Cervical radiculopathy Occipital headache Bronchial asthma Surgical History History of esophagogastroduodenoscopy (EGD) Hx of breast reduction, elective delivery delivered Hx of hernia repair Gastric bypass status for obesity Family History Mother Hypertension Alzheimer disease Father Alzheimer disease Brother Alzheimer disease Social History Housing: House Alcohol intake: former Patient Tobacco Use Status: Current everyday Tobacco user Tobacco use type: Cigarette Cigarettes Per Day: 2 Years Smoked: 15 e-Cigarette/Vaping Use: Never Used Second Hand Smoke Exposure: Yes service: No Current occupational status: employed 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 [employer] Current occupational exposures/hazards: No Sexual orientation: Straight/Heterosexual Gender identity: Female Cognitive needs: No Hearing needs: No Vision needs: No Review of Systems Const Reports as per HPI and Denies weakness ENT Reports Normal hearing present and Denies dizziness Card Reports as per HPI, Denies chest pain, Denies chest pain at rest, Denies chest pain with activity, Denies dyspnea and Denies dyspnea on exertion Resp Reports as per HPI, Denies cough, Denies dyspnea and Denies dyspnea on exertion GI Reports as per HPI, Denies abdominal pain, Denies nausea and Denies vomiting Musc Denies numbness Skin/Breast Reports as per HPI, Denies erythema and Denies wounds Neuro Reports Normal hearing present, Denies dizziness, Denies numbness, Denies Sensory deficit (Neuro) and Denies weakness Psych Reports no additional complaints Endo Reports no additional complaints Physical Exam Const General: healthy appearing and no acute distress Orientation/consciousness: patient oriented x3 HEENT Head: Yes normal to inspection Ears: hearing grossly normal bilaterally Mouth: Normal oral and palatal mucosa present Resp Effort & Inspection: normal respiratory effort and able to speak in complete sentences Auscultation: clear to auscultation bilaterally Cardio Jugular venous distension: no JVD Rate: regular rate Rhythm: regular rhythm Heart sounds: S1 normal heart sound present and S2 normal heart sound present Bruits: no abdominal aortic bruits, no carotid bruits, no femoral bruits and no renal bruits Peripheral pulses: Peripheral pulses 2+ throughout GI Inspection: Yes normal to inspection Palpation (GI): No Abdominal aortic bruit present Skin General skin exam: no rashes or lesions noted Wounds: no wounds Hair: normal Neuro General: patient oriented x3 Cranial nerves: Yes Normal hearing present Cognition (Neuro): normal cognition Gait exam (Neuro): Normal gait present Motor exam (neuro): 5/5 motor strength present throughout Sensory Exam: No Sensory deficit (Neuro) Extrem Other: Right lower extremity: Large rope-like tortuosity noted on the inner thigh going all the way down to her mid casas on the medial aspect. Not painful to palpation. Trace peripheral edema noted Left lower extremity: Smaller rope-like tortuosity noted on the posterior aspect of her calf. General: Yes normal to inspection, Yes full ROM, Yes capillary refill normal and Yes normal gait Results Reviewed Results Reviewed: Brief summary of venous insufficiency testing is as follows: right great saphenous vein: at knee 0.2, >2588ms, all rest negative right small saphenous vein: negative right accessory vein: none present left great saphenous vein: negative left small saphenous vein: negative left accessory vein: none present Please note there is no evidence of any venous aneurysms or significant tortuosity Assessment & Plan Assessment & Plan (1) Varicose veins of both lower extremities with inflammation: Code(s): I83.11 - Varicose veins of right lower extremity with inflammation; I83.12 - Varicose veins of left lower extremity with inflammation Category: Medical Plan: Disha is presenting today for a follow up to venous insufficiency ultrasound, performed on 12/20/2024. The ultrasound was negative for venous insufficiency except for one small area at the knee of the right great saphenous vein which revealed some reflux. The patient states that her leg no longer hurts and she has been wear compression stockings daily, which has cut down on the swelling. We discussed that we could possibly do a microphlebectomy on that; however the patient states that due to no pain and no other complaints, she would like to hold off on any procedures at this point. I discussed whether that she can reach out to us at any point if the site gets painful or she has other varicosities that occur. We discussed continue with elevation, compression stockings, and physical activity. We discussed the importance of a well-balanced diet. Thank you for allowing us to participate in the patient's care. There are any questions or concerns, please do not hesitate to reach out to us. Coding Level of Care Code Est Pt Level 4 (69237) Diagnoses Varicose veins of both lower extremities with inflammation I83.11; I83.12 Comment Review of venous insufficiency ultrasound
--- OUTSIDE RECORDS SUMMARY | 2024-12-23 16:43 | XMS_ITS | Clinical Summary ---
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
== END 2024-12-23 13:13 | disposition home or self-care (01) ==
PROVIDERS: PCP Internal Medicine; Visit Provider Physician Assistant Surgical
DX: I83.11 Varicose veins of right lower extremity with inflammation (principal); I83.12 Varicose veins of left lower extremity with inflammation
CPT/HCPCS: 99214

== ENCOUNTER → 2024-12-23 12:53 | Outpatient (BNVA) | payer OTHER, SELFPAY | PROVIDERS: PCP Internal Medicine; Visit Provider Physician Assistant Surgical ==

== ENCOUNTER → 2025-01-11 16:32 | Outpatient (BNV) | payer OTHER, SELFPAY | PROVIDERS: PCP Internal Medicine; Visit Provider Radiology Diagnostic Radiology | DX: M54.12 Radiculopathy, cervical region (principal); M48.02 Spinal stenosis, cervical region | CPT/HCPCS: 72141 ==

== ENCOUNTER 2025-01-11 16:34 | Outpatient (REF) | payer OTHER, SELFPAY ==
--- NOTE | ~2025-01-11 | MR_ITS ---
CLINICAL HISTORY: M54.12 - Radiculopathy, cervical region Neck pain and both shoulders pain R>L, Rt arm pain, numbness and tingling in fingers. Sx going on for years. No injury to neck MRI cervical spine without contrast Comparison: 01/02/2023 Findings: Trace anterolisthesis of C3 on C4 without change. Remaining alignment is appropriate. There is mild reversal of lordosis without change. There are degenerative type endplate marrow changes at C5-C6 and C6-C7, similar to the prior study. The cervical spinal cord is normal in size and signal intensity. C2-C3: No significant disc disease. Mild facet osteoarthritis. No significant narrowing of the central canal or neural foramina. C3-C4: Mild uncovering of the posterior disc margin. No herniation. Severe right-sided facet osteoarthritis and moderate left-sided facet osteoarthritis without change. Very mild central canal narrowing without change. Moderate narrowing of the right neural foramen. Mild narrowing of the left neural foramen. C4-C5: Moderate disc osteophyte complex with mild thecal sac effacement without change. Mild facet osteoarthritis. Mild narrowing of the right neural foramen. No significant narrowing of the left neural foramen. C5-C6: Moderate disc osteophyte complex with mild thecal sac effacement without change. Bilateral facet osteoarthritis, right more pronounced than left without change. Moderately severe narrowing of the right neural foramen and mild narrowing of the left neural foramen without change. C6-C7: Small disc osteophyte complex with minimal thecal sac effacement. Mild narrowing of bilateral neural foramina. C7-T1: Normal Visualized soft tissues are unremarkable. Impression: 1. Multilevel spondylosis and facet osteoarthritis with associated central canal and neural foraminal narrowing as described, unchanged since the prior study. This document has been electronically signed by: Ana Callahan MD on 01/11/2025 17:51:59
--- OUTSIDE RECORDS SUMMARY | 2025-01-11 16:45 | XMS_ITS | Clinical Summary ---
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 Role Phone Unavailable Primary Care Provider Unavailabl e Social History Tobacco Use Types Packs/Day Years Used Date Smoking Tobacco: Never Assessed Comments Unknown Sex and Gender Information Value Date Recorded Sex Assigned at Not on file Legal Sex Female 4:58 PM EST Gender Identity Not on file Sexual Orientation Not on file Plan of Treatment Health Maintenance Due Date Last Done Comments Breast Cancer Screening 1970 DTaP,Tdap,and Td Vaccines (1 - Tdap) 1989 Hepatitis B Vaccines (1 of 3 - 19+ 3-dose series) 1989 Cervical Cancer Screening: P ap Smear 1991 Pneumococcal Vaccine: 50+ Ye ars (1 of 1 - PCV) 2020 Zoster Vaccines (1 of 2) 2020 COVID-19 [...] patient's age to complete this topic Meningococcal B Vacine Aged Out No lo nger eligible based on patient's age to complete [...]
== END 2025-01-11 16:35 | disposition home or self-care (01) ==
LOC: HO.MRI 16:34
PROVIDERS: PCP Internal Medicine; Visit Provider Nurse Practitioner Family
DX: M54.12 Radiculopathy, cervical region (principal); M48.02 Spinal stenosis, cervical region
CPT/HCPCS: 72141

== ENCOUNTER 2025-01-18 12:08 | Outpatient (AMB) | payer OTHER, SELFPAY ==
--- NOTE | 2025-01-18 12:07 | A.OFFVIS_ITS ---
VS Expanded 01/18/25 12:09 Height 4 ft 11 in Weight 164 lb 8 oz BMI 33.2 Intake Visit Reasons: (TV) F/U ANASTOMOTIC ULCER Allergies NSAIDS (Non-Steroidal Anti-Inflamma Adverse Reaction (Mild, Verified 12/23/24 13:02) ulcer Medication List - Last Reconciled 01/18/25 by ELDA Kinney acetaminophen ER (Tylenol 8 Hour) 650 mg PO Q12H PRN albuterol sulfate 0.63 mg (3 mL) inhalation Q4-6H PRN docusate sodium 100 mg PO DAILY methylprednisolone (Medrol (Donal)) PO PER PKG DIR pantoprazole 40 mg PO DAILY polyethylene glycol 3350 17 grams PO BID Ventolin HFA 90 mcg/actuation (albuterol sulfate) 2 puffs inhalation Q6H PRN 30 days NS HPI Comments Details: Pt is seen in followup for marginal ulcer. She is s/p open RYGB 20+ years ago done at [facility] ([facility]). Also history of obstruction requiring surgery about 10 years ago at [facility]. She underwent endoscopy for complaints of abdominal pain, 04/23/2023 which revealed GJ anastomotic ulcer. She was placed on a liquid protein diet, PPI and carafate. Repeat endoscopy performed 07/02/2023 and showed no ulcer. She has stopped carafate. Reports no issues with abdominal pain. Pt currently struggling with the flu. Pt has gained 5 lbs since last OV in 08/2023. Was placed on a meal plan per Dr. Underwood with 2 shakes Premier, 1/2 scoop for one shake and 1 scoop in another, one yogurt with fruit, and one meal with 4 forks protein/4 forks salad. Doing well on this plan. Over the summer had some more social events, some EtOH. Has been having hip pain, limiting her exercise. Also has shoulder pain. Going to start PT. Still smoking about 1 cigarette per day, remains off ibuprofen. Takes stool softener and Miralax which helps with regular BMs. [facility] Medical History (Updated 12/14/24 @ 15:57 by SHER Parsons) Cough in adult Transaminitis Obesity (BMI 35.0-39.9 without comorbidity) Renal calculi Class 1 obesity due to excess calories with body mass index (BMI) of 34.0 to 34.9 in adult Hammertoe of left foot Bunion, left Neck pain Cervical radiculopathy Occipital headache Bronchial asthma Surgical History (Updated 01/18/25 @ 12:26 by ELDA Kinney) History of esophagogastroduodenoscopy (EGD) Hx of breast reduction, elective delivery delivered Hx of hernia repair Family History Mother Hypertension Alzheimer disease Father Alzheimer disease Brother Alzheimer disease Social History Housing: House Alcohol intake: former Patient Tobacco Use Status: Current everyday Tobacco user Tobacco use type: Cigarette Cigarettes Per Day: 2 Years Smoked: 15 e-Cigarette/Vaping Use: Never Used Second Hand Smoke Exposure: Yes service: No Current occupational status: employed 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 [employer] Current occupational exposures/hazards: No Sexual orientation: Straight/Heterosexual Gender identity: Female Cognitive needs: No Hearing needs: No Vision needs: No Physical Exam Vital Signs: BMI result Body Mass Index 33.2 Telehealth Telehealth Telehealth Platform: Telephone Location of provider rendering services: other Location of patient: address on file Patient Identification confirmed using: Name, : Yes Telehealth method: voice only Patient verbally consented to treatment: Yes Patient verbally consented to billing insurance company: Yes Patient informed of any privacy concerns related to visit: Yes Minutes spent on Phone/Video with Pt.: 16 Assessment & Plan Assessment & Plan (1) Obesity: Code(s): E66.9 - Obesity, unspecified Category: Medical (2) Gastric bypass status for obesity: Code(s): Z98.84 - Bariatric surgery status Category: Surgical Plan We discussed GLP-1 agonists. Pt is interested but would like to try to resume exercise when weather is warmer as she feels this was important in her previous weight loss efforts. If not progress by next appt will further discuss GLP1s. Pt requests refills for PPI, bowel reg- sent. RTC 3 months for in person appt per pt preference. I spent a total of 30 minutes reviewing/updating records, examining the patient and counseling the patient on weight management as detailed above. Medications: New docusate sodium 100 mg PO DAILY 90 caps 3RF Refilled pantoprazole 40 mg PO DAILY 90 tabs 3RF polyethylene glycol 3350 17 grams PO BID 850 grams 3RF
[2025-01-18 12:09] VITALS: BMI 33.2
--- OUTSIDE RECORDS SUMMARY | 2025-01-18 14:48 | XMS_ITS | Clinical Summary ---
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
== END 2025-01-18 12:27 | disposition home or self-care (01) ==
LOC: HO.HBS 12:08
PROVIDERS: PCP Internal Medicine; Visit Provider Physician Assistant Surgical
DX: E66.811 Obesity, class 1 (principal); Z68.33 Body mass index [BMI] 33.0-33.9, adult; Z98.84 Bariatric surgery status
CPT/HCPCS: 98012

== ENCOUNTER → 2025-01-18 12:08 | Outpatient (BNVA) | payer OTHER, SELFPAY | PROVIDERS: PCP Internal Medicine; Visit Provider Physician Assistant Surgical ==

== ENCOUNTER 2025-01-21 11:46 | Outpatient (AMB) | payer OTHER, SELFPAY ==
[2025-01-21 11:46] VITALS: BMI 33.1
--- NOTE | 2025-01-21 11:46 | MHC.OFFVIS ---
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 She continues to endorse persistent neck pain with radicular symptoms. Denies any recent trauma, injury, or falls. Cervical extension reproduces significant pain rated 8-9/10, flexion 6/10 and lateral rotations on the left 8-9/10 and right side at 7/10. Reports frequent pressure headaches due to neck pain. Patient reports neck pain radiates to the right arm with numbness and tingling in her right thumb, 2nd and 3rd digits. She avoids lifting heavy weights for objects due to neck pain. She is able to do her usual work but with significant pain. Reports lot of difficulty concentrating with headache and neck pain. Her sleep is disturbed as well and is significantly limited. She can drive but with moderate neck pain and has difficulty turning to the sides. Pain also affects her social interactions and negatively affects her quality of life. Patient avoids NSAIDs due to h/o gastric ulcers and gastric bypass. Reports no pain relief with heat therapy, activity modifications, Tylenol for muscle relaxants. She is considering medical marijuana for pain and sleep. Denies any fever or chills, dizziness, shortness of breath, chest pain, gait disturbance, bladder or bowel dysfunction or saddle anesthesia. Reports intermittent right upper extremity weakness. She has history of right shoulder OA but denies any significant right shoulder today. PRIOR: Patient presents today to assess response to therapeutic Right C4-C5-C6 MBB on 11/11/[address] Sandhu. Patient reports 0% pain relief since procedure. She reports worsening right sided neck pain with radiation into her right side of the head, shoulder and into right upper extremity with associated numbness, tingling and weakness. Patient reports she had partial discomfort in axial cervical spine symptoms for one day after injections. She is concerned for progression of her neck pain with right sided radiculopathy. Pain increases with movements, lifting, pulling, cervical spine flexion, overhead reaching activities, driving, working, and stress. Denies significant right shoulder pain. Reports cervicogenic headaches. Reports no pain relief with Tylenol, NSAIDs, topical applications, baclofen, Flexeril and tizanidine. Her right shoulder xray was taken on 10/11/24 with pending results. Denies any recent cough, cold, infection, fever or other significant changes in medical history since last office visit. Past Procedures: 11/11/24: Right C4-C5-C6 MBB-0% pain relief 11/13/22: Right C3-C4 MB RFA- 50% pain relief for 10 months 05/03/22: Diagnostic Right C3-C4-C5-C6 MBBs with Bupivicaine-100% pain relief for 2 days 02/12/22: Diagnostic Right C3-C4-C5-C6 MBBs with Lidocaine-100% pain relief for 3 hours PRIOR: Disha is a pleasant 51-year-old female who presents to the office with complaints of neck pain. She reports the pain is mostly right sided, radiates up to the top of the head and to the shoulder with associated tingling and pressure. She reports this has been present for the past 5-6 years as well as being off balance occasionally. She was evaluated by Neurology which resulted in no significant findings. She was then referred to Dr. Jeffers, which she is under the care of now. He had referred her to [facility] to address facet mediated pain. After evaluation it sounds like they addressed her myofascial pain with trigger point injections on 10/11/21 instead facet joint injections/MBB, as requested by Dr. Jeffers. She notes no relief with the trigger point injection and about 2 days after the injections she began to have numbness and tingling radiating down her right upper extremity. She was then evaluated in the emergency room and had a cervical spine MRI which revealed a pocket of fluid at C1-C2 . She reports she was then hospitalized overnight with antibiotics and released the next day. She denies a follow-up MRI in still has persistent paresthesias of the right upper extremity which radiate into all fingers. She reports pain onset was gradual, constant and rates the pain a 10/10. She states the pain is interfering with sleep, activities of daily living and she cannot function normally. The patient reports the pain in terms of tissue damage as stabbing, sharp, burning as well tingling and tired. The pain is not dependent on any specific activity but does know an increase in discomfort with lateral rotation and extension of the neck. She has attempted physical therapy as well as massage in the past with no alleviation in symptoms. She has been performing gentle stretching with some relief. She has also tried Tylenol, NSAIDs, lidocaine compound, heat and ice with no improvements. In the past she has tried gabapentin but it resulted in significant drowsiness so she discontinued. She denies any chiropractic manipulation, massage or acupuncture. Denies any previous neck surgery. [facility], [facility] Medical History Cough in adult Transaminitis Obesity (BMI 35.0-39.9 without comorbidity) Renal calculi Class 1 obesity due to excess calories with body mass index (BMI) of 34.0 to 34.9 in adult Hammertoe of left foot Bunion, left Neck pain Cervical radiculopathy Occipital headache Bronchial asthma Surgical History History of esophagogastroduodenoscopy (EGD) Hx of breast reduction, elective delivery delivered Hx of hernia repair Family History Mother Hypertension Alzheimer disease Father Alzheimer disease Brother Alzheimer disease Social History Housing: House Alcohol intake: former Patient Tobacco Use Status: Current everyday Tobacco user Tobacco use type: Cigarette Cigarettes Per Day: 2 Years Smoked: 15 e-Cigarette/Vaping Use: Never Used Second Hand Smoke Exposure: Yes service: No Current occupational status: employed 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 [employer] Current occupational exposures/hazards: No Sexual orientation: Straight/Heterosexual Gender identity: Female Cognitive needs: No Hearing needs: No Vision needs: No Review of Systems Const All systems reviewed & are unremarkable except as noted in HPI and below ENT Reports Normal hearing present Neuro Reports Normal hearing present and Denies confusion Psych Denies confusion Physical Exam Vital Signs: BMI result Body Mass Index 33.1 Const General: cooperative, alert and awake; No confusion Orientation/consciousness: patient oriented x3 and No confusion Resp Effort & Inspection: able to speak in complete sentences, no audible wheezes and no cough Neuro General: patient oriented x3 and No confusion Cranial nerves: Yes Normal hearing present Cognition (Neuro): normal cognition Psych Mental Status: mental status grossly normal Speech and movement: Clear speech present Affect: normal affect Attitude: cooperative Thought process: Normal thought process present Thought content: Normal thought content present and No Depressive thoughts present Insight: Good insight present (Psych) Judgement: Good judgement present (Psych) Telehealth Telehealth Telehealth Platform: Telephone Location of provider rendering services: practice address Location of patient: address on file Patient Identification confirmed using: Name, : Yes Telehealth method: voice only Patient verbally consented to treatment: Yes Patient verbally consented to billing insurance company: Yes Patient informed of any privacy concerns related to visit: Yes Minutes spent on Phone/Video with Pt.: 17 Results Reviewed Results Reviewed: MRI cervical spine without contrast 01/11/25 Comparison: 01/02/2023 Findings: Trace anterolisthesis of C3 on C4 without change. Remaining alignment is appropriate. There is mild reversal of lordosis without change. There are degenerative type endplate marrow changes at C5-C6 and C6-C7, similar to the prior study. The cervical spinal cord is normal in size and signal intensity. C2-C3: No significant disc disease. Mild facet osteoarthritis. No significant narrowing of the central canal or neural foramina. C3-C4: Mild uncovering of the posterior disc margin. No herniation. Severe right-sided facet osteoarthritis and moderate left-sided facet osteoarthritis without change. Very mild central canal narrowing without change. Moderate narrowing of the right neural foramen. Mild narrowing of the left neural foramen. C4-C5: Moderate disc osteophyte complex with mild thecal sac effacement without change. Mild facet osteoarthritis. Mild narrowing of the right neural foramen. No significant narrowing of the left neural foramen. C5-C6: Moderate disc osteophyte complex with mild thecal sac effacement without change. Bilateral facet osteoarthritis, right more pronounced than left without change. Moderately severe narrowing of the right neural foramen and mild narrowing of the left neural foramen without change. C6-C7: Small disc osteophyte complex with minimal thecal sac effacement. Mild narrowing of bilateral neural foramina. C7-T1: Normal Visualized soft tissues are unremarkable. Impression: 1. Multilevel spondylosis and facet osteoarthritis with associated central canal and neural foraminal narrowing as described, unchanged since the prior study. XR CERVICAL SPINE 02/11/21 CLINICAL INFORMATION: Radiculopathy COMPARISON: 03/27/2016 TECHNIQUE: 3 views of the cervical spine were obtained. FINDINGS: There is no acute fracture or subluxation. Vertebral body height and alignment is maintained. Disc space narrowing of C4-C5, C5-C6, and C6-C7 with endplate osteophyte formation. The atlantoaxial joint is well aligned. The dens is intact. The prevertebral soft tissues are unremarkable. The lung apices are clear. IMPRESSION: Mild to moderate degenerative changes of the mid cervical spine. Assessment & Plan Assessment & Plan (1) Cervical radiculopathy: Code(s): M54.12 - Radiculopathy, cervical region Category: Medical (2) Cervical stenosis of spine: Code(s): M48.02 - Spinal stenosis, cervical region Category: Medical (3) Chronic neck pain: Code(s): M54.2 - Cervicalgia; G89.29 - Other chronic pain Category: Medical (4) Cervical stenosis of spine: Code(s): M48.02 - Spinal stenosis, cervical region Category: Medical (5) Muscle spasm of back: Code(s): M62.830 - Muscle spasm of back Category: Medical (6) Cervical spondylosis: Code(s): M47.812 - Spondylosis without myelopathy or radiculopathy, cervical region Category: Medical Plan Cervical spine MRI results were discussed with patient today. She completed diagnostic cervical medial branch blocks and underwent Sprint PNS therapy and cervical medial branch RFA with good results for axial neck pain but continues with worsening right-sided neck pain with radicular symptoms. Neck pain has been resistant to conservative and interventional treatments, including PT, Tylenol, muscle relaxant, oral steroids, heat therapy and activity modifications. Schedule Right C5-C6 parasagittal interlaminar ADDI with local and fluoroscopy and oral Ativan. Expectations, risks and benefits were reviewed. Patient is aware she will be contacted to schedule this procedure. All questions were answered and the patient is in agreement of plan. Follow-up after injection and sooner as needed. I hereby testify that I spent 17 minutes in conversation with this patient as well as with planning and coordinating care for this patient and organizing this note. Coding Level of Care Code Tele Est Pt Level 4 (27679) Complex EM visit Add On G2211 Diagnoses Cervical radiculopathy M54.12 Cervical stenosis of spine M48.02 Chronic neck pain M54.2; G89.29 Muscle spasm of back M62.830 Cervical spondylosis M47.812
--- OUTSIDE RECORDS SUMMARY | 2025-01-21 14:05 | XMS_ITS | Clinical Summary ---
Author Organization [facility] ity Address [address] [place] [address] Care Team Providers Care Gerentological Physiotherapist Name Role Phone Unavailable Primary Care Provider [...]
== END 2025-01-21 11:55 | disposition home or self-care (01) ==
LOC: HO.PMC 11:46
PROVIDERS: PCP Internal Medicine; Visit Provider Nurse Practitioner Family
DX: M54.12 Radiculopathy, cervical region (principal); M48.02 Spinal stenosis, cervical region; M54.2 Cervicalgia; G89.29 Other chronic pain; M62.830 Muscle spasm of back; M47.812 Spondylosis without myelopathy or radiculopathy, cervical region
CPT/HCPCS: 98014

== ENCOUNTER 2025-01-24 10:09 | Outpatient (AMB) | payer OTHER, SELFPAY ==
[2025-01-24 10:30] VITALS: BP 120/74; PULSE 86; O2SAT 97
--- NOTE | 2025-01-24 10:30 | AM.OFFWIN_ITS ---
Intake Vital Signs 3 01/24/25 10:30 Weight 164 lb BP 120/74 Blood Pressure Location Lt brachial Position Sitting Pulse 86 Pulse Source Pulse Oximeter Pulse Oximetry (%) 97 Oxygen Delivery Method Room Air Intake Visit Reasons: EP lump on clavicle bone Intake Note: Patient here for lump on clavicle bone that started friday. Patient Tobacco Use Status: Current everyday Tobacco user Allergies NSAIDS (Non-Steroidal Anti-Inflamma Adverse Reaction (Mild, Verified 01/24/25 10:31) ulcer Do you need a note to return to daycare/school/sports/work: Yes HPI HPI Comments 2 History of Present Illness0 Details 54 y/o female patient who presents to [facility] walk in clinic with c/o Lump TTP right Anterior Cervical neck (C5-C7) since this past Friday. She had recent MRI of Neck (01/21/25) due to Cervical Radiculopathy - this showed C5-C6: Moderate disc osteophyte complex with mild thecal sac effacement without change. Bilateral facet osteoarthritis, right more pronounced than left without change. Moderately severe narrowing of the right neural foramen and mild narrowing of the left neural foramen without change. C6-C7: Small disc osteophyte complex with minimal thecal sac effacement. Mild narrowing of bilateral neural foramina. She follows with pain management for Steroid injections. [facility] Medical History (Updated 01/24/25 @ 11:14 by Petty Bartlett NP) Osteophyte of cervical spine Cough in adult Transaminitis Obesity (BMI 35.0-39.9 without comorbidity) Renal calculi Class 1 obesity due to excess calories with body mass index (BMI) of 34.0 to 34.9 in adult Hammertoe of left foot Bunion, left Neck pain Cervical radiculopathy Occipital headache Bronchial asthma Surgical History History of esophagogastroduodenoscopy (EGD) Hx of breast reduction, elective delivery delivered Hx of hernia repair Family History Mother Hypertension Alzheimer disease Father Alzheimer disease Brother Alzheimer disease Social History Housing: House Alcohol intake: former Patient Tobacco Use Status: Current everyday Tobacco user Tobacco use type: Cigarette Cigarettes Per Day: 2 Years Smoked: 15 e-Cigarette/Vaping Use: Never Used Second Hand Smoke Exposure: Yes service: No Current occupational status: employed 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 [employer] Current occupational exposures/hazards: No Sexual orientation: Straight/Heterosexual Gender identity: Female Cognitive needs: No Hearing needs: No Vision needs: No Review of Systems Const All systems reviewed & are unremarkable except as noted in HPI and below Physical Exam Vital Signs: Last Vital Signs Pulse 86 01/24/25 10:30 BP 120/74 01/24/25 10:30 Pulse Ox 97 01/24/25 10:30 Oxygen Delivery Method Room Air 01/24/25 10:30 Const General: cooperative and no acute distress Nutritional Appearance: obese Orientation/consciousness: patient oriented x3 Neck Neck: Yes full ROM, Yes no lymphadenopathy and Yes trachea midline Neck images: 2 1. Small Bony protrusion TTP. Neuro General: patient oriented x3, gait normal and moves all extremities Psych Speech and movement: Normal speech and movement present Assessment & Plan Assessment & Plan (1) Cervical spondylosis: Code(s): M47.812 - Spondylosis without myelopathy or radiculopathy, cervical region Plan: C5-C6: Moderate disc osteophyte complex with mild thecal sac effacement without change. NSAIDs for pain relief Continue f/u with Pain management F/U with PCP. (2) Osteophyte of cervical spine: Code(s): M25.78 - Osteophyte, vertebrae Plan: C5-C6: Moderate disc osteophyte complex with mild thecal sac effacement without change. NSAIDs for pain relief Continue f/u with Pain management F/U with PCP. Coding Level of Care Code Est Pt Level 4 (39126) Diagnoses Cervical spondylosis M47.812 Osteophyte of cervical spine M25.78 Time Spent (min) 20
--- OUTSIDE RECORDS SUMMARY | 2025-01-24 11:38 | XMS_ITS | Clinical Summary ---
Author Organization [facility] ity Address [address] [place] [address] Care Team Providers Care Starch Dumper Name Role Phone Unavailable Primary Care Provider [...]
== END 2025-01-24 11:56 | disposition home or self-care (01) ==
PROVIDERS: PCP Internal Medicine; Visit Provider Nurse Practitioner Family
DX: M47.812 Spondylosis without myelopathy or radiculopathy, cervical region (principal); M25.78 Osteophyte, vertebrae

== ENCOUNTER → 2025-01-24 10:09 | Outpatient (BNVA) | payer OTHER, SELFPAY | PROVIDERS: PCP Internal Medicine ==

== ENCOUNTER 2025-02-21 12:56 | Outpatient (REF) | payer OTHER, SELFPAY ==
--- OUTSIDE RECORDS SUMMARY | 2025-02-21 14:31 | XMS_ITS | Clinical Summary ---
Author Organization [facility] ity Address [address] [place] [address] Care Team Providers Care Wireworker Name Role Phone Unavailable Primary Care Provider [...]
== END 2025-02-21 12:57 | disposition home or self-care (01) ==
LOC: HO.MAMMO 12:56
PROVIDERS: PCP Internal Medicine; Visit Provider Internal Medicine
DX: Z12.31 Encounter for screening mammogram for malignant neoplasm of breast (principal)
CPT/HCPCS: 77063; 77067

== ENCOUNTER → 2025-02-21 13:00 | Outpatient (BNV) | payer OTHER, SELFPAY | PROVIDERS: PCP Internal Medicine; Visit Provider Internal Medicine | DX: Z12.31 Encounter for screening mammogram for malignant neoplasm of breast (principal) | CPT/HCPCS: 77063; 77067 ==

== ENCOUNTER 2025-02-24 07:59 | Outpatient (REF) | payer OTHER, SELFPAY ==
--- NOTE | ~2025-02-24 | FL_ITS ---
EXAMINATION: FL GUIDANCE ONLY HISTORY: M48.02 - Spinal stenosis, cervical region COMPARISON: None available. TECHNIQUE: Fluoroscopy time: 0.2 minutes. Cumulative Dose: 1.27 mGy. DAP: 0.38099 mGym2 Images: 2. FINDINGS: Images demonstrate a needle in the right neck. FL/FL guidance in treatment room IMPRESSION: Fluoroscopy during procedure. Please see procedure report for additional information. Electronically signed by: Tony Mac MD 02/25/2025 07:29 AM EDT
--- OUTSIDE RECORDS SUMMARY | 2025-02-24 08:04 | XMS_ITS | Clinical Summary ---
Author Organization [facility] ity Address [address] [place] [address] Care Team Providers Care Rhinologist Name Role Phone Unavailable Primary Care Provider [...]
== END 2025-02-24 08:00 | disposition home or self-care (01) ==
LOC: CF 07:59
PROVIDERS: Visit Provider Internal Medicine
DX: M48.02 Spinal stenosis, cervical region (principal); M54.12 Radiculopathy, cervical region
CPT/HCPCS: 62321; J1100; J2003; Q9967

== ENCOUNTER 2025-02-24 11:23 | Outpatient (AMB) | payer OTHER, SELFPAY ==
[2025-02-24 11:29] VITALS: BP 134/82; PULSE 85; RESP 16; O2SAT 98
--- NOTE | 2025-02-24 11:29 | MHC.OFFVIS ---
Vital Signs 02/24/25 11:29 02/24/25 12:23 BP 134/82 117/82 Blood Pressure Location Lt brachial Lt brachial Position Sitting Sitting Respiration 16 16 Pulse 85 80 Pulse Source Pulse Oximeter Pulse Oximeter Pulse Oximetry (%) 98 98 Oxygen Delivery Method Room Air Room Air Intake Visit Reasons: Right C5-C6 parasagittal interlaminar ADDI/ Ativan Fishing Guide Required: No Allergies NSAIDS (Non-Steroidal Anti-Inflamma Adverse Reaction (Mild, Verified 02/24/25 11:30) ulcer Medication List - Last Reconciled 02/24/25 by Meghann James LPN acetaminophen ER (Tylenol 8 Hour) 650 mg PO Q12H PRN albuterol sulfate 0.63 mg (3 mL) inhalation Q4-6H PRN docusate sodium 100 mg PO DAILY lorazepam (Ativan) 1 mg PO ONCE pantoprazole 40 mg PO DAILY polyethylene glycol 3350 17 grams PO BID simethicone (Gas Relief (simethicone)) 80 mg PO BID-QID PRN Ventolin HFA 90 mcg/actuation (albuterol sulfate) 2 puffs inhalation Q6H PRN 30 days NS HPI HPI Right C5-C6 parasagittal interlaminar ADDI/ Ativan: Details: Patient presents for scheduled procedure. Denies any recent cough, cold, infection, fever or other significant changes in medical history since last office visit. [facility] Medical History (Updated 01/24/25 @ 11:14 by Petty Bartlett NP) Osteophyte of cervical spine Cough in adult Transaminitis Obesity (BMI 35.0-39.9 without comorbidity) Renal calculi Class 1 obesity due to excess calories with body mass index (BMI) of 34.0 to 34.9 in adult Hammertoe of left foot Bunion, left Neck pain Cervical radiculopathy Occipital headache Bronchial asthma Surgical History History of esophagogastroduodenoscopy (EGD) Hx of breast reduction, elective delivery delivered Hx of hernia repair Family History Mother Hypertension Alzheimer disease Father Alzheimer disease Brother Alzheimer disease Social History Housing: House Alcohol intake: former Patient Tobacco Use Status: Current everyday Tobacco user Tobacco use type: Cigarette Cigarettes Per Day: 2 Years Smoked: 15 e-Cigarette/Vaping Use: Never Used Second Hand Smoke Exposure: Yes service: No Current occupational status: employed 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 [employer] Current occupational exposures/hazards: No Sexual orientation: Straight/Heterosexual Gender identity: Female Cognitive needs: No Hearing needs: No Vision needs: No Physical Exam Vital Signs: Last Vital Signs Pulse 80 02/24/25 12:23 Resp 16 02/24/25 12:23 BP 117/82 02/24/25 12:23 Pulse Ox 98 02/24/25 12:23 Oxygen Delivery Method Room Air 02/24/25 12:23 Office Procedures AMB Joint Injection/Aspiration Joint Injection/Aspiration Details: Interlaminar epidural steroid injection, C5-6, right parasaggital After obtaining written consent, pre-procedure blood pressure and heart rate were stable and recorded in the nursing record. The patient was placed in the prone position. The cervical area was widely prepped with chloraprep and draped in sterile fashion. Fluoroscopic guidance was used to identify the desired interlaminar space and for needle placement. Subcutaneous 0.5% lidocaine was used to anesthetize the skin overlying the target. A 20-gauge Trevino needle was advanced to the epidural space using loss of resistance to contrast technique under fluoroscopic AP and contralateral oblique views. There was no evidence of heme or CSF and no paresthesias were elicited with needle placement. Confirmation of epidural needle placement was performed with 1cc of omnipaque 180. Next 3 ml 0.5% lidocaine mixed with dexamethasone 10 mg was administered epidurally with no pain elicited on injection. The needle tract tubing was then cleared with 1 ml of 0.5% lidocaine. The needle was removed, skin cleansed and a sterile bandage was applied. The patient tolerated the procedure well and no complications were encountered. Following the procedure the patient's vital signs were stable. The patient was discharged home in good condition with post-procedural instructions. Time Out: Immediately prior to the procedure, the following was verbally confirmed that there is a signed consent form and that the correct patient, planned procedure, site and side are consistent with documentation and that necessary equipment and/or blood products are available prior to the start of the case. Complications: none EBL: <2 cc Coding 32450 - Cervical Epidural/Interlaminar with fluoroscopy Procedure code (CPT) selection complete Assessment & Plan Assessment & Plan (1) Cervical radiculopathy: Code(s): M54.12 - Radiculopathy, cervical region Category: Medical Plan Patient is status post right parasagittal interlaminar C5-6 ADDI. Patient tolerated procedure well and was discharged home in stable condition with discharge instructions. All questions were answered. We will follow-up via telephone or in clinic to assess response to therapy. A follow-up appointment was made during today's visit. Orders: Orders FL guidance in treatment room Today M48.02 - Spinal stenosis, cervical region Medications: New lorazepam (Ativan) Take 30 minutes prior to arrival to procedure 1 mg PO ONCE 1 tab 0RF anxiety Coding Level of Care Code Procedure Only Diagnoses Cervical radiculopathy M54.12 CPT Codes Coding - Joint 10: 74684 - Cervical Epidural/Interlaminar with fluoroscopy ([id number])
[2025-02-24 12:23] VITALS: BP 117/82; PULSE 80; RESP 16; O2SAT 98
--- OUTSIDE RECORDS SUMMARY | 2025-02-24 12:40 | XMS_ITS | Clinical Summary ---
Author Organization [facility] ity Address [address] [place] [address] Care Team Providers Care Mask Layout Designer Name Role Phone Unavailable Primary Care Provider [...]
== END 2025-02-24 12:25 | disposition home or self-care (01) ==
LOC: HO.PMCPRC 11:23
PROVIDERS: PCP Internal Medicine; Visit Provider Internal Medicine
DX: M54.12 Radiculopathy, cervical region (principal)
CPT/HCPCS: 62321

== ENCOUNTER → 2025-03-23 13:23 | Outpatient (BNVA) | payer OTHER, SELFPAY | PROVIDERS: PCP Internal Medicine; Visit Provider Physician Assistant Surgical ==

== ENCOUNTER 2025-03-24 09:58 | Outpatient (AMB) | payer OTHER, SELFPAY ==
--- NOTE | 2025-03-24 09:59 | MHC.OFFVIS ---
Vital Signs 03/24/25 10:02 Height 4 ft 11 in Weight 164 lb BMI 33.1 BP 125/75 Blood Pressure Location Rt brachial Position Sitting Pulse 90 Pulse Source Pulse Oximeter Pulse Oximetry (%) 100 Oxygen Delivery Method Room Air Intake Visit Reasons: RIGHT C5, C6 PARASAGITTAL INTERLAMINAR ADDI Intake Note: Pain today 08/03 Dynamics Ax Consultant Required: No Accompanied by: Self / Same As Patient Allergies NSAIDS (Non-Steroidal Anti-Inflamma Adverse Reaction (Mild, Verified 03/24/25 10:02) ulcer HPI Comments Details: The patient is a 54-year-old female presenting with persistent cervical radiculopathy and chronic axial neck pain. She underwent a right parasagittal interlaminar C5-6 ADDI on 02/24/[address] Sandhu with no pain relief noted post-procedure. Patient reports frustration and lack of relief from symptoms post intervention as pain negatively affects her daily functioning, mobility, range of motions, mood, social activities and work. Initially after injection, brief improvement was observed per patient, but symptoms returned. She also reports ongoing swelling at the right sternoclavicular joint area with mild tenderness. She was seen for this at [facility] on 01/24/25 and was told swelling was related to cervical disc bone spurs. Patient is planning to further follow up with her PCP. While multilevel cervical disc osteophyte complexes seen on recent and previous imaging can cause pain and discomfort in posterior neck and upper back, they do not directly cause swelling at the sternoclavicular joint. For her chronic multifactorial neck pain, she underwent past interventions including medial branch blocks and a partially effective radiofrequency ablation. Her symptoms indicate chronicity and resistance to previous treatments. Given ongoing concerns for right sided radiculopathy we will proceed with Neurosurgical evaluation. Past Procedures: 02/24/25: Right parasagittal interlaminar C5-6 ADDI-0% pain relief 11/11/24: Right C4-C5-C6 MBB-0% pain relief 11/13/22: Right C3-C4 MB RFA- 50% pain relief for 10 months 05/03/22: Diagnostic Right C3-C4-C5-C6 MBBs with Bupivicaine-100% pain relief for 2 days 02/12/22: Diagnostic Right C3-C4-C5-C6 MBBs with Lidocaine-100% pain relief for 3 hours PRIOR: Patient presents today via telehealth encounter for follow-up to discuss recent cervical spine MRI results. She continues to endorse persistent neck pain with radicular symptoms. Denies any recent trauma, injury, or falls. Cervical extension reproduces significant pain rated 8-9/10, flexion 6/10 and lateral rotations on the left 8-9/10 and right side at 7/10. Reports frequent pressure headaches due to neck pain. Patient reports neck pain radiates to the right arm with numbness and tingling in her right thumb, 2nd and 3rd digits. She avoids lifting heavy weights for objects due to neck pain. She is able to do her usual work but with significant pain. Reports lot of difficulty concentrating with headache and neck pain. Her sleep is disturbed as well and is significantly limited. She can drive but with moderate neck pain and has difficulty turning to the sides. Pain also affects her social interactions and negatively affects her quality of life. Patient avoids NSAIDs due to h/o gastric ulcers and gastric bypass. Reports no pain relief with heat therapy, activity modifications, Tylenol for muscle relaxants. She is considering medical marijuana for pain and sleep. Denies any fever or chills, dizziness, shortness of breath, chest pain, gait disturbance, bladder or bowel dysfunction or saddle anesthesia. Reports intermittent right upper extremity weakness. She has history of right shoulder OA but denies any significant right shoulder today. PRIOR: Patient presents today to assess response to therapeutic Right C4-C5-C6 MBB on 11/11/[address] Sandhu. Patient reports 0% pain relief since procedure. She reports worsening right sided neck pain with radiation into her right side of the head, shoulder and into right upper extremity with associated numbness, tingling and weakness. Patient reports she had partial discomfort in axial cervical spine symptoms for one day after injections. She is concerned for progression of her neck pain with right sided radiculopathy. Pain increases with movements, lifting, pulling, cervical spine flexion, overhead reaching activities, driving, working, and stress. Denies significant right shoulder pain. Reports cervicogenic headaches. Reports no pain relief with Tylenol, NSAIDs, topical applications, baclofen, Flexeril and tizanidine. Her right shoulder xray was taken on 10/11/24 with pending results. Denies any recent cough, cold, infection, fever or other significant changes in medical history since last office visit. Past Procedures: 11/11/24: Right C4-C5-C6 MBB-0% pain relief 11/13/22: Right C3-C4 MB RFA- 50% pain relief for 10 months 05/03/22: Diagnostic Right C3-C4-C5-C6 MBBs with Bupivicaine-100% pain relief for 2 days 02/12/22: Diagnostic Right C3-C4-C5-C6 MBBs with Lidocaine-100% pain relief for 3 hours PRIOR: Disha is a pleasant 51-year-old female who presents to the office with complaints of neck pain. She reports the pain is mostly right sided, radiates up to the top of the head and to the shoulder with associated tingling and pressure. She reports this has been present for the past 5-6 years as well as being off balance occasionally. She was evaluated by Neurology which resulted in no significant findings. She was then referred to Dr. Jeffers, which she is under the care of now. He had referred her to [facility] to address facet mediated pain. After evaluation it sounds like they addressed her myofascial pain with trigger point injections on 10/11/21 instead facet joint injections/MBB, as requested by Dr. Jeffers. She notes no relief with the trigger point injection and about 2 days after the injections she began to have numbness and tingling radiating down her right upper extremity. She was then evaluated in the emergency room and had a cervical spine MRI which revealed a pocket of fluid at C1-C2 . She reports she was then hospitalized overnight with antibiotics and released the next day. She denies a follow-up MRI in still has persistent paresthesias of the right upper extremity which radiate into all fingers. She reports pain onset was gradual, constant and rates the pain a 10/10. She states the pain is interfering with sleep, activities of daily living and she cannot function normally. The patient reports the pain in terms of tissue damage as stabbing, sharp, burning as well tingling and tired. The pain is not dependent on any specific activity but does know an increase in discomfort with lateral rotation and extension of the neck. She has attempted physical therapy as well as massage in the past with no alleviation in symptoms. She has been performing gentle stretching with some relief. She has also tried Tylenol, NSAIDs, lidocaine compound, heat and ice with no improvements. In the past she has tried gabapentin but it resulted in significant drowsiness so she discontinued. She denies any chiropractic manipulation, massage or acupuncture. Denies any previous neck surgery. [facility] Medical History Osteophyte of cervical spine Cough in adult Transaminitis Obesity (BMI 35.0-39.9 without comorbidity) Renal calculi Class 1 obesity due to excess calories with body mass index (BMI) of 34.0 to 34.9 in adult Hammertoe of left foot Bunion, left Neck pain Cervical radiculopathy Occipital headache Bronchial asthma Surgical History History of esophagogastroduodenoscopy (EGD) Hx of breast reduction, elective delivery delivered Hx of hernia repair Family History Mother Hypertension Alzheimer disease Father Alzheimer disease Brother Alzheimer disease Social History Housing: House Alcohol intake: former Patient Tobacco Use Status: Current everyday Tobacco user Tobacco use type: Cigarette Cigarettes Per Day: 2 Years Smoked: 15 e-Cigarette/Vaping Use: Never Used Second Hand Smoke Exposure: Yes service: No Current occupational status: employed 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 - Neurological: Reports anterior neck swelling and persistent symptoms. - General: Denies improvement post-intervention. All systems reviewed & are unremarkable except as noted in HPI and below Physical Exam Vital Signs: Last Vital Signs Pulse 90 03/24/25 10:02 BP 125/75 03/24/25 10:02 Pulse Ox 100 03/24/25 10:02 Oxygen Delivery Method Room Air 03/24/25 10:02 BMI result Body Mass Index 33.1 On exam today: Appears afebrile. Alert and oriented. Mood and affect appropriate. Follows and participates in conversation appropriately. Respiratory effort is unlabored. No cough. Able to transition from sit to stand unassisted. Ambulates with bilaterally normal heel strike and toe off. Able to stand and walk on toes and heels. Neck Other: Moderately decreased cervical ROM in all planes especially with right lateral rotation and flexion.?Spurling compression test elicited pain throughout the lower cervical spine. Elvey's tension test is positive on the right. Neck: Yes normal visual inspection, Yes supple, Yes anterior neck swelling (right sternoclavicular joint area with mild TTP), Yes no JVD, Yes prominent supraclavicular fat pad (right) and Yes prominent dorsocervical fat pad Back/Spine/Pelvis Cervical Spine: No Lhermitte's sign positive, cervical muscular tenderness, pain with cervical ROM, No Cervical spine scars present, cervical spasm and No Cervical spine tenderness Extrem General: Yes capillary refill normal, Yes no clubbing, cyanosis or edema and Yes no calf tenderness Results Reviewed Results Reviewed: MRI cervical spine without contrast 01/11/25 Comparison: 01/02/2023 Findings: Trace anterolisthesis of C3 on C4 without change. Remaining alignment is appropriate. There is mild reversal of lordosis without change. There are degenerative type endplate marrow changes at C5-C6 and C6-C7, similar to the prior study. The cervical spinal cord is normal in size and signal intensity. C2-C3: No significant disc disease. Mild facet osteoarthritis. No significant narrowing of the central canal or neural foramina. C3-C4: Mild uncovering of the posterior disc margin. No herniation. Severe right-sided facet osteoarthritis and moderate left-sided facet osteoarthritis without change. Very mild central canal narrowing without change. Moderate narrowing of the right neural foramen. Mild narrowing of the left neural foramen. C4-C5: Moderate disc osteophyte complex with mild thecal sac effacement without change. Mild facet osteoarthritis. Mild narrowing of the right neural foramen. No significant narrowing of the left neural foramen. C5-C6: Moderate disc osteophyte complex with mild thecal sac effacement without change. Bilateral facet osteoarthritis, right more pronounced than left without change. Moderately severe narrowing of the right neural foramen and mild narrowing of the left neural foramen without change. C6-C7: Small disc osteophyte complex with minimal thecal sac effacement. Mild narrowing of bilateral neural foramina. C7-T1: Normal Visualized soft tissues are unremarkable. Impression: 1. Multilevel spondylosis and facet osteoarthritis with associated central canal and neural foraminal narrowing as described, unchanged since the prior study. XR CERVICAL SPINE 02/11/21 CLINICAL INFORMATION: Radiculopathy COMPARISON: 03/27/2016 TECHNIQUE: 3 views of the cervical spine were obtained. FINDINGS: There is no acute fracture or subluxation. Vertebral body height and alignment is maintained. Disc space narrowing of C4-C5, C5-C6, and C6-C7 with endplate osteophyte formation. The atlantoaxial joint is well aligned. The dens is intact. The prevertebral soft tissues are unremarkable. The lung apices are clear. IMPRESSION: Mild to moderate degenerative changes of the mid cervical spine. Assessment & Plan Assessment & Plan (1) Cervical radiculopathy: Code(s): M54.12 - Radiculopathy, cervical region Category: Medical (2) Occipital neuralgia of right side: Code(s): M54.81 - Occipital neuralgia Category: Medical (3) Cervical stenosis of spine: Code(s): M48.02 - Spinal stenosis, cervical region Category: Medical Plan Referral to a neurosurgeon is recommended due to the inefficacy of the recent epidural steroid injection and other prior interventions in addressing cervical radiculopathy and arthritis. Considering possible spinal cord stimulation therapy for future intervention as part of managing chronic symptoms. Patient will follow up with PCP needing further discussion and evaluation for persistent anterior neck swelling at the sternoclavicular joint. She was seen for this at [facility] on 01/24/25. While multilevel cervical disc osteophyte complexes seen on recent and previous imaging can cause significant pain and discomfort in posterior neck and upper back, they do not directly cause swelling at the sternoclavicular joint. Work note provided today per patient's request. All questions and concerns have been answered and patient agreed with the plan. Follow up as needed. Patient was informed and verbally consented to the use of an ambient scribe for clinic note documentation during this visit. Orders: Referrals Neuro Spine Referral M48.02 - Spinal stenosis, cervical region, M54.12 - Radiculopathy, cervical region Patient Instructions: - Follow up with neurosurgical consultation for further evaluation regarding persistent cervical radiculopathy. - Coordinate with primary care to further evaluate right anterior neck swelling. - Monitor symptoms and report any changes or new developments to healthcare providers. Coding Level of Care Code Est Pt Level 4 (41870) Complex EM visit Add On G2211 Diagnoses Cervical radiculopathy M54.12 Occipital neuralgia of right side M54.81 Cervical stenosis of spine M48.02
[2025-03-24 10:02] VITALS: BP 125/75; PULSE 90; O2SAT 100; BMI 33.1
--- OUTSIDE RECORDS SUMMARY | 2025-03-24 11:10 | XMS_ITS | Clinical Summary ---
Author Organization [facility] ity Address [address] [place] [address] Care Team Providers Care Fabrication Supervisor Name Role Phone Unavailable Primary Care Provider [...] - 2023-2 5 season) 2024 Influenza Vaccine (Season Ended) 2025 HIB Vaccines Aged Out No longer eligi [...] age to complete this topic Meningococcal B Vaccine Aged Out No l onger eligible based on patient's age to complete [...]
== END 2025-03-24 10:11 | disposition home or self-care (01) ==
LOC: HO.PMC 09:58
PROVIDERS: PCP Internal Medicine; Visit Provider Nurse Practitioner Family
DX: M54.12 Radiculopathy, cervical region (principal); M54.81 Occipital neuralgia; M48.02 Spinal stenosis, cervical region
CPT/HCPCS: 99214

== ENCOUNTER → 2025-03-24 09:58 | Outpatient (BNVA) | payer OTHER, SELFPAY | PROVIDERS: PCP Internal Medicine; Visit Provider Nurse Practitioner Family ==

== ENCOUNTER 2025-03-29 11:56 | Outpatient (AMB) | payer OTHER, SELFPAY ==
--- NOTE | 2025-03-29 12:01 | A.OFFVIS_ITS ---
VS Expanded 03/29/25 12:14 BP 126/77 Blood Pressure Location Rt brachial Blood Pressure Position Sitting Pulse 112 H Pulse Source Pulse Oximeter Temp 96.7 F L Temperature Source Temporal Artery Scan Pulse Oximetry 97 Oxygen Delivery Method Room Air Height 4 ft 11 in Weight 171 lb 6.4 oz BMI 34.6 Body Fat % 40.9 Body Fat Mass 70.2 Fat Free Mass 101.2 Visceral Fat Rating 11.0 Body Water % 42.0 Body Water Mass 71.8 Muscle Mass/Score 96.2 Basal Metabolic Rate/Score 1,403 Intake Visit Reasons: (OV) F/U ANASTOMOTIC ULCER Allergies NSAIDS (Non-Steroidal Anti-Inflamma Adverse Reaction (Mild, Verified 03/29/25 12:07) ulcer Medication List - Last Reconciled 03/29/25 by ELDA Kinney acetaminophen ER (Tylenol 8 Hour) 650 mg PO Q12H PRN albuterol sulfate 0.63 mg (3 mL) inhalation Q4-6H PRN docusate sodium 100 mg PO DAILY lorazepam (Ativan) 1 mg PO ONCE pantoprazole 40 mg PO DAILY polyethylene glycol 3350 17 grams PO BID simethicone (Gas Relief (simethicone)) 80 mg PO BID-QID PRN Ventolin HFA 90 mcg/actuation (albuterol sulfate) 2 puffs inhalation Q6H PRN 30 days NS Zepbound (tirzepatide (weight loss)) 2.5 mg (0.5 mL) subcut QWEEK NS HPI Comments Details: Pt is seen in followup for marginal ulcer. She is s/p open RYGB 20+ years ago done at [facility] Also history of obstruction requiring surgery about 10 years ago at [facility]. She underwent endoscopy for complaints of abdominal pain, 04/23/2023 which revealed GJ anastomotic ulcer. She was placed on a liquid protein diet, PPI and carafate. Repeat endoscopy performed 07/02/2023 and showed no ulcer. She has stopped carafate. Reports no issues with abdominal pain. Pt has gained 6.6 lbs since last OV in 12/2024. Was prescribed Zepbound and finally received 3 days ago. Did not take first dose yet. Plans to start next Friday. Was placed on a meal plan per Dr. Underwood with 2 shakes Premier, 1/2 scoop for one shake and 1 scoop in another, one yogurt with fruit, and one meal with 4 forks protein/4 forks salad. Takes stool softener and Miralax which helps with regular BMs. PFSH Medical History Osteophyte of cervical spine Cough in adult Transaminitis Obesity (BMI 35.0-39.9 without comorbidity) Renal calculi Class 1 obesity due to excess calories with body mass index (BMI) of 34.0 to 34.9 in adult Hammertoe of left foot Bunion, left Neck pain Cervical radiculopathy Occipital headache Bronchial asthma Surgical History History of esophagogastroduodenoscopy (EGD) Hx of breast reduction, elective delivery delivered Hx of hernia repair Family History Mother Hypertension Alzheimer disease Father Alzheimer disease Brother Alzheimer disease Social History Housing: House Alcohol intake: former Patient Tobacco Use Status: Current everyday Tobacco user Tobacco use type: Cigarette Cigarettes Per Day: 2 Years Smoked: 15 e-Cigarette/Vaping Use: Never Used Second Hand Smoke Exposure: Yes service: No Current occupational status: employed 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 Discussed need for adequate protein intake while on GLP1s as well as frequent communication with our office. Pt will check in with me weekly and is aware that subsequent Rx will be dependent on frequent communication. RTC 3mo. Medications: Refilled pantoprazole 40 mg PO DAILY 90 tabs 3RF docusate sodium 100 mg PO DAILY 90 caps 3RF
[2025-03-29 12:14] VITALS: BP 126/77; PULSE 112; TEMP 35.9; O2SAT 97; BMI 34.6
--- OUTSIDE RECORDS SUMMARY | 2025-03-29 13:32 | XMS_ITS | Clinical Summary ---
Author Organization [facility] ity Address [address] [place] [address] Care Team Providers Care Technical Sales Representative Name Role Phone Unavailable Primary Care Provider [...]
== END 2025-03-29 12:30 | disposition home or self-care (01) ==
LOC: HO.HBS 11:57
PROVIDERS: PCP Internal Medicine; Visit Provider Physician Assistant Surgical
DX: E66.9 Obesity, unspecified (principal); Z98.84 Bariatric surgery status
CPT/HCPCS: 99214

== ENCOUNTER 2025-04-04 12:56 | Outpatient (REF) | payer OTHER, SELFPAY ==
--- NOTE | ~2025-04-04 | XR_ITS ---
EXAMINATION: XR CERVICAL SPINE CLINICAL INFORMATION: M47.812 - Spondylosis without myelopathy or radiculopathy, cervical region COMPARISON: February 21, 2021. TECHNIQUE: 6 views of the cervical spine, inclusive of flexion and extension views, were obtained. FINDINGS: Craniocervical junction is intact with normal alignment. There is a grade 1 anterolisthesis C3-4 which persists during flexion and extension. There is endplate sclerosis marginal osteophyte formation and decreased intervertebral disc height and complications in the anterior intervertebral discs, C5-6 and to a lesser extent C6-7 levels. Reverse curvature apex at C3-4. There is a 1 mm anterolisthesis during flexion position and 1 mm retrolisthesis during extension position at C4-5. Upper airways patent. No lytic or blastic lesions. XR/XR cervical spine 4V IMPRESSION: Multilevel cervical spondylosis C4 C7 accentuated head C5-6 with a grade 1 anterolisthesis C3-4 without instability and likely instability at C4-5 during flexion and extension position which reduces in neutral. Electronically signed by: Alejandro Vazquez MD 04/04/2025 02:32 PM EDT
--- OUTSIDE RECORDS SUMMARY | 2025-04-04 13:55 | XMS_ITS | Clinical Summary ---
Author Organization [facility] ity Address [address] [place] [address] Care Team Providers Care Business Performance Specialist Name Role Phone Unavailable Primary Care Provider [...]
== END 2025-04-04 12:57 | disposition home or self-care (01) ==
LOC: HO.HOSX 12:56
PROVIDERS: PCP Internal Medicine; Referring Provider Nurse Practitioner Family; Visit Provider Physician Assistant
DX: M54.12 Radiculopathy, cervical region (principal); M47.812 Spondylosis without myelopathy or radiculopathy, cervical region
CPT/HCPCS: 72050

== ENCOUNTER 2025-04-04 12:56 | Outpatient (AMB) | payer OTHER, SELFPAY ==
[2025-04-04 13:02] VITALS: BMI 34.1
--- NOTE | 2025-04-04 13:02 | HO.SPINEOV ---
Vital Signs 04/04/25 13:02 Height 4 ft 11 in Weight 169 lb BMI 34.1 Intake Visit Reasons: cervical radiculopathy Intake Note: Ms. Knight is here today c/o neck pain. Regulatory Law Specialist Required: No Allergies NSAIDS (Non-Steroidal Anti-Inflamma Adverse Reaction (Mild, Verified 04/04/25 13:03) ulcer Physical Exam Vital Signs: BMI result Body Mass Index 34.1 Assessment & Plan Assessment & Plan (1) Cervical radiculopathy: Code(s): M54.12 - Radiculopathy, cervical region Category: Medical Plan Dear Catina, Thank you for referring Disha to our office today. She is a pleasant 54-year-old female who comes in today with a chief complaint of neck pain and right shoulder pain. She reports that this has been ongoing for the past 10 years, but has worsened in severity over the course of the last couple of years. She denies any known inciting incident for the pain. She does report that she gets occasional pain over the dorsal surface of her right forearm, but denies any shooting pains originating from the neck. in addition to this she does report that her right hand experiences diffuse intermittent numbness/ tingling. She is unable to identify any fingers that are specifically more involved than others. 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 She denies any issues with ambulation or balance. She is currently taking Tylenol to help mitigate some of her pain, in has also used several different [id number] remedies in an effort to help treat her pain, including pain patches, gels, and pain creams. She has been to physical therapy, which he states was not helpful for treating her pain. She is followed by our colleagues in pain management and most recently?reported no pain relief with recent right parasagittal interlaminar C5-6 ADDI, and report no significant relief with RFA.? PMH: History of 3 previous section surgeries, history of tonsillectomy, history of gastric bypass, history of hernia repair. Anxiety, GERD, Asthma, obesity. Social hx: The patient does not smoke, reports no substance use. Medications: See [employer] list. Allergies: NSAIDs. Physical exam: The patient has a large bone spur growing out of the clavicular head on the right-hand side. This can be seen grossly on exam and is easily palpated without pain to the patient. The patient has 5/5 strength in her upper and lower extremities. She ambulates well with a nonantalgic non spastic gait. She rises from a seated position without much difficulty in his able to get up onto the examination table without issue. She reports diffuse hypoesthesia to light touch over the right hand, but denies sensational issues elsewhere. Her reflexes are 1+ hypoactive bilaterally in the patella, 2+ intact elsewhere. (-) Bilateral Rivera's, (-) clonus, (-) bilateral straight leg raise, (-) Tinel's at wrist. Imaging review: MRI of the cervical spine completed here at [facility] shows straightening of the normal cervical lordosis. There is a grade 1 spondylolisthesis is seen at C3-4, with associated mild left-sided and moderate right-sided foraminal stenosis at this level. There is moderate-severe degenerative disc disease at C5-6, C6-7. There is moderate-severe right sided formainal stenosis at C5-6, and moderate left sided foraminal stenosis at C6-7. No notable T2 signal change or evidence for myelomalacia. Impression: Pleasant 54-year-old female who comes in today with a chief complaint of right-sided neck and shoulder pain. She also reports some intermittent pains over her right dorsal forearm, and states that her hand will intermittently feel numb. She denies any known inciting incident for her symptoms, but does specify that they have worsened fairly significantly over the course of the last couple of years. In regards to the patient's right-sided shoulder neck pain, this very well could be originating from her cervical spine given the listhesis seen at C3-4 and the compression seen on the right-hand side at C5-6. Given this, I would have expected the right-sided C5-6 epidural steroid injection completed by our colleagues in pain management to have provided some relief of her pain if this were the causative segment. She certainly has pathology seen on her imaging that could be treated surgically, however I am not completely sold that any one specific issue is the definite causative agent for her pain. She may have some underlying shoulder issue contributing or causing her pain. It is also possible that she is suffering from carpal tunnel syndrome concurrently. I would like to send the patient for an EMG to determine if she does have an actual cervical radiculopathy, or a nerve impingement elsewhere. I would like her to follow up with Dr. Alcala after this to discuss surgical recommendations. Thank you for allowing us to care for your patient. The total time spent with this visit with this patient was 45 minutes reviewing history, physical exam, MRI imaging review, and implementation of treatment plan or further diagnostic testing Dakotah Alcala MD,PhD [facility] Orders: Orders XR cervical spine 4V Today M47.812 - Spondylosis without myelopathy or radiculopathy, cervical region NE electromyogram (EMG) Today M54.12 - Radiculopathy, cervical region Coding Level of Care Code New Pt Level 4 (08806) Diagnoses Cervical radiculopathy M54.12
== END 2025-04-04 13:52 | disposition home or self-care (01) ==
LOC: HO.HNS 12:57
PROVIDERS: PCP Internal Medicine; Referring Provider Nurse Practitioner Family; Visit Provider Physician Assistant
DX: M54.12 Radiculopathy, cervical region (principal)
CPT/HCPCS: 99204

== ENCOUNTER → 2025-04-04 13:43 | Outpatient (BNV) | payer OTHER, SELFPAY | PROVIDERS: PCP Internal Medicine; Referring Provider Nurse Practitioner Family; Visit Provider Radiology Diagnostic Radiology | DX: M47.812 Spondylosis without myelopathy or radiculopathy, cervical region (principal) | CPT/HCPCS: 72050 ==

== ENCOUNTER 2025-04-13 09:26 | Emergency (ER) | payer OTHER, SELFPAY ==
[2025-04-13 09:31] VITALS: BP 106/69; PULSE 100; RESP 18; TEMP 36.3; O2SAT 97; BMI 33.9
--- NOTE | 2025-04-13 11:28 | ED_ITS ---
HPI - Back Pain/Injury General Chief Complaint: Back Pain/Injury Stated Complaint: Back Pain, R Hip Pain, R Leg Pain Time Seen by Provider: 04/13/25 11:09 Source: patient Mode of arrival: ambulatory History of Present Illness ED Provider: HPI Narrative: 54-year-old female with history of back issues, presenting with right lower extremity pain from the buttock area down to her knee along her ITB on the right side, no abdominal pain, no flank pain, no hematuria, dysuria, no numbness in the groin, no loss of bowel or bladder function, denies history of IV drug use or recent instrumentation to the lower back. History of gastric bypass, currently takes medications for weight loss-Zepbound. Pertinent past history: prior back pain Related Data Previous Rx's ?Medication ?Instructions ?Recorded acetaminophen 650 mg 650 mg PO Q12H PRN pain #30 tabs 12/08/23 tablet,extended release (Tylenol 8 Hour) Ventolin HFA 90 mcg/actuation 2 puff inhalation Q6H PRN 07/08/24 aerosol inhaler (albuterol sulfate) shortness of breath or wheezing 30 days #18 grams albuterol sulfate 0.63 mg/3 mL 0.63 mg (3 mL) inhalation Q4-6H 07/08/24 solution for nebulization PRN bronchospasm #90 mL polyethylene glycol 3350 17 17 g PO BID #850 grams 01/18/25 gram/dose oral powder simethicone 80 mg chewable tablet 80 mg PO BID-QID PRN abdominal 01/19/25 (Gas Relief (simethicone)) distention #90 tabs lorazepam 1 mg tablet (Ativan) 1 mg PO ONCE anxiety #1 tab 02/17/25 Zepbound 2.5 mg/0.5 mL 2.5 mg (0.5 mL) subcut QWEEK #2 mL 03/10/25 subcutaneous pen injector (tirzepatide (weight loss)) docusate sodium 100 mg capsule 100 mg PO DAILY #90 caps 03/29/25 pantoprazole 40 mg tablet,delayed 40 mg PO DAILY #90 tabs 03/29/25 release lidocaine 4 % topical patch 1 patch topical DAILY PRN pain #10 04/13/25 (Aspercreme (lidocaine)) ea methylprednisolone 4 mg tablets in 4 mg PO DAILY #21 ea 04/13/25 a dose pack (Medrol (Donal)) oxycodone 5 mg tablet 5 mg PO Q6H PRN pain #10 tabs 04/13/25 sucralfate 1 gram tablet (Carafate) 1 g PO Q6H 7 days #28 tabs 04/13/25 Allergies Allergy/AdvReac Type Severity Reaction Status Date / Time NSAIDS (Non-Steroidal AdvReac Mild ulcer Verified 04/13/25 09:31 Anti-Inflamma Review of Systems Constitutional: Constitutional: Reports as per HPI [facility] Past Medical History Medical History Osteophyte of cervical spine Cough in adult Transaminitis Obesity (BMI 35.0-39.9 without comorbidity) Renal calculi Class 1 obesity due to excess calories with body mass index (BMI) of 34.0 to 34.9 in adult Hammertoe of left foot Bunion, left Neck pain Cervical radiculopathy Occipital headache Bronchial asthma Surgical History History of esophagogastroduodenoscopy (EGD) Hx of breast reduction, elective delivery delivered Hx of hernia repair Family History Family History Mother Hypertension Alzheimer disease Father Alzheimer disease Brother Alzheimer disease Social History Social History Housing: House Alcohol intake: former Patient Tobacco Use Status: Current everyday Tobacco user Tobacco use type: Cigarette Cigarettes Per Day: 2 Years Smoked: 15 Smoked in Last 30 Days: No e-Cigarette/Vaping Use: Never Used Second Hand Smoke Exposure: Yes Use of substances other than those prescribed or required for medical reasons: No Advance Directives: No Advance Directives Information Provided: Yes Do you have a plan to hurt others: No Plan Patient : No service: No Current occupational status: employed 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 [employer] Current occupational exposures/hazards: No Sexual orientation: Straight/Heterosexual Gender identity: Female Cognitive needs: No Hearing needs: No Vision needs: No Physical Exam Vital Signs: Vital Signs: Last Vital Signs Temp 97.4 F 04/13/25 09:31 Pulse 100 04/13/25 09:31 Resp 18 04/13/25 09:31 BP 106/69 04/13/25 09:31 Pulse Ox 97 04/13/25 09:31 O2 Del Method Room Air 04/13/25 09:31 BMI result Body Mass Index 33.9 Const: Other: * Gen: ?Overall well-appearing patient * HEENT: PERRLA, EOMI, MMM, * Neck: No tenderness no step-offs * MSK: FROM, strength 5/5 all extremities, she has tenderness along her greater trochanter and ITB down past the insertion of the knee, no sensory deficits no motor deficits L2-S1, no midline back tenderness no paraspinal tenderness no rashes no CVA tenderness * Skin: Warm, dry, intact, * Neuro: ?Alert and oriented x3, moving upper and lower extremities symmetrically, no obvious facial asymmetry noted Medical Decision Making Medical Decision Making MDM Narrative: Some other considerations for back pain included cauda equina, diskitis osteomyelitis, renal colic, fracture, spasm, shingles On physical examination patient has pain and tenderness along her greater trochanter, examination is consistent with greater trochanteric bursitis, there were no neurologic deficits or risk factors for considerations as above did not feel that she requires further workup such as blood work or CT of the lower back or MRI, we will start her on anti-inflammatory she is not able to take NSAIDs we will start low-dose steroids for the next few days with food but she does have history of gastric bypass of the educated her regarding that we will prescribe with Carafate, and some pain medications and lidocaine patches, see my discharge instructions Discharge Plan Discharge Clinical Impression: Greater trochanteric bursitis of right hip, Low back pain Patient Disposition: Home, Self-Care Additional Instructions: Evaluated with back pain, hip pain, baseline and physical examination I believe he will present in what is called greater trochanteric bursitis, you can look it up online there are some stretching exercises he can do, ice the area, take steroids starting tomorrow, you have history of gastric bypass surgery, I recommend you take steroids both with food and Carafate 20 minutes before taking the steroids as well, that is to protect your stomach lining, you are not able to take any other anti-inflammatories because of the prior surgery, lidocaine patches may help just put a right over the hip bone you can also ice that area on prescribing a few doses of oxycodone as well use only if Tylenol and the other modalities are not helping, spiking fevers, chills, difficulty urinating, loss of bowel or bladder function, numbness in the groin any other concerns come back to the ER otherwise follow up with the primary care physician. Prescriptions: New sucralfate [Carafate] 1 gram tablet 1 g PO Q6H 7 Days Qty: 28 0RF methylprednisolone [Medrol (Donal)] 4 mg tablets,dose pack 4 mg PO DAILY Qty: 21 0RF oxycodone 5 mg tablet 5 mg PO Q6H PRN (Reason: pain) Qty: 10 0RF Rx Instructions: Partial Fill upon patient request. lidocaine [Aspercreme (lidocaine)] 4 % adhesive patch,medicated 1 patch topical DAILY PRN (Reason: pain) Qty: 10 0RF No Action simethicone [Gas Relief (simethicone)] 80 mg tablet,chewable 80 mg PO BID-QID PRN (Reason: abdominal distention) Qty: 90 1RF Zepbound 2.5 mg/0.5 mL pen injector 2.5 mg subcut QWEEK Qty: 2 0RF Rx Instructions: for 4 weeks acetaminophen [Tylenol 8 Hour] 650 mg tablet extended release 650 mg PO Q12H PRN (Reason: pain) Qty: 30 0RF albuterol sulfate [Ventolin HFA] 90 mcg/actuation HFA aerosol inhaler 2 puff inhalation Q6H PRN (Reason: shortness of breath or wheezing) 30 Days Qty: 18 1RF albuterol sulfate 0.63 mg/3 mL solution for nebulization 0.63 mg inhalation Q4-6H PRN (Reason: bronchospasm) Qty: 90 0RF lorazepam [Ativan] 1 mg tablet 1 mg PO ONCE Qty: 1 0RF Rx Instructions: Take 30 minutes prior to arrival to procedure polyethylene glycol 3350 17 gram/dose powder 17 g PO BID Qty: 850 3RF pantoprazole 40 mg tablet,delayed release (DR/EC) 40 mg PO DAILY Qty: 90 3RF docusate sodium 100 mg capsule 100 mg PO DAILY Qty: 90 3RF Referrals: Pam Molina MD [Primary Care Provider] - Stand Alone Forms: Work/School Release Print Language: Yoruba
[2025-04-13] MEDS: dexAMETHasone 2 MG TABLET 10 MG PO (11:40)
[2025-04-13] MEDS: Lidocaine 4 % Patch ADH..PATCH 1 PATCH TRANSDERMA (11:41)
[2025-04-13 11:54] VITALS: BP 106/69; PULSE 100; RESP 18; TEMP 36.3; O2SAT 97
--- OUTSIDE RECORDS SUMMARY | 2025-04-13 12:02 | XMS_ITS | Clinical Summary ---
Author Organization [facility] ity Address [address] [place] [address] Care Team Providers Care Health Diagnostics Teacher Name Role Phone Unavailable Primary Care Provider [...]
== END 2025-04-13 11:55 | disposition home or self-care (01) ==
PROVIDERS: Emergency Provider Emergency Medicine; PCP Internal Medicine
DX: M70.61 Trochanteric bursitis, right hip (principal); M54.50 Low back pain, unspecified
CPT/HCPCS: 99283; 99284; J8540

== ENCOUNTER 2025-05-06 13:23 | Outpatient (REF) | payer OTHER, SELFPAY ==
--- NOTE | 2025-05-06 13:25 | EMG_ITS ---
Chief complaint: Chronic right sided neck and shoulder pain, numbness on right hand Reason for referral: Evaluate for radiculopathy Referred by: Dakotah SCHROEDER Procedure done: Right upper extremity NCS/EMG Precautions and/or limitations: None The limb temperature was monitored continuously and remained between 32-36 degrees C during the performance of the NCS. Nerve Conduction Studies Anti Sensory Summary Table ?Stim Site NR Onset (ms) Norm Onset (ms) Peak (ms) Norm Peak (ms) O-P Amp (?V) Norm O-P Amp Site1 Site2 Delta-0 (ms) Dist (cm) Huber (m/s) Norm Huber (m/s) Right Median Anti Sensory (2nd Digit) Wrist ? 2.4 3.3 <3.6 45.0 >10 Wrist 2nd Digit 2.4 14.0 58 Right Radial Anti Sensory (Thumb) Forearm ? 1.8 2.3 <3.1 9.8 Forearm Thumb 1.8 0.0 Right Ulnar Anti Sensory (5th Digit) Wrist ? 2.0 2.8 <3.7 20.7 >15.0 Wrist 5th Digit 2.0 14.0 70 Motor Summary Table ?Stim Site NR Onset (ms) Norm Onset (ms) O-P Amp (mV) Norm O-P Amp iAmp (mV) Amp (1st) (%) Site1 Site2 Delta-0 (ms) Dist (cm) Huber (m/s) Norm Huber (m/s) Right Median Motor (Abd Poll Brev) Wrist ? 3.2 <3.9 9.0 >4.5 10.8 100.0 Elbow Wrist 3.4 18.0 53 >45 Elbow ? 6.6 9.1 10.6 101.1 Right Ulnar Motor (Abd Dig Minimi) Wrist ? 2.8 <3.0 9.8 >5 13.6 100.0 B Elbow Wrist 2.7 15.0 56 >45 B Elbow ? 5.5 8.2 11.5 83.7 A Elbow B Elbow 1.2 10.0 83 >45 A Elbow ? 6.7 8.4 11.7 85.7 EMG ?Side Muscle Nerve Root Ins Act Fibs Psw Amp Dur Poly Recrt Int Pat Comment Right 1stDorInt Ulnar C8-T1 Nml Nml Nml Nml Nml 0 Nml Complete Right FlexCarRad Median C6-7 Nml Nml Nml Nml Nml 0 Nml Complete Right Biceps Musculocut C5-6 Nml Nml Nml Nml Nml 0 Nml Complete Right Triceps Radial C6-7-8 Nml Nml Nml Nml Nml 0 Nml Complete Right Deltoid Axillary C5-6 Nml Nml Nml Nml Nml 0 Nml Complete Paraspinal EMG ?Side Muscle Nerve Root Ins Act Fibs Psw Comment Right Cervical Upper Rami Nml Nml Nml Right Cervical Mid Rami Nml Nml Nml Right Cervical Lower Rami Nml Nml Nml FINDINGS: All motor and sensory nerves tested showed normal latencies, amplitudes and conduction velocities. IMPRESSION: 1. This is a normal study. 2. There is no electrodiagnostic evidence for median neuropathy, ulnar neuropathy, brachial plexopathy, or cervical radiculopathy. Concentric needle EMG was performed in selected muscles of the right upper extremity and cervical paraspinals. Study did not reveal signs of electric abnormalities as shown in the table above. Thank you for your kind referral. Dina Wynn MD, JENNIFER Board Certified, [place] Board [employer] and Rehabilitation (ABPMR) Board Certified, [place] Board of Electrodiagnostic Medicine (ABEM) [place] [id number] [facility]
--- OUTSIDE RECORDS SUMMARY | 2025-05-06 13:41 | XMS_ITS | Patient Health Record ---
Author Organization [facility] Address [address] [place] [address] Care Team Providers Care Accountant Manager Name Role Phone Florence Campbell Primary Care Provider Unavailab Aron Hernandes Unavailable [phone] Reason For Referral No Information Medications Medication SIG (Take, Route, Fr equency, Duration) Notes Start Date End Date Status Work Note-Appointment . . . Pt had a [facility] appointment today for . 12/15/2018 Active Social History Tobacco Use: Social History Observation Description Date Details (start date - stop date) Current Smoker NA - NA Tobacco Use/Smoking Question Answer Notes Are you a: current smoker When did you start smoking? 20 yrs old How many cigarettes a day do you smoke? 11-20 How soon after you wake up do you smoke your fir st cigarette? 31-60 minutes Alcohol Screen Question Answer Notes Did you have a drink containing alcohol in the p ast year? Yes Points 0 Interpretation Negative Problems Problem Type SNOMED Code ICD Code Onset Dates Problem Status W/U Status Risk Notes Problem Acquired hallux valgus ([id number]) Hallux valgus (acquired), left foot (M20.12) Active confirmed Plan Of Treatment No Information Insurance Providers Payer Name Payer Address Payer Phone Subscriber Number Group Number Insured Name Patient Relationship to Insured Coverage Start Date Coverage End Date [facility] [address] [place] [id number] [phone] [id number] Disha Knight Self - patient is the insured Medical (General) History Medical History History ICD Code Back,Hip,and Knee pain Arthritis gall bladder polyp Hiatal hernia Sciatica Chicken pox Sinus conditions Transfusions Surgical History Surgery Date(Month/Year) section Hernia Repair obstructive bowel gastric bypass Breast resection Surgery
== END 2025-05-06 13:24 | disposition home or self-care (01) ==
LOC: HO.NEURO 13:23
PROVIDERS: PCP Internal Medicine; Visit Provider Physician Assistant
DX: M54.12 Radiculopathy, cervical region (principal)
CPT/HCPCS: 95886; 95909

== ENCOUNTER → 2025-05-06 13:25 | Outpatient (BNV) | payer OTHER, SELFPAY | PROVIDERS: PCP Internal Medicine; Visit Provider Physical Medicine & Rehabilitation | DX: M54.2 Cervicalgia (principal); M25.511 Pain in right shoulder; R20.0 Anesthesia of skin; R20.2 Paresthesia of skin | CPT/HCPCS: 95886; 95909 ==

== ENCOUNTER 2025-05-25 14:42 | Outpatient (AMB) | payer OTHER, SELFPAY ==
--- NOTE | 2025-05-25 15:08 | A.SPINEOV_ITS ---
Intake Visit Reasons: discuss surgical options after EMG Intake Note: Ms. Knight is here today to Discuss Surgical options after EMG. Drawing Box Tender Required: No Allergies NSAIDS (Non-Steroidal Anti-Inflamma Adverse Reaction (Mild, Verified 04/13/25 09:31) ulcer Assessment & Plan Assessment & Plan (1) Cervical radiculopathy at C6: Code(s): M54.12 - Radiculopathy, cervical region Category: Medical Plan Dear colleague, On 05/25/2025, I saw for follow-up Disha Knight to discuss treatment options for her neck pain radiating down her right arm. As you know, she suffering from longstanding neck pain radiating down her right arm. More recently it has become progressive and interferes with the daily activities. 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 The pain goes from the neck into the upper arm and can go down into her hand. She denies weakness or numbness. She has tried all conservative management. We ordered an EMG to rule out carpal tunnel syndrome. The EMG came back negative. I reviewed the MRI and x-ray of the cervical spine in detail with the patient. The study shows severe degenerative disc disease C5-6 and C6-7 with right C6 nerve root compression. In addition there is a stable anterolisthesis C3-C4 and mild instability at C4-5 with extens ion. I do think this represents physiological movement due to the fact that the arthritis of the C5-6 and C6-7 segments prevent physiological movement of the levels. I recommended an anterior diskectomy and fusion C5-6 and C6-7 to treat her right arm pain. She is aware there is a risk that additional surgeries of the above levels would be required in the future. She wants to think about discussion and will call my office if she wants to proceed. I spent 30 minutes in his consult. Brock Alcala MD, PhD Spine Fellowship Trained Neurosurgeon Director, [facility] Coding Level of Care Code Est Pt Level 4 (18511) Diagnoses Cervical radiculopathy at C6 M54.12
--- OUTSIDE RECORDS SUMMARY | 2025-05-25 15:09 | XMS_ITS | Patient Health Record ---
Author Organization [facility] Address [address] [address] Care Team Providers Care Dry House Wheeler Name Role Phone Florence Campbell Primary Care Provider Unavailab Aron Hernandes Unavailable [phone] Reason For Referral No Information Medications Medication SIG (Take, Route, Fr equency, Duration) Notes Start Date End Date Status Work Note-Appointment . . . Pt had a [facility] appointment today; Duration: . 12/15/2018 Active Social History Tobacco Use: [...] Status Risk Notes Problem Acquired hallux valgus (64727674) Hallux valgus (acquired), left foot (M20.12) Active confirmed Plan Of Treatment No Information Insurance Providers Payer Name Payer Address Payer Phone Subscriber Number Group Number Insured Name Patient Relationship to Insured Coverage Start Date Coverage End Date [facility] [address] [place] [id number] Disha Knight Self - patient is the insured Medical (General) History Medical History History ICD Code Back,Hip,and Knee pain Arthritis gall bladder polyp Hiatal hernia Sciatica Chicken pox Sinus conditions Transfusions Surgical History Surgery Date(Month/Year) section Hernia Repair obstructive bowel gastric bypass Breast resection Surgery
--- OUTSIDE RECORDS SUMMARY | 2025-05-25 15:09 | XMS_ITS | Clinical Summary ---
Author Organization [facility] ity Address [address] [place] [address] Care Team Providers Care Brand Strategy Manager Name Role Phone Unavailable Primary Care Provider [...]
== END 2025-05-25 16:15 | disposition home or self-care (01) ==
LOC: HO.HNS 14:42
PROVIDERS: PCP Internal Medicine; Visit Provider Neurological Surgery
DX: M54.12 Radiculopathy, cervical region (principal)
CPT/HCPCS: 99214

== ENCOUNTER 2025-06-15 16:21 | Outpatient (AMB) | payer OTHER, SELFPAY ==
--- NOTE | 2025-06-15 16:24 | MHC.PC.OV ---
Vital Signs 06/15/25 16:25 Height 4 ft 11 in Weight 158 lb 4 oz BMI 32.0 BP 100/64 Blood Pressure Location Lt brachial Position Sitting Respiration 18 Pulse 99 Pulse Source Pulse Oximeter Temp 97.3 F Temp Source Temporal Artery Scan Pulse Oximetry (%) 95 Oxygen Delivery Method Room Air Intake Visit Reasons: 6 month f/u Etymology Teacher Required: No Accompanied by: Self / Same As Patient Allergies NSAIDS (Non-Steroidal Anti-Inflamma Adverse Reaction (Mild, Verified 06/15/25 17:02) ulcer Medication List - Last Reconciled 06/15/25 by Pam Mckoy MD acetaminophen ER (Tylenol 8 Hour) 650 mg PO Q12H PRN albuterol sulfate 0.63 mg (3 mL) inhalation Q4-6H PRN docusate sodium 100 mg PO DAILY lidocaine 4% (Aspercreme (lidocaine)) 1 patch topical DAILY PRN pantoprazole 40 mg PO DAILY polyethylene glycol 3350 17 grams PO BID simethicone (Gas Relief (simethicone)) 80 mg PO BID-QID PRN sucralfate (Carafate) 1 g PO Q6H 7 days Ventolin HFA 90 mcg/actuation (albuterol sulfate) 2 puffs inhalation Q6H PRN 30 days NS Zepbound (tirzepatide (weight loss)) 7.5 mg (0.5 mL) subcut QWEEK NS Tobacco use date assessed: 06/15/25 Dental Screening Dental Screen Date: 06/15/25 Did you have a dental visit in the last 12 months?: Yes Did you have a dental problem in the last 6 months where you did not have access to dental care?: No Was dental information given to patient?: Patient has dentist HPI HPI Comments History of Present Illness Details The patient is a 54-year-old female presenting with constipation, and GERD arthritis of the neck, and obesity. The patient reports experiencing constipation, which has worsened since starting Zepbound two weeks ago. She has been advised to drink plenty of water to help alleviate the symptoms. She also has GERD stable with PPIs. The patient has a history of arthritis in the neck, which was identified through previous studies. There is a consideration for placing spacers in the neck to manage the condition. The patient is classified as having obesity with a BMI of 32, despite recent weight loss. She has expressed a desire to lose more weight. [facility] Medical History (Updated 06/16/25 @ 03:17 by Pam Mckoy MD) Osteophyte of cervical spine Cough in adult Transaminitis Obesity (BMI 35.0-39.9 without comorbidity) Renal calculi Class 1 obesity due to excess calories with body mass index (BMI) of 34.0 to 34.9 in adult Hammertoe of left foot Bunion, left Neck pain Cervical radiculopathy Occipital headache Bronchial asthma Surgical History History of esophagogastroduodenoscopy (EGD) Hx of breast reduction, elective delivery delivered Hx of hernia repair Family History Mother Hypertension Alzheimer disease Father Alzheimer disease Brother Alzheimer disease Social History (Updated 06/15/25 @ 17:06 by Pam Mckoy MD) Housing: House Alcohol intake: former Patient Tobacco Use Status: Current someday Tobacco user Tobacco use type: Cigarette Cigarettes Per Day: 2 Years Smoked: 15 e-Cigarette/Vaping Use: Never Used Second Hand Smoke Exposure: Yes service: No Current occupational status: employed 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 1. Little interest or pleasure in doing things: not at all 2. Feeling down, depressed, or hopeless: not at all 3. Trouble falling or staying asleep, or sleeping too much: more than half the days 4. Feeling tired or having little energy: more than half the days 5. Poor appetite or overeating: not at all 6. Feeling bad about yourself - or that you are a failure or have let yourself or your family down: not at all 7. Trouble concentrating on things, such as reading the newspaper or watching television: not at all 8. Moving or speaking so slowly that other people could have noticed. Or the opposite - being so fidgety or restless that you have been moving around a lot more than usual: not at all 9. Thoughts that you would be better off or of hurting yourself in some way: not at all Total score: 4 Depression Screening Interpretation: Positive Depression Screening Follow-up: Existing condition and Follow-up Visit Requested Depression Screening Done: Yes 56036 - PHQ-9 Billing: Yes Source: Developed by Drs. Tony Quinteros, Carley Arias, Manfred Ramirez and colleagues, with an educational rosa from [employer]. Thrive Questionnaire Date Thrive assessed: 06/15/25 I am a: Patient What is your living situation today?: I have a steady place to live Within the past 12 months, did the food you bought not last and you didn't have the money to get more?: Never true Within the past 12 months, did you worry whether your food would run out before you got money to buy more?: Never true Do you have trouble paying for medicines?: No Do you have trouble getting transportation to medical appointments?: Yes Do you have trouble paying your heating and electricity bill?: No Do you have trouble taking care of your child, family member or friend?: No Do you have trouble with day-to-day activities such as bathing, preparing meals, shopping, managing finances, etc.?: No Are you currently unemployed and looking for a job?: No Are you interested in more education?: No Please select the resources that you would like help with: None Currently or been in a relationship where the following occur: No concerns reported THRIVE Score: 1 AUDIT C Alcohol Use Questionnaire (AUDIT-C) 1. How often do you have a drink containing alcohol?: Never 3. How often do you have six or more drinks on one occasion?: Never Total Score: 0 Score Reviewed/Action Taken: No LINDA-7 AMB Questionnaire LINDA-7 Date LINDA - 7 assessed: 06/15/25 Feeling nervous, anxious, or on edge: 0 = Not at all Not being able to stop or control worryin = Not at all Worrying too much about different things: 0 = Not at all Trouble relaxin = Not at all Being so restless that it is hard to sit still: 0 = Not at all Becoming easily annoyed or irritable: 0 = Not at all Feeling afraid as if something awful might happen: 0 = Not at all Total LINDA-7 score (0-4 normal; 5-9 mild; 10-14 moderate; 15-21 severe): 0 Source: Developed by Drs. Tony Quinteros, Carley Arias, Manfred Ramirez and colleagues, with an educational rosa from [employer]. LINDA-7 Assessment Billing LNIDA-7 Assessment Tool: LINDA-7 Assessment 99650 Review of Systems Const All systems reviewed & are unremarkable except as noted in HPI and below Card Denies chest pain at rest, Denies chest pain with activity, Denies edema, Denies irregular heart rhythm, Denies claudication, Denies dyspnea, Denies dyspnea on exertion, Denies orthopnea, Denies paroxysmal nocturnal dyspnea and Denies slow heart rate Resp Denies cough, Denies dyspnea and Denies dyspnea on exertion GI Denies abdominal pain, Denies change in bowel habits, Denies excessive flatus, Denies nausea and Denies vomiting Denies urinary incontinence, Denies urinary hesitancy and Denies urinary urgency Musc Denies abnormal gait, Denies atrophy, Denies deformity and Denies limited range of motion Skin/Breast Denies bleeding lesions, Denies changing lesions and Denies rash Neuro Denies abnormal gait, Denies behavioral changes and Denies lack of coordination Psych Denies behavioral changes Physical exam (Primary Care) Vital Signs: Last Vital Signs Temp 97.3 F 06/15/25 16:25 Pulse 99 06/15/25 16:25 Resp 18 06/15/25 16:25 BP 100/64 06/15/25 16:25 Pulse Ox 95 06/15/25 16:25 Oxygen Delivery Method Room Air 06/15/25 16:25 BMI result Body Mass Index 32.0 BMI Assessment/Plan discussion: High BMI High, discussed plan: lifestyle, weight reduction, dietary and physical activity Tobacco/Smoking Status: Tobacco use Status Tobacco use date assessed 06/15/25 06/15/25 16:29 Patient Tobacco Use Status Current someday Tobacco 06/15/25 17:06 Tobacco use type Cigarette 06/15/25 17:06 e-Cigarette/Vaping Use Never Used 06/15/25 17:06 PHQ-9: PHQ-9 Score PHQ-9: Total score 4 06/15/25 17:05 Depression Screening Interpretation: Positive Depression Screening Follow-up: Existing condition and Follow-up Visit Requested Thrive Assessment: Date of Thrive Assessment Date Thrive assessed 06/15/25 06/15/25 16:29 Currently or been in a relationship where the following occur: No concerns reported Resp Effort & Inspection: normal respiratory effort Auscultation: clear to auscultation bilaterally Cardio Jugular venous distension: no JVD Rate: regular rate Rhythm: regular rhythm Heart sounds: S1 normal heart sound present and S2 normal heart sound present Extrem General: Yes full ROM Coding Level of Care Code Est Pt Level 4 (84201) Complex EM visit Add On G2211 Diagnoses Class 1 obesity due to excess calories without serious comorbidity with body mass index (BMI) of 32.0 to 32.9 in adult E66.811; E66.09; Z68.32 Obesity type: due to excess calories Obesity classification: adult class 1 (BMI 30 - 34.9) Serious obesity comorbidity presence: without serious comorbidity Body mass index: BMI 32.0-32.9 Gastroesophageal reflux disease without esophagitis K21.9 Esophagitis presence: without esophagitis Osteophyte of cervical spine M25.78 Constipation by delayed colonic transit K59.01 Additional Codes LINDA-7 Assessment Billing - LINDA-7 Assessment Tool: LINDA-7 Assessment 03944 ([id number]) PHQ-9 - 02429 - PHQ-9 Billing: Yes ([id number]) Time Spent (min) 20 Assessment & Plan Assessment & Plan (1) Obesity: Code(s): E66.9 - Obesity, unspecified Category: Medical Qualifiers: Obesity type: due to excess calories Obesity classification: adult class 1 (BMI 30 - 34.9) Serious obesity comorbidity presence: without serious comorbidity Body mass index: BMI 32.0-32.9 Qualified Code(s): E66.811 - Obesity, class 1; E66.09 - Other obesity due to excess calories; Z68.32 - Body mass index [BMI] 32.0-32.9, adult (2) GERD (gastroesophageal reflux disease): Code(s): K21.9 - Gastro-esophageal reflux disease without esophagitis Category: Medical Qualifiers: Esophagitis presence: without esophagitis Qualified Code(s): K21.9 - Gastro-esophageal reflux disease without esophagitis (3) Osteophyte of cervical spine: Code(s): M25.78 - Osteophyte, vertebrae Category: Medical (4) Constipation by delayed colonic transit: Code(s): K59.01 - Slow transit constipation Category: Medical Plan The patient is advised to continue managing constipation by increasing water intake, especially since the symptoms have worsened with Zepbound. Consideration for neck spacers is ongoing to address the arthritis in the neck, and further evaluation may be necessary. Weight management strategies should be reinforced, given the patient's BMI of 32 and her desire to lose more weight. Patient was informed and verbally consented to the use of an ambient scribe for clinic note documentation during this visit.
--- OUTSIDE RECORDS SUMMARY | 2025-06-15 16:24 | XMS_ITS | Patient Health Record ---
Author Organization [facility] Address [address] [place] [address] Care Team Providers Care Cloth Neutralizer Name Role Phone Florence Campbell Primary Care Provider Unavailab Aron Hernandes Unavailable [phone] Reason For Referral No Information Medications Medication SIG (Take, Route, Fr equency, Duration) Notes Start Date End Date Status Work Note-Appointment . . . Pt had a [facility] appointment today; Duration: . 12/15/2018 Active Social [...] Status Risk Notes Problem Acquired hallux valgus ([id number]) Hallux valgus (acquired), left foot (M20.12) Active confirmed Plan Of Treatment No Information Insurance Providers Payer Name Payer Address Payer Phone Subscriber Number Group Number Insured Name Patient Relationship to Insured Coverage Start Date Coverage End Date [facility] [address] [place] [id number] [phone] [id number] Disha Knight Self - patient is the insured Medical (General) History Medical History History ICD Code Back,Hip,and Knee pain Arthritis gall bladder polyp Hiatal hernia Sciatica Chicken pox Sinus conditions Transfusions Surgical History Surgery Date(Month/Year) section Hernia Repair obstructive bowel gastric bypass Breast resection Surgery
--- OUTSIDE RECORDS SUMMARY | 2025-06-15 16:24 | XMS_ITS | Clinical Summary ---
Author Organization [facility] ity Address [address] [place] [address] Care Team Providers Care Coffee Farmer Name Role Phone Unavailable Primary Care Provider [...] Vaccine ( - 2023-2 5 season) 2024 Depression Screening 11/24/2024 Influenza Vaccine (#1) 2025 HIB Vaccines Aged Out No longer [...]
--- OUTSIDE RECORDS SUMMARY | 2025-06-15 16:24 | XMS_ITS | Encounter Summary ---
Author Organization [facility] Address [address] [place] [address] Phone Care Team Providers Care Electrical Tech/Project Manager Name Role Phone Pam Molina MD Primary Care Provid er Encounter Details Date Type Department Care Team (Late st Contact Info) Description 10/25/2021 Procedure Pass [address] [address] Social History Tobacco Use Types Packs/Day Years Used Date Smoking Tobacco: Former Cigarettes Q uit: 07/01/2018 Smokeless Tobacco: Never Comments Unknown Sex and Gender Information Value Date Recorded Sex Assigned at Not on file Legal Sex Female 10:32 PM EDT Gender Identity Not on file Sexual Orientation Not on file documented as of this encounter Plan of Treatment Not on file documented as of this encounter Visit Diagnoses Not on filedocumented in this encounter Care Teams Electrical Tech/Project Manager Relationship Specialty Start Date End Date Pam Molina MD [address] [place] [address] PCP - General Internal Medicine 06/08/21 documented as of this encounter Additional Source Comments The information contained in this document represents components of the legal health record. It is not the complete legal health record.[facility]
[2025-06-15 16:25] VITALS: BP 100/64; PULSE 99; RESP 18; TEMP 36.3; O2SAT 95; BMI 32.0
== END 2025-06-15 17:13 | disposition home or self-care (01) ==
LOC: HO.HMCH 16:22
PROVIDERS: PCP Internal Medicine; Visit Provider Internal Medicine
DX: E66.811 Obesity, class 1 (principal); E66.09 Other obesity due to excess calories; Z68.32 Body mass index [BMI] 32.0-32.9, adult; K21.9 Gastro-esophageal reflux disease without esophagitis; M25.78 Osteophyte, vertebrae; K59.01 Slow transit constipation

== ENCOUNTER → 2025-06-15 16:21 | Outpatient (BNVA) | payer OTHER, SELFPAY | PROVIDERS: PCP Internal Medicine; Visit Provider Internal Medicine | DX: K21.9 Gastro-esophageal reflux disease without esophagitis (principal); K59.00 Constipation, unspecified; E66.811 Obesity, class 1; E66.09 Other obesity due to excess calories; M25.78 Osteophyte, vertebrae; K59.01 Slow transit constipation; Z68.32 Body mass index [BMI] 32.0-32.9, adult | CPT/HCPCS: 96127 ==

== ENCOUNTER 2025-07-05 12:52 | Outpatient (AMB) | payer OTHER, SELFPAY ==
--- NOTE | 2025-07-05 13:06 | A.OFFVIS_ITS ---
VS Expanded 07/05/25 13:11 BP 120/82 Blood Pressure Location Rt brachial Blood Pressure Position Sitting Pulse 99 Pulse Source Pulse Oximeter Temp 96.8 F Temperature Source Temporal Artery Scan Pulse Oximetry 96 Oxygen Delivery Method Room Air Height 4 ft 11 in Weight 153 lb 9.6 oz BMI 31.0 Body Fat % 39.8 Body Fat Mass 61.0 Fat Free Mass 92.4 Visceral Fat Rating 10.0 Body Water % 42.8 Body Water Mass 65.6 Muscle Mass/Score 87.8 Basal Metabolic Rate/Score 1,285 Intake Visit Reasons: (OV) F/U ANASTOMOTIC ULCER Allergies NSAIDS (Non-Steroidal Anti-Inflamma Adverse Reaction (Mild, Verified 07/05/25 13:09) ulcer Medication List - Last Reconciled 07/05/25 by ELDA Kinney acetaminophen ER (Tylenol 8 Hour) 650 mg PO Q12H PRN albuterol sulfate 0.63 mg (3 mL) inhalation Q4-6H PRN docusate sodium 100 mg PO DAILY lidocaine 4% (Aspercreme (lidocaine)) 1 patch topical DAILY PRN pantoprazole 40 mg PO DAILY polyethylene glycol 3350 17 grams PO BID simethicone (Gas Relief (simethicone)) 80 mg PO BID-QID PRN tirzepatide (weight loss) (Zepbound) 10 mg (0.5 mL) subcut QWEEK Ventolin HFA 90 mcg/actuation (albuterol sulfate) 2 puffs inhalation Q6H PRN 30 days NS HPI Comments Details: Pt is seen in followup for marginal ulcer. She is s/p open RYGB 20+ years ago done at [facility] Also history of obstruction requiring surgery about 10 years ago at [facility]. She underwent endoscopy for complaints of abdominal pain, 04/23/2023 which revealed GJ anastomotic ulcer. She was placed on a liquid protein diet, PPI and carafate. Repeat endoscopy performed 07/02/2023 and showed no ulcer. She has stopped carafate. Continues on PPI. Reports no issues with abdominal pain. Taking Zepbound, so far has lost 17.8lbs since starting in March. Was placed on a meal plan per Dr. Underwood with 2 shakes Premier, 1/2 scoop for one shake and 1 scoop in another, one yogurt with fruit, and one meal with 4 forks protein/4 forks salad. Takes stool softener and Miralax which helps with regular BMs although this continues to be difficult for her. [facility] Medical History Osteophyte of cervical spine Cough in adult Transaminitis Obesity (BMI 35.0-39.9 without comorbidity) Renal calculi Class 1 obesity due to excess calories with body mass index (BMI) of 34.0 to 34.9 in adult Hammertoe of left foot Bunion, left Neck pain Cervical radiculopathy Occipital headache Bronchial asthma Surgical History History of esophagogastroduodenoscopy (EGD) Hx of breast reduction, elective delivery delivered Hx of hernia repair Family History Mother Hypertension Alzheimer disease Father Alzheimer disease Brother Alzheimer disease Social History (Updated 06/15/25 @ 17:06 by Pam Mckoy MD) Housing: House Alcohol intake: former Patient Tobacco Use Status: Current someday Tobacco user Tobacco use type: Cigarette Cigarettes Per Day: 2 Years Smoked: 15 e-Cigarette/Vaping Use: Never Used Second Hand Smoke Exposure: Yes service: No Current occupational status: employed 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 She will continue to text me weekly with weight measurements and when due for a refill. Meds refilled per request. Can increase colace to BID to help with constipation. RTC 4mo. Medications: Changed From docusate sodium 100 mg PO DAILY 90 caps 3RF To docusate sodium 100 mg PO BID 90 caps 3RF Refilled polyethylene glycol 3350 17 grams PO BID 850 grams 3RF pantoprazole 40 mg PO DAILY 90 tabs 3RF
[2025-07-05 13:11] VITALS: BP 120/82; PULSE 99; TEMP 36; O2SAT 96; BMI 31.0
--- OUTSIDE RECORDS SUMMARY | 2025-07-05 13:33 | XMS_ITS | Patient Health Record ---
Author Organization [facility] Address [address] [place] [address] Care Team Providers Care Field Services Analyst Name Role Phone Florence Campbell Primary Care Provider Unavailab Aron Hernandes Unavailable [phone] Reason For Referral No Information Medications Medication SIG (Take, Route, Fr equency, Duration) Notes Start Date End Date Status Work Note-Appointment . . . [facility]; Duration: . 12/15/2018 Active Social [...] Status Risk Notes Problem Acquired hallux valgus ([id number]) Hallux valgus (acquired), left foot (M20.12) Active confirmed Plan Of Treatment No Information Insurance Providers Payer Name Payer Address Payer Phone Subscriber Number Group Number Insured Name Patient Relationship to Insured Coverage Start Date Coverage End Date [facility] [address] [place] [id number] Disha Knight Self - patient is the insured Medical (General) History Medical History History ICD Code Back,Hip,and Knee pain Arthritis gall bladder polyp Hiatal hernia Sciatica Chicken pox Sinus conditions Transfusions Surgical History Surgery Date(Month/Year) section Hernia Repair obstructive bowel gastric bypass Breast resection Surgery
--- OUTSIDE RECORDS SUMMARY | 2025-07-05 13:33 | XMS_ITS | Encounter Summary ---
Author Organization [facility] Address [address] [place] [id number] Phone Care Team Providers Care Box Covering Machine Operator Name Role Phone Pam Molina MD Primary Care Provid er Encounter Details Date Type Department Care Team (Late st Contact Info) Description 10/25/2021 Procedure Pass [address] [address] Social History Tobacco Use Types Packs/Day Years [...] on filedocumented in this encounter Care Teams Box Covering Machine Operator Relationship Specialty Start Date End Date Pam Molina MD [address] [place] [address] PCP - General Internal Medicine 06/08/21 documented as of this encounter Additional Source Comments The information contained in this document represents components of the legal health record. It is not the complete legal health record.[facility]
--- OUTSIDE RECORDS SUMMARY | 2025-07-05 13:33 | XMS_ITS | Clinical Summary ---
Author Organization [facility] ity Address [address] [place] [address] Care Team Providers Care Personal Injury Attorney Name Role Phone Unavailable Primary Care Provider [...]
== END 2025-07-05 13:29 | disposition home or self-care (01) ==
LOC: HO.HBS 12:53
PROVIDERS: PCP Internal Medicine; Visit Provider Physician Assistant Surgical
DX: E66.9 Obesity, unspecified (principal); Z68.31 Body mass index [BMI] 31.0-31.9, adult; Z90.3 Acquired absence of stomach [part of]; Z98.84 Bariatric surgery status
CPT/HCPCS: 99213

== ENCOUNTER 2025-07-16 10:33 | Outpatient (AMB) | payer OTHER, SELFPAY ==
--- OUTSIDE RECORDS SUMMARY | 2025-07-16 10:34 | XMS_ITS | Encounter Summary ---
Author Organization [facility] Address [address] [place] [address] Phone Care Team Providers Care Soap Slabber Name Role Phone Pam Molina MD Primary Care Provid er Encounter Details Date Type Department Care Team (Late st Contact Info) Description 10/25/2021 Procedure Pass [address] [address] Social History Tobacco Use Types Packs/Day Years [...] on filedocumented in this encounter Care Teams Soap Slabber Relationship Specialty Start Date End Date Pam Molina MD [address] [place] [address] PCP - General Internal Medicine 06/08/21 documented as of this encounter Additional Source Comments The information contained in this document represents components of the legal health record. It is not the complete legal health record.[facility]
--- OUTSIDE RECORDS SUMMARY | 2025-07-16 10:34 | XMS_ITS | Clinical Summary ---
Author Organization [facility] ity Address [address] [place] [address] Care Team Providers Care Countersinker Balance Screw Hole Name Role Phone Unavailable Primary Care Provider [...]
[2025-07-16 11:11] VITALS: BP 108/68; PULSE 100; TEMP 37.4; O2SAT 95
--- NOTE | 2025-07-16 11:11 | AM.OFFWIN_ITS ---
Intake Vital Signs 07/16/25 11:11 Height 4 ft 11 in BP 108/68 Blood Pressure Location Lt brachial Position Sitting Pulse 100 Pulse Source Pulse Oximeter Temp 99.3 F Temp Source Oral Pulse Oximetry (%) 95 Oxygen Delivery Method Room Air Intake Visit Reasons: EP-cough Patient Tobacco Use Status: Current someday Tobacco user Allergies NSAIDS (Non-Steroidal Anti-Inflamma Adverse Reaction (Mild, Verified 07/16/25 11:11) ulcer Do you need a note to return to daycare/school/sports/work: No HPI EP-cough HPI Details Patient is a 54-year-old female smoking history presents with complaint of chest congestion, cough, and productive phlegm with has been with respiratory symptoms also Denies COPD diagnosis, however she does have frequent bronchitis infections, and has albuterol at home, limited relief Denies chest pain, shortness of breath, nausea vomiting or diarrhea, difficulty speaking or eating, weakness or dizziness, sore throat, or other significant associated symptoms No COVID testing done yet PFSH Medical History Osteophyte of cervical spine Cough in adult Transaminitis Obesity (BMI 35.0-39.9 without comorbidity) Renal calculi Class 1 obesity due to excess calories with body mass index (BMI) of 34.0 to 34.9 in adult Hammertoe of left foot Bunion, left Neck pain Cervical radiculopathy Occipital headache Bronchial asthma Surgical History History of esophagogastroduodenoscopy (EGD) Hx of breast reduction, elective delivery delivered Hx of hernia repair Family History Mother Hypertension Alzheimer disease Father Alzheimer disease Brother Alzheimer disease Social History Housing: House Alcohol intake: former Patient Tobacco Use Status: Current someday Tobacco user Tobacco use type: Cigarette Cigarettes Per Day: 2 Years Smoked: 15 e-Cigarette/Vaping Use: Never Used Second Hand Smoke Exposure: Yes service: No Current occupational status: employed 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 [employer] Current occupational exposures/hazards: No Sexual orientation: Straight/Heterosexual Gender identity: Female Cognitive needs: No Hearing needs: No Vision needs: No Review of Systems Const All systems reviewed & are unremarkable except as noted in HPI and below Physical Exam Vital Signs: Last Vital Signs Temp 99.3 F 07/16/25 11:11 Pulse 100 07/16/25 11:11 BP 108/68 07/16/25 11:11 Pulse Ox 95 07/16/25 11:11 Oxygen Delivery Method Room Air 07/16/25 11:11 Const General: cooperative, no acute distress, alert, awake, Physically active and well groomed; No anxious, diaphoretic, intoxicated appearing, poor hygiene or tired appearing Nutritional Appearance: average body habitus Limitations: no limitations HEENT Head: Yes normal to inspection, Yes normocephalic and Yes atraumatic Ears: hearing grossly normal bilaterally, external ears normal, TM's normal bilaterally and EAC's normal General nose exam: Normal external nose present, Normal nares present, No nasal polyps present, Normal nasal mucous membranes and turbinates present, Normal septum present and No nasal discharge present Face and sinus: Yes normal facial exam, Yes sinuses nontender and Yes face symmetric Mouth: Normal oral and palatal mucosa present, lip normal and tongue normal Throat: Yes posterior oropharynx normal, Yes abnormal tonsil (mildly erythematous bilaterally), No peritonsillar mass, No postnasal drainage, No uvular edema and No cobblestoning Eyes General: appearance normal, both eyes and all related structures Neck Neck: Yes no lymphadenopathy Chest Chest palpation & inspection: normal palpation of entire chest wall Resp Effort & Inspection: normal respiratory effort, able to speak in complete sentences, normal respiratory pattern, no audible wheezes, Actively coughing (Frequent congested) Quality: actively coughing, no grunting, not labored, no nasal flaring, no respiratory distress, no retractions, not tachypneic, no tripod positioning, no use of accessory muscles, No prolonged expiratory phase and symmetric chest movement Auscultation: clear to auscultation bilaterally, no crackles, no rales, rhonchi, wheezes and No rub present Cardio Palpation: normal PMI Rate: regular rate Skin Other: Good color, warm and dry Psych Appearance: grossly normal Mental Status: mental status grossly normal Speech and movement: Normal speech and movement present Affect: normal affect Attitude: cooperative Thought process: Normal thought process present Insight: Good insight present (Psych) Judgement: Good judgement present (Psych) Assessment & Plan Assessment & Plan (1) Acute bronchitis: Code(s): J20.9 - Acute bronchitis, unspecified Qualifiers: Bronchitis organism: unspecified organism Qualified Code(s): J20.9 - Acute bronchitis, unspecified Plan: Patient is a 54-year-old female with possible undiagnosed COPD in setting of cigarette smoking and frequent bronchitis episodes who presents with chest congestion, rhonchi and wheezing on exam, consistent with acute on likely chronic bronchitis Offered chest x-ray, but she declines it today and reports she will follow up to do 1 if symptoms persist or worsen In setting of possible COPD, advised long course of prednisone, and antibiotic coverage She declines bonzonatate, guafenesin currently as she prefers to drink adequate water and expectorate mucus on her own She will follow up if symptoms persist or worsen, and knows to go to emergency department in worrisome symptoms Orders: Orders SARS-CoV2/FLU/RSV 07/16/25 J06.9 - Acute upper respiratory infection, unspecified Medications: New prednisone then take 2 and half tabs daily for 3 days, then take 2 tabs daily for 3 days, then take 1 and half tabs daily for 3 days, and then take 1 tab daily for 3 days 60 mg (3 x 20 mg) PO DAILY 30 tabs 0RF 3 days azithromycin For 250 mg dose pack: take 500 mg today (day 1), then 250 mg for 4 days (days 2-5) PO 6 tabs 0RF Coding Level of Care Code Est Pt Level 4 (75005) Diagnoses Acute bronchitis, unspecified organism J20.9 Bronchitis organism: unspecified organism
== END 2025-07-16 12:02 | disposition home or self-care (01) ==
LOC: HO.HMCWIC 10:33
PROVIDERS: PCP Internal Medicine; Visit Provider Physician Assistant Medical
DX: J20.9 Acute bronchitis, unspecified (principal)

== ENCOUNTER 2025-07-16 10:33 | Outpatient (REF) | payer OTHER, SELFPAY ==
[2025-07-16 15:33] LABS: Resp Syncy Virus RNA Qual PCR NEGATIVE (Negative); SARS COV2 PCR INHOUSE NEGATIVE (Negative)
== END 2025-07-16 10:34 | disposition home or self-care (01) ==
LOC: HO.LAB 10:33
PROVIDERS: PCP Internal Medicine; Visit Provider Physician Assistant Medical
DX: J20.9 Acute bronchitis, unspecified (principal); J06.9 Acute upper respiratory infection, unspecified; F17.210 Nicotine dependence, cigarettes, uncomplicated
CPT/HCPCS: 87637

== ENCOUNTER 2025-08-25 23:24 | Emergency (ER) | payer OTHER, SELFPAY ==
--- NOTE | ~2025-08-25 | CT_ITS ---
CLINICAL HISTORY: RLQ Pain; Tenderness to Palpation; + Rebound CT abdomen and pelvis with contrast Comparison: CT/REG/SR - CT ABDOMEN PELVIS WO IV CON - 04/10/23 20:18 EDT Findings: No consolidation or effusion. Cholecystectomy. Unremarkable liver and spleen. No biliary ductal dilation. Pancreas, adrenal glands and kidneys demonstrate no acute parenchymal process. There is mild dilation of the right ureter along its course however no obstructing stone or lesion is identified. Punctate nonobstructing stone in the right lower pole. No bowel obstruction, pneumoperitoneum, or pneumatosis. Prior gastric bypass. Small hiatal hernia containing the gastric pouch. Unremarkable reproductive organs. Normal appendix. Prominent right-sided pelvic veins. No pelvic fluid collections. No pathologically enlarged lymph nodes or vascular dilation. No acute fracture. Lower lumbar degenerative change. IMPRESSION: No acute findings to explain the patient's right lower quadrant pain. No bowel obstruction, biliary obstruction or obstructive uropathy. Normal appendix. Mild prominence of the right ureter without a discrete stone or obstructing lesion identified. There is a punctate nonobstructing right lower pole stone. Prominent right-sided pelvic veins. This document has been electronically signed by: Mali Ferrell MD on 08/26/2025 05:31:26
[2025-08-25 23:32] VITALS: BP 143/86; PULSE 102; O2SAT 98
--- OUTSIDE RECORDS SUMMARY | 2025-08-25 23:57 | XMS_ITS | Clinical Summary ---
Author Organization [facility] Address [address] [place] [address] Care Team Providers Care Barrel Bander Name Role Phone Unavailable Primary Care Provider [...] 2020 Zoster Vaccines (1 of 2) 2020 Depression Screening 11/24/2024 COVID-19 Vaccine (1 - 2023-2 5 season) 2025 Influenza Vaccine (#1) 2025 RSV Immunization Adult Patie nts (1 - 1-dose 75+ series) 2045 HIB Vaccines Aged Out No longer eligi [...]
--- OUTSIDE RECORDS SUMMARY | 2025-08-25 23:57 | XMS_ITS | Patient Health Record ---
Author Organization [facility] Address [address] [place] [address] Care Team Providers Care Social Media Executive Name Role Phone Florence Campbell Primary Care Provider Unavailab Aron Hernandes Unavailable [phone] Reason For Referral No Information Medications Medication SIG (Take, Route, Fr equency, Duration) Notes Start Date End Date Status Work Note-Appointment . . . Pt had a [facility] appointment today; Duration: . 12/15/2018 Active Social [...] Status Risk Notes Problem Acquired hallux valgus ([id number]) Hallux valgus (acquired), left foot (M20.12) Active confirmed Plan Of Treatment No Information Insurance Providers Payer Name Payer Address Payer Phone Subscriber Number Group Number Insured Name Patient Relationship to Insured Coverage Start Date Coverage End Date [facility] [address] [place] [id number] Disha Knight Self - patient is the insured Medical (General) History Medical History History ICD Code Back,Hip,and Knee pain Arthritis gall bladder polyp Hiatal hernia Sciatica Chicken pox Sinus conditions Transfusions Surgical History Surgery Date(Month/Year) section Hernia Repair obstructive bowel gastric bypass Breast resection Surgery
--- OUTSIDE RECORDS SUMMARY | 2025-08-25 23:57 | XMS_ITS | Clinical Summary ---
Author Organization [facility] Address [address] [place] [address] Phone Care Team Providers Care Lan Engineer Name Role Phone Pam Molina MD Primary Care Provid er Allergies No known active allergies Medications fluticasone furoate-vilante rol (BREO ELLIPTA) 200-25 mcg/dose inhaler Inhale 1 puff into the lungs daily. Active fluticasone propionate (FLONASE) 50 mcg/actuation nasal spray 1 spray by Nasal route daily. Active fluticasone propionate (FLOVENT HFA) 110 mcg/actuation inhaler Inhale 1 puff into the lungs 2 (two) times a day. Active loratadine (CLARITIN) 10 mg tablet Take 10 mg by mouth daily. Active albuterol 90 mcg/actuation inhaler Inhale 2 puffs into the lungs every 6 (six) hours as needed. Active gabapentin (NEURONTIN) 300 MG capsuleIndicati ons:Cervico-occ ipital neuralgia of right side,Cervicogen ic headache Take 1 capsule (300 mg total) by mouth 2 (two) times a day. 60 capsule 5 10/25/2021 Active Active Problems Problem Noted Date Diagnosed Date Neck pain 07/01/2019 Assessment & Plan (07/03/2019 10:36 PM EDT): Proper posture. Joint protection, energy conservation. Avoid strain, extended bending. Proper neck support for night and during the day. Gentle, regular exercise routine after warm shower or in a warm pool.. Chronic midline low back pain without sciatica 0 07/01/2019 Assessment & Plan (07/03/2019 10:38 PM EDT): Avoid bending, stooping, heavy lifting, sudden turns, falls and injuries. Use warm pack versus warm shower prior to exercise session. Daily core muscle strengthening exercises. Keep body weight in ideal range for her height. Topical cream versus patch as needed. Regular warm pool exercises may provide additional benefit. Dry mouth 07/01/2019 Assessment & Plan (07/03/2019 10:24 PM EDT): Keep well-hydrated. Avoid spicy and acidic foods. Diligent mouth hygiene. Regular dental checkups. Numbness and tingling in left arm 07/01/2019 Assessment & Plan (07/03/2019 10:34 PM EDT): Gentle massage, ROM exercises. Topical capsaicin versus Biofreeze versus Arnica 2-3 times daily and if necessary at bedtime or medicated patches such as Salonpas or icy hot patch. Consider acupuncture versus gentle chiropractic therapy. If not better or worse consider imaging and EMG/NCS. Class 2 obesity due to exces s calories with body mass index (BMI) of 38.0 to 38.9 in adult 07/01/2019 Assessment & Plan (07/03/2019 10:22 PM EDT): Portion control. Limit concentrated sugars, saturated fats and calories in the diet. Keep well-hydrated. If unable to achieve expected goal consider formal dietary/nutritional support. Vitamin D insufficiency 07/01/2019 Assessment & Plan (07/03/2019 10:23 PM EDT): Proper daily requirements reviewed & advised. Serum level requested to make sure no need for additional supplementation is necessary Chronic fatigue 07/01/2019 Assessment & Plan (07/03/2019 10:39 PM EDT): Balance rest and activity. Keep well-hydrated. Well-balanced nutritionally diet. Keep up-to-date with age-appropriate screenings and preventive strategies. Regular exercise routine. Avoid falls, injuries, sick contacts and sunburn. Carpal tunnel syndrome of left wrist 07/01/2019 Assessment & Plan (07/03/2019 10:26 PM EDT): Use neutral wrist splint for nighttime and extended activities. Ergonomically adjusted work station with sitting and standing option for desk. Formal occupational therapy for joint protection, energy conservation, gentle exercise, splinting and assistive devices. If not better or worse consider local steroid injection Fibromyalgia 07/01/2019 Assessment & Plan (07/03/2019 10:31 PM EDT): We discussed the diagnosis of fibromyalgia, its natural history, and treatment. Specifically, we discussed that treatment requires many interventions and recognition that we are often unable to get patients completely pain free. Management of fibromyalgia requires patient engagement to address any underlying depression, anxiety, or sleep disorder. Further, patients are encouraged to engage in regular physical activity. Some studies have suggested that Kaleb Chi is effective. Other physical activity may be helpful including water-based aerobics, gentle yoga, Pilates, biking, walking etc. In terms of pharmacotherapy, there are many options, including tricyclic antidepressants, duloxetine, gabapentin or pregabalin, and cyclobenzaprine as well as other similar medications to those listed. Patient is leaving for 1 week vacation in [facility] and prefers to postpone pharmacologic therapy if possible. She is interested in exploring warm pool therapy and adjusting work desk to sit and stand option. She would benefit from reading book written by Dr Vince Zaidi [facility] addressing management strategies for patients with fibromyalgia utilizing mindfulness approach. Family History Medical History Relation Comments Alzheimer's disease Father Alzheimer's disease Mother Hyperlipidemia Mother Relation Status Comments Father Mother Social History Tobacco Use Types Packs/Day Years Used Date Smoking Tobacco: Former Cigarettes Q uit: 07/01/2018 Smokeless Tobacco: Never Education Answer Date Recorded Are you interested in more education? Not on charmaine e 03/21/2023 Are you concerned about learning? Not on file 03/21/2023 No 03/21/2023 No 03/21/2023 Digital Access Answer Date Recorded No 04/19/2023 No 04/19/2023 No 04/19/2023 Reliable internet access at home? Not on file 04/19/2023 Device with a working camera? Not on file Comments Unknown Sex and Gender Information Value Date Recorded Sex Assigned at Not on file Legal Sex Female 10:32 PM EDT Gender Identity Not on file Sexual Orientation Not on file Last Filed Vital Signs Vital Sign Reading Time Taken Comments Blood Pressure 130/84 11/13/2021 1:05 PM EST Pulse 92 11/13/2021 1:05 PM EST Temperature - - Respiratory Rate - - Oxygen Saturation 97% 11/13/2021 1:05 PM EST Inhaled Oxygen Concentration - - Weight 85.2 kg (187 lb 12.8 oz) 12/18/2021 1:07 PM EST Height 149.9 cm (4' 11 ) 11/13/2021 1:05 PM EST Body Mass Index 37.93 11/13/2021 1:05 PM EST Plan of Treatment Health Maintenance Due Date Last Done Comments Adult Td,Tdap Booster 1970 LIPID PANEL 1970 DEPRESSION SCREENING 1982 SMOKING Hx and SMOKELESS TOB ACCO SCREENING 1983 HEPATITIS C SCREENING 1988 HIV ONE-TIME SCREENING (18-6 5 YEARS) 1988 PAP SMEAR 1991 MAMMOGRAM 2010 COLOGUARD 2015 COLONOSCOPY 2015 COLORECTAL CANCER SCREENING 2015 FIT TEST 2015 FOBT 2015 SIGMOIDOSCOPY 2015 VIRTUAL COLONOSCOPY 2015 PNEUMOCOCCAL VACCINES (50+ y ears) (1 of 1 - PCV) 2020 ZOSTER VACCINES (1 of 2) 2020 INFLUENZA VACCINE (#1) 2025 COVID-19 VACCINE (1 - 2023-2 5 season) 2025 HEPATITIS A VACCINES Aged Out No long er eligible based on patient's age to complete this topic HIB VACCINES Aged Out No longer eligi ble based on patient's age to complete this topic MENINGOCOCCAL VACCINES (ACWY) Aged Out No longer eligible based on patient's age to complete this topic MENINGOCOCCAL VACCINES (B) Aged Out N o longer eligible based on patient's age to complete this topic Medical Devices Not on file Insurance [facility] POS EPO [facility] POS EPO [facility] POS EPO [facility] POS EPO [facility] POS EPO [facility] POS EPO [facility] POS EPO [facility] POS EPO O POS EPO Care Teams Lan Engineer Relationship Specialty Start Date End Date Pam Molina MD [address] [place] [address] PCP - General Internal Medicine 06/08/21 Additional Source Comments The information contained in this document represents components of the legal health record. It is not the complete legal health record.[facility]
--- OUTSIDE RECORDS SUMMARY | 2025-08-25 23:57 | XMS_ITS | Encounter Summary ---
Author Organization [facility] Address [address] [place] [phone] Phone Care Team Providers Care Underwriting Account Representative Name Role Phone Pam Molina MD Primary Care Provid er Encounter Details Date Type Department Care Team (Late st Contact Info) Description 10/25/2021 Procedure Pass [address] [address] Social History Tobacco Use Types Packs/Day Years [...] on filedocumented in this encounter Care Teams Underwriting Account Representative Relationship Specialty Start Date End Date Pam Molina MD [address] [place] [address] PCP - General Internal Medicine 06/08/21 documented as of this encounter Additional Source Comments The information contained in this document represents components of the legal health record. It is not the complete legal health record.[facility]
[2025-08-25 23:58] VITALS: BMI 31.1
[2025-08-26 00:01] VITALS: BP 119/79; PULSE 94; RESP 18; TEMP 36.5; O2SAT 95
[2025-08-26 00:26] LABS: MANUAL DIFF FLAG NO
[2025-08-26 00:35] LABS: Hematocrit 39.4 % (37.0-47.0); Hemoglobin 14.0 g/dl (12.0-16.0); Imm Gran Abs Auto 0.02 X10*3/uL (0.00-0.03); Imm Gran Pct Auto 0.2 % (0.0-0.4); Lymphocytes Absolute Auto 3.0 X10*3/uL (1.2-4.9); Mean Corpuscular HGB Conc 35.5 g/dl (31.0-35.0); Mean Corpuscular Hemoglobin 30.2 pg (27.0-33.0); Mean Corpuscular Volume 85.1 fL (80.0-98.0); NRBC Abs Auto 0.000 X10*3/uL (0.0-0.012); NRBC Pct Auto 0.0 /100WBC (0.0-0.2); Platelet Count 280 X10*3/uL (160-400); Red Blood Count 4.63 X10*6/uL (4.20-5.50); White Blood Count 8.5 X10*3/uL (4.8-10.8)
[2025-08-26 00:52] LABS: Alanine Aminotransferase 22 U/L (0-31); Albumin Level 4.0 g/dL (3.5-5.0); Alkaline Phosphatase 112 U/L (39-117); Anion Gap 10 (12-20); Aspartate Amino Transferase 35 U/L (5-31); Blood Urea Nitrogen 12 mg/dL (9-16); Calcium 9.3 mg/dL (8.4-10.2); Carbon Dioxide 27 mmol/L (22-29); Chloride 109 mmol/L (96-108); Creatinine Clr Calc Pharmacy 88.1; Estimated Glomerular Filt Rate > 60; Lipase 29 U/L (8-78); Potassium 4.0 mmol/L (3.3-5.1); Sodium 142 mmol/L (135-145); Total Protein 6.7 g/dL (6.5-8.0)
--- NOTE | 2025-08-26 02:40 | ED.ABDPAIN ---
HPI - Abdominal Pain General Chief Complaint: Abdominal Pain Stated Complaint: LOWER RT ABDOMINAL PAIN Time Seen by Provider: 08/26/25 02:40 Source: patient Mode of arrival: ambulatory Limitations: no limitations History of Present Illness ED Provider: Chandan SCHROEDER HPI narrative: The patient is a 54-year-old female presenting to the ED for evaluation of right lower quadrant abdominal pain which began while at rest around 19:00 tonight. Patient reports she developed some nausea without associated vomiting, denies associated fever/chills, diarrhea, constipation, chest pain, shortness of breath. Patient denies recent sick contacts or trauma. The patient reports remote history of cholecystectomy and gastric bypass, denies other surgical abdominal history however does report history of SBO which was managed conservatively. The patient reports pain radiates from the right lower quadrant into the right flank. Related Data Previous Rx's ?Medication ?Instructions ?Recorded acetaminophen 650 mg 650 mg PO Q12H PRN pain #30 tabs 12/08/23 tablet,extended release (Tylenol 8 Hour) Ventolin HFA 90 mcg/actuation 2 puff inhalation Q6H PRN 07/08/24 aerosol inhaler (albuterol sulfate) shortness of breath or wheezing 30 days #18 grams albuterol sulfate 0.63 mg/3 mL 0.63 mg (3 mL) inhalation Q4-6H 07/08/24 solution for nebulization PRN bronchospasm #90 mL docusate sodium 100 mg capsule 100 mg PO BID #90 caps 07/05/25 pantoprazole 40 mg tablet,delayed 40 mg PO DAILY #90 tabs 07/05/25 release polyethylene glycol 3350 17 17 g PO BID #850 grams 07/05/25 gram/dose oral powder azithromycin 250 mg tablet See Rx Instructions PO .COMPLEX #6 07/16/25 tabs prednisone 20 mg tablet 60 mg (3 x 20 mg) PO DAILY 3 days 07/16/25 #30 tabs tirzepatide (weight loss) 10 10 mg (0.5 mL) subcut QWEEK #2 mL 08/15/25 mg/0.5 mL subcutaneous pen injector (Zepbound) Allergies Allergy/AdvReac Type Severity Reaction Status Date / Time NSAIDS (Non-Steroidal AdvReac Mild ulcer Verified 08/25/25 23:59 Anti-Inflamma Review of Systems Review of Systems Yes all other systems are reviewed and are negative PMFSH Past Medical History Medical History Osteophyte of cervical spine Cough in adult Transaminitis Obesity (BMI 35.0-39.9 without comorbidity) Renal calculi Class 1 obesity due to excess calories with body mass index (BMI) of 34.0 to 34.9 in adult Hammertoe of left foot Bunion, left Neck pain Cervical radiculopathy Occipital headache Bronchial asthma Surgical History History of esophagogastroduodenoscopy (EGD) Hx of breast reduction, elective delivery delivered Hx of hernia repair Family History Family History Mother Hypertension Alzheimer disease Father Alzheimer disease Brother Alzheimer disease Social History Social History Housing: House Alcohol intake: current Alcohol intake frequency: holidays/special occasions only Patient Tobacco Use Status: Current someday Tobacco user Tobacco use type: Cigarette Cigarettes Per Day: 2 Years Smoked: 15 Smoked in Last 30 Days: No e-Cigarette/Vaping Use: Never Used Second Hand Smoke Exposure: Yes Use of substances other than those prescribed or required for medical reasons: No Advance Directives: No Advance Directives Information Provided: Yes service: No Current occupational status: employed 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 Vital signs as documented. HEAD: Atraumatic, normocephalic. EYES: EOMs grossly intact, pupils equal, conjunctiva clear, no exudate. ENT: Nares patent, no discharge. Airway patent, no audible stridor, visible mucosa is pink and moist without noted lesions. NECK: Trachea is midline, no obvious masses or gross abnormalities. CHEST: Symmetric movement, normal appearance. LUNGS: LS present and CTAB, no w/r/r. Non-labored work of breathing. CARDIAC: Regular Rhythm, S1/S2 appreciated, no murmurs, rubs or gallops. ABDOMEN: Abdomen soft x4 quadrants, positive tenderness to palpation of the right lower quadrant, positive rebound, negative Rovsing's, no palpable masses or organomegaly. Negative CVAT bilaterally. : Deferred. EXTREMITIES: Normal tone, moves all extremities spontaneously without reported pain. No obvious acute injury or deformity noted. NEURO: Alert and oriented x3, CN II-XII appear grossly intact. Cerebellar Functioning grossly intact. No obvious sensory or motor deficits. Speech clear and appropriate. PSYCH: normal affect, appropriate eye contact, fluid speech, with appropriate response to questioning. No reported suicidality or homicidality. SKIN: Warm, dry, color appropriate, normal turgor. No rashes noted. Medical Decision Making Medical Decision Making MDM Narrative: 2:50 AM 08/26/2025 (Jamil SCHROEDER): The patient is a 54-year-old female presenting to the ED for evaluation of right lower quadrant abdominal pain which began while at rest around 19:00 tonight. Patient reports she developed some nausea without associated vomiting, denies associated fever/chills, diarrhea, constipation, chest pain, shortness of breath. Patient denies recent sick contacts or trauma. The patient reports remote history of gastric bypass, denies other surgical abdominal history however does report history of SBO which was managed conservatively. The patient reports pain radiates from the right lower quadrant into the right flank. On exam the patient has right lower quadrant tenderness with positive rebound, negative Rovsing's, negative CVAT bilaterally. The patient's laboratory evaluation shows no leukocytosis, anemia, electrolyte abnormality, or PATTI. Patient's LFTs are unremarkable, lactic acid is normal. Lipase is normal. The patient will be treated with Toradol and IV fluid hydration, and we will obtain CT abdomen and pelvis to rule out appendicitis or identify other acute intra-abdominal pathology. 5:37 AM 08/26/2025 (Jamil SCHROEDER): The patient's CT shows no acute findings to explain the patient's pain. There was no bowel obstruction, biliary obstruction, or obstructive uropathy. Appendix is normal-appearing. There was note made of some prominence of the right ureter without a discrete stone or obstructing lesion identified, given the patient's atraumatic sudden onset of pain with the associated nausea it is possible patient was experiencing a small kidney stone, however the patient's urinalysis shows no evidence of blood. Given the patient's reassuring laboratory evaluation, CT, and urinalysis. There was no indication for admission and patient will be discharged to follow up with PCP. Admission/Observation Consideration of admission/observation: Escalation of care including admission/observation considered Lab Data MDM Lab Attestation statement: I reviewed the patient's lab results. 08/26/25 00:20 08/26/25 00:20 Labs: Lab Results 08/26/25 08/26/25 Range/Units 00:20 02:58 WBC 8.5 (4.8-10.8) X10*3/uL RBC 4.63 (4.20-5.50) X10*6/uL Hgb 14.0 (12.0-16.0) g/dl Hct 39.4 (37.0-47.0) % MCV 85.1 (80.0-98.0) fL MCH 30.2 (27.0-33.0) pg MCHC 35.5 H (31.0-35.0) g/dl RDW 15.6 (11.0-16.0) % Plt Count 280 (160-400) X10*3/uL MPV 9.7 (9.4-12.3) fL Immature Gran % (Auto) 0.2 (0.0-0.4) % Neut % (Auto) 55.3 (45-73) % Lymph % (Auto) 34.8 (20-40) % [place] % (Auto) 7.6 (2-11) % Eos % (Auto) 1.4 (0-4) % Baso % (Auto) 0.7 (0-2) % Lymph # (Auto) 3.0 (1.2-4.9) X10*3/uL [place] # (Auto) 0.7 (0.1-1.2) X10*3/uL Eos # (Auto) 0.1 (0.0-0.4) X10*3/uL Baso # (Auto) 0.1 (0.0-0.2) X10*3/uL Abs Immat Gran (auto) 0.02 (0.00-0.03) X10*3/uL Absolute Neuts (auto) 4.7 (2.0-8.3) x10*3/uL Absolute Nucleated RBC 0.000 (0.0-0.012) X10*3/uL Nucleated RBC % (auto) 0.0 (0.0-0.2) /100WBC Sodium 142 (135-145) mmol/L Potassium 4.0 (3.3-5.1) mmol/L Chloride 109 H (96-108) mmol/L Carbon Dioxide 27 (22-29) mmol/L Anion Gap 10 L (12-20) BUN 12 (9-16) mg/dL Creatinine 0.62 (0.5-1.4) mg/dL Estim Creat Clear Calc 88.1 Estimated GFR > 60 Random Glucose 87 (60-115) mg/dL Lactic Acid 0.7 (0.5-2.0) mmol/L Calcium 9.3 D (8.4-10.2) mg/dL Total Bilirubin 0.5 (0.0-1.0) mg/dL Direct Bilirubin 0.2 (0.0-0.5) mg/dL AST 35 H (5-31) U/L ALT 22 (0-31) U/L Alkaline Phosphatase 112 (39-117) U/L Total Protein 6.7 (6.5-8.0) g/dL Albumin 4.0 (3.5-5.0) g/dL Lipase 29 (8-78) U/L Urine Color Yellow Urine Appearance Clear Urine pH 6.5 (5.0-9.0) Ur Specific [place] 1.015 (1.005-1.025) Urine Protein Negative (Neg-Trace) mg/dL Urine Glucose (UA) Negative (Negative) mg/dL Urine Ketones Negative (Negative) mg/dL Urine Blood Negative (Negative) Urine Nitrite Negative (Negative) Ur Leukocyte Esterase Trace H (Negative) Urine RBC 0-2 (0-2) /HPF Urine WBC 0-5 (0-5) /HPF Ur Squamous Epith Cells 3-5 (0-2) /HPF Urine Bacteria None Seen (None Seen) Hyaline Casts 0-2 (0-2) /LPF Radiology Impression Discussion of test interpretation with radiology: I have reviewed the radiologist's reading. Radiologist Impression: CT abdomen and pelvis with contrast Comparison: CT/REG/SR - CT ABDOMEN PELVIS WO IV CON - 04/10/23 20:18 EDT Findings: No consolidation or effusion. Cholecystectomy. Unremarkable liver and spleen. No biliary ductal dilation. Pancreas, adrenal glands and kidneys demonstrate no acute parenchymal process. There is mild dilation of the right ureter along its course however no obstructing stone or lesion is identified. Punctate nonobstructing stone in the right lower pole. No bowel obstruction, pneumoperitoneum, or pneumatosis. Prior gastric bypass. Small hiatal hernia containing the gastric pouch. Unremarkable reproductive organs. Normal appendix. Prominent right-sided pelvic veins. No pelvic fluid collections. No pathologically enlarged lymph nodes or vascular dilation. No acute fracture. Lower lumbar degenerative change. IMPRESSION: No acute findings to explain the patient's right lower quadrant pain. No bowel obstruction, biliary obstruction or obstructive uropathy. Normal appendix. Mild prominence of the right ureter without a discrete stone or obstructing lesion identified. There is a punctate nonobstructing right lower pole stone. Prominent right-sided pelvic veins. This document has been electronically signed by: Mali Ferrell MD on 08/26/2025 05:31:26 Medications Administered Discontinued Medications Generic Name Dose Route Start Last Admin Trade Name Freq PRN Reason Stop Dose Admin Sodium Chloride 1,000 mls @ 999 mls/hr 08/26/25 03:00 08/26/25 03:55 Ns IV 08/26/25 04:00 Infused .Q1H1M NADIR Infusion Iohexol 100 ml 08/26/25 04:27 08/26/25 04:27 Iohexol 350 Mg/Ml 100 Ml Infus..Btl IV 08/26/25 04:28 85 ml ONCE ONE Administration Ketorolac Tromethamine 15 mg 08/26/25 02:48 08/26/25 02:56 Ketorolac Tromethamine 15 Mg/Ml Vial IVPUSH 08/26/25 02:49 15 mg ONCE ONE Administration Discharge Plan Discharge Clinical Impression: Abdominal pain Patient Disposition: Home, Self-Care Instructions: Abdominal Pain (ED) Additional Instructions: Thank you for choosing [facility]'s Emergency Department for your care today. Thankfully your laboratory evaluation, urinalysis, and CT today is reassuring. At this time there is no indication for admission to the hospital or continued ED observation, and it is safe to discharge you home. Your CT shows a normal appendix, without bowel obstruction, or active kidney stone. The exact cause of your symptoms is not entirely clear, however your right ureter was slightly dilated on the CT which may indicate your symptoms were secondary to a kidney stone which passed prior to obtaining the CT scan. Regardless, your kidney function is normal, and your urinalysis shows no evidence of an associated urinary tract infection. You may take alternating (staggered) doses of ibuprofen 600mg and Tylenol 1000mg every 4 hours as needed for any additional pain. Please stay well hydrated and get plenty of rest. Please follow up with your primary care physician for re-evaluation, additional management of your symptoms, and continued preventative care. If you do not have a primary care physician, please call the [facility] at [phone] to establish a new primary care physician. While waiting to establish your new primary care physician, you can call our Walk-in [facility] at [phone] for non-emergency needs. Please return to the emergency department if you develop a severe or sudden change in your symptoms, a fever over 100.4 that does not improve with Tylenol or Ibuprofen, recurrent vomiting, or any other new or worsening symptoms or concerns. Prescriptions: No Action Zepbound 10 mg/0.5 mL pen injector 10 mg subcut QWEEK Qty: 2 0RF acetaminophen [Tylenol 8 Hour] 650 mg tablet extended release 650 mg PO Q12H PRN (Reason: pain) Qty: 30 0RF albuterol sulfate [Ventolin HFA] 90 mcg/actuation HFA aerosol inhaler 2 puff inhalation Q6H PRN (Reason: shortness of breath or wheezing) 30 Days Qty: 18 1RF albuterol sulfate 0.63 mg/3 mL solution for nebulization 0.63 mg inhalation Q4-6H PRN (Reason: bronchospasm) Qty: 90 0RF azithromycin 250 mg tablet See Rx Instructions PO .COMPLEX Qty: 6 0RF Rx Instructions: For 250 mg dose pack: take 500 mg today (day 1), then 250 mg for 4 days (days 2-5) PO prednisone 20 mg tablet 60 mg PO DAILY 3 Days Qty: 30 0RF Rx Instructions: then take 2 and half tabs daily for 3 days, then take 2 tabs daily for 3 days, then take 1 and half tabs daily for 3 days, and then take 1 tab daily for 3 days pantoprazole 40 mg tablet,delayed release (DR/EC) 40 mg PO DAILY Qty: 90 3RF docusate sodium 100 mg capsule 100 mg PO BID Qty: 90 3RF polyethylene glycol 3350 17 gram/dose powder 17 g PO BID Qty: 850 3RF Referrals: Pam Molina MD [Primary Care Provider, Internal Medicine] Clinical Impression: Abdominal pain Print Language: Namibian
[2025-08-26 03:04] LABS: Appearance Urine Clear; Glucose Urine UA Negative (Negative); PH 6.5 (5.0-9.0); Specific Gravity - Urine 1.015 (1.005-1.025); UMIC TRIGGER UACC YES
[2025-08-26 03:24] VITALS: BP 110/77; PULSE 88; RESP 16; TEMP 36.3; O2SAT 95
[2025-08-26] MEDS: iohexoL 350 MG/ML 100 ML INFUS..BTL IV (04:27)
[2025-08-26 05:47] VITALS: BP 136/91; PULSE 85; RESP 16; TEMP 36.3; O2SAT 98
[2025-08-26 05:54] VITALS: BP 136/91; PULSE 85; RESP 16; TEMP 36.3; O2SAT 98
== END 2025-08-26 05:55 | disposition home or self-care (01) ==
PROVIDERS: Emergency Provider Emergency Medicine; PCP Internal Medicine
DX: R10.31 Right lower quadrant pain (principal); R11.0 Nausea; F17.210 Nicotine dependence, cigarettes, uncomplicated; Z79.899 Other long term (current) drug therapy
CPT/HCPCS: 36415; 74177; 80048; 80076; 81001; 83605; 83690; 85025; 96361; 96374; 99284; 99285; J1885; Q9967

== ENCOUNTER → 2025-08-26 02:48 | Outpatient (BNV) | payer OTHER, SELFPAY | PROVIDERS: Emergency Provider Emergency Medicine; PCP Internal Medicine; Visit Provider Radiology Diagnostic Radiology | DX: R10.31 Right lower quadrant pain (principal); N20.0 Calculus of kidney | CPT/HCPCS: 74177 ==

== ENCOUNTER 2025-10-06 12:27 | Outpatient (AMB) | payer OTHER, SELFPAY ==
--- NOTE | 2025-10-06 12:31 | A.OFFVIS_ITS ---
VS Expanded 10/06/25 12:45 BP 113/76 Blood Pressure Location Rt brachial Blood Pressure Position Sitting Pulse 96 Pulse Source Pulse Oximeter Temp 96.1 F L Temperature Source Temporal Artery Scan Pulse Oximetry 96 Oxygen Delivery Method Room Air Height 4 ft 11 in Weight 141 lb 9.6 oz BMI 28.6 Body Fat % 36.4 Body Fat Mass 51.6 Fat Free Mass 90.0 Visceral Fat Rating 8.0 Body Water % 45.0 Body Water Mass 63.8 Muscle Mass/Score 85.4 Basal Metabolic Rate/Score 1,241 Intake Visit Reasons: (OV) F/U ANASTOMOTIC ULCER Allergies NSAIDS (Non-Steroidal Anti-Inflamma Adverse Reaction (Mild, Verified 10/06/25 12:42) ulcer Medication List - Last Reconciled 10/06/25 by ELDA Kinney acetaminophen ER (Tylenol 8 Hour) 650 mg PO Q12H PRN albuterol sulfate 0.63 mg (3 mL) inhalation Q4-6H PRN azithromycin For 250 mg dose pack: take 500 mg today (day 1), then 250 mg for 4 days (days 2-5) PO docusate sodium 100 mg PO BID pantoprazole 40 mg PO DAILY polyethylene glycol 3350 17 grams PO BID prednisone 60 mg (3 x 20 mg) PO DAILY 3 days tirzepatide (weight loss) (Zepbound) 10 mg (0.5 mL) subcut QWEEK Ventolin HFA 90 mcg/actuation (albuterol sulfate) 2 puffs inhalation Q6H PRN 30 days NS HPI Comments Details: Pt is seen in followup for marginal ulcer. She is s/p open RYGB 20+ years ago done at [facility] ([place]). Also history of obstruction requiring surgery about 10 years ago at [facility]. She underwent endoscopy for complaints of abdominal pain, 04/23/2023 which revealed GJ anastomotic ulcer. She was placed on a liquid protein diet, PPI and carafate. Repeat endoscopy performed 07/02/2023 and showed no ulcer. She has stopped carafate. Continues on PPI. Reports no issues with abdominal pain. Taking Zepbound, so far has lost 12lbs since last OV in June. Was placed on a meal plan per Dr. Underwood with 2 shakes Premier, 1/2 scoop for one shake and 1 scoop in another, one yogurt with fruit, and one meal with 4 forks protein/4 forks salad. Takes stool softener and Miralax which helps with regular BMs although this continues to be difficult for her. Dec pt's insurance is changing to [place]. [facility] Medical History Osteophyte of cervical spine Cough in adult Transaminitis Obesity (BMI 35.0-39.9 without comorbidity) Renal calculi Class 1 obesity due to excess calories with body mass index (BMI) of 34.0 to 34.9 in adult Hammertoe of left foot Bunion, left Neck pain Cervical radiculopathy Occipital headache Bronchial asthma Surgical History History of esophagogastroduodenoscopy (EGD) Hx of breast reduction, elective delivery delivered Hx of hernia repair Family History Mother Hypertension Alzheimer disease Father Alzheimer disease Brother Alzheimer disease Social History (Updated 10/06/25 @ 12:42 by Nurys Anderson CMA) Housing: House Alcohol intake: current Alcohol intake frequency: holidays/special occasions only Patient Tobacco Use Status: Former Tobacco user Tobacco use type: Cigarette Cigarettes Per Day: 2 Years Smoked: 15 e-Cigarette/Vaping Use: Never Used Second Hand Smoke Exposure: Yes service: No Current occupational status: employed 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 She has done very well on Zepbound, no adverse effects and TBWL% loss 17.4 since starting. She has been following a structured high protein meal plan. She benefits from ongoing treatment with Zepbound and risks weight regain without ongoing therapy. RTC 4 mo. Pt will continue to text me weekly with weight updates. Medications: Refilled tirzepatide (weight loss) (Zepbound) 10 mg (0.5 mL) subcut QWEEK 2 mL 0RF
[2025-10-06 12:45] VITALS: BP 113/76; PULSE 96; TEMP 35.6; O2SAT 96; BMI 28.6
--- OUTSIDE RECORDS SUMMARY | 2025-10-06 15:35 | XMS_ITS | Clinical Summary ---
Author Organization [facility] ity Address [address] [place] [address] Care Team Providers Care Semiconductor Wafers Etch Operator Name Role Phone Unavailable Primary Care [...] 2) 2020 Depression Screening 11/24/2024 COVID-19 Vaccine ( - 2024-2 6 season) 2025 Influenza Vaccine (#1) 2025 RSV [...]
--- OUTSIDE RECORDS SUMMARY | 2025-10-06 15:35 | XMS_ITS | Patient Health Record ---
Author Organization [facility] Address [address] [address] Care Team Providers Care Office Electrician Name Role Phone Florence Campbell Primary Care Provider Unavailab Aron Hernandes Unavailable [phone] Reason For Referral No Information Medications Medication SIG (Take, Route, Fr equency, Duration) Notes Start Date End Date Status Work Note-Appointment . . . Pt had a [facility] appointment today; Duration: . 12/15/2018 Active [...] Status Risk Notes Problem Acquired hallux valgus (81635521) Hallux valgus (acquired), left foot (M20.12) Active confirmed Plan Of Treatment No Information Insurance Providers Payer Name Payer Address Payer Phone Subscriber Number Group Number Insured Name Patient Relationship to Insured Coverage Start Date Coverage End Date [facility] [id number] [place] [id number] [phone] [id number] Disha Knight Self - patient is the insured Medical (General) History Medical History History ICD Code Back,Hip,and Knee pain Arthritis gall bladder polyp Hiatal hernia Sciatica Chicken pox Sinus conditions Transfusions Surgical History Surgery Date(Month/Year) section Hernia Repair obstructive bowel gastric bypass Breast resection Surgery
--- OUTSIDE RECORDS SUMMARY | 2025-10-06 15:35 | XMS_ITS | Clinical Summary ---
Author Organization [facility] Address [address] [place] [address] Phone Care Team Providers Care Hydrotel Operator Name Role Phone Pam Molina MD [...] is leaving for 1 week vacation in [facility] and prefers to postpone pharmacologic therapy if possible. She is interested in exploring warm pool therapy and adjusting work desk to sit and stand option. She would benefit from reading book written by Dr Vince Zaidi [facility] addressing management strategies for patients with [...] 2020 INFLUENZA VACCINE (#1) 2025 COVID-19 VACCINE ( - 2024-2 6 season) 2025 RSV VACCINE (1 - 1-dose 75+ series) 2045 HEPATITIS A VACCINES Aged Out No long er eligible based on patient's age to complete this topic HIB VACCINES Aged Out No longer eligi ble based on patient's age to complete this topic IPV VACCINES Aged Out No longer eligi ble based on patient's age to complete this topic MENINGOCOCCAL VACCINES (ACWY) Aged Out No longer eligible based on patient's age to complete this topic MENINGOCOCCAL VACCINES (B) Aged Out N o longer eligible based on patient's age to complete this topic Medical Devices Not on file Insurance [facility] POS EPO [facility] POS EPO [facility] POS EPO [facility] POS EPO [facility] POS EPO [facility] POS EPO [facility] POS EPO [facility] POS EPO [facility] POS EPO Care Teams Hydrotel Operator Relationship Specialty Start Date End Date Pam Molina MD [address] [place] [address] PCP - General Internal Medicine 06/08/21 Additional Source Comments The information contained in this document represents components of the legal health record. It is not the complete legal health record.[facility]
--- OUTSIDE RECORDS SUMMARY | 2025-10-06 15:35 | XMS_ITS | Encounter Summary ---
Author Organization [facility] Address [address] [place] [address] Phone Care Team Providers Care Foreign Service Teacher Name Role Phone Pam Molina MD Primary Care Provid er Encounter Details Date Type Department Care Team (Late st Contact Info) Description 10/25/2021 Procedure Pass [address] [address] Social History Tobacco Use Types Packs/Day Years [...] on filedocumented in this encounter Care Teams Foreign Service Teacher Relationship Specialty Start Date End Date Pam Molina MD [address] [place] [address] PCP - General Internal Medicine 06/08/21 documented as of this encounter Additional Source Comments The information contained in this document represents components of the legal health record. It is not the complete legal health record.[facility]
== END 2025-10-06 13:02 | disposition home or self-care (01) ==
LOC: HO.HBS 12:27
PROVIDERS: PCP Internal Medicine; Visit Provider Physician Assistant Surgical
DX: E66.3 Overweight (principal); Z68.28 Body mass index [BMI] 28.0-28.9, adult; Z98.84 Bariatric surgery status
CPT/HCPCS: 99214